=== PATIENT | female | born 1935 | race Caucasian/White ===

== ENCOUNTER → 2016-07-14 | Day surgery (SDC) | payer OTHER, MEDICARE ==
--- NOTE | 2016-07-15 14:07 | PATH ---
Cytology Non-Gynecological Report Patient Name: ALFREDITO KAY [facility]. Rec. #: [id number] /Age/Gender: 1935 (Age: 81) / F Account: [id number] Location: RADIOLOGY ULTRA Taken: 07/14/2016 Received: 07/14/2016 Reported: 07/15/2016 Physicians: Todd Burt M.D. Specimen(s) Received LEFT THYROID FNA Clinical History Left thyroid nodule, 4.75 x 2.81 x 4.23 cm Final Diagnosis THYROID GLAND, LEFT LOBE, US GUIDED FINE NEEDLE ASPIRATION BIOPSY: SATISFACTORY FOR EVALUATION. NO MALIGNANT CELLS IDENTIFIED. CONSISTENT WITH NODULAR GOITER WITH CYSTIC CHANGE (BENIGN FOLLICULAR NODULE, BETHESDA CATEGORY II, BENIGN), SEE COMMENT. Comment: The smears and the cell block show clusters of bland appearing follicular epithelial cells arranged in mixed macro-and microfollicles. Some cells show Hurthle cell (onocytic) change. Macrophages are present indicative of cystic change. Abundant colloid is present. Electronically Signed Gregg Villarreal M.D. Gross Description Received are four air dried smears, four smears in 95% alcohol, and 20 cc of bloody fluid in formalin. Four diff-quik stained slides, four Pap stained slides and one cell block are made.
== END | disposition home or self-care (01) ==
LOC: JRADIR 08:35
PROVIDERS: ATTEND Internal Medicine Endocrinology, Diabetes & Metabolism
PROC: 0G9G3ZX Drainage of Left Thyroid Gland Lobe, Percutaneous Approach, Diagnostic (ICD-10-PCS; principal; 2016-07-14)
PROC: BG44ZZZ Ultrasonography of Thyroid Gland (ICD-10-PCS; 2016-07-14)
DX: E04.1 Nontoxic single thyroid nodule (principal)
CPT/HCPCS: 76942; 88173; 88305-TC

== ENCOUNTER 2017-10-01 21:52 | Inpatient (IN) | payer OTHER, MEDICARE ==
[2017-10-01 22:13] VITALS: BMI 25.0
[2017-10-01] MEDS ORDERED: SODIUM CHLORIDE 0.9% 1000 ML INFUS.BAG IV ONE (23:28)
[2017-10-01] MEDS ORDERED: PANTOPRAZOLE SODIUM 40 MG VIAL IVPUSH ONE (23:28)
--- NOTE | 2017-10-01 23:41 | PDOC ---
Attending Attestation - HPI HPI: 10/01/17 23:47 The patient is a 82 year old female, with a significant past medical history of hypertension, hyperlipidemia, atrial fibrillation (on eliquis), congestive heart failure, COPD, who presents to the emergency department s/p, two syncopal episodes earlier today. The patient states she has been feeling generally unwell for the past couple of days with abdominal cramps and reports when she went into her closet at home earlier today she syncopized and woke up on the floor. The patient denies any preceding chest pain, palpitations, shortness of breath, dizziness, blurred vision or nausea. However, the patient states she has been feeling generally unwell. The patient states her son was able to help her up onto her walker/chair where she syncopized one more time. The patient also states she has been having black tarry stools since Thursday (4 days). She denies recent fevers, chills, headache or dizziness. She denies recent nausea, vomit, or constipation. She denies recent dysuria, frequency, urgency or hematuria. She denies recent chest pain or shortness of breath. Allergies: NKA Surgical History: Bilateral hip replacement, tonsillectomy, hysterectomy PCP: Dr. Geoff Garcia GI: Dr. Castellano Documentation prepared by Isidro Fitch, acting as medical record retrieval specialist for Carolyn Salinas DO. - Physicial Exam PE: 10/01/17 23:49 GENERAL: Awake, alert, and fully oriented, in no acute distress HEAD: No signs of trauma EYES: +Very pale conjunctiva. PERRLA, EOMI. ENT: Auricles normal inspection, hearing grossly normal, nares patent, oropharynx clear without exudates. Moist mucosa NECK: Normal ROM, supple, no lymphadenopathy, JVD, or masses LUNGS: Breath sounds equal, clear to auscultation bilaterally. No wheezes, and no crackles HEART: Regular rate and rhythm, normal S1 and S2, no murmurs, rubs or gallops ABDOMEN: Soft, nontender, normoactive bowel sounds. No guarding, no rebound. No masses RECTAL: +Black stool. No external or internal hemorrhoids. No masses. EXTREMITIES: +Small skin abrasion to the right knee. No active bleeding. Normal range of motion, no edema. No clubbing or cyanosis. No cords, erythema, or tenderness NEUROLOGICAL: Cranial nerves II through XII grossly intact. Normal speech, normal gait SKIN: Warm, Dry, normal turgor, no rashes or lesions noted. <Isidro Fitch - Last Filed: 10/02/17 01:20> - Resident Resident Name: Danis Thompson - ED Attending Attestation I have performed the following: I have examined & evaluated the patient, The case was reviewed & discussed with the resident, I agree w/resident's findings & plan, Exceptions are as noted - Medical Decision Making 10/01/17 23:41 I, Dr. Carolyn Salinas, DO, attest that this document has been prepared under my direction and personally reviewed by me in its entirety. I further attest, that it accurately reflects all work, treatment, procedures and medical decision -making performed by me. 10/01/17 23:42 a/p: 82yo female with black stool since thursday - thought it was from eating [employer] cookie cereal -today had acute abd cramping -had black stool again -vomiting today -syncope x 2 at home - fell once in the closet and then again while sitting in a chair. -will check labs, head ct (fall ) -concern for UGIB -will give protonix -Dr. Castellano is GI -secured entrance monitor -black stool/melena on rectal exam -very pale appearance -suspect UGIB - will need admission 10/02/17 01:34 hgb 9 will need to repeat h/h q 6-8 hrs 10/02/17 01:46 [facility] accepts pt to service <Carolyn Salinas - Last Filed: 10/02/17 01:48> Heart Score/ECG Review - ECG Intrepretation Comment:: 10/02/17 00:58 afib at 70, nl axis, no acute s/tt wave findings <Carolyn Salinas - Last Filed: 10/02/17 01:48>
[2017-10-02] MEDS ORDERED: PANTOPRAZOLE SODIUM 40 MG VIAL ONE ×2 (00:23→09:09)
--- NOTE | 2017-10-02 00:40 | PDOC ---
History of Present Illness - General Chief Complaint: Syncope/Near Syncope Stated Complaint: SYNCOPE/NEAR SYNCOPE Time Seen by Provider: 10/01/17 23:10 History Source: Patient Exam Limitations: No Limitations - History of Present Illness Initial Comments: 10/02/17 00:25 The patient is an 82F with a PMH of a-fib on eliquis, HTN, Hyperlipdemia, ruptured hemorrhagic renal cyst (single kidney), Osteoarthritis, Hyperparathyroidism, Hyperthyroidism who presents to the ER with complaints of dark stool and 2 syncopal episodes. The patient states that she has had 2 days of black, tarry stools. As she was getting ready to go to the hospital and changing in her closet, when she syncopized. Her son had to be called to carry her. After this, she sat down on her walker/chair and then had a blank stare and needed to be aroused by her son. She denies any CP, SOB, fever, chills, numbness, tingling, weakness, and nausea. She does admit to vomiting NBNB. Past History - Past Medical History Allergies/Adverse Reactions: Allergies Allergy/AdvReac Type Severity Reaction Status Date / Time No Known Allergies Allergy Verified 05/05/16 17:26 Home Medications: Ambulatory Orders Cholecalciferol (Vitamin D3) [Vitamin D3 -] 1,000 unit PO Q48H 01/24/15 Fenofibrate,Micronized [Fenofibrate] 134 mg PO DAILY 01/24/15 [place]-3S/Dha/Epa/Fish Oil [Fish Oil Dr 1,000 mg Softgel] 2 each PO BID 01/24/15 Quinapril HCl [Accupril -] 40 mg PO DAILY 01/24/15 Methimazole [Tapazole -] 5 mg PO Q2D@1000 tablet 02/14/15 Vitamin B Complex 1 each PO Q2D 07/27/15 Apixaban [Eliquis -] 5 mg PO BID #60 tablet 08/29/15 Diltiazem Cd [Cardizem Cd -] 120 mg PO DAILY #30 cap.cd.24h 08/29/15 Metoprolol Tartrate [Lopressor -] 50 mg PO TID #90 tablet 08/29/15 Furosemide [Lasix -] 20 mg PO DAILY 05/05/16 Ofloxacin Otic [Floxin Otic -] 10 drop AD DAILY #70 drops 05/05/16 Cardiac Disorders: Yes (ATRIAL FIBRILLATION, CHF) COPD: Yes HTN: Yes Hypercholesterolemia: Yes Thyroid Disease: Yes - Surgical History Appendectomy: Yes Orthopedic Surgery: Yes (JESUS. HIP REPLACEMENT) - Suicide/Smoking/Psychosocial Hx Smoking History: Never smoked Have you smoked in the past 12 months: No Hx Alcohol Use: No Drug/Substance Use Hx: No Substance Use Type: None Hx Substance Use Treatment: No Review of Systems - Review of Systems Able to Perform ROS?: Yes Comments:: 10/02/17 01:06 GENERAL/CONSTITUTIONAL: No fever or chills. No weakness. HEAD, EYES, EARS, NOSE AND THROAT: No change in vision. No ear pain or discharge. No sore throat. CARDIOVASCULAR: No chest pain, palpitations, or lightheadedness. RESPIRATORY: No cough, wheezing, shortness of breath, or hemoptysis. GASTROINTESTINAL: Positive for vomiting and tarry black stools. No nausea, diarrhea, constipation, or abdominal pain. GENITOURINARY: No dysuria, frequency, hematuria, or change in urination. MUSCULOSKELETAL: No joint or muscle swelling or pain. No neck or back pain. SKIN: No rash or lesions. NEUROLOGIC: Positive for syncope. No headache, numbness, tingling, weakness, or change in strength/sensation. ENDOCRINE: No increased thirst. No abnormal weight change. HEMATOLOGIC/LYMPHATIC: No anemia, easy bleeding, or history of blood clots. ALLERGIC/IMMUNOLOGIC: No hives or skin allergy. Is the patient limited [place] proficient: No *Physical Exam - Vital Signs Last Vital Signs Temp Pulse Resp BP Pulse Ox 97.5 F L 73 20 109/54 100 10/01/17 22:08 10/01/17 22:08 10/01/17 22:08 10/01/17 22:08 10/01/17 22:08 - Physical Exam Comments: 10/02/17 01:07 GENERAL: Well developed, well nourished. Awake and alert. No acute distress. HEENT: Normocephalic, atraumatic. Hearing grossly normal. Moist mucous membranes. PERRLA, EOMI. No conjunctival pallor. Sclera are non-icteric. NECK: Supple. Full ROM. No JVD. CARDIOVASCULAR: Regular rate and rhythm. No murmurs, rubs, or gallops. PULMONARY: No evidence of respiratory distress. Lungs clear to auscultation bilaterally. No wheezing, rales or rhonchi. ABDOMINAL: Soft. Non-tender. Non-distended. No rebound or guarding. RECTAL: Normal rectal tone. Grossly black stool noted. GENITOURINARY: No CVA tenderness bilaterally. MUSCULOSKELETAL: Normal range of motion at all joints. No bony deformities or tenderness. EXTREMITIES: No cyanosis. No clubbing. No edema. No calf tenderness. SKIN: Warm and dry. Normal capillary refill. No rashes. No jaundice. NEUROLOGICAL: Alert, awake, appropriate. Cranial nerves 2-12 intact. No deficits to light touch and temperature in face, upper extremities and lower extremities. No motor deficits in the in face, upper extremities and lower extremities. Finger to nose normal bilaterally. Normal speech. Gait is normal without ataxia. PSYCHIATRIC: Cooperative. Good eye contact. Appropriate mood and affect. ED Treatment Course - LABORATORY CBC & Chemistry Diagram: 10/02/17 00:50 10/02/17 00:50 - ADDITIONAL ORDERS Additional order review: Laboratory Results 10/01/17 23:54 Stool Occult Blood Positive Medical Decision Making - Medical Decision Making 10/02/17 01:09 The patient is an 82F with an extensive medical history, on eliquis, who presents with black, tarry stools and 2 syncopal episodes. Will check labs and imaging of the pt's head. Pending labs and imaging. Likely disposition is admission. 10/02/17 01:13 Labs significant for Hb of 9.0, down from 11.5. UA indicative of UTI, will tx with rocephin. Stool occult positive. Hospitalist microblogged for admission to [facility] bed. 10/02/17 01:39 Pt endorsed to [facility] for admission. *DC/Admit/Observation/Transfer Diagnosis at time of Disposition: Syncope Qualifiers: Syncope type: unspecified Qualified Code(s): R55 - Syncope and collapse - Discharge Dispostion Condition at time of disposition: Guarded Admit: Yes - Referrals Referrals: Gerry Garcia MD [Primary Care Provider] - - Patient Instructions - Post Discharge Activity
[2017-10-02 00:59] LABS: BASO % 0.3 % (0-2.0); HEMATOCRIT 27.9 % (32.4-45.2); LYMPH % 9.4 % (8-40); MCHC 32.2 g/dl (32.0-36.0); MEAN CELL VOLUME 90.1 fl (80-96); MEAN PLT VOLUME 10.3 fl (7.5-11.1); MONO % 5.5 % (3.8-10.2); NEUT % 84.8 % (42.8-82.8); PLATELET COUNT 218 K/MM3 (134-434); RBC 3.09 M/mm3 (3.60-5.2); RDW 15.2 % (11.6-15.6); WHITE BLOOD COUNT 12.5 K/mm3 (4.0-10.0)
[2017-10-02 01:01] LABS: URINE APPEARANCE CLEAR; URINE BILIRUBIN NEGATIVE (<2.0 mg/dL); URINE BLOOD 3+ (NEGATIVE); URINE COLOR LTYELLOW; URINE GLUCOSE (UA) NEGATIVE (NEGATIVE); URINE KETONE NEGATIVE (NEGATIVE); URINE LEUK ESTERASE 1+ (NEGATIVE); URINE NITRITE NEGATIVE (NEGATIVE); URINE PROTEIN NEGATIVE (NEGATIVE); URINE UROBILINOGEN NEGATIVE mg/dL (0.2-1.0)
[2017-10-02 01:05] LABS: EPI CELLS RARE /HPF (FEW); URINE BACTERIA RARE /hpf (NONE SEEN); URINE MUCUS RARE
[2017-10-02 01:15] LABS: INR 1.38 (0.82-1.09); PROTHROMBIN TIME (PATIENT) 15.6 SEC (9.98-11.88)
[2017-10-02 01:17] LABS: ACTIVATED PTT 25.8 SECONDS (26.9-34.4)
[2017-10-02] MEDS ORDERED: CEFTRIAXONE 1 GM in DEXTROSE 5%-WATER - 50 ML IVPB ONE (01:21)
[2017-10-02 01:34] LABS: ALBUMIN 2.6 g/dl (3.4-5.0); ANION GAP 11 (8-16); BILIRUBIN,TOTAL 0.4 mg/dL (0.2-1.0); BLOOD UREA NITROGEN 81 mg/dL (7-18); CALCIUM 9.8 mg/dL (8.5-10.1); CHLORIDE 109 mmol/L (98-107); CO2 23 mmol/L (21-32); CREATININE 1.9 mg/dL (0.55-1.02); GLUCOSE,RANDOM 148 mg/dL (74-106); MAGNESIUM 2.6 mg/dL (1.8-2.4); POTASSIUM 5.6 mmol/L (3.5-5.1); SGOT/AST 21 U/L (15-37); SGPT/ALT 19 U/L (12-78); SODIUM 143 mmol/L (136-145)
[2017-10-02 01:37] LABS: ALK PHOS 34 U/L (45-117)
--- NOTE | 2017-10-02 01:48 | HP ---
CHIEF COMPLAINT: syncope PCP: Jose HISTORY OF PRESENT ILLNESS: This is an 82 year old female with a past medical history significant for Afib on eliquis, HTN, CHF who presented to the ED after syncope x2. The patient reports not feeling well this afternoon with abdominal cramping and while she was getting ready to come to the ED for the abdominal discomfort she had 2 syncopal episodes. No injury during either. Second episode was witnessed by son and and pt was lowered into chair. First episode happened while she was getting dressed in the closet so she stayed sitting on the floor until her son arrived. She also reports black tarry stools x 2 days. ER course was notable for: (1) Hgb 9.0, + stool guaiac (2) Potassium 5.6, BUN 81, Cr 1.9 (3) Head CT no acute findings Recent Travel: pt denies PAST MEDICAL HISTORY: HTN, HLD, afib on Eliquis, CHF, COPD, ruptured hemorrhagic renal cyst 2014, pancreatitis 2015, congenital solitary kidney, hyperthyroidism, hyperparathyroidism, OA PAST SURGICAL HISTORY: appendectomy hysterectomy B/L THR L breast lumpectomy/partial mastectomy Social History: Smoking: pt denies Alcohol: pt denies Drugs: pt denies Family History: mother in her 40s, TB father in his 60s, comps EtOH 2 sisters both s/p BrCA niece s/p bone CA nephew s/p esophageal CA Allergies No Known Allergies Allergy (Verified 05/05/16 17:26) HOME MEDICATIONS: 3 Medication Instructions Recorded Cholecalciferol (Vitamin D3) 1,000 unit PO Q48H 01/24/15 [Vitamin D3 -] Fenofibrate,Micronized 134 mg PO DAILY 01/24/15 [Fenofibrate] [place]-3S/Dha/Epa/Fish Oil [Fish 2 each PO BID 01/24/[address] 1,000 mg Softgel] Quinapril HCl [Accupril -] 40 mg PO DAILY 01/24/15 Methimazole [Tapazole -] 5 mg PO Q2D@1000 tablet 02/14/15 Vitamin B Complex 1 each PO Q2D 07/27/15 Apixaban [Eliquis -] 5 mg PO BID #60 tablet 08/29/15 Diltiazem Cd [Cardizem Cd -] 120 mg PO DAILY #30 cap.cd.24h 08/29/15 Metoprolol Tartrate [Lopressor -] 50 mg PO TID #90 tablet 08/29/15 Furosemide [Lasix -] 20 mg PO DAILY 05/05/16 Ofloxacin Otic [Floxin Otic -] 10 drop AD DAILY #70 drops 05/05/16 REVIEW OF SYSTEMS CONSTITUTIONAL: Absent: fever, chills, diaphoresis, generalized weakness, malaise, loss of appetite, weight change HEENT: Absent: rhinorrhea, nasal congestion, throat pain, throat swelling, difficulty swallowing, mouth swelling, ear pain, eye pain, visual changes CARDIOVASCULAR: Present: syncope Absent: chest pain, palpitations, irregular heart rate, lightheadedness, peripheral edema RESPIRATORY: Absent: cough, shortness of breath, dyspnea with exertion, orthopnea, wheezing, stridor, hemoptysis GASTROINTESTINAL: Present: abdominal pain, melena Absent: abdominal distension, nausea, vomiting, diarrhea, constipation, hematochezia GENITOURINARY: Absent: dysuria, frequency, urgency, hesitancy, hematuria, flank pain, genital pain MUSCULOSKELETAL: Absent: myalgia, arthralgia, joint swelling, back pain, neck pain SKIN: Absent: rash, itching, pallor HEMATOLOGIC/IMMUNOLOGIC: Absent: easy bleeding, easy bruising, lymphadenopathy, frequent infections ENDOCRINE: Absent: unexplained weight gain, unexplained weight loss, heat intolerance, cold intolerance NEUROLOGIC: Absent: headache, focal weakness or paresthesias, dizziness, unsteady gait, seizure, mental status changes, bladder or bowel incontinence PSYCHIATRIC: Absent: anxiety, depression, suicidal or homicidal ideation, hallucinations. PHYSICAL EXAMINATION Vital Signs - 24 hr 3 10/01/17 22:08 Temperature 97.5 F L Pulse Rate 73 Respiratory 20 Rate Blood Pressure 109/54 O2 Sat by Pulse 100 Oximetry (%) GENERAL: Awake, alert, and fully oriented, in no acute distress. HEAD: Normal with no signs of trauma. EYES: Pupils equal, round and reactive to light, extraocular movements intact, sclera anicteric, conjunctiva pale. No lid lag. EARS, NOSE, THROAT: Ears normal, nares patent, oropharynx clear without exudates. Moist mucous membranes. NECK: Normal range of motion, supple without lymphadenopathy, JVD, or masses. LUNGS: Breath sounds equal, clear to auscultation bilaterally. No wheezes, and no crackles. No accessory muscle use. HEART: Regular rate and rhythm, normal S1 and S2 without murmur, rub or gallop. ABDOMEN: Soft, nontender, not distended, normoactive bowel sounds, no guarding, no rebound, no masses. No hepatomegaly or splenomegaly. MUSCULOSKELETAL: Normal range of motion at all joints. No bony deformities or tenderness. No CVA tenderness. UPPER EXTREMITIES: 2+ pulses, warm, well-perfused. No cyanosis. No clubbing. No peripheral edema. LOWER EXTREMITIES: 2+ pulses, warm, well-perfused. No calf tenderness. No peripheral edema. NEUROLOGICAL: Cranial nerves II-XII intact. Normal speech. Normal gait. PSYCHIATRIC: Cooperative. Good eye contact. Appropriate mood and affect. SKIN: Pale, Warm, dry, normal turgor, no rashes or lesions noted, normal capillary refill. Laboratory Results - last 24 hr 3 Urine Color Ltyellow 10/02/17 00:50 Urine Appearance Clear 10/02/17 00:50 Urine pH 5.0 (5.0-8.0) 10/02/17 00:50 Ur Specific [employer] 1.012 (1.001-1.035) 10/02/17 00:50 Urine Protein Negative (NEGATIVE) 10/02/17 00:50 Urine Glucose (UA) Negative (NEGATIVE) 10/02/17 00:50 Urine Ketones Negative (NEGATIVE) 10/02/17 00:50 Urine Blood 3+ (NEGATIVE) H 10/02/17 00:50 Urine Nitrite Negative (NEGATIVE) 10/02/17 00:50 Urine Bilirubin Negative (<2.0 mg/dL) 10/02/17 00:50 Ur Leukocyte Esterase 1+ (NEGATIVE) H 10/02/17 00:50 Urine WBC (Auto) 7 10/02/17 00:50 Urine RBC (Auto) 12 10/02/17 00:50 Ur Epithelial Cells Rare /HPF (FEW) 10/02/17 00:50 Urine Bacteria Rare /hpf (NONE SEEN) 10/02/17 00:50 Urine Mucus Rare 10/02/17 00:50 3 10/01/17 10/02/17 10/02/17 10/02/17 23:54 00:50 00:50 00:50 WBC RBC Hgb Hct MCV MCH MCHC RDW Plt Count MPV Neutrophils % Lymphocytes % Monocytes % Eosinophils % Basophils % PT with INR 15.60 H INR 1.38 H PTT (Actin FS) 25.8 L Sodium 143 Potassium 5.6 H Chloride 109 H Carbon Dioxide 23 Anion Gap 11 BUN 81 H Creatinine 1.9 H Creat Clearance w eGFR 25.18 Random Glucose 148 H Lactic Acid 1.5 Calcium 9.8 Magnesium 2.6 H Total Bilirubin 0.4 AST 21 ALT 19 Alkaline Phosphatase 34 L Creatine Kinase 41 Troponin I < 0.02 B-Natriuretic Peptide Total Protein 6.0 L Albumin 2.6 L Lipase 258 Urine Color Urine Appearance Urine pH Ur Specific [employer] Urine Protein Urine Glucose (UA) Urine Ketones Urine Blood Urine Nitrite Urine Bilirubin Urine Urobilinogen Ur Leukocyte Esterase Urine WBC (Auto) Urine RBC (Auto) Ur Epithelial Cells Urine Bacteria Urine Mucus Stool Occult Blood Positive Blood Type Antibody Screen 3 10/02/17 10/02/17 10/02/17 00:50 00:50 00:50 WBC 12.5 H D RBC 3.09 L D Hgb 9.0 L D Hct 27.9 L D MCV 90.1 MCH 29.0 D MCHC 32.2 RDW 15.2 Plt Count 218 D MPV 10.3 D Neutrophils % 84.8 H D Lymphocytes % 9.4 D Monocytes % 5.5 Eosinophils % 0.0 D Basophils % 0.3 PT with INR INR PTT (Actin FS) Sodium Potassium Chloride Carbon Dioxide Anion Gap BUN Creatinine Creat Clearance w eGFR Random Glucose Lactic Acid Calcium Magnesium Total Bilirubin AST ALT Alkaline Phosphatase Creatine Kinase Troponin I B-Natriuretic Peptide 2331.98 H Total Protein Albumin Lipase Urine Color Urine Appearance Urine pH Ur Specific [employer] Urine Protein Urine Glucose (UA) Urine Ketones Urine Blood Urine Nitrite Urine Bilirubin Urine Urobilinogen Ur Leukocyte Esterase Urine WBC (Auto) Urine RBC (Auto) Ur Epithelial Cells Urine Bacteria Urine Mucus Stool Occult Blood Blood Type O POSITIVE Antibody Screen Negative ECG atrial fibrillation vent rate 72, QTC [address]/T wave changes Radiology Reports CT head THIS IS A PRELIMINARY REPORT FROM [facility] IMPRESSION: Normal head THIS DOCUMENT HAS BEEN ELECTRONICALLY SIGNED Chucho Morales MD 10/02/2017 01:12 EST ASSESSMENT/PLAN: 82yF with PMH HTN, HLD, afib on Eliquis, CHF, COPD, ruptured hemorrhagic renal cyst 2014, pancreatitis 2015, congenital solitary kidney, hyperthyroidism, hyperparathyroidism, OA presented to the ED s/p syncope after a 2 day h/o black tarry stools and one day of abdominal cramping. GI bleed - NPO for now - GI consult - Trend H/H - hold eliquis - pantoprazole IVP given in ED, cont same. Hyperkalemia - no peaked Ts on ECG - will not correct; if bleeding continues, K likely will drop - repeat BMP in 6h HTN/HLD/CHF - cont home metoprolol, cardizem with hold parameters - hold quinapril unless hypertensive - hold lasix, pt appears hypovolemic - hold fenofibrate, omega 3 while NPO Afib - cont rate controlling meds but hold eliquis hyperthyroid - cont tapazol DVT PPX - heparin contraindicated due to bleeding, restart eliquis when cleared by GI FEN - NS @ 75cc/hr - BMP in am - NPO for now Dispo: Pt currently requires further observation for management of her emergent condition. Visit type - Emergency Visit Emergency Visit: Yes ED Registration Date: 10/01/17 Care time: The patient presented to the Emergency Department on the above date and was hospitalized for further evaluation of their emergent condition. - New Patient This patient is new to me today: Yes Date on this admission: 10/02/17 - Critical Care Critical Care patient: No Hospitalist Screening - Colonoscopy Questionnaire Colonoscopy Questionnaire: Colonoscopy Questionnaire - Patient: 50 - 75 years old and never had a screening colonoscopy: No History of colon or rectal polyps, or CA: No History of IBD, Crohn's disease or UC: No History of abdominal radiation therapy as a child: No - Relative: 1 with colon or rectal CA, or polyps at age 60 or younger: No Colon or rectal CA diagnosed at age 45 or younger: No Multiple relatives with colon or rectal CA: No - Outcome: Screening Result: Negative Screen
[2017-10-02] MEDS ORDERED: SODIUM CHLORIDE 1,000 ML IV SCH ×2 (02:00→16:30)
[2017-10-02] MEDS ORDERED: CEFTRIAXONE 1 GM/50 ML BAG ONE (03:15)
[2017-10-02] MEDS ORDERED: METOPROLOL TARTRATE 50 MG TABLET (FP) ONE (06:20)
[2017-10-02] MEDS: METOPROLOL TARTRATE 50 MG TABLET (FP) PO SCH ×3 (06:26→21:25)
[2017-10-02 06:31] LABS: BASO % 0.3 % (0-2.0); HEMATOCRIT 23.4 % (32.4-45.2); HEMOGLOBIN 7.5 GM/dL (10.7-15.3); LYMPH % 14.2 % (8-40); MCH 28.6 pg (25.7-33.7); MCHC 31.9 g/dl (32.0-36.0); MEAN CELL VOLUME 89.8 fl (80-96); MEAN PLT VOLUME 10.1 fl (7.5-11.1); NEUT % 79.5 % (42.8-82.8); PLATELET COUNT 206 K/MM3 (134-434); RDW 15.3 % (11.6-15.6); WHITE BLOOD COUNT 11.7 K/mm3 (4.0-10.0)
[2017-10-02] MEDS ORDERED: PANTOPRAZOLE SODIUM 80 MG in SODIUM CHLORIDE 100 ML IVPB SCH (09:00)
--- NOTE | 2017-10-02 09:40 | PN ---
Progress Note, Physician Chief Complaint: Pt lying in stretcher in no acute distress. Currently receiving prbcs. Reports she is feeling okay. Denies any sob,weakness, chest pain, n/v. Pt reports she's had 2 loose black tarry stools since being here. awaiting endoscopy later today - Current Medication List Current Medications: Active Medications Diltiazem HCl (Cardizem Cd -) 120 mg PO DAILY [facility] Sodium Chloride (Normal Saline -) 1,000 mls @ 75 mls/hr IV ASDIR [facility] Last Admin: 10/02/17 02:38 Dose: 75 mls/hr Pantoprazole Sodium 160 mg/ (Dextrose) 290 mls @ 14.5 mls/hr IVPB Q20H JORGE Methimazole (Tapazole -) 5 mg PO Q2D@1000 JORGE Metoprolol Tartrate (Lopressor -) 50 mg PO TID [facility] Last Admin: 10/02/17 06:26 Dose: 50 mg - Objective Vital Signs: Vital Signs Temperature 98.5 F 10/02/17 06:33 Pulse Rate 88 10/02/17 06:33 Respiratory Rate 17 10/02/17 06:33 Blood Pressure 145/64 10/02/17 06:33 O2 Sat by Pulse Oximetry (%) 96 10/02/17 06:33 Constitutional: Yes: Well Nourished, No Distress Cardiovascular: Yes: WNL, Pulse Irregular. No: Bruit, Gallop, Murmur, Rub Respiratory: Yes: WNL, Regular, CTA Bilaterally. No: Rhonchi, SOB, Tachypnea, Wheezes Gastrointestinal: Yes: Normal Bowel Sounds, Soft, Melena. No: Distention, Tenderness Genitourinary: Yes: WNL Extremities: Yes: WNL Edema: No Neurological: Yes: WNL, Alert, Oriented Psychiatric: Yes: WNL, Alert, Oriented Labs: CBC, BMP 10/02/17 00:50 INR, PTT INR 1.38 (0.82-1.09) H 10/02/17 00:50 Problem List - Problems (1) Anemia Assessment/Plan: secondary to GIB, asymptomatic, hemodynamically stable melenax2 days h/h trending down prbcs ordered protonix drip GI consult appreciated npo, hold AC plan for egd today monitor cbc Code(s): D64.9 - ANEMIA, UNSPECIFIED (2) GIB (gastrointestinal bleeding) Assessment/Plan: as above Code(s): K92.2 - GASTROINTESTINAL HEMORRHAGE, UNSPECIFIED Qualifiers: GI bleed type/associated pathology: melena Qualified Code(s): K92.1 - Melena (3) Syncope Assessment/Plan: w/out head trauma secondary to acute anemia/dehydration head ct neg xray neg PT eval ordered Code(s): R55 - SYNCOPE AND COLLAPSE Qualifiers: Syncope type: unspecified Qualified Code(s): R55 - Syncope and collapse (4) ESSENCE (acute kidney injury) Assessment/Plan: secondary to dehydration IVF will monitor Code(s): N17.9 - ACUTE KIDNEY FAILURE, UNSPECIFIED (5) Leukocytosis Assessment/Plan: afebrile, chest xray neg possibly falsely elevated in the setting of dehydration IVF monitor vitals Code(s): D72.829 - ELEVATED WHITE BLOOD CELL COUNT, UNSPECIFIED (6) Hyperkalemia Assessment/Plan: mildly elevated secondary to dehydration/ckd will monitor for now Code(s): E87.5 - HYPERKALEMIA (7) Atrial fibrillation Assessment/Plan: rate controlled continue metoprolol and cardizem hold eliquis in the setting of GIB Code(s): I48.91 - UNSPECIFIED ATRIAL FIBRILLATION Qualifiers: Atrial fibrillation type: chronic Qualified Code(s): I48.2 - Chronic atrial fibrillation (8) HLD (hyperlipidemia) Assessment/Plan: stable hold fibrate/fishoil in the setting of ESSENCE Code(s): E78.5 - HYPERLIPIDEMIA, UNSPECIFIED Qualifiers: Hyperlipidemia type: Pure hypercholesterolemia (9) HTN (hypertension) Assessment/Plan: controlled hold acei in the setting of essence Code(s): I10 - ESSENTIAL (PRIMARY) HYPERTENSION Qualifiers: Hypertension type: essential hypertension Qualified Code(s): I10 - Essential (primary) hypertension (10) Hyperparathyroidism Assessment/Plan: stable, Ca wnl Code(s): E21.3 - HYPERPARATHYROIDISM, UNSPECIFIED (11) CKD (chronic kidney disease) Assessment/Plan: acute on chronic, pt with unilateral kidney baseline cr 1.4-1.5 ivf will monitor Code(s): N18.9 - CHRONIC KIDNEY DISEASE, UNSPECIFIED Qualifiers: Chronic kidney disease stage: stage 3 (moderate) Qualified Code(s): N18.3 - Chronic kidney disease, stage 3 (moderate) (12) Hyperthyroidism Assessment/Plan: stable continue tapazole Code(s): E05.90 - THYROTOXICOSIS, UNSP WITHOUT THYROTOXIC CRISIS OR STORM
[2017-10-02 09:45] LABS: BASO % 0.9 % (0-2.0); HEMATOCRIT 23.5 % (32.4-45.2); HEMOGLOBIN 7.4 GM/dL (10.7-15.3); MCHC 31.6 g/dl (32.0-36.0); MEAN CELL VOLUME 91.6 fl (80-96); MEAN PLT VOLUME 10.7 fl (7.5-11.1); MONO % 6.8 % (3.8-10.2); NEUT % 78.3 % (42.8-82.8); PLATELET COUNT 199 K/MM3 (134-434); RBC 2.56 M/mm3 (3.60-5.2); RDW 15.3 % (11.6-15.6); WHITE BLOOD COUNT 13.1 K/mm3 (4.0-10.0)
--- NOTE | 2017-10-02 09:54 | EKG ---
Test Reason : Blood Pressure : / mmHG Vent. Rate : 072 BPM Atrial Rate : 054 BPM P-R Int : 000 ms QRS Dur : 084 ms QT Int : 360 ms P-R-T Axes : 000 048 051 degrees QTc Int : 394 ms ATRIAL FIBRILLATION ABNORMAL ECG WHEN COMPARED WITH ECG OF 23-AUG-2015 02:08, NO SIGNIFICANT CHANGE WAS FOUND Confirmed by DONNA HURD MD ([id number]) on 10/02/2017 9:54:01 AM Referred By: Confirmed By:DONNA HURD MD
[2017-10-02] MEDS ORDERED: PANTOPRAZOLE SODIUM 40 MG VIAL IVPUSH SCH (10:00)
[2017-10-02] MEDS: METHIMAZOLE 5 MG TABLET (FP) PO SCH (11:25)
[2017-10-02] MEDS: PANTOPRAZOLE SODIUM 160 MG in DEXTROSE 5%-WATER - 290 ML IVPB SCH ×2 (13:36→21:25)
[2017-10-02] MEDS ORDERED: EPINEPHrine 1:10,000 (P-F SYR) 1 MG/10 ML DISP.SYRIN SQ ONE (16:00)
[2017-10-02] MEDS ORDERED: EPINEPHrine 1:10,000 (P-F SYR) 1 MG/10 ML DISP.SYRIN ONE (16:09)
--- NOTE | 2017-10-02 16:19 | PN ---
Progress Note (short form) - Note Progress Note: GI ProcedureNOte: Please see scanned EGD report. Active bleeding was found just distal to the duodenal bulb where the ulcer could not be seen or treated en face. I instead injection from it's posterior aspect with epinephrine and the bleeding stopped. There was a large duodenal diverticulum in the 2nd portion of the duodenum. I cannot exclude bleeding form the is portion but given that the bleeding stopped after my injection I believe this reflects a postbulbar ulcer. I discussed the case with Yareli Harris. [employer] and advised a surgical consultation. If bleeding recurs she will need a CTA and perhaps IR intervention as this ulcer cannot be accessed for cautery. Dr Evangelista will be covering this weekend
[2017-10-02] MEDS ORDERED: PHYTONADIONE 10 MG/1 ML AMP IVPB ONE (16:22)
--- NOTE | 2017-10-02 16:38 | CONSULT ---
Consult Consult Specialty:: general surgery Referred by:: Steven Downs Reason for Consultation:: UGIB - History of Present Illness Chief Complaint: UGIB and syncope History of Present Illness: 82 yo female PMH HTN, Afib on eloquis, CHF, HLD, hyperparathyroid, hyperthyroidism presents with abdominal cramping and while she was getting ready to come to the ED for the abdominal discomfort she had 2 syncopal episodes. No injury during either. Second episode was witnessed by son and and patient was lowered into chair. First episode happened while she was getting dressed in the closet so she stayed sitting on the floor until her son arrived. She also reports black tarry stools x 2 days. EDG revealed a proximal bleeding duodenal ulcer, which was injected with epinephrine and stopped bleeding. We were asked to assess - History Source History Provided By: Patient, Medical Record Limitations to Obtaining History: No Limitations - Past Medical History Cardio/Vascular: Yes: AFIB, HTN, Hyperlipdemia Renal/: Yes: Other (ruptured hemorrhagic renal cyst, single kidney) Musculoskeletal: Yes: Osteoarthritis Endocrine: Yes: Hyperparathyroidism, Hyperthyroidism - Past Surgical History Past Surgical History: Yes: Appendectomy, Hysterectomy, Joint Replacement, Mastectomy - Alcohol/Substance Use Hx Alcohol Use: No History of Substance Use: reports: None - Smoking History Smoking history: Never smoked Have you smoked in the past 12 months: No - Social History ADL: Independent Place of : [facility] History of Recent Travel: No Home Medications - Allergies Allergies/Adverse Reactions: Allergies Allergy/AdvReac Type Severity Reaction Status Date / Time No Known Allergies Allergy Verified 10/02/17 04:32 - Home Medications Home Medications: Ambulatory Orders Cholecalciferol (Vitamin D3) [Vitamin D3 -] 1,000 unit PO Q48H 01/24/15 Fenofibrate,Micronized [Fenofibrate] 134 mg PO DAILY 01/24/15 [place]-3S/Dha/Epa/Fish Oil [Fish Oil Dr 1,000 mg Softgel] 2 each PO BID 01/24/15 Quinapril HCl [Accupril -] 40 mg PO DAILY 01/24/15 Methimazole [Tapazole -] 5 mg PO Q2D@1000 tablet 02/14/15 Vitamin B Complex 1 each PO Q2D 07/27/15 Apixaban [Eliquis -] 5 mg PO BID #60 tablet 08/29/15 Diltiazem Cd [Cardizem Cd -] 120 mg PO DAILY #30 cap.cd.24h 08/29/15 Metoprolol Tartrate [Lopressor -] 50 mg PO TID #90 tablet 08/29/15 Furosemide [Lasix -] 20 mg PO DAILY 05/05/16 Ofloxacin Otic [Floxin Otic -] 10 drop AD DAILY #70 drops 05/05/16 Family Disease History - Family Disease History Family Disease History: CA: Sister Review of Systems - Review of Systems Constitutional: denies: Chills, Fever Eyes: denies: Blind Spots, Blurred Vision HENT: denies: Difficult Swallowing, Throat Pain Neck: denies: Decreased ROM, Pain on Movement Cardiovascular: denies: Chest Pain, Palpitations Respiratory: denies: Cough, SOB Gastrointestinal: reports: Melena. denies: Abdominal Pain, Constipation, Diarrhea Genitourinary: denies: Discharge, Dysuria Breasts: reports: No Symptoms Reported. denies: Pain Musculoskeletal: denies: Muscle Pain, Muscle Weakness Integumentary: denies: Lesions, Rash Neurological: denies: Change in LOC, Seizure, Syncope Endocrine: denies: Unexplained Weight Gain, Unexplained Weight Loss Hematology/Lymphatic: denies: Easily Bruised, Excessive Bleeding Psychiatric: denies: Anxiety, Depression Physical Exam Vital Signs: Vital Signs Temperature 98.9 F 10/02/17 15:48 Pulse Rate 84 10/02/17 16:18 Respiratory Rate 22 10/02/17 16:18 Blood Pressure 131/67 10/02/17 16:18 O2 Sat by Pulse Oximetry (%) 100 10/02/17 16:18 Vital Signs Period Temp Pulse Resp BP Sys/Reynoso Pulse Ox Last 24 Hr 97.5 F-98.9 F 70-89 15-23 105-145/50-68 96-100 Constitutional: Yes: Well Nourished, No Distress, Calm Eyes: Yes: Conjunctiva Clear, EOM Intact HENT: Yes: Atraumatic, Normocephalic Neck: Yes: Supple, Trachea Midline Cardiovascular: Yes: Pulse Irregular, S1, S2 Respiratory: Yes: Regular, CTA Bilaterally Gastrointestinal: Yes: Normal Bowel Sounds, Soft. No: Ascites, Distention, Tenderness, Tenderness, Epigastrium, Tenderness, Rebound ...Rectal Exam: Yes: Sphincter Tone Normal. No: Mass Renal/: No: CVA Tenderness - Left, CVA Tenderness - Right Musculoskeletal: No: Muscle Pain, Muscle Weakness Extremities: No: Cool, Cyanosis Edema: No Peripheral Pulses WNL: Yes Integumentary: No: Jaundice, Rash Neurological: Yes: Alert, Oriented Psychiatric: Yes: Alert, Oriented Labs: CBC, BMP 10/02/17 09:30 10/02/17 00:50 Imaging - Results Chest X-ray: Report Reviewed (right tracheal deviation), Image Reviewed EKG: Report Reviewed (A fib), Image Reviewed Problem List - Problems (1) Duodenal ulcer Assessment/Plan: 82 yo female MMP on Eloqis presented with a Bleeding doudenal ulcer causing syncopal episodes s/p EGD epineprine injection Monitored setting IVF hydration clear liquids PPI If there is re-bleeding, recall GI Dr. Evangelista to make him aware If bleeding is substantial AND Patient remains hemodynamically stable: contact Interventional Radiologist for vicerral angiography and embolization/ OR Transfer for this service Patient becomes hemodynamically unstable: Call Dr. Carney for Expl Lap, duodenotomy and oversewing Will follow for serial exams Thank you for the opportunity to participate in the care of this patient. Code(s): K26.9 - DUODENAL ULCER, UNSP ACUTE OR CHRONIC, W/O HEMOR OR PERF (2) GIB (gastrointestinal bleeding) Code(s): K92.2 - GASTROINTESTINAL HEMORRHAGE, UNSPECIFIED Qualifiers: GI bleed type/associated pathology: melena Qualified Code(s): K92.1 - Melena (3) CKD (chronic kidney disease) Code(s): N18.9 - CHRONIC KIDNEY DISEASE, UNSPECIFIED Qualifiers: Chronic kidney disease stage: stage 3 (moderate) Qualified Code(s): N18.3 - Chronic kidney disease, stage 3 (moderate) (4) Hyperthyroidism Code(s): E05.90 - THYROTOXICOSIS, UNSP WITHOUT THYROTOXIC CRISIS OR STORM (5) Syncope Code(s): R55 - SYNCOPE AND COLLAPSE Qualifiers: Syncope type: unspecified Qualified Code(s): R55 - Syncope and collapse (6) Atrial fibrillation Code(s): I48.91 - UNSPECIFIED ATRIAL FIBRILLATION Qualifiers: Atrial fibrillation type: chronic Qualified Code(s): I48.2 - Chronic atrial fibrillation (7) HLD (hyperlipidemia) Code(s): E78.5 - HYPERLIPIDEMIA, UNSPECIFIED Qualifiers: Hyperlipidemia type: Pure hypercholesterolemia (8) HTN (hypertension) Code(s): I10 - ESSENTIAL (PRIMARY) HYPERTENSION Qualifiers: Hypertension type: essential hypertension Qualified Code(s): I10 - Essential (primary) hypertension
--- NOTE | 2017-10-02 16:45 | CON.GI ---
Consult Consult Specialty:: Gastroenterology Referred by:: Dr Garcia Reason for Consultation:: Melena - History of Present Illness Chief Complaint: Black stools for 3 days. History of Present Illness: 82F BIBA after suffering two near syncopal spells in the setting of black stools for 3 days. She denies hematemesis or pain. She take Eliquis for afib. Her last EGD on 12/27/07 revealed a Schatzki ring which was dilated and GERD above a hiatal hernia. Colonoscopy on 09/10/07 revealed moderate universal diverticulosis. She has a main pancreatic duct IPMN and has opted against having a repeat EUS. - History Source History Provided By: Patient Limitations to Obtaining History: No Limitations - Past Medical History DISTRIBUTION TECH: Yes: Parkinson's Cardio/Vascular: Yes: AFIB, CHF, HTN, Hyperlipdemia Pulmonary: Yes: Bronchitis (chronic) Gastrointestinal: Yes: Diverticulosis, GERD, Hiatal Hernia, Other (Main pancreatic duct IPMN) Renal/: Yes: Other (ruptured hemorrhagic renal cyst, single kidney) Musculoskeletal: Yes: Osteoarthritis Endocrine: Yes: Hyperparathyroidism, Hyperthyroidism, Osteopenia - Past Surgical History Past Surgical History: Yes: Appendectomy, Cataract Removal (bilateral), Colonoscopy, Hysterectomy (TAHBSO for fibroids), Joint Replacement (bilateral THRs), Mastectomy, Tonsillectomy, Upper Endoscopy Additional Surgical History: Left breast lumpectomy for benign mass - Alcohol/Substance Use Hx Alcohol Use: No History of Substance Use: reports: None - Smoking History Smoking history: Never smoked Have you smoked in the past 12 months: No - Social History ADL: Independent History of Recent Travel: No Home Medications - Allergies Allergies/Adverse Reactions: Allergies Allergy/AdvReac Type Severity Reaction Status Date / Time No Known Allergies Allergy Verified 10/02/17 04:32 - Home Medications Home Medications: Ambulatory Orders Cholecalciferol (Vitamin D3) [Vitamin D3 -] 1,000 unit PO Q48H 01/24/15 Fenofibrate,Micronized [Fenofibrate] 134 mg PO DAILY 01/24/15 [place]-3S/Dha/Epa/Fish Oil [Fish Oil Dr 1,000 mg Softgel] 2 each PO BID 01/24/15 Quinapril HCl [Accupril -] 40 mg PO DAILY 01/24/15 Methimazole [Tapazole -] 5 mg PO Q2D@1000 tablet 02/14/15 Vitamin B Complex 1 each PO Q2D 07/27/15 Apixaban [Eliquis -] 5 mg PO BID #60 tablet 08/29/15 Diltiazem Cd [Cardizem Cd -] 120 mg PO DAILY #30 cap.cd.24h 08/29/15 Metoprolol Tartrate [Lopressor -] 50 mg PO TID #90 tablet 08/29/15 Furosemide [Lasix -] 20 mg PO DAILY 05/05/16 Ofloxacin Otic [Floxin Otic -] 10 drop AD DAILY #70 drops 05/05/16 Family Disease History - Family Disease History Family Disease History: CA: Grandparent ( tuor or unknown primary in his 70s ), Sister (breast cancer), Other: Mother ( 47 of TB) Review of Systems - Review of Systems Constitutional: reports: Weakness, Other (near syncope x 2) Eyes: reports: No Symptoms HENT: reports: No Symptoms Neck: reports: No Symptoms Cardiovascular: reports: No Symptoms Respiratory: reports: No Symptoms Gastrointestinal: reports: Melena Physical Exam-GI Vital Signs: Vital Signs Temperature 98.9 F 10/02/17 15:48 Pulse Rate 84 10/02/17 16:18 Respiratory Rate 22 10/02/17 16:18 Blood Pressure 131/67 10/02/17 16:18 O2 Sat by Pulse Oximetry (%) 100 10/02/17 16:18 CBC,CMP WBC 13.1 K/mm3 (4.0-10.0) H 10/02/17 09:30 RBC 2.56 M/mm3 (3.60-5.2) L 10/02/17 09:30 Hgb 7.4 GM/dL (10.7-15.3) L 10/02/17 09:30 Hct 23.5 % (32.4-45.2) L 10/02/17 09:30 MCV 91.6 fl (80-96) 10/02/17 09:30 MCH 29.0 pg (25.7-33.7) 10/02/17 09:30 MCHC 31.6 g/dl (32.0-36.0) L 10/02/17 09:30 RDW 15.3 % (11.6-15.6) 10/02/17 09:30 Plt Count 199 K/MM3 (134-434) 10/02/17 09:30 MPV 10.7 fl (7.5-11.1) 10/02/17 09:30 Neutrophils % 78.3 % (42.8-82.8) 10/02/17 09:30 Lymphocytes % 14.0 % (8-40) 10/02/17 09:30 Monocytes % 6.8 % (3.8-10.2) 10/02/17 09:30 Eosinophils % 0.0 % (0-4.5) 10/02/17 09:30 Basophils % 0.9 % (0-2.0) 10/02/17 09:30 Sodium 143 mmol/L (136-145) 10/02/17 00:50 Potassium 5.6 mmol/L (3.5-5.1) H 10/02/17 00:50 Chloride 109 mmol/L (98-107) H 10/02/17 00:50 Carbon Dioxide 23 mmol/L (21-32) 10/02/17 00:50 Anion Gap 11 (8-16) 10/02/17 00:50 BUN 81 mg/dL (7-18) H 10/02/17 00:50 Creatinine 1.9 mg/dL (0.55-1.02) H 10/02/17 00:50 Creat Clearance w eGFR 25.18 (>60) 10/02/17 00:50 Random Glucose 148 mg/dL (74-106) H 10/02/17 00:50 Lactic Acid 1.5 mmol/L (0.0-2.0) 10/02/17 00:50 Calcium 9.8 mg/dL (8.5-10.1) 10/02/17 00:50 Magnesium 2.6 mg/dL (1.8-2.4) H 10/02/17 00:50 Total Bilirubin 0.4 mg/dL (0.2-1.0) 10/02/17 00:50 AST 21 U/L (15-37) 10/02/17 00:50 ALT 19 U/L (12-78) 10/02/17 00:50 Alkaline Phosphatase 34 U/L (45-117) L 10/02/17 00:50 Creatine Kinase 41 IU/L (26-192) 10/02/17 00:50 Troponin I < 0.02 ng/ml (0.00-0.05) 10/02/17 00:50 B-Natriuretic Peptide 2331.98 pg/ml (5-450) H 10/02/17 00:50 Total Protein 6.0 g/dl (6.4-8.2) L 10/02/17 00:50 Albumin 2.6 g/dl (3.4-5.0) L 10/02/17 00:50 Lipase 258 U/L (73-393) 10/02/17 00:50 Current Medications Generic Name Dose Route Start Last Admin Trade Name Freq PRN Reason Stop Dose Admin Diltiazem HCl 120 mg 10/02/17 10:00 10/02/17 11:25 Cardizem Cd - PO 120 mg DAILY JORGE Administration Pantoprazole Sodium 160 mg/ 290 mls @ 14.5 mls/hr 10/02/17 09:30 10/02/17 13: 36 Dextrose IVPB Not Given Q20H [facility] Sodium Chloride 1,000 mls @ 75 mls/hr 10/02/17 16:30 Normal Saline - IV ASDIR JORGE Methimazole 5 mg 10/02/17 10:00 10/02/17 11:25 Tapazole - PO 5 mg Q2D@1000 JORGE Administration Metoprolol Tartrate 50 mg 10/02/17 06:00 10/02/17 06:26 Lopressor - PO 50 mg TID JORGE Administration Constitutional: Yes: Anxious Eyes: Yes: Conjunctiva Clear HENT: Yes: Normocephalic Neck: Yes: Supple Cardiovascular: Yes: Pulse Irregular Respiratory: Yes: CTA Bilaterally Gastrointestinal Inspection: Yes: Scars (vertical suprapubic and RLQ incisions) ...Auscultate: Yes: Normoactive Bowel Sounds ...Palpate: Yes: Soft, Other (nontender) ...Rectal Exam: Yes: Guaiac Positive (balck stool) Labs: CBC, BMP 10/02/17 09:30 10/02/17 00:50 INR, PTT INR 1.38 (0.82-1.09) H 10/02/17 00:50 Problem List - Problems (1) GIB (gastrointestinal bleeding) Assessment/Plan: After informed consent was obtained I performed an EGD which revealed bleeding from a postbulbar ulcer which stopped after epinephrine injection. Please see EGD report scanned into chart. Will continue PPI drip. May need CTA if bleeding recurs and IR intervention. Discussed with Yareli Harris NP and advised surgical consultation. Dr Evangelista will be covering Code(s): K92.2 - GASTROINTESTINAL HEMORRHAGE, UNSPECIFIED Qualifiers: GI bleed type/associated pathology: melena Qualified Code(s): K92.1 - Melena (2) Diverticulosis Code(s): K57.90 - DVRTCLOS OF INTEST, PART UNSP, W/O PERF OR ABSCESS W/O BLEED (3) Hiatal hernia with GERD Code(s): K21.9 - GASTRO-ESOPHAGEAL REFLUX DISEASE WITHOUT ESOPHAGITIS; K44.9 - DIAPHRAGMATIC HERNIA WITHOUT OBSTRUCTION OR GANGRENE (4) Duodenal ulcer Code(s): K26.9 - DUODENAL ULCER, UNSP ACUTE OR CHRONIC, W/O HEMOR OR PERF (5) Duodenal diverticulum Code(s): K57.10 - DVRTCLOS OF SM INT W/O PERFORATION OR ABSCESS W/O BLEEDING (6) IPMN (intraductal papillary mucinous neoplasm) Assessment/Plan: Her 06/22/17 MRCP reveals no changes in the status of her IPMNs Code(s): D49.0 - NEOPLASM OF UNSPECIFIED BEHAVIOR OF DIGESTIVE SYSTEM
[2017-10-03] MEDS: PANTOPRAZOLE SODIUM 160 MG in DEXTROSE 5%-WATER - 290 ML IVPB SCH ×2 (06:18→11:52)
[2017-10-03] MEDS: METOPROLOL TARTRATE 50 MG TABLET (FP) PO SCH ×3 (06:24→21:24)
[2017-10-03 07:27] LABS: BASO % 0.5 % (0-2.0); HEMATOCRIT 26.5 % (32.4-45.2); LYMPH % 20.6 % (8-40); MCH 29.8 pg (25.7-33.7); MCHC 34.1 g/dl (32.0-36.0); MEAN CELL VOLUME 87.5 fl (80-96); MEAN PLT VOLUME 10.1 fl (7.5-11.1); MONO % 8.5 % (3.8-10.2); NEUT % 68.4 % (42.8-82.8); PLATELET COUNT 166 K/MM3 (134-434); RBC 3.03 M/mm3 (3.60-5.2); RDW 16.6 % (11.6-15.6); WHITE BLOOD COUNT 8.6 K/mm3 (4.0-10.0)
[2017-10-03 07:54] LABS: ANION GAP 4 (8-16); BLOOD UREA NITROGEN 54 mg/dL (7-18); CHLORIDE 117 mmol/L (98-107); CO2 22 mmol/L (21-32); CREATININE 1.5 mg/dL (0.55-1.02); GLUCOSE,RANDOM 97 mg/dL (74-106); POTASSIUM 4.6 mmol/L (3.5-5.1); SODIUM 143 mmol/L (136-145)
--- NOTE | 2017-10-03 10:50 | PN ---
Progress Note, Physician Chief Complaint: GI bleed History of Present Illness: 82 yo female PMH HTN, Afib on eloquis, CHF, HLD, hyperparathyroid, hyperthyroidism presents with abdominal cramping and while she was getting ready to come to the ED for the abdominal discomfort she had 2 syncopal episodes. s/p therputic EGD noted to have some additional passage of melena early this morning, no other compaints. no futher syncope. - Current Medication List Current Medications: Active Medications Diltiazem HCl (Cardizem Cd -) 120 mg PO DAILY [facility] Last Admin: 10/02/17 11:25 Dose: 120 mg Pantoprazole Sodium 160 mg/ (Dextrose) 290 mls @ 14.5 mls/hr IVPB Q20H [facility] Last Admin: 10/03/17 06:18 Dose: Not Given Sodium Chloride (Normal Saline -) 1,000 mls @ 75 mls/hr IV ASDIR [facility] Methimazole (Tapazole -) 5 mg PO Q2D@1000 [facility] Last Admin: 10/02/17 11:25 Dose: 5 mg Metoprolol Tartrate (Lopressor -) 50 mg PO TID [facility] Last Admin: 10/03/17 06:24 Dose: 50 mg - Objective Vital Signs: Vital Signs Temperature 98.6 F 10/03/17 06:00 Pulse Rate 71 10/03/17 06:00 Respiratory Rate 18 10/03/17 06:00 Blood Pressure 131/93 10/03/17 06:00 O2 Sat by Pulse Oximetry (%) 94 L 10/02/17 21:00 Vital Signs Period Temp Pulse Resp BP Sys/Reynoso Pulse Ox Last 24 Hr 98.1 F-98.9 F 70-84 18-22 119-131/50-93 94-100 Constitutional: Yes: Well Nourished, No Distress, Calm Eyes: Yes: Conjunctiva Clear, EOM Intact HENT: Yes: Atraumatic, Normocephalic Neck: Yes: Supple, Trachea Midline Cardiovascular: Yes: Regular Rate and Rhythm, S1, S2 Respiratory: Yes: Regular, CTA Bilaterally Gastrointestinal: Yes: Normal Bowel Sounds, Soft. No: Ascites, Distention, Tenderness Genitourinary: No: CVA Tenderness - Left, CVA Tenderness - Right Neurological: Yes: Alert, Oriented Psychiatric: Yes: Alert, Oriented Labs: CBC, BMP 10/03/17 06:49 10/03/17 06:49 INR, PTT INR 1.38 (0.82-1.09) H 10/02/17 00:50 Problem List - Problems (1) Duodenal ulcer Assessment/Plan: 82 yo female MMP on Eloqis presented with a Bleeding doudenal ulcer causing syncopal episodes s/p EGD epineprine injection, still passing melena but H7H has stabilized. Monitored setting IVF hydration clear liquids PPI If there is re-bleeding, recall GI Dr. Evangelista to make him aware If bleeding is substantial AND Patient remains hemodynamically stable: contact Interventional Radiologist for vicerral angiography and embolization/ OR Transfer for this service Patient becomes hemodynamically unstable: Call Dr. Carney for Expl Lap, duodenotomy and oversewing Will follow for serial exams Thank you for the opportunity to participate in the care of this patient. Code(s): K26.9 - DUODENAL ULCER, UNSP ACUTE OR CHRONIC, W/O HEMOR OR PERF (2) GIB (gastrointestinal bleeding) Code(s): K92.2 - GASTROINTESTINAL HEMORRHAGE, UNSPECIFIED Qualifiers: GI bleed type/associated pathology: melena Qualified Code(s): K92.1 - Melena (3) CKD (chronic kidney disease) Code(s): N18.9 - CHRONIC KIDNEY DISEASE, UNSPECIFIED Qualifiers: Chronic kidney disease stage: stage 3 (moderate) Qualified Code(s): N18.3 - Chronic kidney disease, stage 3 (moderate) (4) Hyperthyroidism Code(s): E05.90 - THYROTOXICOSIS, UNSP WITHOUT THYROTOXIC CRISIS OR STORM (5) Syncope Code(s): R55 - SYNCOPE AND COLLAPSE Qualifiers: Syncope type: unspecified Qualified Code(s): R55 - Syncope and collapse (6) Atrial fibrillation Code(s): I48.91 - UNSPECIFIED ATRIAL FIBRILLATION Qualifiers: Atrial fibrillation type: chronic Qualified Code(s): I48.2 - Chronic atrial fibrillation (7) HLD (hyperlipidemia) Code(s): E78.5 - HYPERLIPIDEMIA, UNSPECIFIED Qualifiers: Hyperlipidemia type: Pure hypercholesterolemia (8) HTN (hypertension) Code(s): I10 - ESSENTIAL (PRIMARY) HYPERTENSION Qualifiers: Hypertension type: essential hypertension Qualified Code(s): I10 - Essential (primary) hypertension
[2017-10-03] MEDS ORDERED: SODIUM CHLORIDE 1,000 ML IV SCH (11:02)
--- NOTE | 2017-10-03 11:02 | PN ---
Physical Exam: SUBJECTIVE: Patient seen and examined. She has some residual blood when she wipes, abd is tender but overall feels better. Pleasant and conversational, at bedside. OBJECTIVE: Vital Signs Period Temp Pulse Resp BP Sys/Reynoso Pulse Ox Last 24 Hr 98.1 F-98.9 F 70-84 18-22 119-131/50-93 94-100 PE Neuro: alert, awake, cn 2-12intact Pulm: R base crackles, otherwise clear CV: S1 s2 irregular rhythm regular rate Abd: tender to palpation +bs soft Ext: no le edema Laboratory Results - last 24 hr 10/02/17 10/02/17 10/03/17 00:50 09:48 06:49 WBC RBC Hgb Hct MCV MCH MCHC RDW Plt Count MPV Neutrophils % Lymphocytes % Monocytes % Eosinophils % Basophils % Sodium 143 Potassium 4.6 Chloride 117 H Carbon Dioxide 22 Anion Gap 4 L BUN 54 H D Creatinine 1.5 H Random Glucose 97 Calcium 9.0 Blood Type O POSITIVE O POSITIVE Antibody Screen Negative Negative Crossmatch See Detail See Detail 10/03/17 06:49 WBC 8.6 D RBC 3.03 L Hgb 9.0 L D Hct 26.5 L MCV 87.5 MCH 29.8 MCHC 34.1 RDW 16.6 H Plt Count 166 MPV 10.1 Neutrophils % 68.4 Lymphocytes % 20.6 D Monocytes % 8.5 Eosinophils % 2.0 D Basophils % 0.5 Sodium Potassium Chloride Carbon Dioxide Anion Gap BUN Creatinine Random Glucose Calcium Blood Type Antibody Screen Crossmatch Active Medications Generic Name Dose Route Start Last Admin Trade Name Freq PRN Reason Stop Dose Admin Diltiazem HCl 120 mg 10/02/17 10:00 10/03/17 10:52 Cardizem Cd - PO 120 mg DAILY JORGE Administration Pantoprazole Sodium 160 mg/ 290 mls @ 14.5 mls/hr 10/02/17 09:30 10/03/17 06: 18 Dextrose IVPB Not Given Q20H JORGE Sodium Chloride 1,000 mls @ 75 mls/hr 10/02/17 16:30 Normal Saline - IV ASDIR JORGE Methimazole 5 mg 10/02/17 10:00 10/02/17 11:25 Tapazole - PO 5 mg Q2D@1000 JORGE Administration Metoprolol Tartrate 50 mg 10/02/17 06:00 10/03/17 06:24 Lopressor - PO 50 mg TID JORGE Administration Assessment: 82 year old female with pmhx of Afib on Eliquis, HTN, HLD, hyperparathyroid, ruptured hemorrhagic renal cyst (single kidney), Osteoarthritis, CHF who presented to the ED after syncope x2 and dark stool. Plan: 1. Lower GI bleed - s/p EGD with postbulbar ulcer - Continue ppi gtt - Continue gentle fluids - If bleeding continues may need CTA and IR intervention - GI following 2. Acute blood loss anemia - Due to above - HH stable today - Monitor for bleeding, AC on hold 3. Syncope - Due to above - No repeat events - Head CT neg 4. ESSENCE on CKD, hx of unilateral kidney baseline cr 1.4 - Likely pre renal d/t blood loss - Cr improving - Decrease IVF 60cc/hr 5. Leukocytosis - Likely reactive pt reported vomiting as well - WNL 6. Hyperkalemia - Resolved 7. Atrial fibrillation - Rate controlled - Continue metoprolol and cardizem - Hold eliquis in the setting of GIB 8. HLD - Can restart once GI issues resolved 9. HTN - On bb - Hold accupril d/t ESSENCE 10. Hyperparathyroidism stable, Ca wnl 11. Hyperthyroidism - Continue tapazole 12. DVT - Hold chemical AC Visit type - Emergency Visit Emergency Visit: Yes ED Registration Date: 10/02/17 Care time: The patient presented to the Emergency Department on the above date and was hospitalized for further evaluation of their emergent condition. - New Patient This patient is new to me today: Yes Date on this admission: 10/03/17 - Critical Care Critical Care patient: No
--- NOTE | 2017-10-03 17:38 | PN ---
Progress Note, Physician Chief Complaint: No events overnight. Appears comfortable. Hgb 9 g/dl this am. Had melena with small amount of blood. No pain, nausea, hematemesis. Tolerating clears. - Current Medication List Current Medications: Active Medications Diltiazem HCl (Cardizem Cd -) 120 mg PO DAILY [facility] Last Admin: 10/03/17 10:52 Dose: 120 mg Pantoprazole Sodium 160 mg/ (Dextrose) 290 mls @ 14.5 mls/hr IVPB Q20H [facility] Last Admin: 10/03/17 11:52 Dose: 14.5 mls/hr Sodium Chloride (Normal Saline -) 1,000 mls @ 60 mls/hr IV ASDIR [facility] Last Admin: 10/03/17 11:00 Dose: 60 mls/hr Methimazole (Tapazole -) 5 mg PO Q2D@1000 [facility] Last Admin: 10/02/17 11:25 Dose: 5 mg Metoprolol Tartrate (Lopressor -) 50 mg PO TID [facility] Last Admin: 10/03/17 13:52 Dose: 50 mg - Objective Vital Signs: Vital Signs Temperature 97.5 F L 10/03/17 14:00 Pulse Rate 77 10/03/17 14:00 Respiratory Rate 18 10/03/17 14:00 Blood Pressure 131/54 10/03/17 14:00 O2 Sat by Pulse Oximetry (%) 94 L 10/02/17 21:00 Constitutional: Yes: No Distress, Calm Gastrointestinal: Yes: Normal Bowel Sounds, Soft. No: Tenderness, Tenderness, Epigastrium, Tenderness, Rebound Neurological: Yes: Alert, Oriented Labs: CBC, BMP 10/03/17 06:49 10/03/17 06:49 INR, PTT INR 1.38 (0.82-1.09) H 10/02/17 00:50 CBCD WBC 8.6 K/mm3 (4.0-10.0) D 10/03/17 06:49 RBC 3.03 M/mm3 (3.60-5.2) L 10/03/17 06:49 Hgb 9.0 GM/dL (10.7-15.3) L D 10/03/17 06:49 Hct 26.5 % (32.4-45.2) L 10/03/17 06:49 MCV 87.5 fl (80-96) 03/31/18 06:49 MCHC 34.1 g/dl (32.0-36.0) 10/03/17 06:49 RDW 16.6 % (11.6-15.6) H 10/03/17 06:49 Plt Count 166 K/MM3 (134-434) 10/03/17 06:49 MPV 10.1 fl (7.5-11.1) 10/03/17 06:49 CMP Sodium 143 mmol/L (136-145) 10/03/17 06:49 Potassium 4.6 mmol/L (3.5-5.1) 10/03/17 06:49 Chloride 117 mmol/L (98-107) H 10/03/17 06:49 Carbon Dioxide 22 mmol/L (21-32) 10/03/17 06:49 Anion Gap 4 (8-16) L 10/03/17 06:49 BUN 54 mg/dL (7-18) H D 10/03/17 06:49 Creatinine 1.5 mg/dL (0.55-1.02) H 10/03/17 06:49 Creat Clearance w eGFR 25.18 (>60) 10/02/17 00:50 Calcium 9.0 mg/dL (8.5-10.1) 10/03/17 06:49 Total Bilirubin 0.4 mg/dL (0.2-1.0) 10/02/17 00:50 AST 21 U/L (15-37) 10/02/17 00:50 ALT 19 U/L (12-78) 10/02/17 00:50 Alkaline Phosphatase 34 U/L (45-117) L 10/02/17 00:50 Total Protein 6.0 g/dl (6.4-8.2) L 10/02/17 00:50 Albumin 2.6 g/dl (3.4-5.0) L 10/02/17 00:50 Problem List - Problems (1) Bleeding duodenal ulcer Code(s): K26.4 - CHRONIC OR UNSPECIFIED DUODENAL ULCER WITH HEMORRHAGE (2) Duodenal diverticulum Code(s): K57.10 - DVRTCLOS OF SM INT W/O PERFORATION OR ABSCESS W/O BLEEDING (3) Duodenal ulcer Code(s): K26.9 - DUODENAL ULCER, UNSP ACUTE OR CHRONIC, W/O HEMOR OR PERF (4) GIB (gastrointestinal bleeding) Code(s): K92.2 - GASTROINTESTINAL HEMORRHAGE, UNSPECIFIED Qualifiers: GI bleed type/associated pathology: melena Qualified Code(s): K92.1 - Melena Assessment/Plan s/p EGD for postbulbar bleeding ulcer mitigation. Clinically stable. Melena is expected to the next 1-2 days Repeat Hgb this pm Close monitoring continue clear liquid diet Discussed with the patient
[2017-10-03 19:17] LABS: BASO % 0.6 % (0-2.0); EOS % 1.6 % (0-4.5); HEMATOCRIT 28.8 % (32.4-45.2); HEMOGLOBIN 9.4 GM/dL (10.7-15.3); LYMPH % 19.1 % (8-40); MCH 29.7 pg (25.7-33.7); MCHC 32.7 g/dl (32.0-36.0); MEAN CELL VOLUME 90.8 fl (80-96); MEAN PLT VOLUME 10.4 fl (7.5-11.1); MONO % 8.1 % (3.8-10.2); NEUT % 70.6 % (42.8-82.8); PLATELET COUNT 185 K/MM3 (134-434); RBC 3.17 M/mm3 (3.60-5.2); RDW 17.5 % (11.6-15.6); WHITE BLOOD COUNT 9.2 K/mm3 (4.0-10.0)
[2017-10-04] MEDS: PANTOPRAZOLE SODIUM 160 MG in DEXTROSE 5%-WATER - 290 ML IVPB SCH ×2 (04:59→22:43)
[2017-10-04] MEDS: METOPROLOL TARTRATE 50 MG TABLET (FP) PO SCH ×3 (05:55→21:33)
[2017-10-04 07:02] LABS: BASO % 0.6 % (0-2.0); EOS % 3.7 % (0-4.5); HEMATOCRIT 26.2 % (32.4-45.2); HEMOGLOBIN 8.7 GM/dL (10.7-15.3); LYMPH % 20.2 % (8-40); MCH 29.5 pg (25.7-33.7); MEAN CELL VOLUME 89.3 fl (80-96); MEAN PLT VOLUME 9.9 fl (7.5-11.1); MONO % 10.1 % (3.8-10.2); NEUT % 65.4 % (42.8-82.8); PLATELET COUNT 160 K/MM3 (134-434); RBC 2.94 M/mm3 (3.60-5.2); RDW 17.2 % (11.6-15.6); WHITE BLOOD COUNT 7.3 K/mm3 (4.0-10.0)
[2017-10-04 07:33] LABS: ANION GAP 7 (8-16); BLOOD UREA NITROGEN 34 mg/dL (7-18); CALCIUM 9.1 mg/dL (8.5-10.1); CHLORIDE 115 mmol/L (98-107); CO2 21 mmol/L (21-32); GLUCOSE,RANDOM 91 mg/dL (74-106); POTASSIUM 3.9 mmol/L (3.5-5.1); SODIUM 143 mmol/L (136-145)
[2017-10-04 07:34] LABS: CREATININE 1.3 mg/dL (0.55-1.02)
--- NOTE | 2017-10-04 09:17 | PN ---
Progress Note, Physician Chief Complaint: patient is doing well she is sitting in bed, patient denied any bleeding episodes - Current Medication List Current Medications: Active Medications Diltiazem HCl (Cardizem Cd -) 120 mg PO DAILY [facility] Last Admin: 10/03/17 10:52 Dose: 120 mg Pantoprazole Sodium 160 mg/ (Dextrose) 290 mls @ 14.5 mls/hr IVPB Q20H [facility] Last Admin: 10/04/17 04:59 Dose: 14.5 mls/hr Methimazole (Tapazole -) 5 mg PO Q2D@1000 [facility] Last Admin: 10/02/17 11:25 Dose: 5 mg Metoprolol Tartrate (Lopressor -) 50 mg PO TID [facility] Last Admin: 10/04/17 05:55 Dose: 50 mg - Objective Vital Signs: Vital Signs Temperature 97.8 F 10/04/17 05:53 Pulse Rate 76 10/04/17 05:53 Respiratory Rate 18 10/04/17 05:53 Blood Pressure 123/69 10/04/17 05:53 O2 Sat by Pulse Oximetry (%) 97 10/03/17 21:00 Constitutional: Yes: Well Nourished, No Distress, Calm Eyes: Yes: WNL, Conjunctiva Clear HENT: Yes: WNL, Atraumatic Neck: Yes: WNL, Supple Cardiovascular: Yes: WNL, Pulse Irregular, S1, S2 Respiratory: Yes: WNL, Regular, CTA Bilaterally Gastrointestinal: Yes: WNL, Normal Bowel Sounds, Soft ...Rectal Exam: Yes: Deferred Musculoskeletal: Yes: WNL Extremities: Yes: WNL Edema: LLE: Trace, RLE: Trace Labs: CBC, BMP 10/04/17 06:30 10/04/17 06:30 INR, PTT INR 1.38 (0.82-1.09) H 10/02/17 00:50 - ....Imaging EKG: Image Reviewed Problem List - Problems (1) ESSENCE (acute kidney injury) Code(s): N17.9 - ACUTE KIDNEY FAILURE, UNSPECIFIED (2) Anemia Assessment/Plan: Acute blood loss anemia - HH stable today - Monitor for bleeding, AC on hold Code(s): D64.9 - ANEMIA, UNSPECIFIED (3) Bleeding duodenal ulcer Assessment/Plan: Acute blood loss anemia - HH stable today - Monitor for bleeding, AC on hold Code(s): K26.4 - CHRONIC OR UNSPECIFIED DUODENAL ULCER WITH HEMORRHAGE (4) CKD (chronic kidney disease) Assessment/Plan: - Likely pre renal d/t blood loss - Cr improving - Decrease IVF 60cc/hr Code(s): N18.9 - CHRONIC KIDNEY DISEASE, UNSPECIFIED Qualifiers: Chronic kidney disease stage: stage 3 (moderate) Qualified Code(s): N18.3 - Chronic kidney disease, stage 3 (moderate) (5) GIB (gastrointestinal bleeding) Assessment/Plan: s/p EGD with postbulbar ulcer - Continue ppi gtt - Continue gentle fluids - If bleeding continues may need CTA and IR intervention - GI following Code(s): K92.2 - GASTROINTESTINAL HEMORRHAGE, UNSPECIFIED Qualifiers: GI bleed type/associated pathology: melena Qualified Code(s): K92.1 - Melena (6) Syncope Assessment/Plan: 2/2 to acute blood loss and drop in blood pressure possible 2/2 orthostatic hypttenstion No repeat events - Head CT neg Code(s): R55 - SYNCOPE AND COLLAPSE Qualifiers: Syncope type: unspecified Qualified Code(s): R55 - Syncope and collapse (7) Acute kidney injury (nontraumatic) Code(s): N17.9 - ACUTE KIDNEY FAILURE, UNSPECIFIED (8) Atrial fibrillation Assessment/Plan: - Rate controlled - Continue metoprolol and cardizem - Hold eliquis in the setting of GIB Code(s): I48.91 - UNSPECIFIED ATRIAL FIBRILLATION Qualifiers: Atrial fibrillation type: chronic Qualified Code(s): I48.2 - Chronic atrial fibrillation (9) HLD (hyperlipidemia) Assessment/Plan: controlled with medication Code(s): E78.5 - HYPERLIPIDEMIA, UNSPECIFIED Qualifiers: Hyperlipidemia type: Pure hypercholesterolemia (10) HTN (hypertension) Assessment/Plan: will monitor kidney function due to ESSENCE Code(s): I10 - ESSENTIAL (PRIMARY) HYPERTENSION Qualifiers: Hypertension type: essential hypertension Qualified Code(s): I10 - Essential (primary) hypertension (11) Hyperkalemia Assessment/Plan: resolved Code(s): E87.5 - HYPERKALEMIA (12) Hyperparathyroidism Assessment/Plan: stable Code(s): E21.3 - HYPERPARATHYROIDISM, UNSPECIFIED (13) Leukocytosis Assessment/Plan: Likely reactive pt reported vomiting as well - WNL Code(s): D72.829 - ELEVATED WHITE BLOOD CELL COUNT, UNSPECIFIED (14) Hyperthyroidism Assessment/Plan: c/w tapazole Code(s): E05.90 - THYROTOXICOSIS, UNSP WITHOUT THYROTOXIC CRISIS OR STORM
[2017-10-04] MEDS: METHIMAZOLE 5 MG TABLET (FP) PO SCH (09:45)
--- NOTE | 2017-10-04 15:56 | PN ---
Progress Note, Physician Chief Complaint: GI bleed History of Present Illness: 82 yo female PMH HTN, Afib on eloquis, CHF, HLD, hyperparathyroid, hyperthyroidism presents with abdominal cramping and while she was getting ready to come to the ED for the abdominal discomfort she had 2 syncopal episodes. s/p therputic EGD noted to have some additional passage of melena early this morning, no other compaints. no futher syncope. - Current Medication List Current Medications: Active Medications Diltiazem HCl (Cardizem Cd -) 120 mg PO DAILY [facility] Last Admin: 10/04/17 09:46 Dose: 120 mg Pantoprazole Sodium 160 mg/ (Dextrose) 290 mls @ 14.5 mls/hr IVPB Q20H [facility] Last Admin: 10/04/17 04:59 Dose: 14.5 mls/hr Methimazole (Tapazole -) 5 mg PO Q2D@1000 [facility] Last Admin: 10/04/17 09:45 Dose: 5 mg Metoprolol Tartrate (Lopressor -) 50 mg PO TID [facility] Last Admin: 10/04/17 15:38 Dose: 50 mg - Objective Vital Signs: Vital Signs Temperature 97.6 F 10/04/17 14:02 Pulse Rate 78 10/04/17 14:02 Respiratory Rate 18 10/04/17 14:02 Blood Pressure 124/53 10/04/17 14:02 O2 Sat by Pulse Oximetry (%) 97 10/03/17 21:00 Vital Signs Period Temp Pulse Resp BP Sys/Reynoso Pulse Ox Last 24 Hr 97.4 F-98.4 F 52-82 18-24 116-151/55-80 98-98 Constitutional: Yes: Well Nourished, No Distress, Calm Eyes: Yes: Conjunctiva Clear, EOM Intact HENT: Yes: Atraumatic, Normocephalic, Tonsillar Exudate Neck: Yes: Supple Cardiovascular: Yes: Regular Rate and Rhythm, S1, S2. No: Tachycardia Respiratory: Yes: Regular, CTA Bilaterally Gastrointestinal: Yes: Normal Bowel Sounds, Soft. No: Tenderness Genitourinary: No: CVA Tenderness - Left, CVA Tenderness - Right Edema: No Peripheral Pulses WNL: Yes Neurological: Yes: Alert, Oriented Psychiatric: Yes: Alert, Oriented Labs: CBC, BMP 10/04/17 06:30 10/04/17 06:30 INR, PTT INR 1.38 (0.82-1.09) H 10/02/17 00:50 Problem List - Problems (1) Duodenal ulcer Assessment/Plan: 82 yo female MMP on Eloqis presented with a Bleeding doudenal ulcer causing syncopal episodes s/p EGD epineprine injection, still passing melena but H7H has stabilized. Monitored setting IVF hydration clear liquids PPI If there is re-bleeding, recall GI Dr. Evangelista to make him aware If bleeding is substantial AND Patient remains hemodynamically stable: contact Interventional Radiologist for vicerral angiography and embolization/ OR Transfer for this service Patient becomes hemodynamically unstable: Call Dr. Carney for Expl Lap, duodenotomy and oversewing Will follow for serial exams Thank you for the opportunity to participate in the care of this patient. Code(s): K26.9 - DUODENAL ULCER, UNSP ACUTE OR CHRONIC, W/O HEMOR OR PERF (2) GIB (gastrointestinal bleeding) Code(s): K92.2 - GASTROINTESTINAL HEMORRHAGE, UNSPECIFIED Qualifiers: GI bleed type/associated pathology: melena Qualified Code(s): K92.1 - Melena (3) CKD (chronic kidney disease) Code(s): N18.9 - CHRONIC KIDNEY DISEASE, UNSPECIFIED Qualifiers: Chronic kidney disease stage: stage 3 (moderate) Qualified Code(s): N18.3 - Chronic kidney disease, stage 3 (moderate) (4) Hyperthyroidism Code(s): E05.90 - THYROTOXICOSIS, UNSP WITHOUT THYROTOXIC CRISIS OR STORM (5) Syncope Code(s): R55 - SYNCOPE AND COLLAPSE Qualifiers: Syncope type: unspecified Qualified Code(s): R55 - Syncope and collapse (6) Atrial fibrillation Code(s): I48.91 - UNSPECIFIED ATRIAL FIBRILLATION Qualifiers: Atrial fibrillation type: chronic Qualified Code(s): I48.2 - Chronic atrial fibrillation (7) HLD (hyperlipidemia) Code(s): E78.5 - HYPERLIPIDEMIA, UNSPECIFIED Qualifiers: Hyperlipidemia type: Pure hypercholesterolemia (8) HTN (hypertension) Code(s): I10 - ESSENTIAL (PRIMARY) HYPERTENSION Qualifiers: Hypertension type: essential hypertension Qualified Code(s): I10 - Essential (primary) hypertension
[2017-10-04 18:27] LABS: HEMATOCRIT 28.3 % (32.4-45.2); HEMOGLOBIN 9.3 GM/dL (10.7-15.3); MCH 29.4 pg (25.7-33.7); MCHC 32.8 g/dl (32.0-36.0); MEAN CELL VOLUME 89.8 fl (80-96); MEAN PLT VOLUME 10.1 fl (7.5-11.1); PLATELET COUNT 206 K/MM3 (134-434); RBC 3.15 M/mm3 (3.60-5.2); RDW 16.6 % (11.6-15.6); WHITE BLOOD COUNT 7.4 K/mm3 (4.0-10.0)
--- NOTE | 2017-10-04 19:14 | PN ---
Progress Note, Physician Chief Complaint: No events overnight. Appears comfortable. Has good skin color. Hgb 9.3 g/dl this pm. Had small amount of melena earlier today. No pain, nausea, hematemesis. Tolerating clears. - Current Medication List Current Medications: Active Medications Diltiazem HCl (Cardizem Cd -) 120 mg PO DAILY [facility] Last Admin: 10/04/17 09:46 Dose: 120 mg Pantoprazole Sodium 160 mg/ (Dextrose) 290 mls @ 14.5 mls/hr IVPB Q20H [facility] Last Admin: 10/04/17 04:59 Dose: 14.5 mls/hr Methimazole (Tapazole -) 5 mg PO Q2D@1000 [facility] Last Admin: 10/04/17 09:45 Dose: 5 mg Metoprolol Tartrate (Lopressor -) 50 mg PO TID [facility] Last Admin: 10/04/17 15:38 Dose: 50 mg - Objective Vital Signs: Vital Signs Temperature 97.6 F 10/04/17 14:02 Pulse Rate 78 10/04/17 14:02 Respiratory Rate 18 10/04/17 14:02 Blood Pressure 124/53 10/04/17 14:02 O2 Sat by Pulse Oximetry (%) 97 10/04/17 09:00 Constitutional: Yes: Well Nourished, No Distress, Calm Eyes: Yes: Conjunctiva Clear HENT: Yes: Atraumatic Neck: Yes: Supple Cardiovascular: Yes: Regular Rate and Rhythm Respiratory: Yes: Regular Gastrointestinal: Yes: Soft. No: Distention, Melena, Rectal Bleeding, Tenderness, Vomiting Neurological: Yes: Alert, Oriented Labs: CBC, BMP 10/04/17 18:00 10/04/17 06:30 INR, PTT INR 1.38 (0.82-1.09) H 10/02/17 00:50 CBCD WBC 7.4 K/mm3 (4.0-10.0) 10/04/17 18:00 RBC 3.15 M/mm3 (3.60-5.2) L 10/04/17 18:00 Hgb 9.3 GM/dL (10.7-15.3) L 10/04/17 18:00 Hct 28.3 % (32.4-45.2) L 10/04/17 18:00 MCV 89.8 fl (80-96) 10/04/17 18:00 MCHC 32.8 g/dl (32.0-36.0) 10/04/17 18:00 RDW 16.6 % (11.6-15.6) H 10/04/17 18:00 Plt Count 206 K/MM3 (134-434) D 10/04/17 18:00 MPV 10.1 fl (7.5-11.1) 10/04/17 18:00 CMP Sodium 143 mmol/L (136-145) 10/04/17 06:30 Potassium 3.9 mmol/L (3.5-5.1) 10/04/17 06:30 Chloride 115 mmol/L (98-107) H 10/04/17 06:30 Carbon Dioxide 21 mmol/L (21-32) 10/04/17 06:30 Anion Gap 7 (8-16) L 10/04/17 06:30 BUN 34 mg/dL (7-18) H 10/04/17 06:30 Creatinine 1.3 mg/dL (0.55-1.02) H 10/04/17 06:30 Creat Clearance w eGFR 25.18 (>60) 10/02/17 00:50 Calcium 9.1 mg/dL (8.5-10.1) 10/04/17 06:30 Total Bilirubin 0.4 mg/dL (0.2-1.0) 10/02/17 00:50 AST 21 U/L (15-37) 10/02/17 00:50 ALT 19 U/L (12-78) 10/02/17 00:50 Alkaline Phosphatase 34 U/L (45-117) L 10/02/17 00:50 Total Protein 6.0 g/dl (6.4-8.2) L 10/02/17 00:50 Albumin 2.6 g/dl (3.4-5.0) L 10/02/17 00:50 Problem List - Problems (1) Bleeding duodenal ulcer Code(s): K26.4 - CHRONIC OR UNSPECIFIED DUODENAL ULCER WITH HEMORRHAGE (2) Duodenal diverticulum Code(s): K57.10 - DVRTCLOS OF SM INT W/O PERFORATION OR ABSCESS W/O BLEEDING (3) Duodenal ulcer Code(s): K26.9 - DUODENAL ULCER, UNSP ACUTE OR CHRONIC, W/O HEMOR OR PERF (4) GIB (gastrointestinal bleeding) Code(s): K92.2 - GASTROINTESTINAL HEMORRHAGE, UNSPECIFIED Qualifiers: GI bleed type/associated pathology: melena Qualified Code(s): K92.1 - Melena Assessment/Plan s/p EGD for postbulbar bleeding ulcer mitigation. Clinically stable. Melena is expected to resolve in the next 1-2 days assuming no further GI blood loss. Repeat Hgb in am Close monitoring Continue clear liquid diet, PPI. Add iron Discussed with the patient
[2017-10-05] MEDS: METOPROLOL TARTRATE 50 MG TABLET (FP) PO SCH ×3 (05:42→22:19)
[2017-10-05 06:09] LABS: BASO % 0.8 % (0-2.0); EOS % 4.6 % (0-4.5); HEMATOCRIT 25.6 % (32.4-45.2); HEMOGLOBIN 8.5 GM/dL (10.7-15.3); LYMPH % 20.5 % (8-40); MCH 29.6 pg (25.7-33.7); MCHC 33.1 g/dl (32.0-36.0); MEAN CELL VOLUME 89.3 fl (80-96); MEAN PLT VOLUME 10.3 fl (7.5-11.1); MONO % 10.5 % (3.8-10.2); NEUT % 63.6 % (42.8-82.8); PLATELET COUNT 196 K/MM3 (134-434); RBC 2.87 M/mm3 (3.60-5.2); RDW 16.2 % (11.6-15.6); WHITE BLOOD COUNT 6.1 K/mm3 (4.0-10.0)
[2017-10-05 06:35] LABS: CHLORIDE 115 mmol/L (98-107); SODIUM 144 mmol/L (136-145)
[2017-10-05 06:43] LABS: ALBUMIN 2.2 g/dl (3.4-5.0); ALK PHOS 29 U/L (45-117); ANION GAP 6 (8-16); BILIRUBIN,TOTAL 0.4 mg/dL (0.2-1.0); BLOOD UREA NITROGEN 22 mg/dL (7-18); CALCIUM 9.1 mg/dL (8.5-10.1); CO2 23 mmol/L (21-32); CREATININE 1.3 mg/dL (0.55-1.02); GLUCOSE,RANDOM 92 mg/dL (74-106); SGOT/AST 26 U/L (15-37); SGPT/ALT 20 U/L (12-78)
[2017-10-05] MEDS: FERROUS SO4 325 MG TABLET (FP) PO SCH ×3 (09:14→18:05)
[2017-10-05 13:03] LABS: EOS % 2.6 % (0-4.5); HEMATOCRIT 29.1 % (32.4-45.2); HEMOGLOBIN 9.5 GM/dL (10.7-15.3); LYMPH % 16.9 % (8-40); MCH 29.9 pg (25.7-33.7); MCHC 32.6 g/dl (32.0-36.0); MEAN CELL VOLUME 91.6 fl (80-96); MEAN PLT VOLUME 9.6 fl (7.5-11.1); MONO % 7.3 % (3.8-10.2); NEUT % 72.2 % (42.8-82.8); PLATELET COUNT 201 K/MM3 (134-434); RBC 3.17 M/mm3 (3.60-5.2); RDW 16.9 % (11.6-15.6); WHITE BLOOD COUNT 7.4 K/mm3 (4.0-10.0)
--- NOTE | 2017-10-05 15:31 | PN ---
Progress Note, Physician Chief Complaint: Pt sitting in chair in no acute distress. Denies any sob,weakness, chest pain, n /v. Pt reports she hasn't had any bms today. - Current Medication List Current Medications: Active Medications Diltiazem HCl (Cardizem Cd -) 120 mg PO DAILY [facility] Last Admin: 10/05/17 09:14 Dose: 120 mg Ferrous Sulfate (Feosol -) 325 mg PO TIDCM [facility] Last Admin: 10/05/17 12:18 Dose: 325 mg Pantoprazole Sodium 160 mg/ (Dextrose) 290 mls @ 14.5 mls/hr IVPB Q20H [facility] Last Admin: 10/04/17 22:43 Dose: Not Given Methimazole (Tapazole -) 5 mg PO Q2D@1000 [facility] Last Admin: 10/04/17 09:45 Dose: 5 mg Metoprolol Tartrate (Lopressor -) 50 mg PO TID [facility] Last Admin: 10/05/17 14:44 Dose: 50 mg - Objective Vital Signs: Vital Signs Temperature 97.8 F 10/05/17 14:00 Pulse Rate 68 10/05/17 14:00 Respiratory Rate 20 10/05/17 14:00 Blood Pressure 116/66 10/05/17 14:00 O2 Sat by Pulse Oximetry (%) 98 10/05/17 09:00 Constitutional: Yes: Well Nourished, No Distress Cardiovascular: Yes: Pulse Irregular Respiratory: Yes: WNL, Regular, CTA Bilaterally Gastrointestinal: Yes: WNL, Normal Bowel Sounds, Soft. No: Distention, Tenderness Genitourinary: Yes: WNL Edema: No Neurological: Yes: WNL, Alert, Oriented Psychiatric: Yes: WNL, Alert, Oriented Labs: CBC, BMP 10/05/17 12:50 10/05/17 05:51 INR, PTT INR 1.38 (0.82-1.09) H 10/02/17 00:50 Problem List - Problems (1) Anemia Code(s): D64.9 - ANEMIA, UNSPECIFIED (2) GIB (gastrointestinal bleeding) Code(s): K92.2 - GASTROINTESTINAL HEMORRHAGE, UNSPECIFIED Qualifiers: GI bleed type/associated pathology: melena Qualified Code(s): K92.1 - Melena (3) Syncope Code(s): R55 - SYNCOPE AND COLLAPSE Qualifiers: Syncope type: unspecified Qualified Code(s): R55 - Syncope and collapse (4) ESSENCE (acute kidney injury) Code(s): N17.9 - ACUTE KIDNEY FAILURE, UNSPECIFIED (5) Leukocytosis Code(s): D72.829 - ELEVATED WHITE BLOOD CELL COUNT, UNSPECIFIED (6) Hyperkalemia Code(s): E87.5 - HYPERKALEMIA (7) Atrial fibrillation Code(s): I48.91 - UNSPECIFIED ATRIAL FIBRILLATION Qualifiers: Atrial fibrillation type: chronic Qualified Code(s): I48.2 - Chronic atrial fibrillation (8) HLD (hyperlipidemia) Code(s): E78.5 - HYPERLIPIDEMIA, UNSPECIFIED Qualifiers: Hyperlipidemia type: Pure hypercholesterolemia (9) HTN (hypertension) Code(s): I10 - ESSENTIAL (PRIMARY) HYPERTENSION Qualifiers: Hypertension type: essential hypertension Qualified Code(s): I10 - Essential (primary) hypertension (10) Hyperparathyroidism Code(s): E21.3 - HYPERPARATHYROIDISM, UNSPECIFIED (11) CKD (chronic kidney disease) Code(s): N18.9 - CHRONIC KIDNEY DISEASE, UNSPECIFIED Qualifiers: Chronic kidney disease stage: stage 3 (moderate) Qualified Code(s): N18.3 - Chronic kidney disease, stage 3 (moderate) (12) Hyperthyroidism Code(s): E05.90 - THYROTOXICOSIS, UNSP WITHOUT THYROTOXIC CRISIS OR STORM (13) Bleeding duodenal ulcer Code(s): K26.4 - CHRONIC OR UNSPECIFIED DUODENAL ULCER WITH HEMORRHAGE Assessment/Plan (1) Anemia Assessment/Plan: secondary to UGIB, asymptomatic, hemodynamically stable bleeding duodenal ulcer on EGD no melena today h/h stable s/p prbcs 1 unit protonix drip clears, advance to solids tomorrow GI following Code(s): D64.9 - ANEMIA, UNSPECIFIED (2) GIB (gastrointestinal bleeding) Assessment/Plan: as above Code(s): K92.2 - GASTROINTESTINAL HEMORRHAGE, UNSPECIFIED Qualifiers: GI bleed type/associated pathology: melena Qualified Code(s): K92.1 - Melena (3) Syncope Assessment/Plan: w/out head trauma secondary to acute anemia/dehydration head ct neg xray neg PT as tolerated Code(s): R55 - SYNCOPE AND COLLAPSE Qualifiers: Syncope type: unspecified Qualified Code(s): R55 - Syncope and collapse (4) ESSENCE (acute kidney injury) Assessment/Plan: improved, at baseline Code(s): N17.9 - ACUTE KIDNEY FAILURE, UNSPECIFIED (5) Leukocytosis Assessment/Plan: resolved Code(s): D72.829 - ELEVATED WHITE BLOOD CELL COUNT, UNSPECIFIED (6) Hyperkalemia Assessment/Plan: resolved secondary to dehydration/ckd Code(s): E87.5 - HYPERKALEMIA (7) Atrial fibrillation Assessment/Plan: rate controlled continue metoprolol and cardizem hold eliquis in the setting of GIB Code(s): I48.91 - UNSPECIFIED ATRIAL FIBRILLATION Qualifiers: Atrial fibrillation type: chronic Qualified Code(s): I48.2 - Chronic atrial fibrillation (8) HLD (hyperlipidemia) Assessment/Plan: stable restart fibrate/fishoil Code(s): E78.5 - HYPERLIPIDEMIA, UNSPECIFIED Qualifiers: Hyperlipidemia type: Pure hypercholesterolemia (9) HTN (hypertension) Assessment/Plan: controlled restart acei Code(s): I10 - ESSENTIAL (PRIMARY) HYPERTENSION Qualifiers: Hypertension type: essential hypertension Qualified Code(s): I10 - Essential (primary) hypertension (10) Hyperparathyroidism Assessment/Plan: stable, Ca wnl Code(s): E21.3 - HYPERPARATHYROIDISM, UNSPECIFIED (11) CKD (chronic kidney disease) Assessment/Plan: acute on chronic,improved, pt with unilateral kidney will monitor Code(s): N18.9 - CHRONIC KIDNEY DISEASE, UNSPECIFIED Qualifiers: Chronic kidney disease stage: stage 3 (moderate) Qualified Code(s): N18.3 - Chronic kidney disease, stage 3 (moderate) (12) Hyperthyroidism Assessment/Plan: stable continue tapazole Code(s): E05.90 - THYROTOXICOSIS, UNSP WITHOUT THYROTOXIC CRISIS OR STORM
[2017-10-05] MEDS ORDERED: PT OWN MED DRAWER 7, Y5N ONE (16:20)
--- NOTE | 2017-10-05 16:46 | PN ---
Progress Note, Physician Chief Complaint: GI bleed History of Present Illness: 82 yo female PMH HTN, Afib on eloquis, CHF, HLD, hyperparathyroid, hyperthyroidism presents with abdominal cramping and while she was getting ready to come to the ED for the abdominal discomfort she had 2 syncopal episodes. s/p therputic EGD, no other compaints. no events overnight. - Current Medication List Current Medications: Active Medications Diltiazem HCl (Cardizem Cd -) 120 mg PO DAILY [facility] Last Admin: 10/05/17 09:14 Dose: 120 mg Ferrous Sulfate (Feosol -) 325 mg PO TIDCM [facility] Last Admin: 10/05/17 12:18 Dose: 325 mg Pantoprazole Sodium 160 mg/ (Dextrose) 290 mls @ 14.5 mls/hr IVPB Q20H [facility] Last Admin: 10/04/17 22:43 Dose: Not Given Methimazole (Tapazole -) 5 mg PO Q2D@1000 [facility] Last Admin: 10/04/17 09:45 Dose: 5 mg Metoprolol Tartrate (Lopressor -) 50 mg PO TID [facility] Last Admin: 10/05/17 14:44 Dose: 50 mg Quinapril HCl (Accupril -) 40 mg PO DAILY [facility] - Objective Vital Signs: Vital Signs Temperature 97.8 F 10/05/17 14:00 Pulse Rate 68 10/05/17 14:00 Respiratory Rate 20 10/05/17 14:00 Blood Pressure 116/66 10/05/17 14:00 O2 Sat by Pulse Oximetry (%) 98 10/05/17 09:00 Constitutional: Yes: Well Nourished, No Distress, Calm Eyes: Yes: Conjunctiva Clear HENT: Yes: Atraumatic, Normocephalic Neck: Yes: Supple, Trachea Midline Cardiovascular: Yes: Regular Rate and Rhythm, S1, S2 Respiratory: Yes: Regular, CTA Bilaterally Gastrointestinal: Yes: Normal Bowel Sounds, Soft ...Rectal Exam: Yes: Deferred Genitourinary: No: CVA Tenderness - Left, CVA Tenderness - Right Musculoskeletal: No: Muscle Pain, Muscle Weakness Extremities: No: Cool, Cyanosis Edema: No Peripheral Pulses WNL: Yes Peripheral Pulses: Left Radial: 2+, Right Radial: 2+, Left Doralis Pedis: 2+, Right Dorsalis Pedis: 2+ Integumentary: No: Jaundice Neurological: Yes: Alert, Oriented Psychiatric: Yes: Alert, Oriented Labs: CBC, BMP 10/05/17 12:50 10/05/17 05:51 INR, PTT INR 1.38 (0.82-1.09) H 10/02/17 00:50 Problem List - Problems (1) Duodenal ulcer Assessment/Plan: 82 yo female MMP on Eloqis presented with a Bleeding doudenal ulcer causing syncopal episodes s/p EGD epineprine injection, still passing melena but H7H has stabilized. IVF hydration clear liquids PPI IR for vicerral angiography and embolization Will follow peripherally Code(s): K26.9 - DUODENAL ULCER, UNSP ACUTE OR CHRONIC, W/O HEMOR OR PERF (2) GIB (gastrointestinal bleeding) Code(s): K92.2 - GASTROINTESTINAL HEMORRHAGE, UNSPECIFIED Qualifiers: GI bleed type/associated pathology: melena Qualified Code(s): K92.1 - Melena (3) CKD (chronic kidney disease) Code(s): N18.9 - CHRONIC KIDNEY DISEASE, UNSPECIFIED Qualifiers: Chronic kidney disease stage: stage 3 (moderate) Qualified Code(s): N18.3 - Chronic kidney disease, stage 3 (moderate) (4) Hyperthyroidism Code(s): E05.90 - THYROTOXICOSIS, UNSP WITHOUT THYROTOXIC CRISIS OR STORM (5) Syncope Code(s): R55 - SYNCOPE AND COLLAPSE Qualifiers: Syncope type: unspecified Qualified Code(s): R55 - Syncope and collapse (6) Atrial fibrillation Code(s): I48.91 - UNSPECIFIED ATRIAL FIBRILLATION Qualifiers: Atrial fibrillation type: chronic Qualified Code(s): I48.2 - Chronic atrial fibrillation (7) HLD (hyperlipidemia) Code(s): E78.5 - HYPERLIPIDEMIA, UNSPECIFIED Qualifiers: Hyperlipidemia type: Pure hypercholesterolemia (8) HTN (hypertension) Code(s): I10 - ESSENTIAL (PRIMARY) HYPERTENSION Qualifiers: Hypertension type: essential hypertension Qualified Code(s): I10 - Essential (primary) hypertension
[2017-10-05] MEDS: PANTOPRAZOLE SODIUM 160 MG in DEXTROSE 5%-WATER - 290 ML IVPB SCH (18:14)
[2017-10-05] MEDS ORDERED: CHOLECALCIFEROL (VITAMIN D3) 1,000 UNIT TABLET (FP) PO SCH (22:00)
--- NOTE | 2017-10-05 22:48 | PN ---
GI Progress Note Subjective: GI NOte: Still having loose black stool but Hb has been stable. Will stop oral iron and advance the diet. - Objective Vital Signs: Vital Signs Temperature 97.8 F 10/05/17 14:00 Pulse Rate 68 10/05/17 14:00 Respiratory Rate 20 10/05/17 20:35 Blood Pressure 116/66 10/05/17 14:00 O2 Sat by Pulse Oximetry (%) 98 10/05/17 20:35 Laboratory Tests 10/02/17 10/02/17 10/02/17 00:50 00:50 05:45 Hgb 9.0 L D 7.5 L D PT with INR 15.60 H 10/03/17 10/04/17 10/05/17 06:49 06:30 05:51 Hgb 9.0 L D 8.7 L 8.5 L PT with INR 10/05/17 12:50 Hgb 9.5 L D PT with INR Constitutional: Calm ...Auscultate: Yes: Normoactive Bowel Sounds ...Palpate: Yes: Soft, Other (nontender) Labs: CBC, BMP 10/05/17 12:50 10/05/17 05:51 INR, PTT INR 1.38 (0.82-1.09) H 10/02/17 00:50 Problem List - Problems (1) GIB (gastrointestinal bleeding) Assessment/Plan: Duodenal ulcer bleed ? resolving. Will advance diet and give Mylanta but continue to follow Hb closely and continue PPI drip. Code(s): K92.2 - GASTROINTESTINAL HEMORRHAGE, UNSPECIFIED Qualifiers: GI bleed type/associated pathology: melena Qualified Code(s): K92.1 - Melena (2) Diverticulosis Code(s): K57.90 - DVRTCLOS OF INTEST, PART UNSP, W/O PERF OR ABSCESS W/O BLEED (3) Hiatal hernia with GERD Code(s): K21.9 - GASTRO-ESOPHAGEAL REFLUX DISEASE WITHOUT ESOPHAGITIS; K44.9 - DIAPHRAGMATIC HERNIA WITHOUT OBSTRUCTION OR GANGRENE (4) Duodenal ulcer Code(s): K26.9 - DUODENAL ULCER, UNSP ACUTE OR CHRONIC, W/O HEMOR OR PERF (5) Duodenal diverticulum Code(s): K57.10 - DVRTCLOS OF SM INT W/O PERFORATION OR ABSCESS W/O BLEEDING (6) IPMN (intraductal papillary mucinous neoplasm) Code(s): D49.0 - NEOPLASM OF UNSPECIFIED BEHAVIOR OF DIGESTIVE SYSTEM
[2017-10-05] MEDS: MAG HYDROX/AL HYDROX/SIMETH 30 ML UNIT-DOSE CUP PO SCH (23:29)
[2017-10-06] MEDS: METOPROLOL TARTRATE 50 MG TABLET (FP) PO SCH ×3 (06:15→22:14)
[2017-10-06] MEDS: MAG HYDROX/AL HYDROX/SIMETH 30 ML UNIT-DOSE CUP PO SCH ×3 (06:18→22:14)
[2017-10-06 06:52] LABS: BASO % 0.8 % (0-2.0); HEMATOCRIT 25.6 % (32.4-45.2); HEMOGLOBIN 8.5 GM/dL (10.7-15.3); LYMPH % 21.3 % (8-40); MCHC 33.3 g/dl (32.0-36.0); MEAN CELL VOLUME 90.3 fl (80-96); MEAN PLT VOLUME 10.4 fl (7.5-11.1); MONO % 12.4 % (3.8-10.2); NEUT % 60.5 % (42.8-82.8); PLATELET COUNT 205 K/MM3 (134-434); RBC 2.84 M/mm3 (3.60-5.2); WHITE BLOOD COUNT 5.7 K/mm3 (4.0-10.0)
[2017-10-06 07:29] LABS: CHLORIDE 113 mmol/L (98-107); POTASSIUM 3.8 mmol/L (3.5-5.1); SODIUM 143 mmol/L (136-145)
[2017-10-06 07:37] LABS: ANION GAP 7 (8-16); BLOOD UREA NITROGEN 16 mg/dL (7-18); CALCIUM 9.1 mg/dL (8.5-10.1); CO2 23 mmol/L (21-32); CREATININE 1.3 mg/dL (0.55-1.02); GLUCOSE,RANDOM 91 mg/dL (74-106)
[2017-10-06 08:07] LABS: SERUM IRON SATURATION 6 % (15-55); TOTAL IRON BINDING CAPACITY 353 ug/dL (250-450); UIBC 333 ug/dL (118-369)
[2017-10-06] MEDS ORDERED: QUINAPRIL HCL 40 MG TABLET (FP) PO SCH (10:00)
[2017-10-06] MEDS ORDERED: FENOFIBRIC ACID 135 MG CAP PO SCH (10:00)
[2017-10-06] MEDS ORDERED: QUINAPRIL HCL 20 MG TABLET (FP) ONE (10:14)
[2017-10-06] MEDS: METHIMAZOLE 5 MG TABLET (FP) PO SCH (11:01)
--- NOTE | 2017-10-06 11:19 | PN ---
Progress Note, Physician Chief Complaint: Pt sitting in chair in no acute distress. Denies any sob,weakness, chest pain, n /v. Pt reports she had loose melena yesterday. - Current Medication List Current Medications: Active Medications Al Hydroxide/Mg Hydroxide (Mylanta Oral Suspension -) 30 ml PO Q6H [facility] Last Admin: 10/06/17 11:01 Dose: 30 ml Cholecalciferol (Vitamin D3 -) 1,000 unit PO Q48H [facility] Last Admin: 10/05/17 22:19 Dose: 1,000 unit Diltiazem HCl (Cardizem Cd -) 120 mg PO DAILY [facility] Last Admin: 10/06/17 11:00 Dose: 120 mg Fenofibric Acid (Trilipix -) 135 mg PO DAILY [facility] Last Admin: 10/06/17 11:01 Dose: 135 mg Pantoprazole Sodium 160 mg/ (Dextrose) 290 mls @ 14.5 mls/hr IVPB Q20H [facility] Last Admin: 10/05/17 18:14 Dose: 14.5 mls/hr Methimazole (Tapazole -) 5 mg PO Q2D@1000 [facility] Last Admin: 10/06/17 11:01 Dose: 5 mg Metoprolol Tartrate (Lopressor -) 50 mg PO TID [facility] Last Admin: 10/06/17 06:15 Dose: Not Given Multivitamins (Total B With C -) 1 each PO Q2D [facility] Quinapril HCl (Accupril -) 40 mg PO DAILY [facility] Last Admin: 10/06/17 11:01 Dose: 40 mg - Objective Vital Signs: Vital Signs Temperature 98.4 F 10/06/17 05:36 Pulse Rate 72 10/06/17 05:36 Respiratory Rate 20 10/06/17 05:36 Blood Pressure 120/61 10/06/17 05:36 O2 Sat by Pulse Oximetry (%) 98 10/05/17 20:35 Constitutional: Yes: Well Nourished, No Distress Cardiovascular: Yes: Pulse Irregular. No: JVD, Gallop, Rub Respiratory: Yes: WNL, Regular, CTA Bilaterally, Rales (b/l). No: SOB, Tachypnea, Wheezes Gastrointestinal: Yes: WNL, Normal Bowel Sounds, Soft, Melena. No: Distention, Tenderness Genitourinary: Yes: WNL Edema: Yes Edema: LLE: Trace, RLE: Trace Neurological: Yes: WNL, Alert, Oriented Psychiatric: Yes: WNL, Alert, Oriented Labs: CBC, BMP 10/06/17 06:25 10/06/17 06:25 INR, PTT INR 1.38 (0.82-1.09) H 10/02/17 00:50 Problem List - Problems (1) Anemia Code(s): D64.9 - ANEMIA, UNSPECIFIED (2) GIB (gastrointestinal bleeding) Code(s): K92.2 - GASTROINTESTINAL HEMORRHAGE, UNSPECIFIED Qualifiers: GI bleed type/associated pathology: melena Qualified Code(s): K92.1 - Melena (3) Syncope Code(s): R55 - SYNCOPE AND COLLAPSE Qualifiers: Syncope type: unspecified Qualified Code(s): R55 - Syncope and collapse (4) ESSENCE (acute kidney injury) Code(s): N17.9 - ACUTE KIDNEY FAILURE, UNSPECIFIED (5) Leukocytosis Code(s): D72.829 - ELEVATED WHITE BLOOD CELL COUNT, UNSPECIFIED (6) Hyperkalemia Code(s): E87.5 - HYPERKALEMIA (7) Atrial fibrillation Code(s): I48.91 - UNSPECIFIED ATRIAL FIBRILLATION Qualifiers: Atrial fibrillation type: chronic Qualified Code(s): I48.2 - Chronic atrial fibrillation (8) HLD (hyperlipidemia) Code(s): E78.5 - HYPERLIPIDEMIA, UNSPECIFIED Qualifiers: Hyperlipidemia type: Pure hypercholesterolemia (9) HTN (hypertension) Code(s): I10 - ESSENTIAL (PRIMARY) HYPERTENSION Qualifiers: Hypertension type: essential hypertension Qualified Code(s): I10 - Essential (primary) hypertension (10) Hyperparathyroidism Code(s): E21.3 - HYPERPARATHYROIDISM, UNSPECIFIED (11) CKD (chronic kidney disease) Code(s): N18.9 - CHRONIC KIDNEY DISEASE, UNSPECIFIED Qualifiers: Chronic kidney disease stage: stage 3 (moderate) Qualified Code(s): N18.3 - Chronic kidney disease, stage 3 (moderate) (12) Hyperthyroidism Code(s): E05.90 - THYROTOXICOSIS, UNSP WITHOUT THYROTOXIC CRISIS OR STORM (13) Bleeding duodenal ulcer Code(s): K26.4 - CHRONIC OR UNSPECIFIED DUODENAL ULCER WITH HEMORRHAGE Assessment/Plan (1) Anemia Assessment/Plan: secondary to UGIB, asymptomatic, hemodynamically stable bleeding duodenal ulcer on EGD 2 loose episodes of melena yesterday, no bms today h/h stable s/p prbcs 1 unit protonix drip regular diet GI following Code(s): D64.9 - ANEMIA, UNSPECIFIED (2) GIB (gastrointestinal bleeding) Assessment/Plan: as above Code(s): K92.2 - GASTROINTESTINAL HEMORRHAGE, UNSPECIFIED Qualifiers: GI bleed type/associated pathology: melena Qualified Code(s): K92.1 - Melena (3) Syncope Assessment/Plan: w/out head trauma secondary to acute anemia/dehydration head ct neg xray neg PT as tolerated Code(s): R55 - SYNCOPE AND COLLAPSE Qualifiers: Syncope type: unspecified Qualified Code(s): R55 - Syncope and collapse (4) ESSENCE (acute kidney injury) Assessment/Plan: improved, at baseline Code(s): N17.9 - ACUTE KIDNEY FAILURE, UNSPECIFIED (5) Leukocytosis Assessment/Plan: resolved Code(s): D72.829 - ELEVATED WHITE BLOOD CELL COUNT, UNSPECIFIED (6) Hyperkalemia Assessment/Plan: resolved secondary to dehydration/ckd Code(s): E87.5 - HYPERKALEMIA (7) Atrial fibrillation Assessment/Plan: rate controlled continue metoprolol and cardizem hold eliquis in the setting of GIB Code(s): I48.91 - UNSPECIFIED ATRIAL FIBRILLATION Qualifiers: Atrial fibrillation type: chronic Qualified Code(s): I48.2 - Chronic atrial fibrillation (8) HLD (hyperlipidemia) Assessment/Plan: stable restart fibrate/fishoil Code(s): E78.5 - HYPERLIPIDEMIA, UNSPECIFIED Qualifiers: Hyperlipidemia type: Pure hypercholesterolemia (9) HTN (hypertension) Assessment/Plan: controlled restart acei Code(s): I10 - ESSENTIAL (PRIMARY) HYPERTENSION Qualifiers: Hypertension type: essential hypertension Qualified Code(s): I10 - Essential (primary) hypertension (10) Hyperparathyroidism Assessment/Plan: stable, Ca wnl Code(s): E21.3 - HYPERPARATHYROIDISM, UNSPECIFIED (11) CKD (chronic kidney disease) Assessment/Plan: acute on chronic,improved, pt with unilateral kidney will monitor Code(s): N18.9 - CHRONIC KIDNEY DISEASE, UNSPECIFIED Qualifiers: Chronic kidney disease stage: stage 3 (moderate) Qualified Code(s): N18.3 - Chronic kidney disease, stage 3 (moderate) (12) Hyperthyroidism Assessment/Plan: stable continue tapazole Code(s): E05.90 - THYROTOXICOSIS, UNSP WITHOUT THYROTOXIC CRISIS OR STORM Dispo: Home once GI cleared
[2017-10-06] MEDS: PANTOPRAZOLE SODIUM 160 MG in DEXTROSE 5%-WATER - 290 ML IVPB SCH (15:49)
[2017-10-06] MEDS: PANTOPRAZOLE 40 MG TABLET (FP) PO SCH ×2 (17:01→22:14)
--- NOTE | 2017-10-06 21:18 | PN ---
GI Progress Note Subjective: GI NOte: Had a dark BM this AM but none since. PPI drip stopped. Has ankle swelling. Was taking Lasix at home. NO pain - Objective Vital Signs: Vital Signs Temperature 98.1 F 10/06/17 20:41 Pulse Rate 80 10/06/17 20:41 Respiratory Rate 20 10/06/17 20:41 Blood Pressure 120/60 10/06/17 20:41 O2 Sat by Pulse Oximetry (%) 98 10/05/17 20:35 Laboratory Tests 10/04/17 10/04/17 10/05/17 06:30 18:00 12:50 Hgb 8.7 L 9.3 L 9.5 L D 10/06/17 06:25 Hgb 8.5 L D Constitutional: No Distress ...Auscultate: Yes: Normoactive Bowel Sounds ...Palpate: Yes: Soft, Other (nontender) Labs: CBC, BMP 10/06/17 06:25 10/06/17 06:25 INR, PTT INR 1.38 (0.82-1.09) H 10/02/17 00:50 Problem List - Problems (1) GIB (gastrointestinal bleeding) Assessment/Plan: Duodenal ulcer bleed resolving. Will resume Lasix. Continue Mylanta. Code(s): K92.2 - GASTROINTESTINAL HEMORRHAGE, UNSPECIFIED Qualifiers: GI bleed type/associated pathology: melena Qualified Code(s): K92.1 - Melena (2) Diverticulosis Code(s): K57.90 - DVRTCLOS OF INTEST, PART UNSP, W/O PERF OR ABSCESS W/O BLEED (3) Hiatal hernia with GERD Code(s): K21.9 - GASTRO-ESOPHAGEAL REFLUX DISEASE WITHOUT ESOPHAGITIS; K44.9 - DIAPHRAGMATIC HERNIA WITHOUT OBSTRUCTION OR GANGRENE (4) Duodenal ulcer Code(s): K26.9 - DUODENAL ULCER, UNSP ACUTE OR CHRONIC, W/O HEMOR OR PERF (5) Duodenal diverticulum Code(s): K57.10 - DVRTCLOS OF SM INT W/O PERFORATION OR ABSCESS W/O BLEEDING (6) IPMN (intraductal papillary mucinous neoplasm) Code(s): D49.0 - NEOPLASM OF UNSPECIFIED BEHAVIOR OF DIGESTIVE SYSTEM
[2017-10-07] MEDS: METOPROLOL TARTRATE 50 MG TABLET (FP) PO SCH ×3 (06:26→21:20)
[2017-10-07] MEDS: MAG HYDROX/AL HYDROX/SIMETH 30 ML UNIT-DOSE CUP PO SCH ×3 (06:26→17:14)
[2017-10-07 08:32] LABS: BASO % 0.8 % (0-2.0); EOS % 2.9 % (0-4.5); HEMATOCRIT 26.1 % (32.4-45.2); HEMOGLOBIN 8.6 GM/dL (10.7-15.3); LYMPH % 20.9 % (8-40); MEAN CELL VOLUME 90.8 fl (80-96); MEAN PLT VOLUME 10.1 fl (7.5-11.1); MONO % 12.1 % (3.8-10.2); NEUT % 63.3 % (42.8-82.8); PLATELET COUNT 203 K/MM3 (134-434); RBC 2.87 M/mm3 (3.60-5.2); RDW 16.2 % (11.6-15.6); WHITE BLOOD COUNT 6.2 K/mm3 (4.0-10.0)
[2017-10-07 08:57] LABS: ANION GAP 3 (8-16); BLOOD UREA NITROGEN 17 mg/dL (7-18); CALCIUM 9.6 mg/dL (8.5-10.1); CHLORIDE 111 mmol/L (98-107); CO2 27 mmol/L (21-32); CREATININE 1.4 mg/dL (0.55-1.02); GLUCOSE,RANDOM 98 mg/dL (74-106); POTASSIUM 4.3 mmol/L (3.5-5.1); SODIUM 141 mmol/L (136-145)
[2017-10-07] MEDS ORDERED: PT OWN MED DRAWER 7, Y5N ONE ×2 (09:42→12:02)
[2017-10-07] MEDS: PANTOPRAZOLE 40 MG TABLET (FP) PO SCH ×2 (09:49→21:20)
[2017-10-07] MEDS ORDERED: FUROSEMIDE 20 MG TABLET (FP) PO SCH (10:00)
[2017-10-07] MEDS ORDERED: QUINAPRIL HCL 40 MG TABLET (FP) PO SCH (10:00)
[2017-10-07] MEDS ORDERED: FENOFIBRIC ACID 135 MG CAP PO SCH (10:00)
[2017-10-07] MEDS ORDERED: VITAMIN B COMPLEX W/C COMBO TABLET (FP) PO SCH ×2 (10:00)
--- NOTE | 2017-10-07 12:29 | PN ---
GI Progress Note Subjective: GI NOte: Still passing black stools according to Ally. The nurse reports them as dark greenish. Suspect some residual old stool and the iron effect. Hb has been stable. She is tolerating her diet. Advised her to stay on PPI until I see her in the office. She will remain off Eliquis permanently as Dr Garcia has proposed starting warfarin. I advise that this not start until he can repeat her CBC next week. - Objective Vital Signs: Vital Signs Temperature 98.9 F 10/07/17 10:00 Pulse Rate 84 10/07/17 10:00 Respiratory Rate 20 10/07/17 10:00 Blood Pressure 139/69 10/07/17 10:00 O2 Sat by Pulse Oximetry (%) 98 10/06/17 21:00 Laboratory Tests 10/06/17 10/06/17 10/07/17 06:25 06:25 08:00 Hgb 8.5 L D 8.6 L Retic Count 3.66 H Constitutional: No Distress ...Auscultate: Yes: Normoactive Bowel Sounds ...Palpate: Yes: Soft, Other (nontender) Labs: CBC, BMP 10/07/17 08:00 10/07/17 08:00 INR, PTT INR 1.38 (0.82-1.09) H 10/02/17 00:50 Problem List - Problems (1) GIB (gastrointestinal bleeding) Assessment/Plan: Resolved duodenal ulcer bleed. Continue PPI and Mylanta. No further Eliquis. Warfarin to start next week if Hb is stable. Instructed Ally to avoid NSAIDs and to stay on PPI until seen in my office. No GI objections to discharge. Discussed with Yareli Harris NP. Code(s): K92.2 - GASTROINTESTINAL HEMORRHAGE, UNSPECIFIED Qualifiers: GI bleed type/associated pathology: melena Qualified Code(s): K92.1 - Melena (2) Diverticulosis Code(s): K57.90 - DVRTCLOS OF INTEST, PART UNSP, W/O PERF OR ABSCESS W/O BLEED (3) Hiatal hernia with GERD Code(s): K21.9 - GASTRO-ESOPHAGEAL REFLUX DISEASE WITHOUT ESOPHAGITIS; K44.9 - DIAPHRAGMATIC HERNIA WITHOUT OBSTRUCTION OR GANGRENE (4) Duodenal ulcer Code(s): K26.9 - DUODENAL ULCER, UNSP ACUTE OR CHRONIC, W/O HEMOR OR PERF (5) Duodenal diverticulum Code(s): K57.10 - DVRTCLOS OF SM INT W/O PERFORATION OR ABSCESS W/O BLEEDING (6) IPMN (intraductal papillary mucinous neoplasm) Code(s): D49.0 - NEOPLASM OF UNSPECIFIED BEHAVIOR OF DIGESTIVE SYSTEM
--- NOTE | 2017-10-07 13:38 | DS ---
Physical Examination Vital Signs: Vital Signs Temperature 98.9 F 10/07/17 10:00 Pulse Rate 84 10/07/17 10:00 Respiratory Rate 20 10/07/17 10:00 Blood Pressure 139/69 10/07/17 10:00 O2 Sat by Pulse Oximetry (%) 98 10/06/17 21:00 Constitutional: Yes: Well Nourished, No Distress Cardiovascular: Yes: Pulse Irregular. No: Gallop, Murmur, Rub Respiratory: Yes: WNL, Regular, CTA Bilaterally. No: Rhonchi, SOB, Stridor, Tachypnea, Wheezes Gastrointestinal: Yes: WNL, Normal Bowel Sounds, Soft, Abdomen, Obese. No: Distention, Tenderness Renal/: Yes: WNL Edema: Yes Edema: LLE: Trace, RLE: Trace Neurological: Yes: WNL, Alert, Oriented Psychiatric: Yes: WNL, Alert, Oriented Labs: CBC, BMP 10/07/17 08:00 10/07/17 08:00 Discharge Summary Reason For Visit: SYNCOPE Current Active Problems ESSENCE (acute kidney injury) (Acute) Anemia (Acute) Bleeding duodenal ulcer (Acute) CKD (chronic kidney disease) (Acute) Diverticulosis (Acute) Duodenal diverticulum (Acute) Duodenal ulcer (Acute) GIB (gastrointestinal bleeding) (Acute) Hiatal hernia with GERD (Acute) Hyperthyroidism (Acute) Hyperthyroidism (Acute) IPMN (intraductal papillary mucinous neoplasm) (Acute) Syncope (Acute) Hospital Course: is a 82 year old female who came in with episodes of melena with drop in h/h. Pt transfused with total 2 units during her hospital stay. GI was consulted. EGD revealed bleeding duodenal ulcer and pooling of blood in diverticulum, was able to stop the bleeding with epi injection to posterior view of ulcer. Pt's h/h has been stable, now having formed stools but still dark. Pt can get 1 unit of prbcs before discharge. Pt tolerating diet. Pt is cleared for discharge by GI and advised outpt f/u. GI advised to hold eliquis until she follows up with PCP in 7days. Pt can continue ppi and mylanta. Otherwise, she is medically cleared for discharge after blood transfusion. Condition: Good - Instructions Diet, Activity, Other Instructions: hold eliquis until you follow up with PCP within 7 days f/u with GI as directed resume prev diet and activity Referrals: Misael Castellano MD [Staff Physician] - 2 Weeks Gerry Garcia MD [Primary Care Provider] - 1 Week Disposition: HOME - Home Medications Comprehensive Discharge Medication List: Ambulatory Orders Cholecalciferol (Vitamin D3) [Vitamin D3 -] 1,000 unit PO Q48H 01/24/15 Fenofibrate,Micronized [Fenofibrate] 134 mg PO DAILY 01/24/15 [place]-3S/Dha/Epa/Fish Oil [Fish Oil Dr 1,000 mg Softgel] 2 each PO BID 01/24/15 Quinapril HCl [Accupril -] 40 mg PO DAILY 01/24/15 Methimazole [Tapazole -] 5 mg PO Q2D@1000 tablet 02/14/15 Vitamin B Complex 1 each PO Q2D 07/27/15 Diltiazem Cd [Cardizem Cd -] 120 mg PO DAILY #30 cap.cd.24h 08/29/15 Metoprolol Tartrate [Lopressor -] 50 mg PO TID #90 tablet 08/29/15 Furosemide [Lasix -] 20 mg PO DAILY 05/05/16 Ofloxacin Otic [Floxin Otic -] 10 drop AD DAILY #70 drops 05/05/16 Mag Hydrox/Al Hydrox/Simeth [Mylanta Oral Suspension -] 30 ml PO Q6H 7 Days #28 cup 10/07/17 Pantoprazole Sodium [Protonix -] 40 mg PO DAILY 7 Days #7 tablet.ec 10/07/17
[2017-10-07 20:03] VITALS: BP 123/70; PULSE 73; TEMP 98.5
[2017-10-07] MEDS ORDERED: CHOLECALCIFEROL (VITAMIN D3) 1,000 UNIT TABLET (FP) PO SCH (22:00)
[2017-10-08] MEDS ORDERED: METHIMAZOLE 5 MG TABLET (FP) PO SCH (10:00)
== END 2017-10-07 21:54 | disposition home or self-care (01) | DRG 378 ==
LOC: JER 21:52 → UNDOADMOB 10-02 01:40 → JERBED 10-02 01:40 → INTOOBSV 10-02 01:40 → JERBED 10-02 01:47 → UNDOADMIN 10-02 01:47 → JERBED 10-02 01:48 → OBSVTOIN 10-02 13:35 → J4W 10-02 16:50 → J6S 10-06 17:30
PROVIDERS: ADMIT Internal Medicine; ATTEND Internal Medicine
PROC: 3E0G8GC Introduction of Other Therapeutic Substance into Upper GI, Via Natural or Artificial Opening Endoscopic (ICD-10-PCS; 2017-10-02)
PROC: 30233N1 Transfusion of Nonautologous Red Blood Cells into Peripheral Vein, Percutaneous Approach (ICD-10-PCS; 2017-10-02)
PROC: 0W3P8ZZ Control Bleeding in Gastrointestinal Tract, Via Natural or Artificial Opening Endoscopic (ICD-10-PCS; principal; 2017-10-02 13:30)
DX: K26.0 Acute duodenal ulcer with hemorrhage (principal); N17.9 Acute kidney failure, unspecified; D62 Acute posthemorrhagic anemia; I13.0 Hypertensive heart and chronic kidney disease with heart failure and stage 1 through stage 4 chronic kidney disease, or unspecified chronic kidney disease; N39.0 Urinary tract infection, site not specified; K44.9 Diaphragmatic hernia without obstruction or gangrene; R55 Syncope and collapse; K21.9 Gastro-esophageal reflux disease without esophagitis; E78.5 Hyperlipidemia, unspecified; I48.2 Chronic atrial fibrillation; E05.90 Thyrotoxicosis, unspecified without thyrotoxic crisis or storm; N18.3 Chronic kidney disease, stage 3 (moderate); D72.829 Elevated white blood cell count, unspecified; E87.5 Hyperkalemia; I50.9 Heart failure, unspecified
CPT/HCPCS: 36415; 36430; 36511; 70450-TC; 71045-TC-FY; 73562-TC-RT-FY; 80048; 80053; 81003; 81015; 82272; 82550; 82728; 83540; 83550; 83605; 83690; 83735; 83880; 84484; 85025; 85027; 85044; 85610; 85730; 86850; 86900; 86901; 86922; 93005; 93010; 97116-GP; 97161-GP; 99282-25; G0378; J7030; P9038; P9058

== ENCOUNTER 2017-12-25 11:24 | Day surgery (SDC) | payer OTHER, MEDICARE ==
[2017-12-24 13:01] VITALS: BMI 25.0
[2017-12-25] MEDS ORDERED: PROPOFOL 20 ML ONE (12:52)
[2017-12-25 14:18] VITALS: TEMP 97.9
[2017-12-25 15:10] VITALS: BP 138/72; PULSE 67
--- NOTE | 2017-12-29 15:55 | PATH ---
Surgical Pathology Report Patient Name: ALFREDITO KAY [facility]. Rec. #: [id number] /Age/Gender: 1935 (Age: 82) / F Account: [id number] Location: [facility]-ENDOSCOPY Taken: 12/25/2017 Received: 12/28/2017 Reported: 12/29/2017 Physicians: Misael Castellano M.D. Specimen(s) Received BX ANTRUM Clinical History Rule out duodenal ulcer Postoperative diagnosis: Healed duodenal ulcer, duodenal diverticuli Final Diagnosis ANTRUM, BIOPSY: GASTRIC MUCOSA WITH MILD CHRONIC GASTRITIS. IMMUNOSTAIN IS NEGATIVE FOR H. PYLORI ORGANISMS. Electronically Signed Maribel Maza M.D. Gross Description Received in formalin, labeled "biopsy antrum" are 2 lucero, irregular portions of soft tissue measuring 0.5 and 0.6 cm. in greatest dimension. The specimens are submitted in toto in one cassette. /12/28/2017 saudi12/28/2017
== END 2017-12-25 15:10 | disposition home or self-care (01) ==
LOC: JASU-ENDO 11:24
PROVIDERS: ATTEND Internal Medicine Gastroenterology
PROC: 0DB98ZX Excision of Duodenum, Via Natural or Artificial Opening Endoscopic, Diagnostic (ICD-10-PCS; principal; 2017-12-25 13:00)
DX: K26.9 Duodenal ulcer, unspecified as acute or chronic, without hemorrhage or perforation (principal); R09.02 Hypoxemia
CPT/HCPCS: 88305-TC; 88342-TC

== ENCOUNTER 2017-12-30 06:06 | Day surgery (SDC) | payer OTHER, MEDICARE ==
[2017-12-29 13:14] VITALS: BMI 25.0
[2017-12-30] MEDS ORDERED: ACETAMINOPHEN 1000 MG/100 ML VIAL (NON FORMULARY) IVPB ONE (07:18)
--- NOTE | 2017-12-30 07:18 | HP ---
History & Physical Update - History History: No Change - Physical Physical: No Change - Assessment Assessment: No Change - Plan Plan: No Change
[2017-12-30] MEDS ORDERED: PROPOFOL 20 ML ONE ×2 (07:21→07:23)
[2017-12-30] MEDS ORDERED: DEXTROSE 5%-0.45% SALINE 1,000 ML IV SCH (07:30)
[2017-12-30] MEDS ORDERED: IBUPROFEN 800 MG/8 ML IJ IVPB SCH (07:30)
[2017-12-30] MEDS ORDERED: MIDAZOLAM HCL 2 MG/2 ML SINGLE DOSE VIAL ONE (07:37)
[2017-12-30] MEDS ORDERED: ceFAZolin SODIUM 1 GM VIAL IVPB ONE (07:45)
[2017-12-30] MEDS ORDERED: LISINOPRIL 20 MG TABLET (FP) PO SCH (10:00)
[2017-12-30] MEDS ORDERED: OMEGA-3 ACID ETHYL ESTERS (FATTY-ACIDS) 1 GM CAPSULE (FP) PO SCH (10:00)
[2017-12-30 11:29] VITALS: BP 132/71; PULSE 64; TEMP 97.4
[2017-12-30] MEDS ORDERED: METOPROLOL TARTRATE 50 MG TABLET (FP) PO SCH (14:00)
--- NOTE | 2018-01-29 09:53 | OP ---
DATE OF OPERATION: 12/30/2017 PREOPERATIVE DIAGNOSIS: Left renal calculus. POSTOPERATIVE DIAGNOSIS: Left renal calculus. PROCEDURES: Cystoscopy. Left ureteroscopy. Retrograde pyelogram. ANESTHESIA: General. SURGEON: Rigoberto Watson MD FINDINGS: No large stones in the kidney. DRAINS: There were no drains. PREOPERATIVE INDICATION: The patient is an 82-year-old female with left-sided renal colic. She was noted to have stones on ultrasound. She comes to the OR for ureteroscopy. OPERATION: The patient was brought to the OR, placed on the table in the supine position, given general anesthesia and IV antibiotics, and placed in the modified lithotomy position. The groin was prepped and draped sterilely. Cystoscopy was performed. The left ureteral orifice was visualized and a wire was passed up into the left kidney. A dual-lumen catheter was placed and a second wire was then placed. Over the second wire, a flexible ureteroscope was placed into the kidney. Retrograde pyelogram was performed. No filling defects were seen. All the calyces of the kidney were examined. There was an area of a large plaque corresponding to the previously seen stone. However, there were no stones in the actual collecting system. Subsequently, so as a consequence, no laser was performed. The length of the ureter was also examined with the scope and there appeared to be no stones at all, as well. The bladder was emptied. The patient was woken up. RIGOBERTO WATSON M.D. [id number]
== END 2017-12-30 11:00 | disposition home or self-care (01) ==
LOC: JASU-SURG 06:06
PROVIDERS: ATTEND Urology
PROC: BT1FYZZ Fluoroscopy of Left Kidney, Ureter and Bladder using Other Contrast (ICD-10-PCS; principal; 2017-12-30 07:30)
DX: N20.0 Calculus of kidney (principal)
CPT/HCPCS: 76000-TC-FY; 94760; J0131

== ENCOUNTER 2018-06-15 10:46 | Inpatient (IN) | payer OTHER, MEDICARE ==
[2018-06-15 11:13] VITALS: BMI 24.6
[2018-06-15 12:27] LABS: BASO % 1.5 % (0-2.0); EOS % 4.5 % (0-4.5); HEMATOCRIT 41.1 % (32.4-45.2); HEMOGLOBIN 13.6 GM/dL (10.7-15.3); LYMPH % 17.6 % (8-40); MCH 28.4 pg (25.7-33.7); MEAN CELL VOLUME 85.8 fl (80-96); MEAN PLT VOLUME 9.3 fl (7.5-11.1); MONO % 10.2 % (3.8-10.2); NEUT % 66.2 % (42.8-82.8); PLATELET COUNT 376 K/MM3 (134-434); RBC 4.79 M/mm3 (3.60-5.2); RDW 15.1 % (11.6-15.6); WHITE BLOOD COUNT 8.8 K/mm3 (4.0-10.0)
[2018-06-15 12:47] LABS: URINE APPEARANCE SLCLOUDY; URINE BILIRUBIN NEGATIVE (<2.0 mg/dL); URINE COLOR YELLOW; URINE GLUCOSE (UA) NEGATIVE (NEGATIVE); URINE KETONE NEGATIVE (NEGATIVE); URINE LEUK ESTERASE 2+ (NEGATIVE); URINE NITRITE POSITIVE (NEGATIVE); URINE PROTEIN 1+ (NEGATIVE); URINE UROBILINOGEN NEGATIVE mg/dL (0.2-1.0)
[2018-06-15 12:51] LABS: EPI CELLS RARE /HPF (FEW); URINE HYALINE CAST 1 /lpf; URINE MUCUS RARE
--- NOTE | 2018-06-15 12:55 | EKG ---
Test Reason : Blood Pressure : / mmHG Vent. Rate : 055 BPM Atrial Rate : 064 BPM P-R Int : 000 ms QRS Dur : 078 ms QT Int : 354 ms P-R-T Axes : 000 030 048 degrees QTc Int : 338 ms ATRIAL FIBRILLATION WITH SLOW VENTRICULAR RESPONSE ABNORMAL ECG WHEN COMPARED WITH ECG OF 02-OCT-2017 00:30, QT HAS SHORTENED Confirmed by Neville Miller ([id number]) on 06/15/2018 12:54:24 PM Referred By: Confirmed By:Neville Miller
[2018-06-15 13:00] LABS: PROTHROMBIN TIME (PATIENT) 174.6 SEC (9.7-13.0)
[2018-06-15 13:03] LABS: INR 14.4 (0.83-1.09)
--- NOTE | 2018-06-15 13:05 | PDOC ---
History of Present Illness - General Chief Complaint: Revisit, Lab Variance Stated Complaint: ABNORMAL LABS Time Seen by Provider: 06/15/18 11:35 History Source: Patient Exam Limitations: No Limitations - History of Present Illness Initial Comments: 06/15/18 12:30 83-year-old female with history of A. fib sent in by Dr. Peterson for evaluation of elevated INR. Patient 12 days ago was switched from Eliquis to Coumadin secondary to high co-pay of Eliquis. Patient's INR this morning was recorded at 15. Patient denies hematuria, bleeding gums, rectal bleeding, or large bruising Timing/Duration: unsure Associated Symptoms: reports: denies symptoms Past History - Travel Traveled outside of the country in the last 30 days: No - Past Medical History Allergies/Adverse Reactions: Allergies Allergy/AdvReac Type Severity Reaction Status Date / Time No Known Allergies Allergy Verified 10/02/17 04:32 Home Medications: Ambulatory Orders Cholecalciferol (Vitamin D3) [Vitamin D3 -] 1,000 unit PO ASDIR 01/24/15 [place]-3S/Dha/Epa/Fish Oil [Fish Oil Dr 1,000 mg Softgel] 1 each PO BID 01/24/15 Vitamin B Complex 1 each PO Q2D 07/27/15 Diltiazem Cd [Cardizem Cd -] 120 mg PO DAILY #30 cap.cd.24h 08/29/15 Metoprolol Tartrate [Lopressor -] 50 mg PO TID #90 tablet 08/29/15 Furosemide [Lasix -] 20 mg PO DAILY 05/05/16 Lisinopril [Zestril] 40 mg PO DAILY 12/24/17 Fenofibrate Nanocrystallized [Triglide] 160 mg PO DAILY 12/25/17 Methimazole [Tapazole -] 5 mg PO DAILY 12/25/17 Pantoprazole Sodium 40 mg PO DAILY #90 tablet.dr 12/25/17 Ranitidine HCl [Zantac] 150 mg PO BID #30 tablet 12/25/17 Warfarin Na [Coumadin] 4 mg PO DAILY 06/15/18 Cardiac Disorders: Yes (ATRIAL FIBRILLATION, CHF) COPD: Yes CHF: Yes GI Disorders: Yes (DIVERTICULOSIS, POSTBULBAR DUODENAL BLEED) HTN: Yes Hypercholesterolemia: Yes Thyroid Disease: Yes - Surgical History Appendectomy: Yes Cardiac Surgery: No Lung Surgery: No Neurologic Surgery: No Orthopedic Surgery: Yes (JESUS. HIP REPLACEMENT) - Suicide/Smoking/Psychosocial Hx Smoking History: Never smoked Have you smoked in the past 12 months: No Hx Alcohol Use: No Drug/Substance Use Hx: No Substance Use Type: None Hx Substance Use Treatment: No Patient Lives Alone: No Lives with/in: spouse/SO Review of Systems - Review of Systems Able to Perform ROS?: No Constitutional: No: Symptoms Reported HEENTM: No: Symptoms Reported Respiratory: No: Symptoms reported Cardiac (ROS): No: Symptoms Reported ABD/GI: No: Symptoms Reported : No: Symptoms Reported Musculoskeletal: No: Symptoms Reported Integumentary: No: Symptoms Reported Neurological: No: Symptoms reported Hematologic/Lymphatic: Yes: Easy Bleeding *Physical Exam - Vital Signs Last Vital Signs Temp Pulse Resp BP Pulse Ox 97.4 F L 64 20 142/79 99 06/15/18 11:09 06/15/18 11:09 06/15/18 11:09 06/15/18 11:09 06/15/18 11:09 - Physical Exam General Appearance: Yes: Nourished, Appropriately Dressed. No: Apparent Distress HEENT: positive: EOMI, SHIRA, Pharynx Normal. negative: Pale Conjunctivae Neck: positive: Supple Respiratory/Chest: positive: Lungs Clear, Normal Breath Sounds. negative: Respiratory Distress, Accessory Muscle Use Cardiovascular: positive: Regular Rhythm, Regular Rate. negative: Murmur Gastrointestinal/Abdominal: positive: Soft. negative: Tenderness Extremity: positive: Normal Capillary Refill Integumentary: positive: Normal Color, Warm, Moist Neurologic: positive: Motor Strength 5/5 (ambulatory) Moderate Sedation - Procedure Monitoring Vital Signs: Procedure Monitoring Vital Signs Temperature 97.4 F L 06/15/18 11:09 Pulse Rate 64 06/15/18 11:09 Respiratory Rate 20 06/15/18 11:09 Blood Pressure 142/79 06/15/18 11:09 O2 Sat by Pulse Oximetry (%) 99 06/15/18 11:09 Heart Score/ECG Review - ECG Intrepretation Rhythm: Regular Rhythm (afib 55 with slow ventricular response) ED Treatment Course - LABORATORY CBC & Chemistry Diagram: 06/15/18 11:36 06/15/18 11:00 - ADDITIONAL ORDERS Additional order review: Laboratory Results 06/15/18 06/15/18 11:36 11:36 Urine Color Yellow Urine Appearance Slcloudy Urine pH 6.0 Ur Specific [place] 1.013 Urine Protein 1+ H Urine Glucose (UA) Negative Urine Ketones Negative Urine Blood Negative Urine Nitrite Positive Urine Bilirubin Negative Urine Urobilinogen Negative Ur Leukocyte Esterase 2+ H Urine WBC (Auto) 69 Urine RBC (Auto) None Ur Epithelial Cells Rare Hyaline Casts 1 Urine Mucus Rare Blood Type Cancelled Antibody Screen Cancelled 06/15/18 11:36 RBC 4.79 MCV 85.8 MCHC 33.0 RDW 15.1 MPV 9.3 Neutrophils % 66.2 Lymphocytes % 17.6 Monocytes % 10.2 Eosinophils % 4.5 Basophils % 1.5 Medical Decision Making - Medical Decision Making 06/15/18 13:07 Complaint: Elevated INR patient is asymptomatic Exam: No active bleeding, vital stable Plan: CBC, comp, urinalysis, EKG and coags 06/15/18 13:29 Laboratory Tests 06/15/18 06/15/18 06/15/18 11:00 11:36 11:36 WBC 8.8 Hgb 13.6 Hct 41.1 D Absolute Neuts (auto) 5.8 PT with INR 174.60 H INR 14.40 H* Sodium 138 Potassium 5.0 Chloride 104 Carbon Dioxide 26 Anion Gap 8 BUN 44 H Creatinine 1.9 H Random Glucose 95 Calcium 10.0 Total Bilirubin 0.5 AST 53 H ALT 29 Alkaline Phosphatase 46 Total Protein 7.9 Albumin 2.8 L Urine Protein Urine Nitrite Ur Leukocyte Esterase Urine WBC (Auto) 06/15/18 11:36 WBC Hgb Hct Absolute Neuts (auto) PT with INR INR Sodium Potassium Chloride Carbon Dioxide Anion Gap BUN Creatinine Random Glucose Calcium Total Bilirubin AST ALT Alkaline Phosphatase Total Protein Albumin Urine Protein 1+ H Urine Nitrite Positive Ur Leukocyte Esterase 2+ H Urine WBC (Auto) 69 Ordered vitamin K 5 mg by mouth and urine culture added. Case discussed Dr. Peterson who agrees with plan. Microblog sent to Dr. morales. Urine culture from 2014 shows Klebsiella pneumoniae. Patient will be given Macrobid versus cephalosporin secondary to side effect of elevated INR. 06/15/18 13:[address] Simon Harris here for consult. *DC/Admit/Observation/Transfer Diagnosis at time of Disposition: Elevated INR, UTI (urinary tract infection) - Discharge Dispostion Decision to Admit order: Yes - Referrals Referrals: Gerry Garcia MD [Primary Care Provider] - - Patient Instructions - Post Discharge Activity
[2018-06-15] MEDS ORDERED: PHYTONADIONE 5 MG TABLET PO ONE (13:07)
[2018-06-15] MEDS ORDERED: PHYTONADIONE 5 MG TABLET ONE (13:12)
[2018-06-15 13:26] LABS: ALBUMIN 2.8 g/dl (3.4-5.0); ALK PHOS 46 U/L (45-117); ANION GAP 8 MMOL/L (8-16); BILIRUBIN,TOTAL 0.5 mg/dL (0.2-1); BLOOD UREA NITROGEN 44 mg/dL (7-18); CHLORIDE 104 mmol/L (98-107); CO2 26 mmol/L (21-32); CREATININE 1.9 mg/dL (0.55-1.3); GLUCOSE,RANDOM 95 mg/dL (74-106); SGOT/AST 53 U/L (15-37); SGPT/ALT 29 U/L (13-61); SODIUM 138 mmol/L (136-145); TOT PROT 7.9 g/dl (6.4-8.2)
[2018-06-15] MEDS ORDERED: NITROFURANTOIN MACROCRYSTAL 50 MG CAPSULE (FP) PO SCH (13:30)
[2018-06-15] MEDS ORDERED: NITROFURANTOIN MACROCRYSTAL 50 MG CAPSULE (FP) PO ONE (13:30)
[2018-06-15] MEDS ORDERED: NITROFURANTOIN MACROCRYSTAL 50 MG CAPSULE (FP) ONE (13:36)
--- NOTE | 2018-06-15 13:39 | HP ---
Admitting History and Physical - Primary Care Physician PCP: Gerry Garcia - Admission Chief Complaint: supratherapeutic INR History of Present Illness: 83 year old female sent by PCP for INR of 15 outpt. Pt was recently placed on Coumadin 12 days ago for persistent afib. Pt denies any chest pain, sob, n/v/d, dysuria, blood in stool/urine, rash, bruising, abd pain or recent changes in medications/diet. In ED, INR 14, received po vit k 5mg x 1, Head CT neg. Pt denies any current complaints. History Source: Patient Limitations to Obtaining History: No Limitations - Past Medical History [employer]EL[employer]: Yes: Parkinson's Cardiovascular: Yes: AFIB, HTN, Hyperlipdemia Pulmonary: Yes: Bronchitis Gastrointestinal: Yes: Diverticulosis, GERD, Hiatal Hernia, Other Renal/: Yes: Other (ruptured hemorrhagic renal cyst, single kidney) Musculoskeletal: Yes: Osteoarthritis Endocrine: Yes: Hyperparathyroidism, Hyperthyroidism - Past Surgical History Past Surgical History: Yes: Appendectomy, Hysterectomy, Joint Replacement, Mastectomy - Smoking History Smoking history: Never smoked Have you smoked in the past 12 months: No - Alcohol/Substance Use Hx Alcohol Use: No History of Substance Use: reports: None - Social History ADL: Independent History of Recent Travel: No Home Medications - Allergies Allergies/Adverse Reactions: Allergies Allergy/AdvReac Type Severity Reaction Status Date / Time No Known Allergies Allergy Verified 10/02/17 04:32 - Home Medications Home Medications: Ambulatory Orders Cholecalciferol (Vitamin D3) [Vitamin D3 -] 1,000 unit PO ASDIR 01/24/15 [place]-3S/Dha/Epa/Fish Oil [Fish [place] 1,000 mg Softgel] 1 each PO BID 01/24/15 Vitamin B Complex 1 each PO Q2D 07/27/15 Metoprolol Tartrate [Lopressor -] 50 mg PO TID #90 tablet 08/29/15 Furosemide [Lasix -] 20 mg PO DAILY 05/05/16 Lisinopril [Zestril] 40 mg PO DAILY 12/24/17 Fenofibrate Nanocrystallized [Triglide] 160 mg PO DAILY 12/25/17 Methimazole [Tapazole -] 5 mg PO DAILY 12/25/17 Pantoprazole Sodium 40 mg PO DAILY #90 tablet. 12/25/17 Diltiazem Cd [Cardizem Cd -] 120 mg PO DAILY 06/15/18 Warfarin Na [Coumadin] 4 mg PO DAILY 06/15/18 Family Disease History - Family Disease History Family Disease History: [place]: Grandparent, Sister, Other: Mother Review of Systems Findings/Remarks: as per hpi Physical Examination Vital Signs: Vital Signs Temperature 97.4 F L 06/15/18 11:09 Pulse Rate 64 06/15/18 11:09 Respiratory Rate 20 06/15/18 11:09 Blood Pressure 142/79 06/15/18 11:09 O2 Sat by Pulse Oximetry (%) 99 06/15/18 11:09 Constitutional: Yes: Well Nourished, No Distress, Calm Cardiovascular: Yes: Pulse Irregular Respiratory: Yes: WNL, Regular, CTA Bilaterally. No: Accessory Muscle Use, SOB , Tachypnea, Wheezes Gastrointestinal: Yes: WNL, Normal Bowel Sounds, Soft. No: Distention, Tenderness Renal/: Yes: WNL Musculoskeletal: Yes: WNL Extremities: Yes: WNL Edema: No Neurological: Yes: WNL, Alert, Oriented Psychiatric: Yes: WNL, Alert, Oriented Labs: CBC, BMP 06/15/18 11:36 06/15/18 11:00 Imaging - Results Ultrasound: Report Reviewed (HEAD CT- no acute findings) Assessment/Plan (1) Supratherapeutic INR Assessment/Plan: INR 14, no signs of active bleeding vit k 5mg po x [address] neg cardiology consulted monitor INR Code(s): R79.1 - ABNORMAL COAGULATION PROFILE (2) Asymptomatic bacteriuria Assessment/Plan: UA positive pt asymptomatic await UC Code(s): R82.71 - BACTERIURIA (3) Transaminitis Assessment/Plan: mild ast elevation abd exam benign trend Code(s): R74.0 - NONSPEC ELEV OF LEVELS OF TRANSAMNS & LACTIC ACID DEHYDRGNSE (4) ESSENCE (acute kidney injury) Assessment/Plan: baseline cr 1.8 slight elevation encourage po fluids monitor Code(s): N17.9 - ACUTE KIDNEY FAILURE, UNSPECIFIED (5) Atrial fibrillation Assessment/Plan: rate controlled continue metoprolol and cardizem hold coumadin- INR 14 Code(s): I48.91 - UNSPECIFIED ATRIAL FIBRILLATION Qualifiers: Atrial fibrillation type: chronic Qualified Code(s): I48.2 - Chronic atrial fibrillation (6) HLD (hyperlipidemia) Assessment/Plan: stable continue fibrate/fishoil Code(s): E78.5 - HYPERLIPIDEMIA, UNSPECIFIED Qualifiers: Hyperlipidemia type: Pure hypercholesterolemia (7) HTN (hypertension) Assessment/Plan: controlled continue home regimen Code(s): I10 - ESSENTIAL (PRIMARY) HYPERTENSION Qualifiers: Hypertension type: essential hypertension Qualified Code(s): I10 - Essential (primary) hypertension (8) Hyperparathyroidism Assessment/Plan: stable, Ca wnl Code(s): E21.3 - HYPERPARATHYROIDISM, UNSPECIFIED (9) CKD (chronic kidney disease) Assessment/Plan: pt with unilateral kidney as above Code(s): N18.9 - CHRONIC KIDNEY DISEASE, UNSPECIFIED Qualifiers: Chronic kidney disease stage: stage 3 (moderate) Qualified Code(s): N18.3 - Chronic kidney disease, stage 3 (moderate) (10) Hyperthyroidism Assessment/Plan: stable continue tapazole Code(s): E05.90 - THYROTOXICOSIS, UNSP WITHOUT THYROTOXIC CRISIS OR STORM
[2018-06-15] MEDS ORDERED: SODIUM CHLORIDE 1,000 ML IV SCH (16:15)
[2018-06-15] MEDS: METOPROLOL TARTRATE 50 MG TABLET (FP) PO SCH (21:29)
[2018-06-16] MEDS: METOPROLOL TARTRATE 50 MG TABLET (FP) PO SCH (06:01)
[2018-06-16 07:37] LABS: BASO % 0.7 % (0-2.0); EOS % 5.3 % (0-4.5); HEMATOCRIT 37.1 % (32.4-45.2); HEMOGLOBIN 12.5 GM/dL (10.7-15.3); LYMPH % 16.5 % (8-40); MCH 28.8 pg (25.7-33.7); MCHC 33.7 g/dl (32.0-36.0); MEAN CELL VOLUME 85.5 fl (80-96); MEAN PLT VOLUME 9.1 fl (7.5-11.1); MONO % 11.7 % (3.8-10.2); NEUT % 65.8 % (42.8-82.8); PLATELET COUNT 327 K/MM3 (134-434); RBC 4.34 M/mm3 (3.60-5.2); WHITE BLOOD COUNT 6.7 K/mm3 (4.0-10.0)
[2018-06-16 08:09] LABS: ALBUMIN 2.4 g/dl (3.4-5.0); ALK PHOS 40 U/L (45-117); ANION GAP 7 MMOL/L (8-16); BILIRUBIN,TOTAL 0.8 mg/dL (0.2-1); BLOOD UREA NITROGEN 35 mg/dL (7-18); CALCIUM 9.7 mg/dL (8.5-10.1); CHLORIDE 105 mmol/L (98-107); CO2 27 mmol/L (21-32); CREATININE 1.6 mg/dL (0.55-1.3); GLUCOSE,RANDOM 89 mg/dL (74-106); MAGNESIUM 2.1 mg/dL (1.8-2.4); PHOSPHOROUS 2.5 mg/dL (2.5-4.9); POTASSIUM 4.6 mmol/L (3.5-5.1); SGOT/AST 35 U/L (15-37); SGPT/ALT 24 U/L (13-61); SODIUM 139 mmol/L (136-145); TOT PROT 6.5 g/dl (6.4-8.2)
[2018-06-16 08:15] LABS: PROTHROMBIN TIME (PATIENT) 57.5 SEC (9.7-13.0)
[2018-06-16 08:38] LABS: INR 4.8 (0.83-1.09)
[2018-06-16] MEDS ORDERED: PT OWN MED DRAWER 7, Y5N ONE (08:58)
[2018-06-16] MEDS ORDERED: LISINOPRIL 20 MG TABLET (FP) PO SCH (10:00)
[2018-06-16] MEDS ORDERED: PANTOPRAZOLE 40 MG TABLET (FP) PO SCH (10:00)
[2018-06-16] MEDS ORDERED: METHIMAZOLE 5 MG TABLET (FP) PO SCH (10:00)
[2018-06-16] MEDS ORDERED: CEPHALEXIN MONOHYDRATE 500 MG CAPSULE (UD) PO SCH (10:15)
--- NOTE | 2018-06-16 10:28 | DS ---
Physical Examination Vital Signs: Vital Signs Temperature 97.6 F 06/16/18 04:00 Pulse Rate 64 06/16/18 04:00 Respiratory Rate 18 06/16/18 04:00 Blood Pressure 136/74 06/16/18 04:00 O2 Sat by Pulse Oximetry (%) 98 06/16/18 04:00 Constitutional: Yes: Well Nourished, No Distress, Calm Cardiovascular: Yes: Pulse Irregular Respiratory: Yes: WNL, Regular, CTA Bilaterally. No: Accessory Muscle Use, Rhonchi, SOB, Tachypnea, Wheezes Gastrointestinal: Yes: WNL, Normal Bowel Sounds, Soft. No: Distention, Tenderness Renal/: Yes: WNL Musculoskeletal: Yes: WNL Extremities: Yes: WNL Neurological: Yes: WNL, Alert, Oriented Psychiatric: Yes: WNL, Alert, Oriented Labs: CBC, BMP 06/16/18 06:15 06/16/18 06:15 Discharge Summary Reason For Visit: ELEVATED INR Current Active Problems ESSENCE (acute kidney injury) (Acute) Asymptomatic bacteriuria (Acute) Elevated INR (Acute) Supratherapeutic INR (Acute) Transaminitis (Acute) UTI (urinary tract infection) (Acute) Hospital Course: 83 year old female admitted for supratherapeutic INR. INR noted to be 15 outpt, 14 here without any active bleeding, received 5mg po vit k, INR 4.[address] negative. Discussed with PCP, continue to hold coumadin and to recheck INR on thursday. UC growing gnb, pt started on keflex x 7 days. Pt is medically stable for discharge home, advise fall precautions and outpt follow up with PCP in 2 days. Condition: Good - Instructions Diet, Activity, Other Instructions: FOLLOW UP WITH ON THURSDAY HOLD COUMADIN KEFLEX TWICE A DAY X 7 DAYS Referrals: Gerry Garcia MD [Primary Care Provider] - 06/18/18 Disposition: HOME - Home Medications Comprehensive Discharge Medication List: Ambulatory Orders Cholecalciferol (Vitamin D3) [Vitamin D3 -] 1,000 unit PO ASDIR 01/24/15 [place]-3S/Dha/Epa/Fish Oil [Fish Oil Dr 1,000 mg Softgel] 1 each PO BID 01/24/15 Vitamin B Complex 1 each PO Q2D 07/27/15 Metoprolol Tartrate [Lopressor -] 50 mg PO TID #90 tablet 08/29/15 Furosemide [Lasix -] 20 mg PO DAILY 05/05/16 Lisinopril [Zestril] 40 mg PO DAILY 12/24/17 Fenofibrate Nanocrystallized [Triglide] 160 mg PO DAILY 12/25/17 Methimazole [Tapazole -] 5 mg PO DAILY 12/25/17 Pantoprazole Sodium 40 mg PO DAILY #90 tablet. 12/25/17 Diltiazem Cd [Cardizem Cd -] 120 mg PO DAILY 06/15/18 Cephalexin Monohydrate [Keflex -] 500 mg PO BID 7 Days #14 capsule 06/16/18
[2018-06-16 11:03] VITALS: BP 139/69; PULSE 79; TEMP 98.4
--- NOTE | 2018-06-16 11:03 | CON.CARD ---
Consult - Past Medical History [employer]: Yes: Parkinson's Cardio/Vascular: Yes: AFIB, HTN, Hyperlipdemia Pulmonary: Yes: Bronchitis Gastrointestinal: Yes: Diverticulosis, GERD, Hiatal Hernia, Other Renal/: Yes: Other (ruptured hemorrhagic renal cyst, single kidney) Musculoskeletal: Yes: Osteoarthritis Endocrine: Yes: Hyperparathyroidism, Hyperthyroidism - Past Surgical History Past Surgical History: Yes: Appendectomy, Hysterectomy, Joint Replacement, Mastectomy - Alcohol/Substance Use Hx Alcohol Use: No History of Substance Use: reports: None - Smoking History Smoking history: Never smoked Have you smoked in the past 12 months: No - Social History ADL: Independent History of Recent Travel: No <Regulo Hoffman - Last Filed: 06/16/18 11:03> Consult Specialty:: Cardiology Referred by:: Dr. Rojas Reason for Consultation:: Super normal INR - History of Present Illness History of Present Illness: 83 year old female with history of hypertension, hypertensive cardiovascular disease, permanent atrial fibrillation, hypertrophic cardiomyopathy, history of congestive heart failure, hyperlipidemia, status post acute pancreatitis following a pancreatic biopsy, history of parathyroid adenoma, hypercalcemia and hyperthyroidism. History of chronic kidney disease. Patient recently had been switched from Eliquis to Warfarin and was being monitored closely by PCP. After a week of INR being therapeutic, she had a follow up INR that was found to be 15 and was hospitalized for treatment. No history of chest pain or discomfort. History of exertional dyspnea when walking less than half a block. Was diagnosed to have COPD. No history of palpitations, lightheadedness, dizziness, presyncope or syncope. Patient is also known to have a congenital absence of the right kidney and has been hospitalized in the past for bleed of a left renal cyst. PAST HISTORY: 1. As mentioned above. 2. Status post peptic ulcer disease. 3. History of upper GI bleeding. 4. Osteoarthritis. 5. Renal Lithiasis. SURGICAL HISTORY: 1. Status post tonsillectomy. 2. Status post appendectomy. 3. Status post hysterectomy. 4. Status post bilateral cataract extraction and intra-ocular lens implantation. 5. Status post bilateral hip replacement. SOCIAL HISTORY: , has two sons who are healthy. She is a non-smoker and does not drink alcohol. FAMILY HISTORY: Father at the age of 70 related to complications of alcoholism. Mother when patient was 13 years of age due to tuberculosis. Had two sisters, both of them had carcinoma of the breast. One sister is due to COPD and CHF. Active Medications Cephalexin HCl (Keflex -) 500 mg PO BID [facility] Stop: 06/23/18 10:14 Diltiazem HCl (Cardizem Cd -) 120 mg PO DAILY [facility] Last Admin: 06/16/18 09:07 Dose: 120 mg Lisinopril (Prinivil) 40 mg PO DAILY [facility] Last Admin: 06/16/18 09:07 Dose: 40 mg Methimazole (Tapazole -) 5 mg PO DAILY [facility] Metoprolol Tartrate (Lopressor -) 50 mg PO TID [facility] Last Admin: 06/16/18 06:01 Dose: 50 mg Pantoprazole Sodium (Protonix -) 40 mg PO DAILY [facility] Last Admin: 06/16/18 09:07 Dose: 40 mg Allergies: No known allergies. REVIEW OF SYSTEMS: Constitutional: No history of chills, fever, or night sweats reported. No history of unintentional weight loss. HEENT: No history of headaches, diplopia, blurred vision. No history of epistaxis, hoarseness, vertigo, tinnitus, or deafness. Cardiovascular: See HPI. Respiratory: See history of present illness. No history of cough, expectoration or hemoptysis. Gastrointestinal: No history of nausea, vomiting, melena or hematemesis. No history of abdominal pain or discomfort. No history of change in bowel habits. Neurological: No history of seizures, syncope, focal weakness. No history of lightheadedness or dizziness. No history of paresthesias. Endocrine: See history of present illness. Musculoskeletal: History of arthralgias involving the hands and also the toes. Hematological: No history of anemia, bleeding or ecchymosis. Lymphatics: No history of lymphadenopathy or masses. Genitourinary: Diagnosed to have urinary tract infection on admission, denies having dysuria, frequency, hematuria, or nocturia. 83 year old female was in no acute distress. No pallor, cyanosis, clubbing or jaundice. Last Vital Signs Temp Pulse Resp BP Pulse Ox 98.4 F 79 Irregular 18 139/69 98 06/16/18 10:00 06/16/18 10:00 06/16/18 10:00 06/16/18 10:00 06/16/18 09:00 NECK: Supple, no JVD, negative HJR, carotids were 2+ and upstrokes were normal, no thyromegaly appreciated. The right lobe of the thyroid appears slightly nodular. There is a well healed anterior surgical scar. HEART: PMI was in the 5th intercostal space, no heaves or thrills, S1 was variable and S2 was normal. Grade I/ decrescendo systolic murmur was heard at the apex. No diastolic murmurs or gallops were appreciated. LUNGS: Clear on auscultation bilaterally. CHEST: Expansion was symmetrical, no deformities were seen. ABDOMEN: Soft, nontender, no hepatosplenomegaly appreciated, and no palpable masses were felt. EXTREMITIES: No calf tenderness or dependent edema. Pulses are normal. EKG IMPRESSION 06/15/18: Atrial fibrillation with slow ventricular response. Compared to ECG of 10/02/17, QT has shortened. Laboratory Results - last 24 hr 06/15/18 06/15/18 06/15/18 11:00 11:36 11:36 WBC 8.8 RBC 4.79 Hgb 13.6 Hct 41.1 D MCV 85.8 MCH 28.4 MCHC 33.0 RDW 15.1 Plt Count 376 D MPV 9.3 Absolute Neuts (auto) 5.8 Neutrophils % 66.2 Lymphocytes % 17.6 Monocytes % 10.2 Eosinophils % 4.5 Basophils % 1.5 Nucleated RBC % 0 PT with INR 174.60 H INR 14.40 H* Sodium 138 Potassium 5.0 Chloride 104 Carbon Dioxide 26 Anion Gap 8 BUN 44 H Creatinine 1.9 H Creat Clearance w eGFR 25.12 Random Glucose 95 Calcium 10.0 Phosphorus Magnesium Total Bilirubin 0.5 AST 53 H ALT 29 Alkaline Phosphatase 46 Total Protein 7.9 Albumin 2.8 L Urine Color Urine Appearance Urine pH Ur Specific [place] Urine Protein Urine Glucose (UA) Urine Ketones Urine Blood Urine Nitrite Urine Bilirubin Urine Urobilinogen Ur Leukocyte Esterase Urine WBC (Auto) Urine RBC (Auto) Ur Epithelial Cells Hyaline Casts Urine Mucus Blood Type Antibody Screen 06/15/18 06/15/18 06/16/18 11:36 11:36 06:15 WBC 6.7 RBC 4.34 Hgb 12.5 Hct 37.1 MCV 85.5 MCH 28.8 MCHC 33.7 RDW 15.0 Plt Count 327 MPV 9.1 Absolute Neuts (auto) 4.4 Neutrophils % 65.8 Lymphocytes % 16.5 Monocytes % 11.7 H Eosinophils % 5.3 H Basophils % 0.7 Nucleated RBC % 0 PT with INR INR Sodium Potassium Chloride Carbon Dioxide Anion Gap BUN Creatinine Creat Clearance w eGFR Random Glucose Calcium Phosphorus Magnesium Total Bilirubin AST ALT Alkaline Phosphatase Total Protein Albumin Urine Color Yellow Urine Appearance Slcloudy Urine pH 6.0 Ur Specific [place] 1.013 Urine Protein 1+ H Urine Glucose (UA) Negative Urine Ketones Negative Urine Blood Negative Urine Nitrite Positive Urine Bilirubin Negative Urine Urobilinogen Negative Ur Leukocyte Esterase 2+ H Urine WBC (Auto) 69 Urine RBC (Auto) None Ur Epithelial Cells Rare Hyaline Casts 1 Urine Mucus Rare Blood Type Cancelled Antibody Screen Cancelled 06/16/18 06/16/18 06:15 06:15 WBC RBC Hgb Hct MCV MCH MCHC RDW Plt Count MPV Absolute Neuts (auto) Neutrophils % Lymphocytes % Monocytes % Eosinophils % Basophils % Nucleated RBC % PT with INR 57.50 H INR 4.80 H* Sodium 139 Potassium 4.6 Chloride 105 Carbon Dioxide 27 Anion Gap 7 L BUN 35 H Creatinine 1.6 H Creat Clearance w eGFR 30.63 Random Glucose 89 Calcium 9.7 Phosphorus 2.5 Magnesium 2.1 Total Bilirubin 0.8 AST 35 ALT 24 Alkaline Phosphatase 40 L Total Protein 6.5 Albumin 2.4 L Urine Color Urine Appearance Urine pH Ur Specific [place] Urine Protein Urine Glucose (UA) Urine Ketones Urine Blood Urine Nitrite Urine Bilirubin Urine Urobilinogen Ur Leukocyte Esterase Urine WBC (Auto) Urine RBC (Auto) Ur Epithelial Cells Hyaline Casts Urine Mucus Blood Type Antibody Screen Impression: 1. Super normal INR, of undetermined etiology, presently resolving. 2. Permanent atrial fibrillation. 3. Hypertension, hypertensive cardiovascular disease, presently normotensive. 4. Hypertrophic cardiomyopathy. 5. History of multi-maco goiter/hyperthyroidism. 6. History of hyperparathyroidism. 7. Dyslipidemia, type IIb. 8. Chronic kidney disease. 9. History of COPD. 10. Recently diagnosed UTI. Recommendations: 1. Concur with current line of management. 2. Close monitoring of INR as patient is on antibiotics. 3. Patient was advised follow up on an outpatient basis. Documentation prepared by Qiana Gomez, acting as a medical record librarians teacher for Regulo Hoffman MD. <Qiana Gomez - Last Filed: 06/16/18 15:26> Home Medications <Regulo Hoffman - Last Filed: 06/16/18 11:03> <Qiana Gomez - Last Filed: 06/16/18 15:26> - Allergies Allergies/Adverse Reactions: Allergies Allergy/AdvReac Type Severity Reaction Status Date / Time No Known Allergies Allergy Verified 10/02/17 04:32 - Home Medications Home Medications: Ambulatory Orders Cholecalciferol (Vitamin D3) [Vitamin D3 -] 1,000 unit PO ASDIR 01/24/15 [place]-3S/Dha/Epa/Fish Oil [Fish Oil Dr 1,000 mg Softgel] 1 each PO BID 01/24/15 Vitamin B Complex 1 each PO Q2D 07/27/15 Metoprolol Tartrate [Lopressor -] 50 mg PO TID #90 tablet 08/29/15 Furosemide [Lasix -] 20 mg PO DAILY 05/05/16 Lisinopril [Zestril] 40 mg PO DAILY 12/24/17 Fenofibrate Nanocrystallized [Triglide] 160 mg PO DAILY 12/25/17 Methimazole [Tapazole -] 5 mg PO DAILY 12/25/17 Pantoprazole Sodium 40 mg PO DAILY #90 tablet. 12/25/17 Diltiazem Cd [Cardizem Cd -] 120 mg PO DAILY 06/15/18 Cephalexin Monohydrate [Keflex -] 500 mg PO BID 7 Days #14 capsule 06/16/18 Family Disease History - Family Disease History Family Disease History: [place]: Grandparent, Sister, Other: Mother <Regulo Hoffman - Last Filed: 06/16/18 11:03> Vital Signs: Vital Signs Temperature 98.4 F 06/16/18 10:00 Pulse Rate 79 06/16/18 10:00 Respiratory Rate 18 06/16/18 10:00 Blood Pressure 139/69 06/16/18 10:00 O2 Sat by Pulse Oximetry (%) 98 06/16/18 09:00 - Other Data Labs, Other Data: CBC, BMP 06/16/18 06:15 06/16/18 06:15 INR, PTT INR 4.80 (0.83-1.09) H* 06/16/18 06:15 <Regulo Hoffman - Last Filed: 06/16/18 11:03> Vital Signs: Vital Signs Temperature 98.4 F 06/16/18 10:00 Pulse Rate 79 06/16/18 10:00 Respiratory Rate 18 06/16/18 10:00 Blood Pressure 139/69 06/16/18 10:00 O2 Sat by Pulse Oximetry (%) 98 06/16/18 09:00 - Other Data Labs, Other Data: CBC, BMP 06/16/18 06:15 06/16/18 06:15 INR, PTT INR 4.80 (0.83-1.09) H* 06/16/18 06:15 <Qiana Gomez - Last Filed: 06/16/18 15:26>
== END 2018-06-16 14:14 | disposition home or self-care (01) | DRG 690 ==
LOC: JER 10:46 → JERBED 13:33 → J7W 17:25
PROVIDERS: ADMIT Internal Medicine; ATTEND Nurse Practitioner Family
DX: N39.0 Urinary tract infection, site not specified (principal); N17.9 Acute kidney failure, unspecified; I13.0 Hypertensive heart and chronic kidney disease with heart failure and stage 1 through stage 4 chronic kidney disease, or unspecified chronic kidney disease; I42.2 Other hypertrophic cardiomyopathy; R79.1 Abnormal coagulation profile; R74.0 Nonspecific elevation of levels of transaminase and lactic acid dehydrogenase [LDH]; R82.71 Bacteriuria; I48.2 Chronic atrial fibrillation; E78.5 Hyperlipidemia, unspecified; E21.3 Hyperparathyroidism, unspecified; E05.90 Thyrotoxicosis, unspecified without thyrotoxic crisis or storm; N18.3 Chronic kidney disease, stage 3 (moderate); I50.9 Heart failure, unspecified; M19.90 Unspecified osteoarthritis, unspecified site; J44.9 Chronic obstructive pulmonary disease, unspecified
CPT/HCPCS: 36415; 70450-TC; 80053; 81003; 81015; 83735; 84100; 85025; 85610; 87086; 87186; 93005; 93010; 99285-25

== ENCOUNTER 2018-12-09 16:38 | Inpatient (IN) | payer OTHER, MEDICARE ==
--- NOTE | 2018-12-09 16:46 | PDOC ---
Rapid Medical Evaluation Time Seen by Provider: 12/09/18 16:42 Medical Evaluation: Allergies Allergy/AdvReac Type Severity Reaction Status Date / Time No Known Allergies Allergy Verified 12/09/18 16:43 12/09/18 16:44 I have performed a brief in-person evaluation of this patient. The patient presents with a chief complaint of: Bilateral LE swelling worsening over the past 3 weeks. (+)difficulty breathing, cough with white sputum. No chest pain Pertinent physical exam findings: Bilateral LE edema and erythema, R>L, no warmth. Lungs without crackles/rales. I have ordered the following: CBC, CMP, ProBnp, PT/INR, CXR, EKG The patient will proceed to the ED for further evaluation. Discharge Disposition - Diagnosis Leg swelling - Referrals - Patient Instructions - Post Discharge Activity
--- NOTE | 2018-12-09 17:16 | PDOC ---
History of Present Illness - General Chief Complaint: Edema Stated Complaint: BOTH LEGS SWOLLEN Time Seen by Provider: 12/09/18 16:42 - History of Present Illness Initial Comments: 83 year old with PM of afib (on Coumadin), HTN, COPD, Hyperthyroidism, and CHF, presenting from risk management analyst's office with worsening lower extremity edema over the past 2-3 weeks and possible worsening shortness of breath despite increase of PO home Lasix. Patient stats that her legs have swollen to double their size over the past 2-3 weeks and she is unsure if her breathing difficulty has worsened. Denies any chest pain, worsening cough, fevers, chills, or other symptoms. 12/09/18 17:44 Past History - Past Medical History Allergies/Adverse Reactions: Allergies Allergy/AdvReac Type Severity Reaction Status Date / Time No Known Allergies Allergy Verified 12/09/18 16:43 Home Medications: Ambulatory Orders Cholecalciferol (Vitamin D3) [Vitamin D3 -] 1,000 unit PO ASDIR 01/24/15 Vitamin B Complex 1 each PO Q2D 07/27/15 Metoprolol Tartrate [Lopressor -] 50 mg PO TID #90 tablet 08/29/15 Furosemide [Lasix -] 20 mg PO DAILY 05/05/16 Lisinopril [Zestril] 40 mg PO DAILY 12/24/17 Fenofibrate Nanocrystallized [Triglide] 160 mg PO DAILY 12/25/17 Methimazole [Tapazole -] 5 mg PO DAILY 12/25/17 Diltiazem Cd [Cardizem Cd -] 120 mg PO DAILY 06/15/18 Albuterol 0.083% Nebulizer Yohana [Ventolin 0.083%] 1 neb NEB QID PRN 12/09/18 Ranitidine [Zantac -] 150 mg PO BID 12/09/18 Warfarin Na [Coumadin] 1 mg PO DAILY 12/09/18 Warfarin Na [Coumadin] 2 mg PO ASDIR 12/09/18 Cardiac Disorders: Yes (ATRIAL FIBRILLATION, CHF) COPD: Yes CHF: Yes GI Disorders: Yes (DIVERTICULOSIS, POSTBULBAR DUODENAL BLEED) HTN: Yes Hypercholesterolemia: Yes Thyroid Disease: Yes - Surgical History Appendectomy: Yes Cardiac Surgery: No Lung Surgery: No Neurologic Surgery: No Orthopedic Surgery: Yes (JESUS. HIP REPLACEMENT) - Suicide/Smoking/Psychosocial Hx Smoking History: Former smoker Have you smoked in the past 12 months: No Information on smoking cessation initiated: No Hx Alcohol Use: No Drug/Substance Use Hx: No Substance Use Type: None Hx Substance Use Treatment: No Review of Systems - Review of Systems Constitutional: No: Chills, Diaphoresis, Fever HEENTM: No: Eye Pain, Blurred Vision, Tearing Respiratory: Yes: Cough (chronic), Shortness of Breath (chronic but possibly worse), Productive cough (chronic, clear mucous) Cardiac (ROS): Yes: Edema, Irregular Heart Rate. No: Chest Pain, Lightheadedness, Palpitations, Syncope, Chest Tightness ABD/GI: No: Constipated, Diarrhea, Nausea, Poor Appetite, Vomiting : No: Burning, Dysuria, Discharge Musculoskeletal: No: Back Pain, Joint Pain, Muscle Weakness Integumentary: No: Bruising, Erythema, Flushing Neurological: No: Headache, Numbness, Paresthesia Psychiatric: No: Anxiety, Depression Hematologic/Lymphatic: No: Anemia, Blood Clots (on warfarin for afib), Easy Bleeding *Physical Exam - Vital Signs Last Vital Signs Temp Pulse Resp BP Pulse Ox 98.1 F 57 L 18 115/46 L 97 12/09/18 16:51 12/09/18 16:51 12/09/18 16:51 12/09/18 16:51 12/09/18 16:51 - Physical Exam General Appearance: Yes: Nourished, Appropriately Dressed. No: Apparent Distress HEENT: positive: EOMI, SHIRA, Normal ENT Inspection, Normal Voice Neck: positive: Trachea midline, Normal Thyroid, Supple. negative: Tender, Rigid Respiratory/Chest: negative: Chest Tender, Lungs Clear (bibasialr faint crackles ), Normal Breath Sounds, Respiratory Distress, Accessory Muscle Use Cardiovascular: positive: Edema (bilateral 3+ pedal edema with 2+ from the shins to the posterior politeal fossa), Irregularly Irregular Gastrointestinal/Abdominal: positive: Normal Bowel Sounds, Flat, Soft. negative : Tender Lymphatic: negative: Adenopathy, Tenderness Musculoskeletal: positive: Normal Inspection. negative: Decreased Range of Motion Extremity: positive: Normal Capillary Refill. negative: Normal Inspection Integumentary: positive: Normal Color, Dry, Warm Neurologic: positive: Fully Oriented, Alert, Normal Mood/Affect, Normal Response , Motor Strength 5/5 ED Treatment Course - LABORATORY CBC & Chemistry Diagram: 12/09/18 17:24 12/09/18 17:24 Medical Decision Making - Medical Decision Making 83 year old with worsening bilateral LE edema refractory to home Lasix increase. Of note, patient also has worsening CKD/ kidney function, Labs here corroborate CHF (BNP 4+ K up from 2 K on previous admissions), therapeutic INR ( low 2s), and ESSENCE on CKD (2.4 up from mid to high 1s). Patient not in active respiratory distress or otherwise in need of emergent dieresis, additionally DBP was slightly low so lasix were held in the ED setting. Troponin negative and EKG demonstrating rate 45, QRS 86, QTc 344, normal axis and afib with slow ventricular response. No signs of new or old ischemia. 12/09/18 19:28 *DC/Admit/Observation/Transfer Diagnosis at time of Disposition: Leg swelling, ESSENCE (acute kidney injury) - Discharge Dispostion Condition at time of disposition: Stable Decision to Admit order: Yes - Referrals Referrals: Gerry Garcia MD [Primary Care Provider] - - Patient Instructions - Post Discharge Activity
[2018-12-09 17:41] LABS: EOS % 1.6 % (0-4.5); HEMATOCRIT 38.5 % (32.4-45.2); LYMPH % 18.4 % (8-40); MCH 28.1 pg (25.7-33.7); MCHC 31.1 g/dl (32.0-36.0); MEAN CELL VOLUME 90.2 fl (80-96); MEAN PLT VOLUME 10.4 fl (7.5-11.1); MONO % 9.6 % (3.8-10.2); NEUT % 69.4 % (42.8-82.8); PLATELET COUNT 205 K/MM3 (134-434); RBC 4.27 M/mm3 (3.60-5.2); RDW 15.5 % (11.6-15.6)
[2018-12-09 17:54] LABS: INR 2.14 (0.83-1.09); PROTHROMBIN TIME (PATIENT) 25.4 SEC (9.7-13.0)
[2018-12-09 18:17] LABS: ALBUMIN 2.9 g/dl (3.4-5.0); ALK PHOS 37 U/L (45-117); ANION GAP 9 MMOL/L (8-16); BILIRUBIN,TOTAL 0.6 mg/dL (0.2-1); BLOOD UREA NITROGEN 57 mg/dL (7-18); CALCIUM 10.3 mg/dL (8.5-10.1); CHLORIDE 103 mmol/L (98-107); CO2 25 mmol/L (21-32); CREATININE 2.4 mg/dL (0.55-1.3); GLUCOSE,RANDOM 135 mg/dL (74-106); MAGNESIUM 2.5 mg/dL (1.8-2.4); N-TERMINAL BNP 4968.8 pg/ml (5-450); PHOSPHOROUS 3.6 mg/dL (2.5-4.9); POTASSIUM 4.2 mmol/L (3.5-5.1); SGOT/AST 39 U/L (15-37); SGPT/ALT 28 U/L (13-61); SODIUM 138 mmol/L (136-145)
[2018-12-09 19:11] LABS: EPI CELLS 1.7 /HPF (0-5/HPF); HYALINE CASTS 4 /lpf (0-8); URINE APPEARANCE CLEAR; URINE BILIRUBIN NEGATIVE (NEGATIVE); URINE COLOR YELLOW; URINE GLUCOSE (UA) NEGATIVE (NEGATIVE); URINE KETONE NEGATIVE (NEGATIVE); URINE LEUK ESTERASE TRACE (NEGATIVE); URINE NITRITE NEGATIVE (NEGATIVE); URINE PROTEIN NEGATIVE (NEGATIVE); URINE RBC 1 /hpf (0-4); URINE UROBILINOGEN 0.2 mg/dL (0.2-1.0); URINE WBC 4 /hpf (0-5)
--- NOTE | 2018-12-09 19:15 | PN ---
Teaching Attending Note Name of Resident: Marta Brady ATTENDING PHYSICIAN STATEMENT I saw and evaluated the patient. I reviewed the resident's note and discussed the case with the resident. I agree with the resident's findings and plan as documented. SUBJECTIVE: Patient is an 83 year old woman with PMH Afib (on Coumadin), HTN, COPD, Bilateral hip replacement, CKD (solitary left kidney), squamous cell cancer, remote breast cancer, Hyperthyroidism, and ?diastolic CHF, presenting from cath laboratory technician's office with worsening lower extremity edema over the past 2-3 weeks and possible worsening shortness of breath despite increase of oral home Lasix dose. Patient state that her legs have swollen to double their size over the past 2-3 weeks and she is unsure if her breathing difficulty has worsened. Denies any chest pain, worsening cough, fevers, chills, diarrhea, vomiting, headache, dysuria, frequency or urgency. OBJECTIVE: Alert Vital Signs Period Temp Pulse Resp BP Sys/[place] Pulse Ox Last 24 Hr 98.1 F 57 18 115/46 97-98 HEENT: No Jaundice, eye redness or discharge, PERRLA, EOMI. Normocephalic, atraumatic. External ears are normal and hearing is grossly intact. No nasal discharge. Neck: Supple, nontender. No palpable adenopathy or thyromegaly. No JVD Chest: Good effort. Clear to auscultation and percussion. Heart: Irregularly irregular. Bradycardia. No S3, rub or murmur Abdomen: Not distended, soft, nontender and no HSM. No rebound or guarding. Normal bowel sounds. Ext: Peripheral pulses intact. Leg edema. Skin: Warm and dry. No petechiae, rash or ecchymosis. Neuro: Alert. Oriented x3. CN 2-12 grossly intact. Sensation grossly intact in all four extremities and DTR are symmetric. Psych: Appropriate mood and affect. Good insight. Home Medications Medication Instructions Recorded Cholecalciferol (Vitamin D3) 1,000 unit PO ASDIR 01/24/15 [Vitamin D3 -] Vitamin B Complex 1 each PO Q2D 07/27/15 Metoprolol Tartrate [Lopressor -] 50 mg PO TID #90 tablet 08/29/15 Furosemide [Lasix -] 20 mg PO DAILY 05/05/16 Lisinopril [Zestril] 40 mg PO DAILY 12/24/17 Fenofibrate Nanocrystallized 160 mg PO DAILY 12/25/17 [Triglide] Methimazole [Tapazole -] 5 mg PO DAILY 12/25/17 Diltiazem Cd [Cardizem Cd -] 120 mg PO DAILY 06/15/18 Albuterol 0.083% Nebulizer Yohana 1 neb NEB QID PRN 12/09/18 [Ventolin 0.083%] Ranitidine [Zantac -] 150 mg PO BID 12/09/18 Warfarin Na [Coumadin] 1 mg PO DAILY 12/09/18 Warfarin Na [Coumadin] 2 mg PO ASDIR 12/09/18 Abnormal Lab Results 12/09/18 12/09/18 12/09/18 17:24 17:24 17:30 MCHC 31.1 L PT with INR 25.40 H INR 2.14 H BUN 57 H Creatinine 2.4 H Random Glucose 135 H Calcium 10.3 H Magnesium 2.5 H AST 39 H Alkaline Phosphatase 37 L B-Natriuretic Peptide 4968.8 H Albumin 2.9 L ASSESSMENT AND PLAN: 1. Eaxcerbation of (?diastolic) CHF - Her CXR shows pulmonary congestion with possible lower lobe atelectasis (R>L). EKG shows afib with bradycardia but no significant ST-T wave changes. Initial troponin is negative. Suboptimal diurese is likely a lee cause of her CHF exacerbation. The fact that she has a solitary kidney and CKD makes diuresis challenging - but for now, to improve her quality of life, she needs to be diuresed with IV lasix and a rise in BUN/Creatinine is a trade-off that is unavoidable. Will use gradually increasing doses of IV lasix to determine effective dose. Continue coumadin for Afib. Has bradycardia and low normal BP. Hold lisinopril and cardiazem and reduce metoprolol dose to permit a higher BP to enable her tolerate IV lasix. Restrict dietary salt intake, elevate legs at night, get daily standing weight and consult cardiology to craft the ideal "after load" reduction regimen for her. Get ECHO. Most recent ECHO on record is from 01/26/15 and showed hyperdynamic LV and an EF of ?67.8%. 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 2. Hypoalbuminemia - Possibly due to combined effects of malnutrition and inflammation associated with comorbid chronic conditions. Will ensure adequate dietary protein intake and also consult home energy consultant. 3. CKD - Has right kidney agenesis and recent rupture of hemorrhagic cyst in left kidney. Will consult nephrology and avoid nephrotoxic agents such as NSAIDS , aminoglycosides, contrast dyes and certain Alternative medicine products. 4. Hypertension - Hold cardiazem and lisisnopril for now and reduce dose of metoprolol. Nonpharmacologic measures to control hypertension like weight loss, salt restriction and exercise discussed. 5. DVT prophylaxis - On coumadin for Afib 6. Advance directives - Full code
--- NOTE | 2018-12-09 19:36 | PDOC ---
Attending Attestation - Resident Resident Name: Melany Haley - ED Attending Attestation I have performed the following: I have examined & evaluated the patient, The case was reviewed & discussed with the resident, I agree w/resident's findings & plan - HPI HPI: 12/09/18 19:30 83-year-old female from food preservation scientist's office with worsening volume overload/ CHF despite increasing home dose of diuretic. Positive dyspnea, positive peripheral edema. - Physicial Exam PE: 12/09/18 19:30 Vitals as noted, afebrile with normal O2 sat Agree with exam as outlined - Medical Decision Making 12/09/18 19:31 83-year-old female with history of CHF presents with worsening volume overload. Labs notable for acute renal insufficiency with creatinine above baseline, BNP above baseline Troponin negative, EKG with atrial fibrillation with bradycardia needs admission for diuresis with Cr monitoring admission Heart Score/ECG Review #1 ECG reviewed & interpreted by me at: 18:26 12/09/18 19:37 afib at 45, qtc 344, no acute ischemia
[2018-12-09] MEDS ORDERED: FUROSEMIDE 40 MG/4 ML INJECTABLE VIAL IVPUSH ONE (20:43)
[2018-12-09 22:06] LABS: ALBUMIN 2.8 g/dl (3.4-5.0); ALK PHOS 33 U/L (45-117); ANION GAP 8 MMOL/L (8-16); BILIRUBIN,TOTAL 0.6 mg/dL (0.2-1); BLOOD UREA NITROGEN 56 mg/dL (7-18); CALCIUM 10.6 mg/dL (8.5-10.1); CHLORIDE 105 mmol/L (98-107); CO2 27 mmol/L (21-32); CREATININE 2.4 mg/dL (0.55-1.3); GLUCOSE,RANDOM 113 mg/dL (74-106); MAGNESIUM 2.7 mg/dL (1.8-2.4); POTASSIUM 4.6 mmol/L (3.5-5.1); SGOT/AST 44 U/L (15-37); SGPT/ALT 28 U/L (13-61); SODIUM 140 mmol/L (136-145); TOT PROT 6.9 g/dl (6.4-8.2)
--- NOTE | 2018-12-09 22:13 | HP ---
Admitting History and Physical - Primary Care Physician PCP: Dr Garcia - Admission Chief Complaint: Worsening Leg swelling and SOB x 3 weeks History of Present Illness: Pt is an 83 yo F with PMHx of Permanent afib (on Coumadin), hypertrophic cardiomyopathy, HTN, CHF, COPD, Hyperthyroidism, hyperparathyroidism, goiter, congenital agenesis of R kidney, ruptured/hemorrhagic L renal cyst, SCC of skin s/p resection, L breast cancer s/p lumpectomy, GI ulcer with bleed, schatzki ring, GERD, hiatal hernia, sent from telephone information supervisor's office today for worsening lower extremity edema and worsening MAO. Patient reports progressing leg swelling over the past 2-3 weeks. She reports initially taking lasix 20mg PO bid for a long time prior to 40mg daily then a one time 80mg dose (about 1 week ago) which was discontinued because of worsening renal function. Her last lasix dose was 40mg PO which she took today with minimal response. Pt reports worsening exercise tolerance with SOB on mild exertion like walking to the bathroom. She has had PND, orthopnea chronically and a chronic cough (for over 7 years) -follows pulmonology. No chest pain, no worsening cough or increased sputum production, no fevers, chills, or hemoptysis. No change in appetite, bowel/bladder habits, no change in diet. In July she had excision of SCC of skin done on her face and head that has healed well and has been in remission from L breast Ca s/p mastectomy for over 20 years. Was told they would isolate one of the parathyroid glands for surgery, but she declined. She is DNR/DNI she says with documentation in PCP's office. Patient follows with several specialists including Endo: Dr Wall Renal: Dr Astorga Cards: Dr Hoffman PCP: Dr Garcia ECHO 2015: Mild to mod basal septal hypertrophy, hyperdynamic L ventricle, LA mildly dilated, mild TR, RV 30-40mmHg, no signif aortic or pulm stenosis ED: EKG:HR 45bpm, afib with slow ventricular response, QTc-344 BUN/cr-57/2.4, INR-2.40, BNP-4968, CXR- prominent lung markings, with mediastinal opacification, Ca-10.3 History Source: Patient, Family Member, Medical Record Limitations to Obtaining History: No Limitations - Past Medical History [employer] CLERK: Yes: Parkinson's Cardiovascular: Yes: AFIB, HTN, Hyperlipdemia Pulmonary: Yes: Bronchitis Gastrointestinal: Yes: Diverticulosis, GERD, Hiatal Hernia, Other Renal/: Yes: Other (ruptured hemorrhagic renal cyst, single kidney) Musculoskeletal: Yes: Osteoarthritis Endocrine: Yes: Hyperparathyroidism, Hyperthyroidism - Past Surgical History Past Surgical History: Yes: Appendectomy, Hysterectomy, Joint Replacement, Mastectomy - Smoking History Smoking history: Former smoker Have you smoked in the past 12 months: No - Alcohol/Substance Use Hx Alcohol Use: No History of Substance Use: reports: None - Social History ADL: Independent History of Recent Travel: No Home Medications - Allergies Allergies/Adverse Reactions: Allergies Allergy/AdvReac Type Severity Reaction Status Date / Time No Known Allergies Allergy Verified 12/09/18 16:43 - Home Medications Home Medications: Ambulatory Orders Cholecalciferol (Vitamin D3) [Vitamin D3 -] 1,000 unit PO ASDIR 01/24/15 Vitamin B Complex 1 each PO Q2D 07/27/15 Metoprolol Tartrate [Lopressor -] 50 mg PO TID #90 tablet 08/29/15 Furosemide [Lasix -] 20 mg PO DAILY 05/05/16 Lisinopril [Zestril] 40 mg PO DAILY 12/24/17 Fenofibrate Nanocrystallized [Triglide] 160 mg PO DAILY 12/25/17 Methimazole [Tapazole -] 5 mg PO DAILY 12/25/17 Diltiazem Cd [Cardizem Cd -] 120 mg PO DAILY 06/15/18 Albuterol 0.083% Nebulizer Yohana [Ventolin 0.083%] 1 neb NEB QID PRN 12/09/18 Ranitidine [Zantac -] 150 mg PO BID 12/09/18 Warfarin Na [Coumadin] 1 mg PO DAILY 12/09/18 Warfarin Na [Coumadin] 2 mg PO ASDIR 12/09/18 Family Disease History - Family Disease History Family Disease History: CA: Grandparent, Sister, Other: Mother Review of Systems - Review of Systems Constitutional: denies: Chills, Fever, Lethargy, Loss of Appetite Eyes: denies: Blurred Vision Cardiovascular: reports: Edema, Shortness of Breath. denies: Chest Pain, Palpitations Respiratory: reports: Cough, Exercise Intolerance, Orthopnea, PND, SOB, SOB on Exertion. denies: Hemoptysis, Wheezing Gastrointestinal: denies: Abdominal Pain, Constipation Genitourinary: denies: Burning, Discharge, Dysuria, Flank Pain, Frequency, Hematuria Musculoskeletal: denies: Joint Pain Integumentary: reports: Bruising, Change in Color Neurological: denies: Change in LOC, Change in Speech, Confusion, Dizziness, Numbness, Parasthesia, Seizure Hematology/Lymphatic: reports: Easily Bruised Physical Examination Vital Signs: Vital Signs Temperature 98.1 F 12/09/18 16:51 Pulse Rate 62 12/09/18 19:54 Respiratory Rate 20 12/09/18 19:54 Blood Pressure 117/60 12/09/18 19:54 O2 Sat by Pulse Oximetry (%) 95 12/09/18 20:21 Constitutional: Yes: Well Nourished, No Distress, Calm Eyes: Yes: Conjunctiva Clear, EOM Intact. No: Ptosis, Sclera Icterus HENT: Yes: Other (Healing scars on head and forehead) Neck: Yes: Supple, Thyromegaly, Other (JVD+). No: Lymphadenopathy Cardiovascular: Yes: Bradycardia, Pulse Irregular, S1, S2 Respiratory: Yes: Diminished, Rales (B/l basal). No: Rhonchi Gastrointestinal: Yes: Normal Bowel Sounds, Soft Renal/: No: CVA Tenderness - Left, CVA Tenderness - Right Musculoskeletal: No: Muscle Weakness Edema: Yes Edema: LLE: 2+ (Above clarke b/l), RLE: 2+ Peripheral Pulses WNL: No (Difficult to palpate) Integumentary: Yes: Bruising, Other (macular and papular lesions scattered more on limbs and face) Neurological: Yes: Alert, Oriented, Cran Nerves II-XII Intact. No: Aphasia, Asterixis, Dysarthria, Loss of Sensation, Paresthesia, Weakness ...Motor Strength: WNL Psychiatric: Yes: Alert, Oriented Labs: CBC, BMP 12/09/18 17:24 Assessment/Plan Ambulatory Orders Cholecalciferol (Vitamin D3) [Vitamin D3 -] 1,000 unit PO ASDIR 01/24/15 Vitamin B Complex 1 each PO Q2D 07/27/15 Metoprolol Tartrate [Lopressor -] 50 mg PO TID #90 tablet 08/29/15 Furosemide [Lasix -] 20 mg PO DAILY 05/05/16 Lisinopril [Zestril] 40 mg PO DAILY 12/24/17 Fenofibrate Nanocrystallized [Triglide] 160 mg PO DAILY 12/25/17 Methimazole [Tapazole -] 5 mg PO DAILY 12/25/17 Diltiazem Cd [Cardizem Cd -] 120 mg PO DAILY 06/15/18 Albuterol 0.083% Nebulizer Yohana [Ventolin 0.083%] 1 neb NEB QID PRN 12/09/18 Ranitidine [Zantac -] 150 mg PO BID 12/09/18 Warfarin Na [Coumadin] 1 mg PO DAILY 12/09/18 Warfarin Na [Coumadin] 2 mg PO ASDIR 12/09/18 Current Medications Albuterol Sulfate (Ventolin 0.083% Nebulizer Soln -) 1 amp NEB Q6H PRN PRN Reason: SHORT OF BREATH/WHEEZING Methimazole (Tapazole -) 5 mg PO DAILY [facility] Metoprolol Tartrate (Lopressor -) 50 mg PO TID [facility] Last Admin: 12/09/18 23:12 Dose: Not Given Non-Formulary Medication (Fenofibrate Nanocrystallized [Triglide]) 160 mg PO DAILY [facility] Ranitidine HCl (Zantac -) 150 mg PO BID [facility] Warfarin Sodium (Coumadin -) 1 mg PO DAILY@1800 [facility] Assessment/Plan: Pt is an 83 yo F with PMHx of Permanent afib (on Coumadin), hypertrophic cardiomyopathy, HTN, CHF, COPD, Hyperthyroidism, hyperparathyroidism, goiter, congenital agenesis of R kidney, ruptured/hemorrhagic L renal cyst, SCC of skin s/p resection, L breast cancer s/p lumpectomy, GI ulcer with bleed, schatzki ring, GERD, hiatal hernia, sent from telephone information supervisor's office today for worsening lower extremity edema and worsening MAO. Patient reports progressing leg swelling over the past 2-3 weeks. CHF exacerbation: Likely HFpEF, with PH CXR, BNP suggestive of overload Diuretic dose and responsive in past difficult to ascertain, trigger unknown at this time as patient is rate controlled Afib without prior valvular disease received PO lasix 40mg today, in setting of likely cardiorenal syndrome will challenge with iv 60mg lasix stat (reported rising Cr with lasix therapy) Monitor ins and outs closely Cont metoprolol, stop diltiazem (pt bradycardic on dual antinodal agents Hold lisinopril with ESSENCE on CKD Cont methimazole ECHO BMP Cards consult CT chest- shows congestion, no infiltrates Afib (on Coumadin) CHADSVASC score-5 (7.2% risk of stroke per year) In slow ventricular response CC and BB documented in Home meds for pt Hold CC, cont BB, warfarin hypertrophic cardiomyopathy Pt will benefit from BB, cont HTN BP not elevated, intially 115/46, improved to 106/70 Cont lasix 60mg iv once Monitor BP for hypotension Cont metoprolol, hold diltiazem COPD Pt not in exacerbation Duonebs PRN Hyperthyroidism/goiter Cont methimazole Hgba1c TSH hyperparathyroidism Pt declined surgery congenital agenesis of R kidney/ruptured/hemorrhagic L renal cyst/CKD Appears to have worsening renal function with volume overload refractory to lasix Iv Lasix 60mg ordered- per nurse pt refused as she had taken her home lasix dose today Made 200mls of urine Renal consult SCC of skin s/p resection appears to be healing well, stable L breast cancer s/p lumpectomy In remission, cont to monitor GI ulcer with bleed/schatzki ring/GERD/hiatal hernia/Pancreatitis No GI symptoms Cont antacids PPx- on Coumadin, ranitidine Dispo: Admit Med surg Code: No documentation on file, pt reports DNR/DNI Visit type - Emergency Visit Emergency Visit: Yes ED Registration Date: 12/09/18 Care time: The patient presented to the Emergency Department on the above date and was hospitalized for further evaluation of their emergent condition. - New Patient This patient is new to me today: Yes Date on this admission: 12/10/18 - Critical Care Critical Care patient: No
[2018-12-09] MEDS: METOPROLOL TARTRATE 50 MG TABLET (FP) PO SCH ×2 (23:03→23:12)
[2018-12-09 23:55] VITALS: BMI 24.8
[2018-12-10] MEDS ORDERED: FUROSEMIDE 40 MG/4 ML INJECTABLE VIAL IVPUSH ONE (02:17)
[2018-12-10] MEDS: ALBUTEROL SO4 0.083% IH SOL 2.5 MG/3 ML VIAL.NEB. NEB PRN (03:34)
[2018-12-10] MEDS: METOPROLOL TARTRATE 50 MG TABLET (FP) PO SCH ×3 (06:28→21:19)
[2018-12-10 07:25] LABS: HEMATOCRIT 38.1 % (32.4-45.2); HEMOGLOBIN 12.3 GM/dL (10.7-15.3); MCH 28.4 pg (25.7-33.7); MCHC 32.2 g/dl (32.0-36.0); MEAN CELL VOLUME 88.3 fl (80-96); MEAN PLT VOLUME 9.9 fl (7.5-11.1); PLATELET COUNT 200 K/MM3 (134-434); RBC 4.31 M/mm3 (3.60-5.2); RDW 15.2 % (11.6-15.6); WHITE BLOOD COUNT 6.4 K/mm3 (4.0-10.0)
[2018-12-10 07:41] LABS: INR 2.22 (0.83-1.09); PROTHROMBIN TIME (PATIENT) 26.4 SEC (9.7-13.0)
[2018-12-10 07:43] LABS: ACTIVATED PTT 42.2 SECONDS (25.2-36.5)
[2018-12-10 08:34] LABS: ALBUMIN 2.8 g/dl (3.4-5.0); ALK PHOS 36 U/L (45-117); ANION GAP 9 MMOL/L (8-16); BILIRUBIN,TOTAL 1.1 mg/dL (0.2-1); BLOOD UREA NITROGEN 53 mg/dL (7-18); CALCIUM 10.5 mg/dL (8.5-10.1); CHLORIDE 104 mmol/L (98-107); CHOLESTEROL 95 mg/dL (50-200); CO2 27 mmol/L (21-32); CREATININE 2.2 mg/dL (0.55-1.3); GLUCOSE,RANDOM 92 mg/dL (74-106); HDL CHOLESTEROL 29 mg/dL (40-60); MAGNESIUM 2.2 mg/dL (1.8-2.4); PHOSPHOROUS 3.1 mg/dL (2.5-4.9); POTASSIUM 3.7 mmol/L (3.5-5.1); SGOT/AST 37 U/L (15-37); SGPT/ALT 24 U/L (13-61); SODIUM 139 mmol/L (136-145); TOT PROT 6.9 g/dl (6.4-8.2); TRIGLYCERIDES 117 mg/dL (0-150)
[2018-12-10] MEDS: METHIMAZOLE 5 MG TABLET (FP) PO SCH (10:22)
[2018-12-10] MEDS: RANITIDINE HCL 150 MG TABLET (FP) PO SCH ×2 (10:22→21:19)
--- NOTE | 2018-12-10 10:46 | ECHO ---
Name: ALFREDITO KAY Exam:Adult Echocardiogram Study Date: 12/10/2018 07:59 AM Age: 83 yrs Reason For Study: CHF Height: 66 in Weight: 154 lb BSA: 1.8 m2 MMode/2D Measurements & Calculations IVSd: 1.2 cm Ao root diam: 2.9 cm LVIDd: 3.7 cm LA dimension: 3.9 cm LVIDs: 2.6 cm LVPWd: 1.1 cm EDV(Teich): 57.0 ml LVOT diam: 2.0 cm ESV(Teich): 25.4 ml LAV (MOD-bp): 94.0 ml Doppler Measurements & Calculations MV E max burt: 146.0 cm/sec Ao V2 max: 133.0 cm/sec MV A max burt: 38.3 cm/sec Ao max P.1 mmHg MV E/A: 3.8 MV dec time: 0.16 sec JARET(V,D): 2.1 cm2 LV V1 max P.3 mmHg MR max burt: 533.4 cm/sec LV V1 max: 90.7 cm/sec MR max P.8 mmHg TR max burt: 299.1 cm/sec PA V2 max: 85.5 cm/sec TR max P.0 mmHg PA max P.9 mmHg Med Peak E' Burt: 7.4 cm/sec Med E/e': 19.7 Lat Peak E' Burt: 12.2 cm/sec Lat E/e': 12.0 Left Ventricle Left ventricular systolic function is normal. Ejection Fraction = 55-60%. Right Ventricle The right ventricle is normal in size and function. Atria The left atrium is mildly dilated. Right atrial size is normal. Mitral Valve The mitral valve is normal in structure and function. There is no mitral valve stenosis. There is mil d to moderate mitral regurgitation. Tricuspid Valve The tricuspid valve is normal in structure and function. There is mild tricuspid regurgitation. Right ventricular systolic pressure is elevated at 30-40mmHg. Aortic Valve The aortic valve opens well. No hemodynamically significant valvular aortic stenosis. No aortic regur gitation is present. Pulmonic Valve The pulmonic valve is not well seen, but is grossly normal. There is no pulmonic valvular stenosis. Great Vessels The aortic root is normal size. Pericardium/Pleura There is no pericardial effusion. Interpretation Summary Left ventricular systolic function is normal. Ejection Fraction = 55-60%. The right ventricle is normal in size and function. The left atrium is mildly dilated. There is mild to moderate mitral regurgitation. There is mild tricuspid regurgitation. Right ventricular systolic pressure is elevated at 30-40mmHg. There is no pericardial effusion. MD Blanca *Kellie 12/10/2018 10:46 AM
[2018-12-10] MEDS: FENOFIBRIC ACID 135 MG CAP PO SCH (12:07)
[2018-12-10] MEDS: FUROSEMIDE 40 MG/4 ML INJECTABLE VIAL IVPUSH SCH (12:08)
--- NOTE | 2018-12-10 12:30 | CONS ---
DATE OF CONSULTATION: 12/10/2018 CONSULTATION REQUESTED BY: Hospitalist service. CARDIOLOGY CONSULTATION CHIEF COMPLAINT: 1. Increasing pedal edema for approximately 3 weeks. 2. Shortness of breath with minimal exertion. 3. Extreme fatigue. HISTORY OF PRESENT ILLNESS: The patient is an 83-year-old retired female with longstanding history of hypertension, hypertensive cardiovascular disease, permanent atrial fibrillation, hypertrophic cardiomyopathy, hyperthyroidism, hyperparathyroidism, agenesis of the right kidney, status post hemorrhagic cyst involving the left kidney. History of gastroesophageal reflux disease, status post bleeding peptic ulcer disease, history of Schatzki's ring, hiatus hernia, congestive heart failure. Patient noticed increasing pedal edema over the past 3 weeks, accompanied by increasing shortness of breath, and prior to admission was unable to walk even short distances in the house. She also complained of orthopnea and paroxysmal nocturnal dyspnea. History of chronic cough with thick, clear expectoration. No history of hemoptysis. No history of chest pain or discomfort either at rest or with exertion. No history of palpitations, lightheadedness, dizziness, presyncope, or syncope reported. No history of diabetes mellitus. Patient complained of increasing fatigue that was pronounced. She was also experiencing insomnia. History of underlying chronic kidney disease. PAST HISTORY: 1. As mentioned in the history of present illness. 2. Status post pancreatitis. 3. Status post bleeding peptic ulcer disease. 4. History of goiter. 5. Hypercholesterolemia. 6. History of left breast cancer. 7. 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 8. History of osteoarthritis. 9. History of diverticulosis. 10. ?History of parkinsonism. PAST SURGICAL HISTORY: 1. Status post tonsillectomy. 2. Status post appendectomy. 3. Status post hysterectomy. 4. Status post bilateral cataract extraction. 5. Status post bilateral hip replacement. 6. Status post left breast lumpectomy. 7. Multiple excisions of skin carcinoma and Mohs procedure. SOCIAL HISTORY: She is retired, , has 2 sons. One of them has coronary artery disease. The other son had rheumatic fever as a child. She has never smoked, does not drink, and no excessive use of caffeine. FAMILY HISTORY: Father in his 60s, probably related to alcoholism. Mother at the age of 40 due to tuberculosis. She had 2 sisters. One of them is at age 79 of congestive heart failure. The other sister is alive. Both sisters have had breast carcinoma. ALLERGIES: 1. None to medication. 2. Environmental allergies, i.e., hay fever. CURRENT MEDICATIONS: 1. Warfarin 1 mg p.o. daily. 2. Methimazole (Tapazole) 5 mg p.o. daily. 3. Albuterol sulfate 1 ampule via nebulizer q.6 hours p.r.n. 4. Metoprolol tartrate 50 mg p.o. t.i.d. 5. Fenofibric acid 135 mg p.o. daily. 6. Zantac 150 mg p.o. b.i.d. In the emergency room patient had received 60 mg of IV Lasix. REVIEW OF SYSTEMS: Constitutional: No history of chills, fever, or night sweats. No history of unintentional weight loss. HEENT: No history of headaches, diplopia, blurred vision. History of epistaxis, hoarseness, tinnitus, or deafness. Cardiovascular: See history of present illness. Respiratory: See history of present illness. No history of tuberculosis or hemoptysis. Gastrointestinal: No history of nausea, vomiting, melena, or hematemesis. No history of recent abdominal pain or discomfort. No history of change in bowel habits. See history of present illness. Endocrine: See history of present illness. History of partial thyroidectomy for goiter. Musculoskeletal: See history of present illness. Occasional arthralgias, no history of myalgias. Genitourinary: No history of dysuria, frequency, urgency, or hematuria. Hematologic/Lymphatics: History of multiple ecchymoses since on warfarin. No history of recent anemia or bleeding. No history of lymphadenopathy. Skin: History of recurring squamous and basal cell carcinomas. PHYSICAL EXAMINATION: General: An 83-year-old, alert and coherent female who was in no distress. No pallor, cyanosis, clubbing, or jaundice. Vital Signs: Weight 69.853 kg. Blood pressure 129/65 mmHg. Pulse 66 beats per minute and irregularly irregular. Temperature 97.5 degrees Fahrenheit. Oxygen saturation on December 09, 2018, was 95% on room air. Neck: Supple, no jugular venous distention. Hepatojugular reflux was slightly positive. Carotids were 2+. Upstrokes were normal. No bruits were heard. No thyromegaly was appreciated. There was a well-healed anterior crescent-shaped surgical scar. Heart: PMI was in the 5th intercostal space. No heaves or thrills. S1 was variable. S2 was split. Grade 2/6 decrescendo systolic murmur was heard at the apex that was poorly radiating. There was no change with hand wardrobe assistant. There was an ejection systolic murmur grade 1/6 heard along the 2nd right intercostal space and left sternal border. No diastolic murmur or gallops were heard. Lungs: Harsh breath sounds, bilateral scattered crepitations, more pronounced at both bases. No expiratory wheezing. Chest: Normal AP diameter. Expansion was symmetrical. Abdomen: Soft, slightly protuberant, and nontender. No hepatosplenomegaly or palpable masses were felt. Bowel sounds were present. No bruits were heard. There was well-healed hypogastric surgical scar. Extremities: No calf tenderness. There were multiple ecchymotic areas, more pronounced on the right lateral lower calf. Pulses were equal, except posterior tibial pulses were not palpable. LABORATORY DATA: CBC December 10, 2018: WBC 6400. Hemoglobin 12.3 g/dL. Platelet count 200,000. Normal differential. INR December 10, 2018, 2.22. Chemistry on December 10, 2018: Sodium 139, potassium 3.7, chloride 104, CO2 of 27 mmol/L. BUN 53, creatinine 2.2 mg/dL. Hemoglobin A1c 6.4%. Calcium 10.5 mg/dL. Phosphorus 3.1, magnesium 2.2. AST on December 10, 2018, was 37, ALT 24 units per liter. On admission, AST was mildly elevated at 39 and 44 units per liter. BNP on December 09, 2018, 4968.8 picograms per milliliter. Troponins were less than 0.02 on 3 different occasions. CK was 92, 106, and 76. Total cholesterol was 95, triglycerides 117. LDL cholesterol was 54, HDL cholesterol was 29 mg/dL. TSH 2.91. Chest x-ray, portable: Single AP view of the chest has been submitted. Since the prior exam of December 01, 2018, the patient is slightly rotated to the right. There is prominent mediastinum with sclerotic aortic knob. Tracheal deviation to the right from probable thyroid enlargement, and there are some heavy markings at the bases in the right upper lobe. Correlation with followup recommended. For more complete evaluation, further imaging with CT may be of help. CT of the chest without contrast: Impression: 1. No acute infiltrate is identified. In comparison to CT study of December 08, 2017, there appears to be interval development of mild bilateral lower lobe interstitial thickening suggestive of mild vascular congestion. Clinical laboratory correlation is suggested. 2. Cardiomegaly is again noted. 3. The main pulmonary artery is dilated, with a 3.3-cm diameter strongly suggestive of increased pulmonary artery pressure. 4. As on prior examination, there is patchy bilateral upper and lower field attenuation suggestive of mosaic perfusion. 5. Multiple small stable pulmonary nodules are seen. 6. Several mildly enlarged paratracheal mediastinal lymph nodes are noted which appear slightly increased in size. Correlation with 3- to 4-month followup CT may be performed. 7. Thyromegaly. 8. The partially imaged pancreas demonstrates dilatation of the pancreatic duct as described in detail on an abnormal MRI study of June 23, 2018. Please refer to the MRI report. ECG dated December 09, 2018: Atrial fibrillation with slow ventricular response. Right axis deviation. Low voltage in limb leads. Poor R wave progression V1-V3, early repolarization pattern. Nonspecific T-wave abnormalities. No previous ECG is available for comparison. IMPRESSION: 1. Clinical presentation consistent with congestive heart failure, [facility] classification IV on admission. 2. Hypertension, hypertensive cardiovascular disease, currently normotensive. 3. Permanent atrial fibrillation with slow ventricular response. 4. Suspect pulmonary hypertension. 5. Interstitial lung disease. 6. History of chronic obstructive pulmonary disease. 7. Asksj-ne-pshkxdd kidney disease. 8. History of congenital agenesis of the right kidney. 9. Status post hemorrhagic cyst the left kidney. 10. Status post peptic ulcer disease. 11. History of dyslipidemia, type 2B. RECOMMENDATIONS: 1. Echocardiogram. 2. Consider Holter monitor. 3. Patient will require ongoing diuretic therapy under close observation. 4. Renal evaluation. 5. Further suggestions as necessary. PROGNOSIS: Guarded. Thank you for your referral. SASKIA CEDILLO M.D. [id number]
--- NOTE | 2018-12-10 12:35 | EKG ---
Test Reason : Blood Pressure : / mmHG Vent. Rate : 045 BPM Atrial Rate : 055 BPM P-R Int : 000 ms QRS Dur : 086 ms QT Int : 398 ms P-R-T Axes : 000 055 072 degrees QTc Int : 344 ms ATRIAL FIBRILLATION WITH SLOW VENTRICULAR RESPONSE ABNORMAL ECG WHEN COMPARED WITH ECG OF 15-JUN-2018 12:10, NO SIGNIFICANT CHANGE WAS FOUND Confirmed by DONNA HURD MD ([id number]) on 12/10/2018 12:35:31 PM Referred By: Confirmed By:DONNA HURD MD
--- NOTE | 2018-12-10 13:55 | CONSULT ---
Consult - text type - Consultation Consultation Note: Renal consult for CKD This is a 83 year old woman with hx of CKD stage 4 (baseline Cr 1.8-2), Unilateral kidney, Pancreatic cyst/mass, Nephrolithiasis, hypertension, Atrial fibrillation on Coumadin, hyperparathyrodism/hypercalcemia, squamous cell carcinoma presented with complaints of worsening LE swelling. Pt was last seen in our office in August. Pt reports progressive LE edmea over the past several weeks. Lasix was increased to 40mg and then 80mg Daily but was held when BUN/Cr was noted to be elevated. Pt also noted having MAO. No chest pain, sob at rest, abd pain, N/V/D, frequency, urgency, flank pain, fever or chills. Denies any NSIAD use. No recent contrast exposure. PMhx: as above Allergies: NKDA Family Hx: NC Social Hx: No T/A/D ROS: as per HPI, all other pertinent ros negative Home Medications Medication Instructions Recorded Cholecalciferol (Vitamin D3) 1,000 unit PO ASDIR 01/24/15 [Vitamin D3 -] Vitamin B Complex 1 each PO Q2D 07/27/15 Metoprolol Tartrate [Lopressor -] 50 mg PO TID #90 tablet 08/29/15 Furosemide [Lasix -] 20 mg PO DAILY 05/05/16 Lisinopril [Zestril] 40 mg PO DAILY 12/24/17 Fenofibrate Nanocrystallized 160 mg PO DAILY 12/25/17 [Triglide] Methimazole [Tapazole -] 5 mg PO DAILY 12/25/17 Diltiazem Cd [Cardizem Cd -] 120 mg PO DAILY 06/15/18 Albuterol 0.083% Nebulizer Yohana 1 neb NEB QID PRN 12/09/18 [Ventolin 0.083%] Ranitidine [Zantac -] 150 mg PO BID 12/09/18 Warfarin Na [Coumadin] 1 mg PO DAILY 12/09/18 Warfarin Na [Coumadin] 2 mg PO ASDIR 12/09/18 Vital Signs Temperature 97.8 F 12/10/18 08:55 Pulse Rate 72 12/10/18 08:55 Respiratory Rate 20 12/10/18 08:55 Blood Pressure 129/65 12/10/18 08:55 O2 Sat by Pulse Oximetry (%) 95 12/09/18 20:21 Intake & Output 12/07/18 12/08/18 12/09/18 12/10/18 23:59 23:59 23:59 23:59 Intake Total 0 Output Total 2200 Balance -2200 Weight 69.763 kg 69.853 kg NAD awake alert on room air Neck supple, no JVD RRR, No M/R CTA, no rale or wheeze soft NT/ND + LE edema, + ecyhmosis no CVA tenderness or bladder distension CBC, BMP 12/10/18 06:55 12/10/18 06:55 Laboratory Tests 12/09/18 12/09/18 12/10/18 17:24 21:05 06:55 BUN 57 H 56 H 53 H Creatinine 2.4 H 2.4 H 2.2 H EKG - Afib with slow vent response, HR [address] - bilateral lower lobe interstitial thickening, consistent with pulmonary edema, pulmonary artery is dilated, cardiomegaly. ECHO- LV and RV function normal Current Medications Albuterol Sulfate (Ventolin 0.083% Nebulizer Soln -) 1 amp NEB Q6H PRN PRN Reason: SHORT OF BREATH/WHEEZING Last Admin: 12/10/18 03:34 Dose: 1 amp Fenofibric Acid (Trilipix -) 135 mg PO DAILY [facility] Last Admin: 12/10/18 12:07 Dose: 135 mg Furosemide (Lasix Injection -) 40 mg IVPUSH DAILY [facility] Last Admin: 12/10/18 12:08 Dose: 40 mg Methimazole (Tapazole -) 5 mg PO DAILY [facility] Last Admin: 12/10/18 10:22 Dose: 5 mg Metoprolol Tartrate (Lopressor -) 50 mg PO TID [facility] Last Admin: 12/10/18 06:28 Dose: 50 mg Ranitidine HCl (Zantac -) 150 mg PO BID [facility] Last Admin: 12/10/18 10:22 Dose: 150 mg Warfarin Sodium (Coumadin -) 1 mg PO DAILY@1800 [facility] 83 year old woman with hx of CKD stage 4 (baseline Cr 1.8-2), Unilateral kidney , Pancreatic cyst/mass, Nephrolithiasis, hypertension, Atrial fibrillation on Coumadin, hyperparathyrodism/hypercalcemia presented with complaints of worsening LE swelling. Pt was last seen in our office in August. #CKD stage 4 with slightly worse renal function in setting of fluid overload #LE edmea/fluid overload #CHF with preserved LV ejection fraction #Hypertension #Hyperparathyrodism/Hypercalcemia Etiology of fluid retention unclear as ECHO is normal. Fluid retention may be due to renal dysfunction itself Check Renal US to r/o obstruction in unilateral kidney (hx of hypercalcemia, higher risk of stone) Would continue IV lasix and monitor for clinical response (can cosnider making it BId dose if edema or weight does not change in 24 hours) once volume status improved can transition back to oral diuretics hold ACEi for now to allow IV diuresis check UPCR Goal BP < 140/90 for now Thank you Will follow Kris Astorga DO
--- NOTE | 2018-12-10 14:01 | PN ---
Physical Exam: SUBJECTIVE: Patient seen and examined, overall unchanged, still with exertional dyspnea and leg swelling. OBJECTIVE: Vital Signs Period Temp Pulse Resp BP Sys/Reynoso Pulse Ox Last 24 Hr 97.5 F-98.1 F 57-83 18-20 106-129/46-73 95-98 Intake & Output 12/07/18 12/08/18 12/09/18 12/10/18 23:59 23:59 23:59 23:59 Intake Total 0 Output Total 2200 Balance -2200 Weight 153 lb 12.8 oz 154 lb GENERAL: The patient is awake, alert, and fully oriented, in no acute distress. Neck: soft, supple, neck vein distension Chest: decreased air entry all over, unable to appreciate rales or wheezing Abdomen;Soft, NT, ND Extremities:2+ pedal pitting edema Psych: co-operative Laboratory Results - last 24 hr 12/09/18 12/09/18 12/09/18 17:24 17:24 17:30 WBC 6.0 RBC 4.27 Hgb 12.0 Hct 38.5 MCV 90.2 MCH 28.1 MCHC 31.1 L RDW 15.5 Plt Count 205 D MPV 10.4 D Absolute Neuts (auto) 4.2 Neutrophils % 69.4 Lymphocytes % 18.4 Monocytes % 9.6 Eosinophils % 1.6 Basophils % 1.0 Nucleated RBC % 0 PT with INR 25.40 H INR 2.14 H PTT (Actin FS) Sodium 138 Potassium 4.2 Chloride 103 Carbon Dioxide 25 Anion Gap 9 BUN 57 H Creatinine 2.4 H Est GFR (CKD-EPI)AfAm 20.64 Est GFR (CKD-EPI)NonAf 17.81 Random Glucose 135 H Hemoglobin A1c % Calcium 10.3 H Phosphorus 3.6 Magnesium 2.5 H Total Bilirubin 0.6 AST 39 H ALT 28 Alkaline Phosphatase 37 L Creatine Kinase 92 Troponin I < 0.02 B-Natriuretic Peptide 4968.8 H Total Protein 7.0 Albumin 2.9 L Triglycerides Cholesterol Total LDL Cholesterol HDL Cholesterol TSH Urine Color Urine Appearance Urine pH Ur Specific [place] Urine Protein Urine Glucose (UA) Urine Ketones Urine Blood Urine Nitrite Urine Bilirubin Urine Urobilinogen Ur Leukocyte Esterase Urine WBC (Auto) Urine RBC (Auto) Urine Casts (Auto) U Epithel Cells (Auto) Urine Bacteria (Auto) 06/06/19 06/06/19 06/07/19 18:52 21:05 06:55 WBC 6.4 RBC 4.31 Hgb 12.3 Hct 38.1 MCV 88.3 MCH 28.4 MCHC 32.2 RDW 15.2 Plt Count 200 MPV 9.9 Absolute Neuts (auto) Neutrophils % Lymphocytes % Monocytes % Eosinophils % Basophils % Nucleated RBC % PT with INR INR PTT (Actin FS) Sodium 140 Potassium 4.6 Chloride 105 Carbon Dioxide 27 Anion Gap 8 BUN 56 H Creatinine 2.4 H Est GFR (CKD-EPI)AfAm 20.64 Est GFR (CKD-EPI)NonAf 17.81 Random Glucose 113 H Hemoglobin A1c % Calcium 10.6 H Phosphorus Magnesium 2.7 H Total Bilirubin 0.6 AST 44 H ALT 28 Alkaline Phosphatase 33 L Creatine Kinase 106 Troponin I < 0.02 B-Natriuretic Peptide Total Protein 6.9 Albumin 2.8 L Triglycerides Cholesterol Total LDL Cholesterol HDL Cholesterol TSH Urine Color Yellow Urine Appearance Clear Urine pH 5.0 Ur Specific [place] 1.011 Urine Protein Negative Urine Glucose (UA) Negative Urine Ketones Negative Urine Blood Negative Urine Nitrite Negative Urine Bilirubin Negative Urine Urobilinogen 0.2 Ur Leukocyte Esterase Trace Urine WBC (Auto) 4 Urine RBC (Auto) 1 Urine Casts (Auto) 4 U Epithel Cells (Auto) 1.7 Urine Bacteria (Auto) 8.0 12/10/18 12/10/18 12/10/18 06:55 06:55 06:55 WBC RBC Hgb Hct MCV MCH MCHC RDW Plt Count MPV Absolute Neuts (auto) Neutrophils % Lymphocytes % Monocytes % Eosinophils % Basophils % Nucleated RBC % PT with INR 26.40 H INR 2.22 H PTT (Actin FS) 42.2 H Sodium 139 Potassium 3.7 Chloride 104 Carbon Dioxide 27 Anion Gap 9 BUN 53 H Creatinine 2.2 H Est GFR (CKD-EPI)AfAm 22.93 Est GFR (CKD-EPI)NonAf 19.79 Random Glucose 92 Hemoglobin A1c % 6.4 H Calcium 10.5 H Phosphorus 3.1 Magnesium 2.2 Total Bilirubin 1.1 H AST 37 ALT 24 Alkaline Phosphatase 36 L Creatine Kinase 76 Troponin I < 0.02 B-Natriuretic Peptide Total Protein 6.9 Albumin 2.8 L Triglycerides 117 Cholesterol 95 Total LDL Cholesterol 54 HDL Cholesterol 29 L TSH 2.91 Urine Color Urine Appearance Urine pH Ur Specific [place] Urine Protein Urine Glucose (UA) Urine Ketones Urine Blood Urine Nitrite Urine Bilirubin Urine Urobilinogen Ur Leukocyte Esterase Urine WBC (Auto) Urine RBC (Auto) Urine Casts (Auto) U Epithel Cells (Auto) Urine Bacteria (Auto) Active Medications Generic Name Dose Route Start Last Admin Trade Name Freq PRN Reason Stop Dose Admin Albuterol Sulfate 1 amp 12/09/18 20:46 12/10/18 03:34 Ventolin 0.083% Nebulizer Soln - NEB 1 amp Q6H PRN Administration SHORT OF BREATH/WHEEZING Fenofibric Acid 135 mg 12/10/18 10:00 12/10/18 12:07 Trilipix - PO 135 mg DAILY JORGE Administration Furosemide 40 mg 12/10/18 11:30 12/10/18 12:08 Lasix Injection - IVPUSH 40 mg DAILY [facility]OR[facility] Administration Methimazole 5 mg 12/10/18 10:00 12/10/18 10:22 Tapazole - PO 5 mg DAILY [facility]ORGE Administration Metoprolol Tartrate 50 mg 12/09/18 22:00 12/10/18 06:28 Lopressor - PO 50 mg TID JORGE Administration Ranitidine HCl 150 mg 12/10/18 10:00 12/10/18 10:22 Zantac - PO 150 mg BID JORGE Administration Warfarin Sodium 1 mg 12/10/18 18:00 Coumadin - PO DAILY@1800 JORGE 2D echo results reviewed ASSESSMENT/PLAN: 83 yof with PMHx of Permanent afib (on Coumadin), hypertrophic cardiomyopathy, HTN, CHF, COPD, CKD stage III, Hyperthyroidism, hyperparathyroidism, goiter, congenital agenesis of R kidney, ruptured/hemorrhagic L renal cyst, SCC of skin s/p resection, L breast cancer s/p lumpectomy, GI ulcer with bleed, schatzki ring, GERD, hiatal hernia sent by avionics systems engineer for progressive dyspnea/ leg swelling, and failure to respond to PO lasix -Acute on chronic diastolic heart failure exacerbation -CKD stage III -Permanent Atrial fibrillation on coumadin -Hypertrophic cardiomyopathy -HTN -COPD -Hyperthyroidism/hyperparathyroidism -Congenital agenesis right kidney/Ruptured haemorrhagic left renal cyst -L Breast ca s/p lumpectomy -PUD with Bleed/GERD/hiatal hernia/Scatzki ring Plan: lasix 40 mg IV daily, strict I/Os, daily weights, monitor renal function Cardiology/renal input. 2D echo results reviewed Coumadin with INR monitoring Continue methimazole/metoprolol/ranitidine DVTPPx on coumadin DIspo pendign clinical improvement. PT eval and home oxygen needs assessment prior to dc Discussed with patient and nursing, all questions answered. Visit type - Emergency Visit Emergency Visit: Yes ED Registration Date: 12/09/18 Care time: The patient presented to the Emergency Department on the above date and was hospitalized for further evaluation of their emergent condition. - New Patient This patient is new to me today: Yes Date on this admission: 12/10/18 - Critical Care Critical Care patient: No - Discharge Referral Referred to [facility] Med P.C.: No
[2018-12-10] MEDS ORDERED: PT OWN MED DRAWER 7, Y5N ONE (17:44)
[2018-12-10 17:49] LABS: CREATININE, URINE RANDOM 18.2 mg/dL (30-150)
[2018-12-10] MEDS: WARFARIN NA 1 MG TABLET (FP) PO SCH (17:52)
[2018-12-11] MEDS: METOPROLOL TARTRATE 50 MG TABLET (FP) PO SCH ×3 (06:36→21:30)
[2018-12-11 07:49] LABS: BASO % 1.1 % (0-2.0); EOS % 2.9 % (0-4.5); HEMATOCRIT 40.3 % (32.4-45.2); HEMOGLOBIN 12.8 GM/dL (10.7-15.3); LYMPH % 26.9 % (8-40); MCH 28.6 pg (25.7-33.7); MCHC 31.9 g/dl (32.0-36.0); MEAN CELL VOLUME 89.9 fl (80-96); MEAN PLT VOLUME 10.4 fl (7.5-11.1); NEUT % 60.1 % (42.8-82.8); RBC 4.49 M/mm3 (3.60-5.2); RDW 15.1 % (11.6-15.6); WHITE BLOOD COUNT 7.3 K/mm3 (4.0-10.0)
[2018-12-11 08:09] LABS: ALBUMIN 3.2 g/dl (3.4-5.0); CALCIUM 10.5 mg/dL (8.5-10.1); CREATININE 2.2 mg/dL (0.55-1.3); MAGNESIUM 2.5 mg/dL (1.8-2.4); POTASSIUM 4.2 mmol/L (3.5-5.1); TOT PROT 7.7 g/dl (6.4-8.2)
[2018-12-11] MEDS: FUROSEMIDE 40 MG/4 ML INJECTABLE VIAL IVPUSH SCH (09:07)
[2018-12-11] MEDS: METHIMAZOLE 5 MG TABLET (FP) PO SCH (09:07)
[2018-12-11] MEDS: RANITIDINE HCL 150 MG TABLET (FP) PO SCH ×2 (09:08→21:30)
[2018-12-11 11:18] LABS: PLATELET COUNT 235 K/MM3 (134-434)
--- NOTE | 2018-12-11 14:02 | PN ---
Progress Note, Physician History of Present Illness: Pt seen and examined at bedside. She is awake and appears comfortable. SHe denies shortness of breath. She feels that her edema is improving. - Current Medication List Current Medications: Active Medications Albuterol Sulfate (Ventolin 0.083% Nebulizer Soln -) 1 amp NEB Q6H PRN PRN Reason: SHORT OF BREATH/WHEEZING Last Admin: 12/10/18 03:34 Dose: 1 amp Fenofibric Acid (Trilipix -) 135 mg PO DAILY [facility] Last Admin: 12/10/18 12:07 Dose: 135 mg Furosemide (Lasix Injection -) 40 mg IVPUSH DAILY [facility] Last Admin: 12/11/18 09:07 Dose: 40 mg Methimazole (Tapazole -) 5 mg PO DAILY [facility] Last Admin: 12/11/18 09:07 Dose: 5 mg Metoprolol Tartrate (Lopressor -) 50 mg PO TID [facility] Last Admin: 12/11/18 06:36 Dose: 50 mg Ranitidine HCl (Zantac -) 150 mg PO BID [facility] Last Admin: 12/11/18 09:08 Dose: 150 mg Warfarin Sodium (Coumadin -) 1 mg PO DAILY@1800 [facility] Last Admin: 12/10/18 17:52 Dose: 1 mg - Objective Vital Signs: Vital Signs Temperature 98 F 12/11/18 10:00 Pulse Rate 74 12/11/18 10:00 Respiratory Rate 20 12/11/18 10:00 Blood Pressure 138/62 12/11/18 10:00 O2 Sat by Pulse Oximetry (%) 98 12/11/18 09:00 Constitutional: Yes: Calm Eyes: Yes: Conjunctiva Clear HENT: Yes: Atraumatic Cardiovascular: Yes: S1, S2 Respiratory: Yes: CTA Bilaterally Gastrointestinal: Yes: Soft Musculoskeletal: Yes: WNL Edema: Yes Edema: LLE: 1+, RLE: 1+ Neurological: Yes: Oriented Psychiatric: Yes: Oriented Labs: CBC, BMP 12/11/18 07:00 12/11/18 07:00 INR, PTT INR 2.22 (0.83-1.09) H 12/10/18 06:55 Assessment/Plan Current Medications Generic Name Dose Route Start Last Admin Trade Name Freq PRN Reason Stop Dose Admin Albuterol Sulfate 1 amp 12/09/18 20:46 12/10/18 03:34 Ventolin 0.083% Nebulizer Soln - NEB 1 amp Q6H PRN Administration SHORT OF BREATH/WHEEZING Fenofibric Acid 135 mg 12/10/18 10:00 12/10/18 12:07 Trilipix - PO 135 mg DAILY JORGE Administration Furosemide 40 mg 12/10/18 11:30 12/11/18 09:07 Lasix Injection - IVPUSH 40 mg DAILY [facility]ORGE Administration Methimazole 5 mg 12/10/18 10:00 12/11/18 09:07 Tapazole - PO 5 mg DAILY JORGE Administration Metoprolol Tartrate 50 mg 12/09/18 22:00 12/11/18 06:36 Lopressor - PO 50 mg TID JORGE Administration Ranitidine HCl 150 mg 12/10/18 10:00 12/11/18 09:08 Zantac - PO 150 mg BID JORGE Administration Warfarin Sodium 1 mg 12/10/18 18:00 12/10/18 17:52 Coumadin - PO 1 mg DAILY@1800 JORGE Administration #CKD stage 4 #LE edmea/fluid overload #CHF #Hypertension #Hyperparathyrodism/Hypercalcemia Plan - cont with lasix - volume status is improving - repeat labs in am - avoid nephrotoxins - avoid nsaids
--- NOTE | 2018-12-11 14:43 | PN ---
Physical Exam: SUBJECTIVE: Patient seen and examined, breathing/swelling improved. Reports urinating ' a lot'. OBJECTIVE: Vital Signs Period Temp Pulse Resp BP Sys/Reynoso Pulse Ox Last 24 Hr 97.3 F-98 F 60-74 18-20 117-150/62-81 94-98 Intake & Output 12/08/18 12/09/18 12/10/18 12/11/18 23:59 23:59 23:59 23:59 Intake Total 0 Output Total 2700 Balance -2700 Weight 153 lb 12.8 oz 154 lb 149 lb 7 oz GENERAL: The patient is awake, alert, and fully oriented, in no acute distress. Neck: soft, supple, neck vein distension Chest: decreased air entry all over, unable to appreciate rales or wheezing Abdomen;Soft, NT, ND Extremities:pedal edema, chronic skin discoloration Psych: co-operative Laboratory Results - last 24 hr 12/10/18 12/10/18 12/11/18 16:20 16:20 07:00 WBC RBC Hgb Hct MCV MCH MCHC RDW Plt Count MPV Absolute Neuts (auto) Neutrophils % Lymphocytes % Monocytes % Eosinophils % Basophils % Nucleated RBC % PTT (Actin FS) Sodium 141 Potassium 4.2 Chloride 102 Carbon Dioxide 30 Anion Gap 8 BUN 47.0 H Creatinine 2.2 H Est GFR (CKD-EPI)AfAm 22.93 Est GFR (CKD-EPI)NonAf 19.79 Random Glucose 94 Calcium 10.5 H Phosphorus 3.0 Magnesium 2.5 H Total Bilirubin 1.0 AST 42 H ALT 27 Alkaline Phosphatase 42 L Total Protein 7.7 Albumin 3.2 L Ur Random Creatinine 18.2 L U Random Total Protein 12.4 H Ur Random Urea Nitrogn 234 L 12/11/18 12/11/18 07:00 13:08 WBC 7.3 RBC 4.49 Hgb 12.8 Hct 40.3 MCV 89.9 MCH 28.6 MCHC 31.9 L RDW 15.1 Plt Count 235 MPV 10.4 Absolute Neuts (auto) 4.4 Neutrophils % 60.1 Lymphocytes % 26.9 D Monocytes % 9.0 Eosinophils % 2.9 D Basophils % 1.1 Nucleated RBC % 0 PTT (Actin FS) 47.3 H Sodium Potassium Chloride Carbon Dioxide Anion Gap BUN Creatinine Est GFR (CKD-EPI)AfAm Est GFR (CKD-EPI)NonAf Random Glucose Calcium Phosphorus Magnesium Total Bilirubin AST ALT Alkaline Phosphatase Total Protein Albumin Ur Random Creatinine U Random Total Protein Ur Random Urea Nitrogn Active Medications Generic Name Dose Route Start Last Admin Trade Name Wallace PRN Reason Stop Dose Admin Albuterol Sulfate 1 amp 12/09/18 20:46 12/10/18 03:34 Ventolin 0.083% Nebulizer Soln - NEB 1 amp Q6H PRN Administration SHORT OF BREATH/WHEEZING Fenofibric Acid 135 mg 12/10/18 10:00 12/10/18 12:07 Trilipix - PO 135 mg DAILY [facility] Administration Furosemide 40 mg 12/10/18 11:30 12/11/18 09:07 Lasix Injection - IVPUSH 40 mg DAILY [facility] Administration Methimazole 5 mg 12/10/18 10:00 12/11/18 09:07 Tapazole - PO 5 mg DAILY [facility] Administration Metoprolol Tartrate 50 mg 12/09/18 22:00 12/11/18 06:36 Lopressor - PO 50 mg TID JORGE Administration Ranitidine HCl 150 mg 12/10/18 10:00 12/11/18 09:08 Zantac - PO 150 mg BID JORGE Administration Warfarin Sodium 1 mg 12/10/18 18:00 12/10/18 17:52 Coumadin - PO 1 mg DAILY@1800 JORGE Administration Renal US results noted CT chest results noted. ASSESSMENT/PLAN: 83 yof with PMHx of Permanent afib (on Coumadin), hypertrophic cardiomyopathy, HTN, CHF, COPD, CKD stage III, Hyperthyroidism, hyperparathyroidism, goiter, congenital agenesis of R kidney, ruptured/hemorrhagic L renal cyst, SCC of skin s/p resection, L breast cancer s/p lumpectomy, GI ulcer with bleed, schatzki ring, GERD, hiatal hernia sent by clothes drier repairer for progressive dyspnea/ leg swelling, and failure to respond to PO lasix -Acute on chronic diastolic heart failure exacerbation -CKD stage III -Permanent Atrial fibrillation on coumadin -Hypertrophic cardiomyopathy -HTN -COPD -Hyperthyroidism/hyperparathyroidism -Congenital agenesis right kidney/Ruptured haemorrhagic left renal cyst -L Breast ca s/p lumpectomy -PUD with Bleed/GERD/hiatal hernia/Scatzki ring Plan: lasix 40 mg IV daily, strict I/Os, daily weights, monitor renal function Cardiology/renal input noted. 2D echo results reviewed Coumadin with INR monitoring Continue methimazole/metoprolol/ranitidine DVTPPx on coumadin Dispo pending clinical improvement. PT eval and home oxygen needs assessment prior to dc Discussed with patient and nursing, all questions answered. Visit type - Emergency Visit Emergency Visit: Yes ED Registration Date: 12/09/18 Care time: The patient presented to the Emergency Department on the above date and was hospitalized for further evaluation of their emergent condition. - New Patient This patient is new to me today: No - Critical Care Critical Care patient: No - Discharge Referral Referred to [facility] Med P.C.: No
[2018-12-11] MEDS: FENOFIBRIC ACID 135 MG CAP PO SCH (15:54)
[2018-12-11 17:12] LABS: INR 1.99 (0.83-1.09); PROTHROMBIN TIME (PATIENT) 23.7 SEC (9.7-13.0)
[2018-12-11] MEDS: WARFARIN NA 1 MG TABLET (FP) PO SCH (17:31)
--- NOTE | 2018-12-11 18:20 | PN ---
Progress Note (short form) - Note Progress Note: 83 year old female admitted with CHF NYHA class IV, hypertension/HCVD, hypertrophic cardiomyopathy,premanent atrial fib. Acute on CKD. H/o of COPD No SOB, no palpitations, chest pain. tolerating the medications. Active Medications Albuterol Sulfate (Ventolin 0.083% Nebulizer Soln -) 1 amp NEB Q6H PRN PRN Reason: SHORT OF BREATH/WHEEZING Last Admin: 12/10/18 03:34 Dose: 1 amp Fenofibric Acid (Trilipix -) 135 mg PO DAILY [facility] Last Admin: 12/11/18 15:54 Dose: 135 mg Furosemide (Lasix Injection -) 40 mg IVPUSH DAILY [facility] Last Admin: 12/11/18 09:07 Dose: 40 mg Methimazole (Tapazole -) 5 mg PO DAILY [facility] Last Admin: 12/11/18 09:07 Dose: 5 mg Metoprolol Tartrate (Lopressor -) 50 mg PO TID [facility] Last Admin: 12/11/18 15:14 Dose: 50 mg Ranitidine HCl (Zantac -) 150 mg PO BID [facility] Last Admin: 12/11/18 09:08 Dose: 150 mg Warfarin Sodium (Coumadin -) 1 mg PO DAILY@1800 [facility] Last Admin: 12/11/18 17:31 Dose: 1 mg Last Vital Signs Temp Pulse Resp BP Pulse Ox 98.1 F 80 20 134/81 98 12/11/18 18:06 12/11/18 18:06 12/11/18 18:06 12/11/18 18:06 12/11/18 09:00 NECK: Supple, no JVD, carotids 2+, no bruits. HEART: Irregular, S1 variable S2 split, grade II/ apical systolic murmur, no gallops. LUNGS: Fine creps at the bases. ABDOMEN: soft and nontender, no hepatosplenomegaly. EXTREMITIES: 1+ bilateral ankle edema, no calf tenderness. Bilateral lower extremity eccymosis. CBC, BMP 12/11/18 07:00 12/11/18 07:00 IMPRESSION: 1. CHF, resolving. 2. permanent atrial fib. 3. HCVD. 4. COPD. 5. Acute on CKD. RECOMMENDATIONS: 1. Continue current medications. 2. Increase ambulation. 3. Discharge when medically stable.
[2018-12-12] MEDS: ALBUTEROL SO4 0.083% IH SOL 2.5 MG/3 ML VIAL.NEB. NEB PRN ×2 (02:21→22:58)
[2018-12-12] MEDS: METOPROLOL TARTRATE 50 MG TABLET (FP) PO SCH ×3 (05:43→22:58)
[2018-12-12 08:06] LABS: BLOOD UREA NITROGEN 50.8 mg/dL (7-18); CALCIUM 10.5 mg/dL (8.5-10.1); CREATININE 2.3 mg/dL (0.55-1.3); MAGNESIUM 2.4 mg/dL (1.8-2.4); PHOSPHOROUS 2.8 mg/dL (2.5-4.9)
[2018-12-12] MEDS: RANITIDINE HCL 150 MG TABLET (FP) PO SCH ×2 (09:02→22:58)
[2018-12-12] MEDS: FUROSEMIDE 40 MG/4 ML INJECTABLE VIAL IVPUSH SCH (09:02)
[2018-12-12] MEDS: METHIMAZOLE 5 MG TABLET (FP) PO SCH (09:03)
[2018-12-12] MEDS: FENOFIBRIC ACID 135 MG CAP PO SCH (09:05)
--- NOTE | 2018-12-12 10:21 | PN ---
Physical Exam: SUBJECTIVE: Patient seen and examined, feels better, no new complaints. OBJECTIVE: Vital Signs Period Temp Pulse Resp BP Sys/Reynoso Pulse Ox Last 24 Hr 97.7 F-98.1 F 63-80 18-20 121-134/67-81 96 Intake & Output 12/09/18 12/10/18 12/11/18 12/12/18 23:59 23:59 23:59 23:59 Intake Total 0 1150 200 Output Total 2700 2600 Balance -2700 -1450 200 Weight 153 lb 12.8 oz 154 lb 149 lb 7 oz 151 lb 2 oz GENERAL: The patient is awake, alert, and fully oriented, in no acute distress. Neck: soft, supple, neck vein distension Chest: decreased air entry all over, unable to appreciate rales or wheezing Abdomen;Soft, NT, ND Extremities:pedal edema improved, chronic skin discoloration Psych: co-operative Laboratory Results - last 24 hr 12/11/18 12/11/18 12/11/18 07:00 13:08 13:08 Plt Count 235 PT with INR 23.70 H INR 1.99 H PTT (Actin FS) 47.3 H Sodium Potassium Chloride Carbon Dioxide Anion Gap BUN Creatinine Est GFR (CKD-EPI)AfAm Est GFR (CKD-EPI)NonAf Random Glucose Calcium Phosphorus Magnesium 12/12/18 06:00 Plt Count PT with INR INR PTT (Actin FS) Sodium 139 Potassium 4.0 Chloride 104 Carbon Dioxide 31 Anion Gap 4 L BUN 50.8 H Creatinine 2.3 H Est GFR (CKD-EPI)AfAm 21.73 Est GFR (CKD-EPI)NonAf 18.75 Random Glucose 81 Calcium 10.5 H Phosphorus 2.8 Magnesium 2.4 Active Medications Generic Name Dose Route Start Last Admin Trade Name Freq PRN Reason Stop Dose Admin Albuterol Sulfate 1 amp 12/09/18 20:46 12/12/18 02:21 Ventolin 0.083% Nebulizer Soln - NEB 1 amp Q6H PRN Administration SHORT OF BREATH/WHEEZING Fenofibric Acid 135 mg 12/10/18 10:00 12/12/18 09:05 Trilipix - PO 135 mg DAILY JORGE Administration Furosemide 40 mg 12/10/18 11:30 12/12/18 09:02 Lasix Injection - IVPUSH 40 mg DAILY JORGE Administration Methimazole 5 mg 12/10/18 10:00 12/12/18 09:03 Tapazole - PO 5 mg DAILY JORGE Administration Metoprolol Tartrate 50 mg 12/09/18 22:00 12/12/18 05:43 Lopressor - PO 50 mg TID JORGE Administration Ranitidine HCl 150 mg 12/10/18 10:00 12/12/18 09:02 Zantac - PO 150 mg BID JORGE Administration Warfarin Sodium 1 mg 12/10/18 18:00 12/11/18 17:31 Coumadin - PO 1 mg DAILY@1800 JORGE Administration ASSESSMENT/PLAN: 83 yof with PMHx of Permanent afib (on Coumadin), hypertrophic cardiomyopathy, HTN, CHF, COPD, CKD stage III, Hyperthyroidism, hyperparathyroidism, goiter, congenital agenesis of R kidney, ruptured/hemorrhagic L renal cyst, SCC of skin s/p resection, L breast cancer s/p lumpectomy, GI ulcer with bleed, schatzki ring, GERD, hiatal hernia sent by equipment analyst for progressive dyspnea/ leg swelling, and failure to respond to PO lasix -Acute on chronic diastolic heart failure exacerbation -CKD stage III -Permanent Atrial fibrillation on coumadin -Hypertrophic cardiomyopathy -HTN -COPD -Hyperthyroidism/hyperparathyroidism -Congenital agenesis right kidney/Ruptured haemorrhagic left renal cyst -L Breast ca s/p lumpectomy -PUD with Bleed/GERD/hiatal hernia/Scatzki ring Plan: Lasix 40 mg IV daily, strict I/Os, daily weights, monitor renal function Cardiology/renal input noted. 2D echo results reviewed Volume status improved, renal function stable, transition to PO in 24 hours. Coumadin with INR monitoring Continue methimazole/metoprolol/ranitidine DVTPPx on coumadin Dispo PT eval and home oxygen needs assessment. PLan for d/c in 24hours if continues to improve. Discussed with patient and nursing, all questions answered. Visit type - Emergency Visit Emergency Visit: Yes ED Registration Date: 12/09/18 Care time: The patient presented to the Emergency Department on the above date and was hospitalized for further evaluation of their emergent condition. - New Patient This patient is new to me today: No - Critical Care Critical Care patient: No - Discharge Referral Referred to [facility] Med P.C.: No
[2018-12-12 11:43] LABS: INR 1.88 (0.83-1.09); PROTHROMBIN TIME (PATIENT) 22.3 SEC (9.7-13.0)
--- NOTE | 2018-12-12 13:46 | PN ---
Progress Note, Physician History of Present Illness: Pt seen and examined at bedside. She is awake and alert. She feels that edema is improving. - Current Medication List Current Medications: Active Medications Albuterol Sulfate (Ventolin 0.083% Nebulizer Soln -) 1 amp NEB Q6H PRN PRN Reason: SHORT OF BREATH/WHEEZING Last Admin: 12/12/18 02:21 Dose: 1 amp Fenofibric Acid (Trilipix -) 135 mg PO DAILY [facility] Last Admin: 12/12/18 09:05 Dose: 135 mg Furosemide (Lasix Injection -) 40 mg IVPUSH DAILY [facility] Last Admin: 12/12/18 09:02 Dose: 40 mg Methimazole (Tapazole -) 5 mg PO DAILY [facility] Last Admin: 12/12/18 09:03 Dose: 5 mg Metoprolol Tartrate (Lopressor -) 50 mg PO TID [facility] Last Admin: 12/12/18 05:43 Dose: 50 mg Ranitidine HCl (Zantac -) 150 mg PO BID [facility] Last Admin: 12/12/18 09:02 Dose: 150 mg Warfarin Sodium (Coumadin -) 2 mg PO DAILY@1800 [facility] - Objective Vital Signs: Vital Signs Temperature 97.7 F 12/12/18 10:00 Pulse Rate 67 12/12/18 10:00 Respiratory Rate 18 12/12/18 10:00 Blood Pressure 139/78 12/12/18 10:00 O2 Sat by Pulse Oximetry (%) 96 12/12/18 09:00 Constitutional: Yes: Calm Eyes: Yes: Conjunctiva Clear HENT: Yes: Atraumatic Neck: Yes: Supple Cardiovascular: Yes: S1, S2 Gastrointestinal: Yes: Normal Bowel Sounds, Soft Genitourinary: Yes: WNL Musculoskeletal: Yes: WNL Edema: Yes Edema: LLE: 1+, RLE: 1+ Integumentary: Yes: Venous Stasis Changes Neurological: Yes: Oriented Psychiatric: Yes: Oriented Labs: CBC, BMP 12/11/18 07:00 12/12/18 06:00 INR, PTT INR 1.88 (0.83-1.09) H 12/12/18 10:44 Assessment/Plan Current Medications Generic Name Dose Route Start Last Admin Trade Name Freq PRN Reason Stop Dose Admin Albuterol Sulfate 1 amp 12/09/18 20:46 12/12/18 02:21 Ventolin 0.083% Nebulizer Soln - NEB 1 amp Q6H PRN Administration SHORT OF BREATH/WHEEZING Fenofibric Acid 135 mg 12/10/18 10:00 12/12/18 09:05 Trilipix - PO 135 mg DAILY [facility] Administration Furosemide 40 mg 12/10/18 11:30 12/12/18 09:02 Lasix Injection - IVPUSH 40 mg DAILY JORGE Administration Methimazole 5 mg 12/10/18 10:00 12/12/18 09:03 Tapazole - PO 5 mg DAILY JORGE Administration Metoprolol Tartrate 50 mg 12/09/18 22:00 12/12/18 05:43 Lopressor - PO 50 mg TID JORGE Administration Ranitidine HCl 150 mg 12/10/18 10:00 12/12/18 09:02 Zantac - PO 150 mg BID JORGE Administration Warfarin Sodium 2 mg 12/12/18 18:00 Coumadin - PO DAILY@1800 [facility] #CKD stage 4 #LE edmea/fluid overload #CHF #Hypertension #Hyperparathyrodism/Hypercalcemia Plan - cont lasix - monitor renal function - repeat labs in am - avoid nephrotoxins - avoid nsaids - pt feels edema is improving
[2018-12-12] MEDS ORDERED: PT OWN MED DRAWER 7, Y5N ONE (17:20)
[2018-12-12] MEDS: WARFARIN NA 2 MG TABLET (UD) PO SCH (17:31)
[2018-12-13] MEDS: METOPROLOL TARTRATE 50 MG TABLET (FP) PO SCH ×3 (06:58→22:12)
[2018-12-13 07:38] LABS: CALCIUM 9.8 mg/dL (8.5-10.1); POTASSIUM 4.1 mmol/L (3.5-5.1)
[2018-12-13 08:54] LABS: INR 1.7 (0.83-1.09); PROTHROMBIN TIME (PATIENT) 20.2 SEC (9.7-13.0)
[2018-12-13] MEDS ORDERED: PT OWN MED DRAWER 7, Y5N ONE (09:47)
--- NOTE | 2018-12-13 10:03 | PN ---
Physical Exam: SUBJECTIVE: Patient seen and examined, breathing and swelling improved, no new complaints. OBJECTIVE: Vital Signs Period Temp Pulse Resp BP Sys/Reynoso Pulse Ox Last 24 Hr 97.6 F-98.1 F 70-86 18-18 129-134/62-86 95-95 Intake & Output 12/10/18 12/11/18 12/12/18 12/13/18 23:59 23:59 23:59 23:59 Intake Total 0 1150 1600 Output Total 2700 2600 1100 500 Balance -2700 -1450 500 -500 Weight 154 lb 149 lb 7 oz 151 lb 2 oz 152 lb GENERAL: The patient is awake, alert, and fully oriented, in no acute distress. Neck: soft, supple, neck vein distension Chest: decreased air entry all over, unable to appreciate rales or wheezing Abdomen;Soft, NT, ND Extremities:pedal edema improved, chronic skin discoloration with ecchymotic areas, varicosities, non warm non tender Psych: co-operative, pleasant Laboratory Results - last 24 hr 12/12/18 12/13/18 12/13/18 10:44 06:50 06:50 PT with INR 22.30 H 20.20 H INR 1.88 H 1.70 H Sodium 141 Potassium 4.1 Chloride 105 Carbon Dioxide 28 Anion Gap 8 BUN 46.0 H Creatinine 2.0 H Est GFR (CKD-EPI)AfAm 25.73 Est GFR (CKD-EPI)NonAf 22.20 Random Glucose 88 Calcium 9.8 Active Medications Generic Name Dose Route Start Last Admin Trade Name Freq PRN Reason Stop Dose Admin Albuterol Sulfate 1 amp 12/09/18 20:46 12/12/18 22:58 Ventolin 0.083% Nebulizer Soln - NEB 1 amp Q6H PRN Administration SHORT OF BREATH/WHEEZING Fenofibric Acid 135 mg 12/10/18 10:00 12/12/18 09:05 Trilipix - PO 135 mg DAILY JORGE Administration Furosemide 40 mg 12/10/18 11:30 12/12/18 09:02 Lasix Injection - IVPUSH 40 mg DAILY [facility]ORGE Administration Furosemide 40 mg 12/13/18 14:00 Lasix Injection - IVPUSH 12/13/18 14:01 ONCE ONE Methimazole 5 mg 12/10/18 10:00 12/12/18 09:03 Tapazole - PO 5 mg DAILY JORGE Administration Metoprolol Tartrate 50 mg 12/09/18 22:00 12/13/18 06:58 Lopressor - PO 50 mg TID JORGE Administration Ranitidine HCl 150 mg 12/10/18 10:00 12/12/18 22:58 Zantac - PO 150 mg BID JORGE Administration Warfarin Sodium 2 mg 12/12/18 18:00 12/12/18 17:31 Coumadin - PO 2 mg DAILY@1800 JORGE Administration Microbiology 12/09/18 18:52 Urine - Urine Clean Catch Urine Culture - Final Proteus Species Group D Strep Or Entero Coccus ASSESSMENT/PLAN: 83 yof with PMHx of Permanent afib (on Coumadin), hypertrophic cardiomyopathy, HTN, CHF, COPD, CKD stage III, Hyperthyroidism, hyperparathyroidism, goiter, congenital agenesis of R kidney, ruptured/hemorrhagic L renal cyst, SCC of skin s/p resection, L breast cancer s/p lumpectomy, GI ulcer with bleed, schatzki ring, GERD, hiatal hernia sent by telephone worker for progressive dyspnea/ leg swelling, and failure to respond to PO lasix -Acute on chronic diastolic heart failure exacerbation -CKD stage III -Asymptomatic bacteruria -Permanent Atrial fibrillation on coumadin -Hypertrophic cardiomyopathy -HTN -COPD -Hyperthyroidism/hyperparathyroidism -Congenital agenesis right kidney/Ruptured haemorrhagic left renal cyst -L Breast ca s/p lumpectomy -PUD with Bleed/GERD/hiatal hernia/Scatzki ring Plan: Hypoxic on ambulation. Cr stable. Discussed with Dr. Astorga, will give additional 40 mg IV lasix today and reassess oxygen needs/symptoms in 24 hours. Repeat CXR noted. Continue strict I/Os and daily weights. Cardiology/renal input noted. 2D echo results reviewed INR noted, continue 2 mg coumadin daily for now. Urine cultures noted. Clean ua, patient asymptomatic, monitor off abx for now. Continue methimazole/metoprolol/ranitidine DVTPPx on coumadin Home oxygen needs noted. PT eval. PLan for d/c in 24hours if continues to improve. Discussed with patient and nursing in detail, all questions answered. Care co-ordinated with Dr. Garcia and Dr. Astorga. Visit type - Emergency Visit Emergency Visit: Yes ED Registration Date: 06/06/19 Care time: The patient presented to the Emergency Department on the above date and was hospitalized for further evaluation of their emergent condition. - New Patient This patient is new to me today: No - Critical Care Critical Care patient: No - Discharge Referral Referred to [facility] No
[2018-12-13] MEDS: FUROSEMIDE 40 MG/4 ML INJECTABLE VIAL IVPUSH SCH (11:37)
[2018-12-13] MEDS: FENOFIBRIC ACID 135 MG CAP PO SCH (11:51)
[2018-12-13] MEDS: RANITIDINE HCL 150 MG TABLET (FP) PO SCH ×2 (11:52→22:12)
[2018-12-13] MEDS: METHIMAZOLE 5 MG TABLET (FP) PO SCH (11:52)
--- NOTE | 2018-12-13 12:29 | PN ---
Progress Note (short form) - Note Progress Note: Renal follow up for CKD Pt seen and examined at the bedside no acute complaints feels better making urine reports less leg edema Vital Signs Temperature 97.8 F 12/13/18 06:00 Pulse Rate 73 12/13/18 06:00 Respiratory Rate 18 12/13/18 06:00 Blood Pressure 134/86 12/13/18 06:00 O2 Sat by Pulse Oximetry (%) 95 12/12/18 21:00 Intake & Output 12/10/18 12/11/18 12/12/18 12/13/18 23:59 23:59 23:59 23:59 Intake Total 0 1150 1600 Output Total 2700 2600 1100 500 Balance -2700 -1450 500 -500 Weight 69.853 kg 67.784 kg 68.549 kg 68.946 kg NAD Neck supple, no JVD RRR, No M/R CTA, no rale or wheeze soft NT/ND trace edema in LE CBC, BMP 12/11/18 07:00 12/13/18 06:50 Current Medications Albuterol Sulfate (Ventolin 0.083% Nebulizer Soln -) 1 amp NEB Q6H PRN PRN Reason: SHORT OF BREATH/WHEEZING Last Admin: 12/12/18 22:58 Dose: 1 amp Fenofibric Acid (Trilipix -) 135 mg PO DAILY [facility] Last Admin: 12/13/18 11:51 Dose: 135 mg Furosemide (Lasix Injection -) 40 mg IVPUSH DAILY [facility] Last Admin: 12/13/18 11:37 Dose: 40 mg Furosemide (Lasix Injection -) 40 mg IVPUSH ONCE ONE Stop: 12/13/18 14:01 Methimazole (Tapazole -) 5 mg PO DAILY [facility] Last Admin: 12/13/18 11:52 Dose: 5 mg Metoprolol Tartrate (Lopressor -) 50 mg PO TID [facility] Last Admin: 12/13/18 06:58 Dose: 50 mg Ranitidine HCl (Zantac -) 150 mg PO BID [facility] Last Admin: 12/13/18 11:52 Dose: 150 mg Warfarin Sodium (Coumadin -) 2 mg PO DAILY@1800 [facility] Last Admin: 12/12/18 17:31 Dose: 2 mg 83 year old woman with hx of CKD stage 4 (baseline Cr 1.8-2), Unilateral kidney , Pancreatic cyst/mass, Nephrolithiasis, hypertension, Atrial fibrillation on Coumadin, hyperparathyrodism/hypercalcemia presented with complaints of worsening LE swelling. Pt was last seen in our office in August. #CKD stage 4 with slightly worse renal function in setting of fluid overload #LE edmea/fluid overload #CHF with preserved LV ejection fraction #Hypertension #Hyperparathyrodism/Hypercalcemia Renal function improving with IV Lasix to get extra dose of Lasix today holding ACEi for now, can resume on discharge PT Cardiology following Kris Astorga DO
[2018-12-13] MEDS ORDERED: FUROSEMIDE 40 MG/4 ML INJECTABLE VIAL IVPUSH ONE (14:00)
[2018-12-13] MEDS: WARFARIN NA 2 MG TABLET (UD) PO SCH (17:30)
--- NOTE | 2018-12-13 19:53 | PN ---
Progress Note (short form) - Note Progress Note: 83 year old female admitted with CHF NYHA class IV, hypertension/HCVD, hypertrophic cardiomyopathy,premanent atrial fib, acute on CKD. H/o of COPD No SOB, no further fatique, no chest pain. Active Medications Albuterol Sulfate (Ventolin 0.083% Nebulizer Soln -) 1 amp NEB Q6H PRN PRN Reason: SHORT OF BREATH/WHEEZING Last Admin: 12/12/18 22:58 Dose: 1 amp Fenofibric Acid (Trilipix -) 135 mg PO DAILY [facility] Last Admin: 12/13/18 11:51 Dose: 135 mg Furosemide (Lasix Injection -) 40 mg IVPUSH DAILY [facility] Last Admin: 12/13/18 11:37 Dose: 40 mg Methimazole (Tapazole -) 5 mg PO DAILY [facility] Last Admin: 12/13/18 11:52 Dose: 5 mg Metoprolol Tartrate (Lopressor -) 50 mg PO TID [facility] Last Admin: 12/13/18 13:33 Dose: 50 mg Ranitidine HCl (Zantac -) 150 mg PO BID [facility] Last Admin: 12/13/18 11:52 Dose: 150 mg Warfarin Sodium (Coumadin -) 2 mg PO DAILY@1800 [facility] Last Admin: 12/13/18 17:30 Dose: 2 mg Last Vital Signs Temp Pulse Resp BP Pulse Ox 99.9 F H 73 irregular 20 135/74 96 12/13/18 16:30 12/13/18 16:30 12/13/18 16:30 12/13/18 16:30 12/13/18 09:00 NECK: Supple, no JVD, carotids 2+, no bruits. HEART: Irregular, S1 variable S2 split, grade II/ apical systolic murmur, no gallops. LUNGS: Fine creps at the right base. ABDOMEN: soft and nontender, no hepatosplenomegaly. EXTREMITIES: 1+ bilateral ankle edema, no calf tenderness. Bilateral lower extremity eccymosis. CBC, BMP 12/11/18 07:00 12/13/18 06:50 1. CHF, resolving. 2. permanent atrial fi. 3. HCVD. 4. COPD. 5. Acute on CKD, improving. RECOMMENDATIONS: 1. Continue current medications. 2. Increase ambulation. 3. Discharge when medically stable.
[2018-12-14] MEDS: METOPROLOL TARTRATE 50 MG TABLET (FP) PO SCH ×2 (05:48→13:13)
[2018-12-14] MEDS ORDERED: PT OWN MED DRAWER 7, Y5N ONE (08:05)
[2018-12-14 08:17] LABS: INR 1.79 (0.83-1.09); PROTHROMBIN TIME (PATIENT) 21.2 SEC (9.7-13.0)
[2018-12-14 08:46] LABS: BLOOD UREA NITROGEN 44.9 mg/dL (7-18); POTASSIUM 3.8 mmol/L (3.5-5.1)
[2018-12-14] MEDS: RANITIDINE HCL 150 MG TABLET (FP) PO SCH (09:34)
[2018-12-14] MEDS: FUROSEMIDE 40 MG/4 ML INJECTABLE VIAL IVPUSH SCH (09:34)
[2018-12-14] MEDS: FENOFIBRIC ACID 135 MG CAP PO SCH (09:35)
[2018-12-14] MEDS: METHIMAZOLE 5 MG TABLET (FP) PO SCH (09:35)
--- NOTE | 2018-12-14 12:25 | DS ---
Physical Exam: SUBJECTIVE: Patient seen and examined,breathing and swelling improved, no new concerns. OBJECTIVE: Vital Signs Period Temp Pulse Resp BP Sys/Reynoso Pulse Ox Last 24 Hr 98 F-99.9 F 64-88 20-20 119-148/66-79 91-98 Intake & Output 12/11/18 12/12/18 12/13/18 12/14/18 23:59 23:59 23:59 23:59 Intake Total 1150 1600 750 240 Output Total 2600 1100 3400 350 Balance -1450 500 -2650 -110 Weight 149 lb 7 oz 151 lb 2 oz 152 lb 149 lb 3 oz PHYSICAL EXAM GENERAL: The patient is awake, alert, and fully oriented, in no acute distress. Neck: soft, supple, improved neck vein distension Chest: decreased air entry all over, unable to appreciate rales or wheezing CVS: S1S2 irregular Abdomen;Soft, NT, ND Extremities:pedal edema improved, chronic skin discoloration with ecchymotic areas, varicosities, non warm non tender Psych: co-operative, pleasant LABS Laboratory Results - last 24 hr 12/14/18 12/14/18 07:25 07:25 PT with INR 21.20 H INR 1.79 H Sodium 140 Potassium 3.8 Chloride 104 Carbon Dioxide 28 Anion Gap 8 BUN 44.9 H Creatinine 2.0 H Est GFR (CKD-EPI)AfAm 25.73 Est GFR (CKD-EPI)NonAf 22.20 Random Glucose [address] chest: In comparison to a CT exam of 12/08/2017 note is made of apparent interval development of mild smooth bilateral lower lobe interlobular septal thickening which may be on the basis of vascular congestion. Left and right atrial dilatation dilatation is again noted. No pleural effusion or acute infiltrate is seen. The main pulmonary artery is somewhat dilated with a 3.3 cm diameter suggestive of increased pulmonary arterial pressure. As on the previous exam note is made of patchy lung attenuation within the upper and lower lung augustin bilaterally suggestive of mosaic perfusion. Several stable bilateral upper and lower lung field noncalcified pulmonary nodules are seen with a 0.6 cm maximum diameter. These nodules also appear unchanged in comparison to a more remote CT study of 09/03/2016. Several mildly prominent pretracheal mediastinal lymph nodes are noted which appear slightly increased in comparison to the 2018 CT study. There is no aortic aneurysm. As on prior studies there is prominent enlargement of the partially imaged left thyroid lobe with mild retrosternal extension. Contralateral tracheal displacement is noted. The visualized osseous structures demonstrate no obvious acute pathology. Impression: No acute infiltrate is identified. In comparison to a CT study of 12/08/2017 there appears to be interval development of mild bilateral lower lobe interstitial thickening suggestive of mild vascular congestion. Clinical/ laboratory correlation is suggested. Cardiomegaly is again noted. The main pulmonary artery is dilated with a 3.3 cm diameter strongly suggestive of increased pulmonary arterial pressure. As on prior exams there is patchy bilateral upper and lower lung field attenuation suggestive of mosaic perfusion. Multiple small stable bilateral pulmonary nodules are seen. Several mildly enlarged pretracheal mediastinal lymph nodes are noted which appear slightly increased in size. Correlation with 3-4 month follow-up CT may be performed. Thyromegaly. The partially imaged pancreas demonstrates dilatation of the main pancreatic duct as described in detail on an abdomen MRI study of . Please refer to the MRI report. Renal US:Renal ultrasound The right kidney is congenitally absent as per the patient. Left kidney measures 11 cm in sagittal length with a few simple cysts the largest measuring 4.6 x 2.9 cm. No gross left renal stones or hydronephrosis are identified. Normal color Doppler flow. Visualized portion of the liver is slightly echogenic IMPRESSION: Congenital absence of the right kidney as per the patient. A few left renal simple cysts with the largest measuring 4.6 x 2.9 cm and without gross evidence of hydronephrosis or stones. Slightly echogenic liver suggestive of mild fatty infiltration versus hepatocellular 2D echo: Normal LV function EF 55-60%, Normal RV size and function Mildly dilated Left atrium Mild to moderate MR Mild TR RV systolic pressure 30-40 mm Hg No pericardial effusion HOSPITAL COURSE: Date of Admission:12/09/18 Date of Discharge: 12/14/18 Minutes to complete discharge: 40 Discharge Summary Reason For Visit: ACUTE KIDNEY INJURY Current Active Problems ESSENCE (acute kidney injury) (Acute) Leg swelling (Acute) Hospital Course: 83 yof with PMHx of Permanent afib (on Coumadin), hypertrophic cardiomyopathy, HTN, CHF, COPD, CKD stage III, Hyperthyroidism, hyperparathyroidism, goiter, congenital agenesis of R kidney, ruptured/hemorrhagic L renal cyst, SCC of skin s/p resection, L breast cancer s/p lumpectomy, GI ulcer with bleed, schatzki ring, GERD, hiatal hernia sent by pattern clerk for progressive dyspnea/ leg swelling, and failure to respond to PO lasix. She was placed on Lasix 40 mg IV daily. 2D echo done, report as above. She was seen by cardiology and nephrology. She received additional 40 mg IV dose of lasix day prior to discharge. She has been oxygenating well, her renal function is stable, creatinine at 2 on discharge. Her cardizem was discontinued and she was continued on metoprolol with no new concerns. Her coumadin is increased to 2 mg daily for now with close INR follow up with PCP. She was evaluated by physical therapy and will be discharged home with services in stable condition with close outpatient renal function/INR monitoring. Condition: Stable - Instructions Diet, Activity, Other Instructions: You were admitted with trouble breathing and fluid in your lungs. You were placed on intravenous lasix with improvement. Your kidney function has been stable. MEDICATIONS: Lasix has been increased to 40 mg daily. Take coumadin 2 mg daily for 3 days, then recommend INR check on Thursday and please discuss with Dr. Garcia for further dosing. Your diltiazem has been stopped and your heart rate and blood pressure have been stable off medications. Continue other medications as before. INSTRUCTIONS: Weigh yourself daily and notify doctor if weight gain > 3lbs in 2 days. Please note that your kidney numbers will need close monitoring with Dr. Garcia and Dr. Astorga. Take warfarin at 2 mg daily for 3 days (today, tomorrow and ) and have INR check on 12/17/[address] Garcia and discuss the readings with him to discuss further dosing. Your diltiazem has been stopped in the hospital FOLLOW UP: INR check on 12/17/[address] Garcia and discuss the results to direct further warfarin dosing. Blood work to check your kidneys BMP (basic metabolic panel ) in 1 week with your doctor (or can have it done with next INR check with your doctor) Follow up with Dr. Garcia in 1 week Follow up with Dr. Hoffman in 1 week Follow up with Dr. Astorga in 1-[address] chest in 3-4 months If you notice severe trouble breathing, chest pain, heart racing, dizziness, inability to urinate or any new concerns, please call 911 or come to the ED. Referrals: Gerry Garcia MD [Primary Care Provider] - Kris Astorga MD [Staff Physician] - Regulo Hoffman MD [Staff Physician] - Disposition: VNS/HOME HEALTH CARE - Home Medications Comprehensive Discharge Medication List: Ambulatory Orders Cholecalciferol (Vitamin D3) [Vitamin D3 -] 1,000 unit PO ASDIR 01/24/15 Vitamin B Complex 1 each PO Q2D 07/27/15 Metoprolol Tartrate [Lopressor -] 50 mg PO TID #90 tablet 08/29/15 Lisinopril [Zestril] 40 mg PO DAILY 12/24/17 Fenofibrate Nanocrystallized [Triglide] 160 mg PO DAILY 12/25/17 Methimazole [Tapazole -] 5 mg PO DAILY 12/25/17 Albuterol 0.083% Nebulizer Yohana [Ventolin 0.083% Nebulizer Soln -] 1 neb NEB QID PRN 12/09/18 Ranitidine [Zantac -] 150 mg PO BID 12/09/18 Warfarin Na [Coumadin -] 2 mg PO ASDIR 12/09/18 Furosemide [Lasix] 40 mg PO DAILY #60 tablet 12/14/18 This patient is new to me today: No Emergency Visit: Yes ED Registration Date: 12/09/18 Care time: The patient presented to the Emergency Department on the above date and was hospitalized for further evaluation of their emergent condition. Critical Care patient: No - Discharge Referral Referred to [facility] No
--- NOTE | 2018-12-14 12:51 | PN ---
Progress Note (short form) - Note Progress Note: 83 year old female admitted with CHF NYHA class IV, hypertension/HCVD, hypertrophic cardiomyopathy,premanent atrial fib, acute on CKD. H/o of COPD No SOB, no further fatique, no chest pain.Discharge is being planned. Last Vital Signs Temp Pulse Resp BP Pulse Ox 98.2 F 82 20 125/77 91 L 12/14/18 13:14 12/14/18 13:14 12/14/18 13:14 12/14/18 13:14 12/14/18 11:06 NECK: Supple, no JVD, carotids 2+, no bruits. HEART: Irregular, S1 variable S2 split, grade II/ apical systolic murmur, no gallops. LUNGS: Fine creps at the right base. ABDOMEN: soft and nontender, no hepatosplenomegaly. EXTREMITIES: 1+ bilateral ankle edema, no calf tenderness. Bilateral lower extremity eccymosis. CBC, BMP 12/11/18 07:00 12/14/18 07:25 1. CHF, resolved. 2. permanent atrial fi. 3. HCVD. 4. COPD. 5. Acute on CKD, improving. RECOMMENDATIONS: 1. Continue current medications. 2. Increase ambulation. 3. Discharge when medically stable.
[2018-12-14 13:15] VITALS: BP 125/77; PULSE 82; TEMP 98.2
== END 2018-12-14 14:00 | disposition home health service (06) | DRG 291 ==
LOC: JER 16:38 → JERBED 18:15 → J8W 20:40
PROVIDERS: ADMIT Internal Medicine; ATTEND Hospitalist
DX: I13.0 Hypertensive heart and chronic kidney disease with heart failure and stage 1 through stage 4 chronic kidney disease, or unspecified chronic kidney disease (principal); I50.33 Acute on chronic diastolic (congestive) heart failure; N17.9 Acute kidney failure, unspecified; E46 Unspecified protein-calorie malnutrition; Q60.0 Renal agenesis, unilateral; K86.2 Cyst of pancreas; N18.4 Chronic kidney disease, stage 4 (severe); J44.9 Chronic obstructive pulmonary disease, unspecified; E05.90 Thyrotoxicosis, unspecified without thyrotoxic crisis or storm; K57.90 Diverticulosis of intestine, part unspecified, without perforation or abscess without bleeding; E78.00 Pure hypercholesterolemia, unspecified; N28.1 Cyst of kidney, acquired; E88.09 Other disorders of plasma-protein metabolism, not elsewhere classified; I48.2 Chronic atrial fibrillation; I42.2 Other hypertrophic cardiomyopathy; E04.9 Nontoxic goiter, unspecified; E21.3 Hyperparathyroidism, unspecified; K22.2 Esophageal obstruction; E83.52 Hypercalcemia; K21.9 Gastro-esophageal reflux disease without esophagitis; K44.9 Diaphragmatic hernia without obstruction or gangrene; G20 Parkinson's disease; Z96.643 Presence of artificial hip joint, bilateral; Z79.01 Long term (current) use of anticoagulants; Z85.3 Personal history of malignant neoplasm of breast; Z87.11 Personal history of peptic ulcer disease
CPT/HCPCS: 36415; 71045-TC-FY; 71250-TC; 76775-TC; 80048; 80053; 80061; 81003; 82550; 82565; 83036; 83721; 83735; 83880; 84100; 84156; 84443; 84484; 84540; 85025; 85027; 85610; 85730; 87086; 93005; 93010; 93306-TC; 94640; 94761; 97116-GP; 97161-GP; 99283-25

== ENCOUNTER 2019-05-07 19:52 | Emergency (ER) | payer OTHER, MEDICARE ==
[2019-05-07 20:12] VITALS: BP 123/61; PULSE 79; TEMP 98.3; BMI 23.1
--- NOTE | 2019-05-07 21:45 | PDOC ---
History of Present Illness - General Chief Complaint: Injury Stated Complaint: LACERATION Time Seen by Provider: 05/07/19 20:23 History Source: Patient Exam Limitations: No Limitations Past History - Past Medical History Allergies/Adverse Reactions: Allergies Allergy/AdvReac Type Severity Reaction Status Date / Time No Known Allergies Allergy Verified 12/09/18 16:43 Home Medications: Ambulatory Orders Cholecalciferol (Vitamin D3) [Vitamin D3 -] 1,000 unit PO ASDIR 01/24/15 Vitamin B Complex 1 each PO Q2D 07/27/15 Metoprolol Tartrate [Lopressor -] 50 mg PO TID #90 tablet 08/29/15 Lisinopril [Zestril] 40 mg PO DAILY 12/24/17 Fenofibrate Nanocrystallized [Triglide] 160 mg PO DAILY 12/25/17 Methimazole [Tapazole -] 5 mg PO DAILY 12/25/17 Albuterol 0.083% Nebulizer Yohana [Ventolin 0.083% Nebulizer Soln -] 1 neb NEB QID PRN 12/09/18 Ranitidine [Zantac -] 150 mg PO BID 12/09/18 Warfarin Na [Coumadin -] 2 mg PO ASDIR 12/09/18 Furosemide [Lasix] 40 mg PO DAILY #60 tablet 12/14/18 Cardiac Disorders: Yes (ATRIAL FIBRILLATION, CHF,SOB) COPD: Yes CHF: Yes GI Disorders: Yes (DIVERTICULOSIS, POSTBULBAR DUODENAL BLEED) HTN: Yes Hypercholesterolemia: Yes Thyroid Disease: Yes - Surgical History Appendectomy: Yes Cardiac Surgery: No Lung Surgery: No Neurologic Surgery: No Orthopedic Surgery: Yes (JESUS. HIP REPLACEMENT) - Psycho Social/Smoking Cessation Hx Smoking History: Never smoked Have you smoked in the past 12 months: No Hx Alcohol Use: No Drug/Substance Use Hx: No Substance Use Type: None Hx Substance Use Treatment: No *Physical Exam - Vital Signs Last Vital Signs Temp Pulse Resp BP Pulse Ox 98.3 F 79 19 123/61 95 05/07/19 20:07 05/07/19 20:07 05/07/19 20:07 05/07/19 20:07 05/07/19 20:07 - Physical Exam General Appearance: No: Apparent Distress Extremity: positive: Other (superficial skin tear to R clarke, no active bleeding , no laceration) Integumentary: negative: Swelling, Ecchymosis, Bruising Neurologic: positive: Alert, Normal Mood/Affect Medical Decision Making - Medical Decision Making 83 y/o F PMHx of Permanent afib (on Coumadin), hypertrophic cardiomyopathy, HTN , CHF, COPD, Hyperthyroidism, hyperparathyroidism, goiter, congenital agenesis of R kidney, ruptured/hemorrhagic L renal cyst, SCC of skin s/p resection, L breast cancer s/p lumpectomy, GI ulcer with bleed, schatzki ring, GERD, hiatal hernia presents with cutting R clarke along her wheelchair today in the morning. States noticed site kept oozing so came in for evaluation. Denies fever, sob, cp , other complaints. No active bleeding noted now Site covered with xeroform, sterile gauze and kerlix dressing stable for dc 05/07/19 21:42 Discharge - Discharge Information Problems reviewed: Yes Clinical Impression/Diagnosis: Skin tear Condition: Stable Disposition: HOME - Admission No - Additional Discharge Information Prescription Drug Monitoring Program (I-STOP) results: I-STOP not reviewed - Follow up/Referral Referrals: Gerry Garcia MD [Primary Care Provider] - 2 Days - Patient Discharge Instructions Additional Instructions: Thank you for choosing [facility]. It was a pleasure taking care of you. You may change dressing 1-2 times a day You may apply bacitracin over site if you prefer Return to the Emergency Department if your symptoms worsen or persist, you have fever, purulent drainage or other concerning symptoms. - Post Discharge Activity
== END 2019-05-07 21:56 | disposition home or self-care (01) ==
LOC: JERFT 19:52
DX: S81.811A Laceration without foreign body, right lower leg, initial encounter (principal); W22.8XXA Striking against or struck by other objects, initial encounter; Y93.89 Activity, other specified; Y92.038 Other place in apartment as the place of occurrence of the external cause; Y99.8 Other external cause status; Z99.3 Dependence on wheelchair; I25.10 Atherosclerotic heart disease of native coronary artery without angina pectoris; I11.0 Hypertensive heart disease with heart failure; I50.9 Heart failure, unspecified; I42.2 Other hypertrophic cardiomyopathy; I48.21 Permanent atrial fibrillation; Z79.01 Long term (current) use of anticoagulants; J44.9 Chronic obstructive pulmonary disease, unspecified; E05.90 Thyrotoxicosis, unspecified without thyrotoxic crisis or storm; Z85.828 Personal history of other malignant neoplasm of skin; Z85.3 Personal history of malignant neoplasm of breast; E04.9 Nontoxic goiter, unspecified; K21.9 Gastro-esophageal reflux disease without esophagitis; K22.2 Esophageal obstruction; K44.9 Diaphragmatic hernia without obstruction or gangrene
CPT/HCPCS: 99281-25

== ENCOUNTER 2020-01-11 12:34 | Inpatient (IN) | payer OTHER, MEDICARE ==
--- NOTE | 2020-01-11 12:37 | PDOC ---
Rapid Medical Evaluation Chief Complaint: Abnormal Lab Results (Outside) Time Seen by Provider: 01/11/20 12:35 Medical Evaluation: Allergies Allergy/AdvReac Type Severity Reaction Status Date / Time No Known Allergies Allergy Verified 12/09/18 16:43 01/11/20 12:37 I have performed a brief in-person evaluation of this patient. The patient presents with a chief complaint of:Sent by Dr Garcia for INR of 13 on labs yesterday. On coumadin for afib. Has multiple comorbidities including HTN, CHF, CAD, CKD. Only reports "black and blue all over" and had minor nose bleed over the weekend, no GIB Pertinent physical exam findings:stable I have ordered the following:labs The patient will proceed to the ED for further evaluation Discharge Disposition - Diagnosis Supratherapeutic INR - Referrals - Patient Instructions - Post Discharge Activity
[2020-01-11 12:38] VITALS: BMI 22.6
--- NOTE | 2020-01-11 13:20 | CON.CARD ---
Cardiology Consult (text) - Consultation Consultation Note: Consult Consult Specialty:: Cardiology for Dr. Hoffman Referred by:: ER Reason for Consultation:: elevated INR, leg swelling - History of Present Illness Chief Complaint: elevated INR, leg swelling History of Present Illness: 84 F with CAD, AF, on coumadin (permanent), cardiomyopathy p/w elevated INR. S he sees Dr. Garcia, has been complaining of worsening lower ext edema for the last two weeks. Also has been on a higher dose of warfarin than prior for the last two weeks. Has had increasing bruises on her arms for a week. Was recently admitted for skin grafting and had scheduled wound care appointment today, advised to go to ER from wound care when INR noted to be 13. Sees Dr. Hoffman for cardio. No chest pain, palps, dizziness. Stable dyspnea. No blood in urine, stool. Her lasix dose was doubled by Dr. Garcia yesterday from 20 mg daily to 40 mg daily. 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 Cardio/Vascular: Yes: AFIB, HTN, Hyperlipdemia Pulmonary: Yes: Bronchitis Gastrointestinal: Yes: Diverticulosis, GERD, Hiatal Hernia, Other Renal/: Yes: Other ...: No Musculoskeletal: Yes: Osteoarthritis Endocrine: Yes: Hyperparathyroidism, Hyperthyroidism - Past Surgical History Past Surgical History: Yes: Appendectomy, Hysterectomy, Joint Replacement, Mastectomy - Alcohol/Substance Use Hx Alcohol Use: No History of Substance Use: reports: None - Smoking History Smoking history: Never smoked Have you smoked in the past 12 months: No - Social History ADL: Independent History of Recent Travel: No Home Medications - Allergies Allergies/Adverse Reactions: Allergies Allergy/AdvReac Type Severity Reaction Status Date / Time No Known Allergies Allergy Verified 01/11/20 12:38 Home Medications Medication Instructions Recorded Cholecalciferol (Vitamin D3) 2,000 unit PO ASDIR 12/01/19 [Vitamin D3] [place]-3/Dha/Epa/Fish Oil [Fish Oil 1 each PO DAILY 12/01/19 1,000 mg Softgel] Vitamin B Complex 1 each PO ASDIR 12/01/19 Acetaminophen [Tylenol 1,000 mg PO Q6H PRN tablet 12/07/19 .Extra-Strength -] Methimazole [Tapazole -] 5 mg PO SUMOTUWETHFR tablet 12/07/19 Metoprolol Tartrate [Lopressor -] 50 mg PO TID tablet 12/07/19 Warfarin Na [Coumadin -] 3 mg PO DAILY@1800 tablet 12/07/19 Fenofibrate 160 mg PO ACBK 01/11/20 Furosemide [Lasix -] 40 mg PO DAILY 01/11/20 Pantoprazole Sodium [Protonix -] 40 mg PO BID 01/11/20 Family Medical History Family History: Unremarkable (non contributory to this presentation) Review of Systems - Review of Systems Constitutional: reports: No Symptoms Eyes: reports: No Symptoms HENT: reports: No Symptoms Neck: reports: No Symptoms Cardiovascular: reports: No Symptoms Respiratory: reports: SOB on Exertion (chronic) Gastrointestinal: reports: No Symptoms Genitourinary: reports: No Symptoms Breasts: reports: No Symptoms Reported Musculoskeletal: reports: Other (pain wounds LE) Integumentary: reports: No Symptoms Neurological: reports: No Symptoms Endocrine: reports: No Symptoms Hematology/Lymphatic: reports: No Symptoms Psychiatric: reports: No Symptoms - Risk Factors Known Risk Factors: Yes: Age, Hypertension Vital Signs Period Temp Pulse Resp BP Sys/[place] Pulse Ox Last 24 Hr 98 F 78 18 143/76 94 Constitutional: Yes: No Distress, Calm Eyes: Yes: Conjunctiva Clear, EOM Intact HENT: Yes: Atraumatic, Normocephalic Neck: Yes: Trachea Midline Respiratory: Yes: CTA Bilaterally (no wheezing or rales) Gastrointestinal: Yes: Soft Cardiovascular: Yes: Pulse Irregular JVD: yes Carotid Bruit: No PMI: Non-Displaced Heart Sounds: Yes: S1, S2 (irreg) Murmur: Yes: Systolic Murmur (2/6 systolic murmur apex c/w MR) Edema: 1+ lower ext sinan Ext: lower ext sinan bandages, upper ext +ecchymoses Peripheral Pulses WNL: Yes Neurological: Yes: Alert, Oriented Labs pending INR 01/09: 13 echo 11/2019 nl LV/RV function, LA mod dilated, mod MR, mild TR EKG, CXR pending Assessment/Plan supratherapeutic INR - repeat labs here pending - also has been on a higher dose of warfarin than prior at 3 mg daily since recent hospital discharge (had been on 1-2 mg daily prior). hold warfarin here, pending repeat INR consider vitamin K - no signs of bleeding afib - holding warfarin as above - cont metoprolol edema - on lasix at home, recently doubled for worsening edema - check BNP - would give lasix 40 mg IV pending labs CKD - baseline Cr 1.4-1.8 - labs pending - sees Dr. Astorga as outpatient lower ext wound - manage per wound care history of MR, ?hypertrophic cardiomyopathy - No evidence of hypertrophic CM on most recent echos - outpatient follow up of MR
[2020-01-11] MEDS ORDERED: FUROSEMIDE 40 MG/4 ML INJECTABLE VIAL IVPUSH ONE (13:28)
--- NOTE | 2020-01-11 13:36 | PDOC ---
History of Present Illness - General Chief Complaint: Abnormal Lab Results (Outside) Stated Complaint: ABN LAB RESULTS/SENT BY PCP Time Seen by Provider: 01/11/20 12:35 History Source: Patient Exam Limitations: No Limitations - History of Present Illness Initial Comments: 01/11/20 13:26 84 yo female pmh CAD, CHF, HTN, A fib (on coumadin) hypothyroid goiter s/p thyroid resection) hyperparathyroidsm, congenital agenesis of R kidney, SCC of skin presents to the ED from wound center for elevated INR 13. Outpatient labs from yesterday, pt presents from wound center for new lab draw and likely admission. Dr. Barragan (pt [facility] Dr. Tee) states pt had recent change in Coumadin dosing and is checked once a month. Pt has no current active bleeding, pt does complain of bilateral lower limb swelling, did not take lasix today. Denies CP, SOB, abdominal pain, changes in bowel or bladder habits, unilateral leg swelling Past History - Medical History Allergies/Adverse Reactions: Allergies Allergy/AdvReac Type Severity Reaction Status Date / Time No Known Allergies Allergy Verified 01/11/20 12:38 Home Medications: Ambulatory Orders Cholecalciferol (Vitamin D3) [Vitamin D3] 2,000 unit PO ASDIR 12/01/19 [place]-3/Dha/Epa/Fish Oil [Fish Oil 1,000 mg Softgel] 1 each PO DAILY 12/01/19 Vitamin B Complex 1 each PO ASDIR 12/01/19 Acetaminophen [Tylenol .Extra-Strength -] 1,000 mg PO Q6H PRN tablet 12/07/19 Methimazole [Tapazole -] 5 mg PO SUMOTUWETHFR tablet 12/07/19 Metoprolol Tartrate [Lopressor -] 50 mg PO TID tablet 12/07/19 Warfarin Na [Coumadin -] 3 mg PO DAILY@1800 tablet 12/07/19 Fenofibrate 160 mg PO ACBK 01/11/20 Furosemide [Lasix -] 40 mg PO DAILY 01/11/20 Pantoprazole Sodium [Protonix -] 40 mg PO BID 01/11/20 Cancer: Yes (SCC) Cardiac Disorders: Yes (Atrial Fib on Coumadin) COPD: No CHF: Yes GI Disorders: Yes (DIVERTICULOSIS, POSTBULBAR DUODENAL BLEED) HTN: Yes Hypercholesterolemia: Yes Thyroid Disease: Yes (hyperthyroidism) - Surgical History Appendectomy: Yes Cardiac Surgery: No Lung Surgery: No Neurologic Surgery: No Orthopedic Surgery: Yes (JESUS. HIP REPLACEMENT) - Immunization History Immunization Up to Date: Yes - Psycho-Social/Smoking History Smoking History: Never smoked Have you smoked in the past 12 months: No - Substance Abuse Hx (Audit-C & DAST Scrn) How often the patient has a drink containing alcohol: Never Score: In Men: 4 or > Positive; In Women: 3 or > Positive: 0 Screen Result (Pos requires Nsg. Audit-10AR): Negative Review of Systems - Review of Systems Constitutional: Yes: Symptoms Reported HEENTM: Yes: Symptoms Reported Respiratory: Yes: Symptoms reported Cardiac (ROS): Yes: Symptoms Reported ABD/GI: Yes: Symptoms Reported : Yes: Symptoms Reported Musculoskeletal: Yes: Symptoms Reported Integumentary: Yes: Symptoms Reported Neurological: Yes: Symptoms reported *Physical Exam - Vital Signs Last Vital Signs Temp Pulse Resp BP Pulse Ox 98 F 78 18 143/76 94 L 01/11/20 12:35 01/11/20 12:35 01/11/20 12:35 01/11/20 12:35 01/11/20 12:35 - Physical Exam General Appearance: Yes: Nourished, Appropriately Dressed. No: Apparent Distress HEENT: positive: EOMI Neck: positive: Supple. negative: Carotid bruit Respiratory/Chest: positive: Crackles (bibasilar). negative: Respiratory Distre ss, Accessory Muscle Use, Rales, Rhonchi, Stridor, Wheezing Cardiovascular: positive: Regular Rate, S1, S2, Edema (bilateral pitting edema), Irregularly Irregular. negative: JVD, Murmur Vascular Pulses: Dorsalis-Pedis (R): 3+, Doralis-Pedis (L): 3+ Gastrointestinal/Abdominal: positive: Flat, Soft. negative: Pulsatile Mass, Distended, Guarding, Rebound, Tenderness Musculoskeletal: negative: CVA Tenderness Extremity: positive: Normal Capillary Refill, Normal Range of Motion Integumentary: positive: Normal Color, Dry, Warm Neurologic: positive: Fully Oriented, Alert, Normal Mood/Affect, Normal Response ED Treatment Course - LABORATORY CBC & Chemistry Diagram: 01/11/20 13:30 01/11/20 13:30 Medical Decision Making - Medical Decision Making 01/11/20 13:38 84 yo female pmh CAD, CHF, HTN, A fib (on coumadin) hypothyroid goiter s/p thyroid resection) hyperparathyroidsm, congenital agenesis of R kidney, SCC of skin presents to the ED from wound center for elevated INR 13. Outpatient labs from yesterday, pt presents from wound center for new lab draw and likely admission. Dr. Barragan (pt [facility] Dr. Tee) states pt had recent change in Coumadin dosing and is checked once a month. Pt has no current active bleeding, pt does complain of bilateral lower limb swelling, did not take lasix today. Denies CP, SOB, abdominal pain, changes in bowel or bladder habits, unilateral leg swelling, denies trauma/fall Vitals stable, pt in rate controlled afib EKG vent rate 68 without acute signs of ischemia Dr. Barragan at the bedside, recommends repeat labs INR and likely vitamin K with admission. Also recommends 40 mg IV lasix Pending labs 01/11/20 15:07 Trops neg UA shows 3+ with 10 000 bacteria, given 1G Ceftriaxone BNP 6300, discussed case in full with PCP Jose, states Pt requires admission for UTI and diuresis Discussed INR 7.[address] Barragan, states no vitamin K needed at this time 01/11/20 15:23 Dr. Javy espinosa, pt accepted for admission Discharge - Discharge Information Problems reviewed: Yes Clinical Impression/Diagnosis: Supratherapeutic INR, CHF (congestive heart failure), UTI (urinary tract infection) - Admission Yes - Follow up/Referral Referrals: Gerry Garcia MD [Primary Care Provider] - - Patient Discharge Instructions - Post Discharge Activity
[2020-01-11 13:38] LABS: BASO % 0.2 % (0-2.0); EOS % 4.9 % (0-4.5); HEMATOCRIT 34.1 % (32.4-45.2); HEMOGLOBIN 10.5 GM/dL (10.7-15.3); LYMPH % 15.4 % (8-40); MCHC 30.9 g/dl (32.0-36.0); MEAN CELL VOLUME 90.5 fl (80-96); MONO % 6.9 % (3.8-10.2); NEUT % 72.6 % (42.8-82.8); PLATELET COUNT 246 K/MM3 (134-434); RBC 3.77 M/mm3 (3.60-5.2); RDW 16.8 % (11.6-15.6); WHITE BLOOD COUNT 8.1 K/mm3 (4.0-10.0)
[2020-01-11] MEDS ORDERED: FUROSEMIDE 40 MG/4 ML INJECTABLE VIAL ONE ×2 (13:50→20:08)
[2020-01-11 13:53] LABS: EPI CELLS 2 /uL (0-25.1); HYALINE CASTS 1 /uL (0-3.1); PH,URINE 5.5 (5.0-8.0); URINE APPEARANCE CLOUDY; URINE BILIRUBIN NEGATIVE (NEGATIVE); URINE COLOR YELLOW; URINE GLUCOSE (UA) NEGATIVE (NEGATIVE); URINE KETONE NEGATIVE (NEGATIVE); URINE LEUK ESTERASE 3+ (NEGATIVE); URINE NITRITE NEGATIVE (NEGATIVE); URINE PROTEIN TRACE (NEGATIVE); URINE RBC 6 /uL (0-23.9); URINE WBC 503 /uL (0-25.8)
[2020-01-11 13:56] LABS: PROTHROMBIN TIME (PATIENT) 90.6 SEC (9.7-13.0)
--- NOTE | 2020-01-11 13:59 | PDOC ---
Documentation entered by Caitie Florence SCRIBE, acting as scribe for Brandon Ahumada MD. Brandon Ahumada MD: This documentation has been prepared by the Naman masterson Adrianna, SCRIBE, under my direction and personally reviewed by me in its entirety. I confirm that the documentation accurately reflects all work, treatment, procedures, and medical decision making performed by me. Attending Attestation - Resident Resident Name: Isai Gibson - ED Attending Attestation I have performed the following: I have examined & evaluated the patient, The case was reviewed & discussed with the resident, I agree w/resident's findings & plan, Exceptions are as noted - HPI HPI: The patient is an 84 year old female, with a significant PMH of HTN, Afib (on Coumadin), cardiomyopathy, CHF, CAD, HLD, COPD, CKD, hyperthyroidism, divertic ulosis, postbulbar duodenal bleed, and SCC, who presents with elevated INR. Patient was following up with her PCP for complaints of worsening LE edema for the past 2 weeks (lasix increased to 40mg), and was found to have an INR of 13 yesterday on outpatient labs. She was advised by her PCP to come to the ED for further evaluation. Patient reports inceasing bruising all over, and notes he had a minor nose bleed a few days ago. No active bleeding at this time. She has no other complaints at this time. Allergies: NKA, NKDA Surgical History: appendectomy, bilateral total hip replacements Social History: No toxic habits PCP: Dr. Garcia Cardiology: Dr. Hoffman - Physicial Exam PE: GENERAL: The patient is awake, alert, and fully oriented, Nontoxic - in no acute distress. HEAD: Normocephalic, atraumatic. EYES: extraocular movements intact, sclera anicteric, conjunctiva clear. ENT: Normal voice, Moist mucous membranes. NECK: Normal range of motion, supple LUNGS: Breath sounds equal, clear to auscultation bilaterally. No wheezes, no rhonchi, no rales. HEART: Regular rate and rhythm, without murmur, rub or gallop. ABDOMEN: Soft, nontender, No guarding, no rebound.No CVA tenderness EXTREMITIES: Normal range of motion, no edema. No cyanosis. No erythema, or tenderness. NEUROLOGICAL: No facial asymmetry, Normal speech, PSYCH: Normal mood, normal affect. SKIN: Warm, Dry, normal turgor. - Medical Decision Making 01/11/20 14:11 84 F with supratherapeutic INR on outpt labs. - Recheck labs - Vit K as needed 01/11/20 14:42 INR [address] Barragan, will not administer vit K. Hold next dose of coumadin Pt also with elevated BNP, worsening edema Will admit for diuresis Heart Score/ECG Review - ECG Impressions Normal ECG: No Comment:: ECG performed at 13:22 on 01/11/2020 demonstrates Atrial fibrillation at 68bpm. Discharge - Discharge Information Problems reviewed: Yes Clinical Impression/Diagnosis: Supratherapeutic INR, CHF (congestive heart failure), UTI (urinary tract infection) Condition: Good - Follow up/Referral - Patient Discharge Instructions - Post Discharge Activity
[2020-01-11 14:01] LABS: INR 7.52 (0.83-1.09)
[2020-01-11 14:50] LABS: ALBUMIN 2.8 g/dl (3.4-5.0); BILIRUBIN,TOTAL 1.2 mg/dL (0.2-1); BLOOD UREA NITROGEN 43.9 mg/dL (7-18); CREATININE 1.7 mg/dL (0.55-1.3); N-TERMINAL BNP 6319.9 pg/ml (5-450); POTASSIUM 3.5 mmol/L (3.5-5.1); TOT PROT 7.4 g/dl (6.4-8.2)
[2020-01-11] MEDS ORDERED: CEFTRIAXONE 1 GM in DEXTROSE 5%-WATER - 100 ML IVPB ONE (15:00)
--- NOTE | 2020-01-11 15:37 | PN ---
Teaching Attending Note Name of Resident: Mitzi Domingo ATTENDING PHYSICIAN STATEMENT I saw and evaluated the patient. I reviewed the resident's note and discussed the case with the resident. I agree with the resident's findings and plan as documented. SUBJECTIVE: 84 year old female with multiple co-morbidities namely CAD, atrial fib (on coumadin). CHF, CKF, hypothyroidim, hyperparathyroidism, SCC of the scalp sp excision, congenital agenesis of the right kidney, intraductal papillary mucinous neoplasm of the pancreas, hypertension, ruptured left renal cyst, left breast cancer sp lumpectomy, PUD, schatzki ring, GERD, hiatal hernia, chronic lower extremity wounds for which she goes to Wound Center regularly for debridement/care, psoriasis who presents to the ED complaining of increased shortness of breath. Of note, her most recent INR drawn in the out patient setting came back at 13 as per patient. At the ED she was found to be tachypneic, with INR of 7. UA was also suggestive of UTI OBJECTIVE: Gen: Elderly 84 year old female who appears appropriate for stated age, not in acute distress HEENT: positive implanted lens bilaterally; no oral lesions. She has a small cavity at the vertex of the head (chronic) Neck; no JVD; supple Chest: crackles bilateral lung augustin, right> left CVS: 2/6 systolic ejection murmur, RRR Abd soft Ext: bilateral lower extremities below the knee wrapped in unna/cloth boot (patient refusing removal) ASSESSMENT AND PLAN: 1. CHF Exacerbation - diuresis - oxygen support - check lytes, renal function - cycle troponins - cardiac monitoring 2. Suspect UTI - await urine culture - hold off on further antibiotic therapy and monitor closely - low threshold for starting antibiotics if indication arises 3. Chronic lower extremity wounds - to consider wound service consultation - patient being seen at the Wound care center 4. Afib on coumadin with supratherapeutic INR - off coumadin now - recheck INR daily 5. DVT prophylaxis - INR supratherapeutic DW Dr Domingo
[2020-01-11] MEDS ORDERED: CEFTRIAXONE 1 GM/50 ML BAG ONE ×2 (15:42→15:53)
--- NOTE | 2020-01-11 16:52 | HP ---
CHIEF COMPLAINT: leg swelling, elevated INR PCP: HISTORY OF PRESENT ILLNESS: 84 yo F PMH HTN,COPD (on 2L @home) Afib ( Coumadin), hypertrophic Cardiomyopathy, CHF, CAD, HLD, CKD, hyperthyroid, diverticulitis, squamous cell carcinoma (s/p resection- lost follow up ) , hyperparathyroidism, goiter, congential agenesis of the right kidney, Intraductal papillary mucinous neoplasm of the pancreas, ruptured/hemorrhagic left renal cyst, Left breast cancer sp lumpectomy,hx of GI bleeds, schatzki ring, GERD, hiatal hernia, who was sent to the ED from wound care for b/l Leg swelling and supratherapeutic INR. Pt states that she has been experiencing significant b/l Leg pain which has improved slightly since the graft procedure but states that the swelling is still prominent. she wears pressure stockings which help her swelling. She states that over the weekend she began noticing increased bruising in her arms-then cut her warfarin dose in half, when she checked her INR was 11 yesterday she then held her warfarin dose . Since her graft procedure her warfarin dose was increased from 1 mg to 3 mg. Allergies No Known Allergies Allergy (Verified 01/11/20 12:38) Home Medications Medication Instructions Recorded Cholecalciferol (Vitamin D3) 2,000 unit PO ASDIR 12/01/19 [Vitamin D3] [place]-3/Dha/Epa/Fish Oil [Fish Oil 1 each PO DAILY 12/01/19 1,000 mg Softgel] Vitamin B Complex 1 each PO ASDIR 12/01/19 Acetaminophen [Tylenol 1,000 mg PO Q6H PRN tablet 12/07/19 .Extra-Strength -] Methimazole [Tapazole -] 5 mg PO SUMOTUWETHFR tablet 12/07/19 Metoprolol Tartrate [Lopressor -] 50 mg PO TID tablet 12/07/19 Warfarin Na [Coumadin -] 3 mg PO DAILY@1800 tablet 12/07/19 Fenofibrate 160 mg PO ACBK 01/11/20 Furosemide [Lasix -] 40 mg PO DAILY 01/11/20 Pantoprazole Sodium [Protonix -] 40 mg PO BID 01/11/20 PHYSICAL EXAMINATION Vital Signs - 24 hr 01/11/20 01/11/20 01/11/20 12:35 13:42 16:32 Temperature 98 F Pulse Rate 78 Pulse Rate [ 76 Radial] Respiratory 18 20 Rate Blood Pressure 143/76 Blood Pressure 145/78 [Left Arm] O2 Sat by Pulse 94 L 100 97 Oximetry (%) GENERAL: Awake, alert, and fully oriented, in no acute distress. HEAD: multiple lesions and abrasions on frontal of head. lesion with hyperkeratosis on parietal head. EYES: Pupils equal, round and reactive to light, extraocular movements intact, sclera anicteric, conjunctiva clear. No lid lag. EARS, NOSE, THROAT: Ears normal, nares patent, oropharynx clear without exudates. Moist mucous membranes. NECK:+ JVD , + hepatojugular LUNGS: scatters b/l . decreased at bases . No accessory muscle use. HEART: irregular rate and rhythm, normal S1 and S2 ABDOMEN: Soft, nontender, not distended, normoactive bowel sounds, no guarding, no rebound, no masses. MUSCULOSKELETAL: No CVA tenderness. UPPER EXTREMITIES: 2+ pulses, warm, well-perfused. No cyanosis. No clubbing. No peripheral edema. LOWER EXTREMITIES: 2+ pulses, warm, well-perfused. No calf tenderness. 2+ LE edema b/l . skin tearing and erythema b/l. Right thigh skin graft. NEUROLOGICAL: Cranial nerves II-XII intact. Normal speech. SKIN: Warm, dry, normal turgor, no rashes or lesions noted, normal capillary refill. Laboratory Last Values WBC 8.1 K/mm3 (4.0-10.0) 01/11/20 13:30 RBC 3.77 M/mm3 (3.60-5.2) 01/11/20 13:30 Hgb 10.5 GM/dL (10.7-15.3) L 01/11/20 13:30 Hct 34.1 % (32.4-45.2) 01/11/20 13:30 MCV 90.5 fl (80-96) 01/11/20 13:30 MCH 28.0 pg (25.7-33.7) 01/11/20 13:30 MCHC 30.9 g/dl (32.0-36.0) L 01/11/20 13:30 RDW 16.8 % (11.6-15.6) H 01/11/20 13:30 Plt Count 246 K/MM3 (134-434) 01/11/20 13:30 MPV 10.0 fl (7.5-11.1) 01/11/20 13:30 Absolute Neuts (auto) 5.9 K/mm3 (1.5-8.0) 01/11/20 13:30 Neutrophils % 72.6 % (42.8-82.8) 01/11/20 13:30 Lymphocytes % 15.4 % (8-40) 01/11/20 13:30 Monocytes % 6.9 % (3.8-10.2) 01/11/20 13:30 Eosinophils % 4.9 % (0-4.5) H 01/11/20 13:30 Basophils % 0.2 % (0-2.0) 01/11/20 13:30 Nucleated RBC % 0 % (0-0) 01/11/20 13:30 PT with INR 90.60 SEC (9.7-13.0) H 01/11/20 13:30 INR 7.52 (0.83-1.09) H* 01/11/20 13:30 Sodium 140 mmol/L (136-145) 01/11/20 13:30 Potassium 3.5 mmol/L (3.5-5.1) 01/11/20 13:30 Chloride 106 mmol/L (98-107) 01/11/20 13:30 Carbon Dioxide 26 mmol/L (21-32) 01/11/20 13:30 Anion Gap 9 MMOL/L (8-16) 01/11/20 13:30 BUN 43.9 mg/dL (7-18) H 01/11/20 13:30 Creatinine 1.7 mg/dL (0.55-1.3) H 01/11/20 13:30 Est GFR (CKD-EPI)AfAm 31.10 01/11/20 13:30 Est GFR (CKD-EPI)NonAf 26.84 01/11/20 13:30 Random Glucose 102 mg/dL (74-106) 01/11/20 13:30 Calcium 11.0 mg/dL (8.5-10.1) H 01/11/20 13:30 Total Bilirubin 1.2 mg/dL (0.2-1) H 01/11/20 13:30 AST 47 U/L (15-37) H 01/11/20 13:30 ALT 29 U/L (13-61) 01/11/20 13:30 Alkaline Phosphatase 38 U/L (45-117) L 01/11/20 13:30 B-Natriuretic Peptide 6319.9 pg/ml (5-450) H 01/11/20 13:30 Total Protein 7.4 g/dl (6.4-8.2) 01/11/20 13:30 Albumin 2.8 g/dl (3.4-5.0) L 01/11/20 13:30 Urine Color Yellow 01/11/20 13:33 Urine Appearance Cloudy 01/11/20 13:33 Urine pH 5.5 (5.0-8.0) D 01/11/20 13:33 Ur Specific [place] 1.007 (1.010-1.035) L 01/11/20 13:33 Urine Protein Trace (NEGATIVE) 01/11/20 13:33 Urine Glucose (UA) Negative (NEGATIVE) 01/11/20 13:33 Urine Ketones Negative (NEGATIVE) 01/11/20 13:33 Urine Blood Negative (NEGATIVE) 01/11/20 13:33 Urine Nitrite Negative (NEGATIVE) 01/11/20 13:33 Urine Bilirubin Negative (NEGATIVE) 01/11/20 13:33 Urine Urobilinogen 1.0 mg/dL (0.2-1.0) 01/11/20 13:33 Ur Leukocyte Esterase 3+ (NEGATIVE) H 01/11/20 13:33 Urine WBC (Auto) 503 /uL (0-25.8) 01/11/20 13:33 Urine RBC (Auto) 6 /uL (0-23.9) 01/11/20 13:33 Urine Casts (Auto) 1 /uL (0-3.1) 01/11/20 13:33 U Epithel Cells (Auto) 2 /uL (0-25.1) 01/11/20 13:33 Urine Bacteria (Auto) >10,000 /uL (0-1359) 01/11/20 13:33 Blood Type O POSITIVE 01/11/20 13:30 Antibody Screen Negative 01/11/20 13:30 ASSESSMENT/PLAN: 84 yo F PMH stated above presents to ED for B/L LE pain, swelling and supratherapeutic INR Acute on chronic HFpEF - last echo 12/2019- nml EF - BNP >6000 - will request CXR - Cardio consulted - lasix 40 IV given in ED, strict I/Os, cont lasix 40 IV - cont lopressor TID - EKG reviewed: Afib HR 68, QTc 389, no ST changes Afib - cont lopressor TID - hold warfarin in setting of supratherapeutic INR Leg swelling likely 2/2 CHF - will get duplex to r/o DVT - cont lasix - will consult wound care / Plastics Dr.M Barragan as pt recently had graft placement UTI - + UA, pending Cx - will cont ceftriaxone F/E/N - monitor lytes - sodium controlled diet DVT ppx: hold warfarin 2/2 supratherapeutic INR, legs too fragile for SCDs, may cont compression stocking that pt has. Dispo: admit to medicine ATTENDING PHYSICIAN STATEMENT I saw and evaluated the patient. I reviewed the resident's note and discussed the case with the resident. I agree with the resident's findings and plan as documented. SUBJECTIVE: OBJECTIVE: ASSESSMENT AND PLAN:
[2020-01-11] MEDS ORDERED: CEFTRIAXONE 1 GM in DEXTROSE 5%-WATER - 50 ML IVPB ONE (19:05)
--- NOTE | 2020-01-11 19:13 | HP ---
CHIEF COMPLAINT: Abnormal lab values PCP: Dr. Garcia HISTORY OF PRESENT ILLNESS: Patient is an 84F with afib on coumadin and an extensive past medical history. She reported to the ED on the advice of Dr. Garcia after receiving abnormal outpatient lab values with an INR of 13 as well as increased edema on BL LE. The patient reported being at wound clinic for her skin graft and had been advised to proceed to the ED after evaluation of her LE and lab values. The patient endorses that these events began 2 weeks ago when her medication for warfarin was increased from 1-2mg to 3mg after her skin graft surgery. As per her PCP, her lasix dosage for her CHF was increased as well from 20-40mg. The patient reports tenderness and swelling on her legs but does not endorse any further complaints. Patient reports increased ecchymosis on her UE and LE as well as LE edema and shortness of breath when speaking for too long or walking for too long. She also endorses a one pillow orthopnea at night. ER course was notable for: (1) BP 143/76 (2) 3+ leukocyte esterase (3) Recent Travel: DENIES PAST MEDICAL HISTORY: HTN CHF CAD Afib on coumadin CKD COPD Hyperthyroidism Diverticulosis Post lobular duodenal bleed SCC Hyperparathyroidism Parkinsons Peptic ulcer schatzki ring PAST SURGICAL HISTORY: Bilateral hip replacement Skin graft Mastectomy Left breast cancer sp lumpectomy, Social History: Smoking:denies Alcohol:denies Drugs: denies Allergies No Known Allergies Allergy (Verified 01/11/20 12:38) HOME MEDICATIONS: Home Medications Medication Instructions Recorded Cholecalciferol (Vitamin D3) 2,000 unit PO ASDIR 12/01/19 [Vitamin D3] [place]-3/Dha/Epa/Fish Oil [Fish Oil 1 each PO DAILY 12/01/19 1,000 mg Softgel] Vitamin B Complex 1 each PO ASDIR 12/01/19 Methimazole [Tapazole -] 5 mg PO SUMOTUWETHFR tablet 12/07/19 Metoprolol Tartrate [Lopressor -] 50 mg PO TID tablet 12/07/19 Warfarin Na [Coumadin -] 3 mg PO DAILY@1800 tablet 12/07/19 Fenofibrate 160 mg PO ACBK 01/11/20 Furosemide [Lasix -] 20 mg PO DAILY 01/11/20 Pantoprazole Sodium [Protonix -] 40 mg PO BID 01/11/20 REVIEW OF SYSTEMS CONSTITUTIONAL: Absent: fever, chills, diaphoresis, generalized weakness, malaise, loss of appetite, weight change HEENT: Absent: rhinorrhea, nasal congestion, throat pain, throat swelling, difficulty swallowing, mouth swelling, ear pain, eye pain, visual changes CARDIOVASCULAR: Absent: chest pain, syncope, palpitations, irregular heart rate, lightheadedness, peripheral edema RESPIRATORY: Present: Patient admits to easy fatigability and shortness of breath with ambulating short distances; admits to dyspnea with exertion Absent: orthopnea, wheezing, stridor, hemoptysis GASTROINTESTINAL: Absent: abdominal pain, abdominal distension, nausea, vomiting, diarrhea, constipation, melena, hematochezia GENITOURINARY: Absent: dysuria, frequency, urgency, hesitancy, hematuria, flank pain, genital pain SKIN: multiple sites of bruising and active lesions mostly on her forehead HEMATOLOGIC/IMMUNOLOGIC: easy bleeding, easy bruising ENDOCRINE: Absent: unexplained weight gain, unexplained weight loss, heat intolerance, cold intolerance NEUROLOGIC: Absent: headache, focal weakness or paresthesias, dizziness, unsteady gait, seizure, mental status changes, bladder or bowel incontinence PSYCHIATRIC: Absent: anxiety, depression, suicidal or homicidal ideation, hallucinations. PHYSICAL EXAMINATION Vital Signs - 24 hr 01/11/20 01/11/20 01/11/20 12:35 13:42 16:32 Temperature 98 F Pulse Rate 78 Pulse Rate [ 76 Radial] Respiratory 18 20 Rate Blood Pressure 143/76 Blood Pressure 145/78 [Left Arm] O2 Sat by Pulse 94 L 100 97 Oximetry (%) 01/11/20 16:36 Temperature Pulse Rate Pulse Rate [ Radial] Respiratory Rate Blood Pressure Blood Pressure [Left Arm] O2 Sat by Pulse 98 Oximetry (%) GENERAL: Awake, alert, and fully oriented, in no acute distress. HEAD: Normal with no signs of trauma. EYES: Pupils equal, round and reactive to light, extraocular movements intact, sclera anicteric, conjunctiva clear. No lid lag. EARS, NOSE, THROAT: oropharynx clear without exudates. Moist mucous membranes. NECK: Normal range of motion, supple without lymphadenopathy, JVD, or masses. LUNGS: faint crackles at the lower lung [place]. No wheezing, no ronchi HEART: Irregular rate and and rhythm, without murmur, rub or gallop. ABDOMEN: Soft, nontender, not distended, normoactive bowel sounds, no guarding, no rebound, no masses. No hepatomegaly or splenomegaly. MUSCULOSKELETAL: Mildly kyphotic LOWER EXTREMITIES: Grade II pitting edema bilaterally NEUROLOGICAL: Cranial nerves III-XII intact. Normal speech. She ambulates with a rollator walker. She has superficial wounds at the lateral aspects of distal 2/3 of bilateral lower extremities. She also has a wound at the posterior aspect of the left leg. The left leg is very tender. There is erythema of soft tissues of the dorsum of the right foot. PSYCHIATRIC: Cooperative. Good eye contact. Appropriate mood and affect. SKIN: Warm, dry, normal turgor, normal capillary refill. Laboratory Results - last 24 hr 01/11/20 01/11/20 01/11/20 13:30 13:30 13:30 WBC 8.1 RBC 3.77 Hgb 10.5 L Hct 34.1 MCV 90.5 MCH 28.0 MCHC 30.9 L RDW 16.8 H Plt Count 246 MPV 10.0 Absolute Neuts (auto) 5.9 Neutrophils % 72.6 Lymphocytes % 15.4 Monocytes % 6.9 Eosinophils % 4.9 H Basophils % 0.2 Nucleated RBC % 0 PT with INR 90.60 H INR 7.52 H* Sodium 140 Potassium 3.5 Chloride 106 Carbon Dioxide 26 Anion Gap 9 BUN 43.9 H Creatinine 1.7 H Est GFR (CKD-EPI)AfAm 31.10 Est GFR (CKD-EPI)NonAf 26.84 Random Glucose 102 Calcium 11.0 H Total Bilirubin 1.2 H AST 47 H ALT 29 Alkaline Phosphatase 38 L B-Natriuretic Peptide 6319.9 H Total Protein 7.4 Albumin 2.8 L Urine Color Urine Appearance Urine pH Ur Specific [place] Urine Protein Urine Glucose (UA) Urine Ketones Urine Blood Urine Nitrite Urine Bilirubin Urine Urobilinogen Ur Leukocyte Esterase Urine WBC (Auto) Urine RBC (Auto) Urine Casts (Auto) U Epithel Cells (Auto) Urine Bacteria (Auto) Blood Type Antibody Screen 01/11/20 01/11/20 13:30 13:33 WBC RBC Hgb Hct MCV MCH MCHC RDW Plt Count MPV Absolute Neuts (auto) Neutrophils % Lymphocytes % Monocytes % Eosinophils % Basophils % Nucleated RBC % PT with INR INR Sodium Potassium Chloride Carbon Dioxide Anion Gap BUN Creatinine Est GFR (CKD-EPI)AfAm Est GFR (CKD-EPI)NonAf Random Glucose Calcium Total Bilirubin AST ALT Alkaline Phosphatase B-Natriuretic Peptide Total Protein Albumin Urine Color Yellow Urine Appearance Cloudy Urine pH 5.5 D Ur Specific [place] 1.007 L Urine Protein Trace Urine Glucose (UA) Negative Urine Ketones Negative Urine Blood Negative Urine Nitrite Negative Urine Bilirubin Negative Urine Urobilinogen 1.0 Ur Leukocyte Esterase 3+ H Urine WBC (Auto) 503 Urine RBC (Auto) 6 Urine Casts (Auto) 1 U Epithel Cells (Auto) 2 Urine Bacteria (Auto) >10,000 Blood Type O POSITIVE Antibody Screen Negative ASSESSMENT/PLAN: Kaci Canales is an 84F with an extensive PMHx reporting to the ED on the behest of Dr. Garcia after receiving an outpatient blood work INR of 13. The patient reports increasing severity in bruising after having her dosage of warfarin increased 2 weeks ago from 1-2mg to 3mg. The patient also reports increased swelling in bilateral LE after her skin graft surgery. Patient is admitted for increased LE swelling and supratheraputic INR. # Acute on chronic CHF -Last echo noted 12/2019 normal EF - BNP 6300 - Continue Lasix 40 IV from ED - I/O ordered - EKG shows no significant changes - Lopressor TID - Patient reports she gets short of breath with light activity. - weigh daily - follow Trops # Supratheraputic INR - Vit K held - Warfarin held - INR repeated - CBC ordered # Afib, rate controlled - coumadin on hold - INR ordered #UTI - + UA 10,000 BFC, 3+ LE, pending Cultures - continuing ED med of ceftriaxone - Consult placed for ID - legionella urine order # Hx GI bleed - no acute events noted # Skin graft - Surgery consult - gentle elastic leg stockings to prevent contact to tender skin # HTN - cont home med ATTENDING PHYSICIAN STATEMENT I saw and evaluated the patient. I reviewed the resident's note and discussed the case with the resident. I agree with the resident's findings and plan as documented. SUBJECTIVE: OBJECTIVE: ASSESSMENT AND PLAN:
[2020-01-11] MEDS: FUROSEMIDE 40 MG/4 ML INJECTABLE VIAL IVPUSH SCH (19:41)
[2020-01-11] MEDS ORDERED: CHOLECALCIFEROL (VIT D3) 1,000 UNIT (25 MCG) TABLET PO SCH (20:00)
[2020-01-11] MEDS ORDERED: PATIENT'S OWN MEDICATION (NON-FORMULARY) (Vitamin B Complex [Vitamin B Complex] 1 EACH) PO SCH (20:00)
[2020-01-11] MEDS ORDERED: ALBUTEROL SO4 HFA INHALER IH PRN (20:02)
[2020-01-11] MEDS ORDERED: PANTOPRAZOLE 40 MG TABLET PO SCH (22:00)
[2020-01-12] MEDS ORDERED: METOPROLOL TARTRATE 50 MG TABLET (FP) ONE ×2 (00:18→09:55)
[2020-01-12] MEDS: METOPROLOL TARTRATE 50 MG TABLET (FP) PO SCH ×4 (00:25→21:18)
[2020-01-12] MEDS: FENOFIBRIC ACID 135 MG CAP PO SCH (06:58)
[2020-01-12] MEDS ORDERED: PANTOPRAZOLE 40 MG TABLET ONE (07:37)
[2020-01-12] MEDS ORDERED: FUROSEMIDE 40 MG/4 ML INJECTABLE VIAL ONE (07:38)
[2020-01-12] MEDS ORDERED: CEFTRIAXONE 1 GM/50 ML BAG ONE (07:38)
[2020-01-12 07:43] LABS: BASO % 1.7 % (0-2.0); EOS % 3.9 % (0-4.5); HEMATOCRIT 35.1 % (32.4-45.2); HEMOGLOBIN 10.8 GM/dL (10.7-15.3); LYMPH % 14.4 % (8-40); MCH 27.8 pg (25.7-33.7); MCHC 30.8 g/dl (32.0-36.0); MEAN CELL VOLUME 90.3 fl (80-96); PLATELET COUNT 249 K/MM3 (134-434); RBC 3.88 M/mm3 (3.60-5.2); RDW 16.7 % (11.6-15.6); WHITE BLOOD COUNT 9.1 K/mm3 (4.0-10.0)
[2020-01-12 07:52] LABS: INR 6.55 (0.83-1.09); PROTHROMBIN TIME (PATIENT) 78.8 SEC (9.7-13.0)
[2020-01-12 08:17] LABS: ALBUMIN 2.7 g/dl (3.4-5.0); ALK PHOS 39 U/L (45-117); ANION GAP 10 MMOL/L (8-16); BILIRUBIN,TOTAL 1.3 mg/dL (0.2-1); BLOOD UREA NITROGEN 42.4 mg/dL (7-18); CALCIUM 10.9 mg/dL (8.5-10.1); CHLORIDE 106 mmol/L (98-107); CHOLESTEROL 75 mg/dL (50-200); CO2 27 mmol/L (21-32); CREATININE 1.6 mg/dL (0.55-1.3); GLUCOSE,RANDOM 100 mg/dL (74-106); HDL CHOLESTEROL 13 mg/dL (40-60); LDL CHOLESTEROL (ONLY SJRH) 45 mg/dL (5-100); MAGNESIUM 1.9 mg/dL (1.8-2.4); PHOSPHOROUS 2.5 mg/dL (2.5-4.9); POTASSIUM 3.3 mmol/L (3.5-5.1); SGOT/AST 47 U/L (15-37); SGPT/ALT 27 U/L (13-61); SODIUM 143 mmol/L (136-145); TOT PROT 7.4 g/dl (6.4-8.2); TRIGLYCERIDES 143 mg/dL (0-150)
--- NOTE | 2020-01-12 09:03 | PN ---
Physical Exam: SUBJECTIVE: Patient seen and examined OBJECTIVE: Vital Signs Period Temp Pulse Resp BP Sys/Reynoso Pulse Ox Last 24 Hr 98 F 76-81 18-22 143-145/76-98 94-100 GENERAL: The patient is awake, alert, and fully oriented, in no acute distress. HEAD: Normal with no signs of trauma. EYES: PERRL, extraocular movements intact, sclera anicteric, conjunctiva clear. No ptosis. ENT: Ears normal, nares patent, oropharynx clear without exudates, moist mucous membranes. NECK: Trachea midline, full range of motion, supple. LUNGS: Breath sounds equal, clear to auscultation bilaterally, no wheezes, no crackles, no accessory muscle use. HEART: Regular rate and rhythm, S1, S2 without murmur, rub or gallop. ABDOMEN: Soft, nontender, nondistended, normoactive bowel sounds, no guarding, no rebound, no hepatosplenomegaly, no masses. EXTREMITIES: 2+ pulses, warm, well-perfused, no edema. NEUROLOGICAL: Cranial nerves II through XII grossly intact. Normal speech, gait not observed. PSYCH: Normal mood, normal affect. SKIN: Warm, dry, normal turgor, no rashes or lesions noted Laboratory Results - last 24 hr 01/11/20 01/11/20 01/11/20 13:30 13:30 13:30 WBC 8.1 RBC 3.77 Hgb 10.5 L Hct 34.1 MCV 90.5 MCH 28.0 MCHC 30.9 L RDW 16.8 H Plt Count 246 MPV 10.0 Absolute Neuts (auto) 5.9 Neutrophils % 72.6 Lymphocytes % 15.4 Monocytes % 6.9 Eosinophils % 4.9 H Basophils % 0.2 Nucleated RBC % 0 PT with INR 90.60 H INR 7.52 H* Sodium 140 Potassium 3.5 Chloride 106 Carbon Dioxide 26 Anion Gap 9 BUN 43.9 H Creatinine 1.7 H Est GFR (CKD-EPI)AfAm 31.10 Est GFR (CKD-EPI)NonAf 26.84 Random Glucose 102 Hemoglobin A1c % Calcium 11.0 H Phosphorus Magnesium Total Bilirubin 1.2 H AST 47 H ALT 29 Alkaline Phosphatase 38 L Troponin I B-Natriuretic Peptide 6319.9 H Total Protein 7.4 Albumin 2.8 L Triglycerides Cholesterol Total LDL Cholesterol HDL Cholesterol TSH Urine Color Urine Appearance Urine pH Ur Specific [place] Urine Protein Urine Glucose (UA) Urine Ketones Urine Blood Urine Nitrite Urine Bilirubin Urine Urobilinogen Ur Leukocyte Esterase Urine WBC (Auto) Urine RBC (Auto) Urine Casts (Auto) U Epithel Cells (Auto) Urine Bacteria (Auto) Blood Type Antibody Screen 01/11/20 01/11/20 01/11/20 13:30 13:33 20:20 WBC RBC Hgb Hct MCV MCH MCHC RDW Plt Count MPV Absolute Neuts (auto) Neutrophils % Lymphocytes % Monocytes % Eosinophils % Basophils % Nucleated RBC % PT with INR INR Sodium Potassium Chloride Carbon Dioxide Anion Gap BUN Creatinine Est GFR (CKD-EPI)AfAm Est GFR (CKD-EPI)NonAf Random Glucose Hemoglobin A1c % Calcium Phosphorus Magnesium Total Bilirubin AST ALT Alkaline Phosphatase Troponin I < 0.02 B-Natriuretic Peptide Total Protein Albumin Triglycerides Cholesterol Total LDL Cholesterol HDL Cholesterol TSH Urine Color Yellow Urine Appearance Cloudy Urine pH 5.5 D Ur Specific [place] 1.007 L Urine Protein Trace Urine Glucose (UA) Negative Urine Ketones Negative Urine Blood Negative Urine Nitrite Negative Urine Bilirubin Negative Urine Urobilinogen 1.0 Ur Leukocyte Esterase 3+ H Urine WBC (Auto) 503 Urine RBC (Auto) 6 Urine Casts (Auto) 1 U Epithel Cells (Auto) 2 Urine Bacteria (Auto) >10,000 Blood Type O POSITIVE Antibody Screen Negative 01/12/20 01/12/20 01/12/20 07:00 07:00 07:00 WBC 9.1 RBC 3.88 Hgb 10.8 Hct 35.1 MCV 90.3 MCH 27.8 MCHC 30.8 L RDW 16.7 H Plt Count 249 MPV 10.0 Absolute Neuts (auto) 6.6 Neutrophils % 73.0 Lymphocytes % 14.4 Monocytes % 7.0 Eosinophils % 3.9 Basophils % 1.7 D Nucleated RBC % 0 PT with INR 78.80 H INR 6.55 H* Sodium 143 Potassium 3.3 L Chloride 106 Carbon Dioxide 27 Anion Gap 10 BUN 42.4 H Creatinine 1.6 H Est GFR (CKD-EPI)AfAm 33.47 Est GFR (CKD-EPI)NonAf 28.88 Random Glucose 100 Hemoglobin A1c % Calcium 10.9 H Phosphorus 2.5 Magnesium 1.9 Total Bilirubin 1.3 H AST 47 H ALT 27 Alkaline Phosphatase 39 L Troponin I B-Natriuretic Peptide Total Protein 7.4 Albumin 2.7 L Triglycerides 143 Cholesterol 75 Total LDL Cholesterol 45 HDL Cholesterol 13 L TSH 3.00 Urine Color Urine Appearance Urine pH Ur Specific [place] Urine Protein Urine Glucose (UA) Urine Ketones Urine Blood Urine Nitrite Urine Bilirubin Urine Urobilinogen Ur Leukocyte Esterase Urine WBC (Auto) Urine RBC (Auto) Urine Casts (Auto) U Epithel Cells (Auto) Urine Bacteria (Auto) Blood Type Antibody Screen 01/12/20 07:00 WBC RBC Hgb Hct MCV MCH MCHC RDW Plt Count MPV Absolute Neuts (auto) Neutrophils % Lymphocytes % Monocytes % Eosinophils % Basophils % Nucleated RBC % PT with INR INR Sodium Potassium Chloride Carbon Dioxide Anion Gap BUN Creatinine Est GFR (CKD-EPI)AfAm Est GFR (CKD-EPI)NonAf Random Glucose Hemoglobin A1c % 4.9 Calcium Phosphorus Magnesium Total Bilirubin AST ALT Alkaline Phosphatase Troponin I B-Natriuretic Peptide Total Protein Albumin Triglycerides Cholesterol Total LDL Cholesterol HDL Cholesterol TSH Urine Color Urine Appearance Urine pH Ur Specific [place] Urine Protein Urine Glucose (UA) Urine Ketones Urine Blood Urine Nitrite Urine Bilirubin Urine Urobilinogen Ur Leukocyte Esterase Urine WBC (Auto) Urine RBC (Auto) Urine Casts (Auto) U Epithel Cells (Auto) Urine Bacteria (Auto) Blood Type Antibody Screen Active Medications Generic Name Dose Route Start Last Admin Trade Name Freq PRN Reason Stop Dose Admin Albuterol Sulfate 2 puff 01/11/20 20:02 Ventolin Hfa Inhaler - IH Q4H PRN SHORT OF BREATH/WHEEZING Fenofibric Acid 135 mg 01/12/20 07:00 01/12/20 06:58 Trilipix - PO 135 mg ACBK JORGE Administration Furosemide 40 mg 01/11/20 19:15 01/11/20 19:41 Lasix Injection - IVPUSH 01/12/20 23:55 40 mg DAILY JORGE Administration Ceftriaxone Sodium 1 gm/ 50 mls @ 100 mls/hr 01/12/20 15:00 Dextrose IVPB 01/12/20 15:29 ONCE ONE Methimazole 5 mg 01/12/20 10:00 Tapazole - PO [id number] JORGE Metoprolol Tartrate 50 mg 01/11/20 22:00 01/12/20 00:25 Lopressor - PO 50 mg TID JORGE Administration Non-Formulary Medication 1 each 01/12/20 10:00 [place]-3/Dha/Epa/Fish Oil [Fish Oil 1,000 Mg Softgel] PO DAILY JORGE Non-Formulary Medication 1 each 01/11/20 20:00 Vitamin B Complex [Vitamin B Complex] PO ASDIR JORGE Non-Formulary Medication 2,000 unit 01/11/20 20:00 Cholecalciferol (Vitamin D3) [Vitamin D3] PO ASDIR JORGE Pantoprazole Sodium 40 mg 01/12/20 10:00 Protonix - PO DAILY JORGE ASSESSMENT/PLAN: ATTENDING PHYSICIAN STATEMENT I saw and evaluated the patient. I reviewed the resident's note and discussed the case with the resident. I agree with the resident's findings and plan as documented. SUBJECTIVE: OBJECTIVE: ASSESSMENT AND PLAN:
[2020-01-12] MEDS: METHIMAZOLE 5 MG TABLET (FP) PO SCH (09:10)
[2020-01-12] MEDS: FUROSEMIDE 40 MG/4 ML INJECTABLE VIAL IVPUSH SCH (09:10)
[2020-01-12] MEDS: PANTOPRAZOLE 40 MG TABLET PO SCH (09:10)
[2020-01-12] MEDS ORDERED: CEFTRIAXONE 1 GM in DEXTROSE 5%-WATER - 50 ML IVPB SCH (10:00)
[2020-01-12] MEDS ORDERED: PATIENT'S OWN MEDICATION (NON-FORMULARY) (Omega-3/Dha/Epa/Fish Oil [Fish Oil 1,000 Mg Soft PO SCH (10:00)
[2020-01-12] MEDS ORDERED: POTASSIUM CHLORIDE TABS 20 MEQ TABLET.ER (FP) PO ONE (10:43)
[2020-01-12] MEDS ORDERED: PHYTONADIONE 10 MG/1 ML AMP IVPB ONE ×2 (10:48→16:00)
[2020-01-12 11:14] LABS: EPI CELLS 2 /uL (0-25.1); HYALINE CASTS 1 /uL (0-3.1); URINE APPEARANCE CLEAR; URINE BACTERIA 55 /uL (0-1359); URINE BILIRUBIN NEGATIVE (NEGATIVE); URINE COLOR YELLOW; URINE GLUCOSE (UA) NEGATIVE (NEGATIVE); URINE KETONE NEGATIVE (NEGATIVE); URINE LEUK ESTERASE TRACE (NEGATIVE); URINE NITRITE NEGATIVE (NEGATIVE); URINE PROTEIN TRACE (NEGATIVE); URINE RBC 8 /uL (0-23.9); URINE UROBILINOGEN 0.2 mg/dL (0.2-1.0); URINE WBC 2 /uL (0-25.8)
--- NOTE | 2020-01-12 11:19 | PN ---
Progress Note (short form) - Note Progress Note: s: no cp sob palps dizzy Current Medications Generic Name Dose Route Start Last Admin Trade Name Freq PRN Reason Stop Dose Admin Albuterol Sulfate 2 puff 01/11/20 20:02 Ventolin Hfa Inhaler - IH Q4H PRN SHORT OF BREATH/WHEEZING Fenofibric Acid 135 mg 01/12/20 07:00 01/12/20 06:58 Trilipix - PO 135 mg ACBK JORGE Administration Furosemide 40 mg 01/11/20 19:15 01/12/20 09:10 Lasix Injection - IVPUSH 01/12/20 23:55 40 mg DAILY JORGE Administration Ceftriaxone Sodium 1 gm/ 50 mls @ 100 mls/hr 01/12/20 15:00 Dextrose IVPB 01/12/20 15:29 ONCE ONE Methimazole 5 mg 01/12/20 10:00 01/12/20 09:10 Tapazole - PO 5 mg [id number] JORGE Administration Metoprolol Tartrate 50 mg 01/11/20 22:00 01/12/20 09:10 Lopressor - PO 50 mg TID JORGE Administration Non-Formulary Medication 1 each 01/12/20 10:00 [place]-3/Dha/Epa/Fish Oil [Fish Oil 1,000 Mg Softgel] PO DAILY JORGE Non-Formulary Medication 1 each 01/11/20 20:00 Vitamin B Complex [Vitamin B Complex] PO ASDIR JORGE Non-Formulary Medication 2,000 unit 01/11/20 20:00 Cholecalciferol (Vitamin D3) [Vitamin D3] PO ASDIR JORGE Pantoprazole Sodium 40 mg 01/12/20 10:00 01/12/20 09:10 Protonix - PO 40 mg DAILY JORGE Administration Phytonadione 0.1 mg 01/12/20 10:48 Aqua [place]phy[place] Injection - IVPB 01/12/20 10:49 ONCE ONE Vital Signs Period Temp Pulse Resp BP Sys/Reynoso Pulse Ox Last 24 Hr 97.2 F-98 F 76-83 18-22 143-164/76-98 94-100 Constitutional: Yes: No Distress, Calm Eyes: Yes: Conjunctiva Clear, EOM Intact Respiratory: Yes: CTA Bilaterally (no wheezing or rales) Gastrointestinal: Yes: Soft Cardiovascular: Yes: Pulse Irregular JVD: yes Carotid Bruit: No PMI: Non-Displaced Heart Sounds: Yes: S1, S2 (irreg) Murmur: Yes: Systolic Murmur (2/6 systolic murmur apex c/w MR) Edema: 1+ lower ext sinan Ext: lower ext sinan bandages, upper ext +ecchymoses Peripheral Pulses WNL: Yes Neurological: Yes: Alert, Oriented CBC, BMP 01/12/20 07:00 01/12/20 07:00 echo 11/2019 nl LV/RV function, LA mod dilated, mod MR, mild TR Assessment/Plan supratherapeutic INR - no signs of bleeding, holding coumadin, inr coming down. afib - holding warfarin as above - cont metoprolol edema - on lasix at home, recently doubled for worsening edema - cont iv lasix, daily chem7 CKD - baseline Cr 1.4-1.8 - monitor with diuresis lower ext wound - manage per wound care history of MR, ?hypertrophic cardiomyopathy - No evidence of hypertrophic CM on most recent echos - outpatient follow up of MR
--- NOTE | 2020-01-12 14:58 | PN ---
Teaching Attending Note Name of Resident: Carl Tom ATTENDING PHYSICIAN STATEMENT I saw and evaluated the patient. I reviewed the resident's note and discussed the case with the resident. I agree with the resident's findings and plan as documented. SUBJECTIVE: Seen and examined at bedside. Patient denies shortness of breath, chest pain, dizziness, palpitations. Given vitamin K this morning given elevated INR. OBJECTIVE: Last Vital Signs Temp Pulse Resp BP Pulse Ox 97.8 F 75 20 133/67 96 01/12/20 13:00 01/12/20 13:00 01/12/20 13:00 01/12/20 13:00 01/12/20 09:00 PE: per resident note Labs/Imaging: reviewed ASSESSMENT AND PLAN: 84-year-old female with extensive past medical history presents to the ED with bilateral lower extremity pain and swelling and supratherapeutic INR. Found to have urinary tract infection. #Acute on chronic HFpEF -Lasix 40 mg IV daily Continue home medications Strict SHYANN's Magnesium greater than 2, potassium greater than 4 Daily standing weights Afib - cont lopressor TID - hold warfarin in setting of supratherapeutic INR Supratherapeutic INR Recently increased dose of Coumadin but has not taken a dose in at least 4 to 5 days. Has subcutaneous hemorrhages on the upper extremities INR 6.5: 2 mg vitamin K given Trend INR Discussed alternate anticoagulation drugs. Patient will consider UTI - + UA, pending Cx - will cont ceftriaxone DVTppx: held 2/2 supratherapeutic INR
[2020-01-12] MEDS ORDERED: CEFTRIAXONE 1 GM in DEXTROSE 5%-WATER - 50 ML IVPB ONE (15:00)
[2020-01-12 21:34] LABS: PROTHROMBIN TIME (PATIENT) 53.1 SEC (9.7-13.0)
[2020-01-12 21:51] LABS: INR 4.43 (0.83-1.09)
[2020-01-13] MEDS: METOPROLOL TARTRATE 50 MG TABLET (FP) PO SCH ×3 (06:08→21:25)
[2020-01-13] MEDS: FENOFIBRIC ACID 135 MG CAP PO SCH (06:08)
[2020-01-13 07:56] LABS: INR 2.24 (0.83-1.09); PROTHROMBIN TIME (PATIENT) 26.7 SEC (9.7-13.0)
[2020-01-13 07:57] LABS: BASO % 1.4 % (0-2.0); HEMATOCRIT 30.2 % (32.4-45.2); HEMOGLOBIN 9.4 GM/dL (10.7-15.3); LYMPH % 16.2 % (8-40); MCH 28.3 pg (25.7-33.7); MCHC 31.3 g/dl (32.0-36.0); MEAN CELL VOLUME 90.2 fl (80-96); NEUT % 68.4 % (42.8-82.8); PLATELET COUNT 214 K/MM3 (134-434); RBC 3.34 M/mm3 (3.60-5.2); RDW 16.3 % (11.6-15.6); WHITE BLOOD COUNT 6.8 K/mm3 (4.0-10.0)
[2020-01-13 08:19] LABS: BLOOD UREA NITROGEN 41.3 mg/dL (7-18); CREATININE 1.6 mg/dL (0.55-1.3); MAGNESIUM 1.9 mg/dL (1.8-2.4); PHOSPHOROUS 2.4 mg/dL (2.5-4.9); POTASSIUM 3.7 mmol/L (3.5-5.1)
[2020-01-13] MEDS: PANTOPRAZOLE 40 MG TABLET PO SCH (10:00)
[2020-01-13] MEDS: METHIMAZOLE 5 MG TABLET (FP) PO SCH (10:00)
--- NOTE | 2020-01-13 13:44 | EKG ---
Test Reason : Blood Pressure : / mmHG Vent. Rate : 068 BPM Atrial Rate : 326 BPM P-R Int : 000 ms QRS Dur : 084 ms QT Int : 366 ms P-R-T Axes : 000 036 035 degrees QTc Int : 389 ms ATRIAL FIBRILLATION ABNORMAL ECG WHEN COMPARED WITH ECG OF 01-DEC-2019 12:21, T WAVE AMPLITUDE HAS DECREASED IN ANTERIOR LEADS Confirmed by DONNA HURD MD ([id number]) on 01/13/2020 1:44:20 PM Referred By: Confirmed By:DONNA HURD MD
[2020-01-13] MEDS ORDERED: CEFTRIAXONE 1 GM in DEXTROSE 5%-WATER - 50 ML IVPB ONE (16:00)
--- NOTE | 2020-01-13 18:25 | PN ---
Teaching Attending Note Name of Resident: Carl Tom ATTENDING PHYSICIAN STATEMENT I saw and evaluated the patient. I reviewed the resident's note and discussed the case with the resident. I agree with the resident's findings and plan as documented. SUBJECTIVE: Seen and examined at bedside. Patient denies shortness of breath, chest pain. Lower extremity edema improved. INR normalized. Patient with vaginal bleeding this morning in the setting of elevated INR. We will continue to hold Coumadin and observe for 24 more hours to ensure hemodynamic stability. OBJECTIVE: Last Vital Signs Temp Pulse Resp BP Pulse Ox 97.5 F L 69 20 112/57 L 98 01/13/20 14:00 01/13/20 14:00 01/13/20 14:00 01/13/20 14:00 01/13/20 09:00 PE: per resident note Labs/Imaging: reviewed ASSESSMENT AND PLAN: 84-year-old female with extensive past medical history presents to the ED with bilateral lower extremity pain and swelling and supratherapeutic INR. Found to have urinary tract infection. #Acute on chronic HFpEF -Lasix 40 mg IV daily Continue home medications Strict SHYANN's Magnesium greater than 2, potassium greater than 4 Daily standing weights Afib - cont lopressor TID - hold warfarin in setting of supratherapeutic INR Supratherapeutic INR: resolved Recently increased dose of Coumadin but has not taken a dose in at least 4 to 5 days. Has subcutaneous hemorrhages on the upper extremities -s/p 2mg vit k Trend INR Discussed alternate anticoagulation drugs. Patient will consider -Patient which vaginal bleeding. We will continue to observe. UTI - + UA, pending Cx - will cont ceftriaxone DVTppx: held 2/2 supratherapeutic INR/bleeding
--- NOTE | 2020-01-13 20:13 | PN ---
Physical Exam: SUBJECTIVE: Patient seen and examined Pt was examined at bed side. Patient endorses some vaginal bleeding. Patient is otherwise comfortable and no acute events were noted. OBJECTIVE: Vital Signs Period Temp Pulse Resp BP Sys/Reynoso Pulse Ox Last 24 Hr 97.5 F-98.4 F 69-87 19-20 108-128/57-77 95-98 GENERAL: The patient is awake, alert, and fully oriented, in no acute distress. HEAD: Normal with no signs of trauma. EYES: PERRL, extraocular movements intact, sclera anicteric, conjunctiva clear. No ptosis. ENT: Ears normal, nares patent, oropharynx clear without exudates, moist mucous membranes. NECK: Trachea midline, full range of motion, supple. LUNGS: Breath sounds equal, clear to auscultation bilaterally, no wheezes, no crackles, no accessory muscle use. HEART: Regular rate and rhythm, S1, S2 without murmur, rub or gallop. ABDOMEN: Soft, nontender, nondistended, normoactive bowel sounds, no guarding, no rebound, no hepatosplenomegaly, no masses. EXTREMITIES: 2+ pulses, warm, well-perfused, no edema. NEUROLOGICAL: Cranial nerves II through XII grossly intact. Normal speech, gait not observed. PSYCH: Normal mood, normal affect. SKIN: Warm, dry, normal turgor, no rashes or lesions noted Laboratory Results - last 24 hr 01/11/20 01/12/20 01/13/20 16:15 21:00 07:23 WBC RBC Hgb Hct MCV MCH MCHC RDW Plt Count MPV Absolute Neuts (auto) Neutrophils % Lymphocytes % Monocytes % Eosinophils % Basophils % Nucleated RBC % PT with INR 53.10 H 26.70 H INR 4.43 H* 2.24 H Sodium Potassium Chloride Carbon Dioxide Anion Gap BUN Creatinine Est GFR (CKD-EPI)AfAm Est GFR (CKD-EPI)NonAf Random Glucose Calcium Phosphorus Magnesium COVID-19 (PETE) Not detected 01/13/20 01/13/20 07:23 07:23 WBC 6.8 RBC 3.34 L Hgb 9.4 L Hct 30.2 L MCV 90.2 MCH 28.3 MCHC 31.3 L RDW 16.3 H Plt Count 214 MPV 10.0 Absolute Neuts (auto) 4.7 Neutrophils % 68.4 Lymphocytes % 16.2 Monocytes % 8.0 Eosinophils % 6.0 H Basophils % 1.4 Nucleated RBC % 0 PT with INR INR Sodium 141 Potassium 3.7 Chloride 108 H Carbon Dioxide 26 Anion Gap 8 BUN 41.3 H Creatinine 1.6 H Est GFR (CKD-EPI)AfAm 33.47 Est GFR (CKD-EPI)NonAf 28.88 Random Glucose 95 Calcium 10.0 Phosphorus 2.4 L Magnesium 1.9 COVID-19 (PETE) Active Medications Generic Name Dose Route Start Last Admin Trade Name Freq PRN Reason Stop Dose Admin Albuterol Sulfate 2 puff 01/11/20 20:02 Ventolin Hfa Inhaler - IH Q4H PRN SHORT OF BREATH/WHEEZING Fenofibric Acid 135 mg 01/12/20 07:00 01/13/20 06:08 Trilipix - PO 135 mg ACBK JORGE Administration Methimazole 5 mg 01/12/20 10:00 01/13/20 10:00 Tapazole - PO 5 mg [id number] JORGE Administration Metoprolol Tartrate 50 mg 01/11/20 22:00 01/13/20 14:42 Lopressor - PO 50 mg TID JORGE Administration Non-Formulary Medication 1 each 01/12/20 10:00 [place]-3/Dha/Epa/Fish Oil [Fish Oil 1,000 Mg Softgel] PO DAILY JORGE Non-Formulary Medication 1 each 01/11/20 20:00 Vitamin B Complex [Vitamin B Complex] PO ASDIR JORGE Non-Formulary Medication 2,000 unit 01/11/20 20:00 Cholecalciferol (Vitamin D3) [Vitamin D3] PO ASDIR JORGE Pantoprazole Sodium 40 mg 01/12/20 10:00 01/13/20 10:00 Protonix - PO 40 mg DAILY JORGE Administration ASSESSMENT/PLAN: Kaci Canales is an 84F with an extensive PMHx reporting to the ED on the behest of Dr. Garcia after receiving an outpatient blood work INR of 13. The patient reports increasing severity in bruising after having her dosage of warfarin increased 2 weeks ago from 1-2mg to 3mg. The patient also reports increased swelling in bilateral LE after her skin graft surgery. Patient is admitted for increased LE swelling in the setting of Acute on chronic HFpEF and supratheraputic INR. # Acute on chronic CHF -Last echo noted 12/2019 normal EF - DC Lasix 40 IV - I/O monitoring - EKG shows no significant changes - Lopressor TID - Patient reports she gets short of breath with light activity. - weigh daily - follow Trops # Supratheraputic INR - resolved (2.4) - Vit K given - 2mg - Warfarin held - Spoke to supervisor carpenters Dr. Marsh who recommended continuation of coumadin 1-2mg due to CKD and one kidney - INR repeated - CBC ordered - vaginal bleed monitored # Afib, rate controlled - coumadin on hold - INR ordered #UTI - pending Cultures - continuing ceftriaxone # HTN - cont home med ATTENDING PHYSICIAN STATEMENT I saw and evaluated the patient. I reviewed the resident's note and discussed the case with the resident. I agree with the resident's findings and plan as documented. SUBJECTIVE: OBJECTIVE: ASSESSMENT AND PLAN:
[2020-01-14] MEDS: FENOFIBRIC ACID 135 MG CAP PO SCH (06:05)
[2020-01-14] MEDS: METOPROLOL TARTRATE 50 MG TABLET (FP) PO SCH ×3 (06:05→21:02)
[2020-01-14 08:46] LABS: BASO % 1.3 % (0-2.0); EOS % 6.6 % (0-4.5); HEMATOCRIT 31.7 % (32.4-45.2); HEMOGLOBIN 9.8 GM/dL (10.7-15.3); LYMPH % 18.7 % (8-40); MCH 28.4 pg (25.7-33.7); MCHC 30.9 g/dl (32.0-36.0); MEAN CELL VOLUME 91.8 fl (80-96); MEAN PLT VOLUME 10.2 fl (7.5-11.1); MONO % 7.9 % (3.8-10.2); NEUT % 65.5 % (42.8-82.8); PLATELET COUNT 231 K/MM3 (134-434); RBC 3.46 M/mm3 (3.60-5.2); RDW 16.4 % (11.6-15.6); WHITE BLOOD COUNT 7.7 K/mm3 (4.0-10.0)
[2020-01-14 08:49] LABS: INR 1.47 (0.83-1.09); PROTHROMBIN TIME (PATIENT) 17.4 SEC (9.7-13.0)
[2020-01-14 09:10] LABS: BLOOD UREA NITROGEN 42.2 mg/dL (7-18); CALCIUM 10.1 mg/dL (8.5-10.1); CREATININE 1.7 mg/dL (0.55-1.3); POTASSIUM 4.1 mmol/L (3.5-5.1)
[2020-01-14] MEDS: PANTOPRAZOLE 40 MG TABLET PO SCH (09:55)
[2020-01-14] MEDS ORDERED: CEFTRIAXONE 1 GM in DEXTROSE 5%-WATER - 50 ML IVPB ONE (16:26)
--- NOTE | 2020-01-14 16:38 | PN ---
Progress Note (short form) - Note Progress Note: SUBJECTIVE: Seen and examined at bedside. Patient's lower extremity edema is much improved. INR now approximately 1.5. Bleeding is stopped. Will restart Coumadin at 1 mg daily. Discharge pending PT evaluation and safe discharge plan. OBJECTIVE: Last Vital Signs Temp Pulse Resp BP Pulse Ox 97.9 F 74 18 127/73 96 01/14/20 14:00 01/14/20 14:00 01/14/20 14:00 01/14/20 14:00 01/14/20 09:00 PE: GEN: NAD/ A&XO3 HEENT: NC/AT TASHIA RESP: CTAB CARDS: RRR, -MRG ABD: Soft, nt/nd +BS NEURO: A&OX3, non-focal Labs/Imaging: reviewed ASSESSMENT AND PLAN: 84-year-old female with extensive past medical history presents to the ED with bilateral lower extremity pain and swelling and supratherapeutic INR. Found to have urinary tract infection. #Acute on chronic HFpEF -Lasix 40 mg IV daily Continue home medications Strict SHYANN's Magnesium greater than 2, potassium greater than 4 Daily standing weights Afib - cont lopressor TID - hold warfarin in setting of supratherapeutic INR Supratherapeutic INR: resolved Recently increased dose of Coumadin but has not taken a dose in at least 4 to 5 days. Has subcutaneous hemorrhages on the upper extremities -s/p 2mg vit k Trend INR Discussed alternate anticoagulation drugs. Patient will consider -restart coumadin 1mg daily UTI - will cont ceftriaxone DVTppx: coumadin Visit type - Emergency Visit Emergency Visit: Yes ED Registration Date: 01/11/20 Care time: The patient presented to the Emergency Department on the above date and was hospitalized for further evaluation of their emergent condition. - New Patient This patient is new to me today: No - Critical Care Critical Care patient: No
[2020-01-14] MEDS ORDERED: WARFARIN NA 1 MG TABLET PO SCH (18:00)
[2020-01-15] MEDS: FENOFIBRIC ACID 135 MG CAP PO SCH (06:14)
[2020-01-15] MEDS: METOPROLOL TARTRATE 50 MG TABLET (FP) PO SCH ×2 (06:14→13:59)
--- NOTE | 2020-01-15 09:05 | PN ---
Physical Exam: SUBJECTIVE: Patient seen and examined at bedside. Patient denies any acute events overnight. Patient has no complaints. OBJECTIVE: Vital Signs Period Temp Pulse Resp BP Sys/Reynoso Pulse Ox Last 24 Hr 97.5 F-98.4 F 67-75 18-20 125-135/67-79 99 GENERAL: The patient is awake, alert, and fully oriented, in no acute distress. HEAD: Normal with no signs of trauma. EYES: PERRL, extraocular movements intact, sclera anicteric, conjunctiva clear. No ptosis. ENT: Ears normal, nares patent, oropharynx clear without exudates, moist mucous membranes. NECK: Trachea midline, full range of motion, supple. LUNGS: Breath sounds equal, clear to auscultation bilaterally, no wheezes, no crackles, no accessory muscle use. HEART: Regular rate and rhythm, S1, S2 without murmur, rub or gallop. ABDOMEN: Soft, nontender, nondistended, normoactive bowel sounds, no guarding, no rebound, no hepatosplenomegaly, no masses. EXTREMITIES: 2+ pulses, warm, well-perfused, no edema. NEUROLOGICAL: Cranial nerves II through XII grossly intact. Normal speech, gait not observed. PSYCH: Normal mood, normal affect. SKIN: Warm, dry, normal turgor, no rashes or lesions noted Laboratory Results - last 24 hr 01/14/20 01/14/20 07:57 08:09 WBC 7.7 RBC 3.46 L Hgb 9.8 L Hct 31.7 L MCV 91.8 MCH 28.4 MCHC 30.9 L RDW 16.4 H Plt Count 231 MPV 10.2 Absolute Neuts (auto) 5.0 Neutrophils % 65.5 Lymphocytes % 18.7 Monocytes % 7.9 Eosinophils % 6.6 H Basophils % 1.3 Nucleated RBC % 0 Sodium 140 Potassium 4.1 Chloride 104 Carbon Dioxide 31 Anion Gap 5 L BUN 42.2 H Creatinine 1.7 H Est GFR (CKD-EPI)AfAm 31.10 Est GFR (CKD-EPI)NonAf 26.84 Random Glucose 93 Calcium 10.1 Active Medications Generic Name Dose Route Start Last Admin Trade Name Freq PRN Reason Stop Dose Admin Albuterol Sulfate 2 puff 01/11/20 20:02 Ventolin Hfa Inhaler - IH Q4H PRN SHORT OF BREATH/WHEEZING Cholecalciferol 2,000 unit 01/11/20 20:00 Vitamin D3 - PO ASDIR JORGE Fenofibric Acid 135 mg 01/12/20 07:00 01/15/20 06:14 Trilipix - PO 135 mg ACBK JORGE Administration Methimazole 5 mg 01/12/20 10:00 01/13/20 10:00 Tapazole - PO 5 mg [id number] JORGE Administration Metoprolol Tartrate 50 mg 01/11/20 22:00 01/15/20 06:14 Lopressor - PO 50 mg TID JORGE Administration Non-Formulary Medication 1 each 01/12/20 10:00 [place]-3/Dha/Epa/Fish Oil [Fish Oil 1,000 Mg Softgel] PO DAILY JORGE Non-Formulary Medication 1 each 01/11/20 20:00 Vitamin B Complex [Vitamin B Complex] PO ASDIR JORGE Pantoprazole Sodium 40 mg 01/12/20 10:00 01/14/20 09:55 Protonix - PO 40 mg DAILY JORGE Administration Warfarin Sodium 1 mg 01/14/20 18:00 01/14/20 18:06 Coumadin - PO 1 mg DAILY@1800 JORGE Administration ASSESSMENT/PLAN: Kaci Canales is an 84F with an extensive PMHx reporting to the ED on the behest of Dr. Garcia after receiving an outpatient blood work INR of 13. The patient reports increasing severity in bruising after having her dosage of warfarin increased 2 weeks ago from 1-2mg to 3mg. The patient also reports increased swelling in bilateral LE after her skin graft surgery. Patient is admitted for increased LE swelling in the setting of Acute on chronic HFpEF and supratheraputic INR. # Acute on chronic CHF - resolved - Lasix 40 continued at home - plan for DC after PT eval - Lopressor at home - negative Trops # Supratheraputic INR - resolved - Warfarin held - Spoke to aluminum siding installer Dr. Marsh who recommended continuation of coumadin 1-2mg due to CKD and one kidney # Afib, rate controlled - coumadin resumed 1mg qd as per Dr. Stacy (cardiology) - INR ordered # HTN - cont home med Visit type - Emergency Visit Emergency Visit: Yes ED Registration Date: 01/11/20 Care time: The patient presented to the Emergency Department on the above date and was hospitalized for further evaluation of their emergent condition. - New Patient This patient is new to me today: No - Critical Care Critical Care patient: No - Discharge Referral Referred to [facility] No ATTENDING PHYSICIAN STATEMENT I saw and evaluated the patient. I reviewed the resident's note and discussed the case with the resident. I agree with the resident's findings and plan as documented. SUBJECTIVE: OBJECTIVE: ASSESSMENT AND PLAN:
[2020-01-15 09:06] LABS: HEMATOCRIT 31.6 % (32.4-45.2); HEMOGLOBIN 9.7 GM/dL (10.7-15.3); MCHC 30.8 g/dl (32.0-36.0); MEAN CELL VOLUME 90.9 fl (80-96); MEAN PLT VOLUME 9.7 fl (7.5-11.1); PLATELET COUNT 247 K/MM3 (134-434); RBC 3.47 M/mm3 (3.60-5.2); RDW 16.5 % (11.6-15.6); WHITE BLOOD COUNT 7.4 K/mm3 (4.0-10.0)
[2020-01-15 09:14] LABS: INR 1.39 (0.83-1.09); PROTHROMBIN TIME (PATIENT) 16.4 SEC (9.7-13.0)
[2020-01-15 09:29] LABS: BLOOD UREA NITROGEN 44.7 mg/dL (7-18); CREATININE 1.9 mg/dL (0.55-1.3); POTASSIUM 4.2 mmol/L (3.5-5.1)
[2020-01-15] MEDS: PANTOPRAZOLE 40 MG TABLET PO SCH (10:14)
[2020-01-15] MEDS: METHIMAZOLE 5 MG TABLET (FP) PO SCH (10:14)
--- NOTE | 2020-01-15 14:12 | PN ---
Teaching Attending Note Name of Resident: Carl Tom ATTENDING PHYSICIAN STATEMENT I saw and evaluated the patient. I reviewed the resident's note and discussed the case with the resident. I agree with the resident's findings and plan as documented. SUBJECTIVE: Seen and examined at bedside. Patient euvolemic. Received 4 days IV treatment for UTI. Seen by physical therapy and cleared for discharge to home OBJECTIVE: Last Vital Signs Temp Pulse Resp BP Pulse Ox 97.9 F 74 18 127/73 96 01/14/20 14:00 01/14/20 14:00 01/14/20 14:00 01/14/20 14:00 01/14/20 09:00 PE: GEN: NAD/ A&XO3 HEENT: NC/AT [place]ASHIA RESP: CTAB CARDS: RRR, -MRG ABD: Soft, nt/nd +BS NEURO: A&OX3, non-focal Labs/Imaging: reviewed ASSESSMENT AND PLAN: 84-year-old female with extensive past medical history presents to the ED with bilateral lower extremity pain and swelling and supratherapeutic INR. Found to have urinary tract infection.Patient was treated with date 4 days of ceftriaxone with resolution of symptoms. Was given to grams of vitamin K for supratherapeutic INR. Will be discharged on Coumadin 1 mg and will follow-up with her PCP in Coumadin clinic this week for re-dosing. Was diuresed with IV Lasix to euvolemia and will be discharged on home 40 mg daily.
--- NOTE | 2020-01-15 14:24 | DS ---
Physical Exam: SUBJECTIVE: Patient seen and examined Patient was seen and examined at bedside. Patient has no further complaints and no acute events overnight. OBJECTIVE: Vital Signs Period Temp Pulse Resp BP Sys/Reynoso Pulse Ox Last 24 Hr 97.5 F-98.8 F 67-76 18-20 125-135/61-79 99-99 PHYSICAL EXAM GENERAL: The patient is awake, alert, and fully oriented, in no acute distress. HEAD: Normal with no signs of trauma. EYES: PERRL, extraocular movements intact, sclera anicteric, conjunctiva clear. ENT: Ears normal, nares patent, oropharynx clear without exudates, moist mucous membranes. NECK: Trachea midline, full range of motion, supple. LUNGS: Breath sounds equal, clear to auscultation bilaterally, no wheezes, no crackles, no accessory muscle use. HEART: Regular rate and rhythm, S1, S2 without murmur, rub or gallop. ABDOMEN: Soft, nontender, nondistended, normoactive bowel sounds, no guarding, no rebound, no hepatosplenomegaly, no masses. EXTREMITIES: 2+ pulses, warm, well-perfused, no edema. NEUROLOGICAL: Cranial nerves II through XII grossly intact. Normal speech, gait not observed. PSYCH: Normal mood, normal affect. SKIN: Warm, dry, normal turgor, no rashes or lesions noted. LABS Laboratory Results - last 24 hr 01/15/20 01/15/20 01/15/20 08:45 08:45 08:45 WBC 7.4 RBC 3.47 L Hgb 9.7 L Hct 31.6 L MCV 90.9 MCH 28.0 MCHC 30.8 L RDW 16.5 H Plt Count 247 MPV 9.7 PT with INR 16.40 H INR 1.39 H Sodium 141 Potassium 4.2 Chloride 106 Carbon Dioxide 30 Anion Gap 5 L BUN 44.7 H Creatinine 1.9 H Est GFR (CKD-EPI)AfAm 27.19 Est GFR (CKD-EPI)NonAf 23.46 Random Glucose 135 H Calcium 10.0 HOSPITAL COURSE: Date of Admission:01/11/20 Kaci is an 84F with a Date of Discharge: 01/15/20 Minutes to complete discharge: 40 Discharge Summary Problems reviewed: Yes Reason For Visit: UTI CONGESTIVE HEART FAILURE Current Active Problems CHF (congestive heart failure) (Chronic) Condition: Good - Instructions Diet, Activity, Other Instructions: YOUR VISIT: You were admitted to [facility] for abnormal lab values and congestive heart failure. You were recommended to arrive to the emergency department by the wound clinic and on the advise of Dr. Garcia. While you were in the hospital, we evaluated you with lab work, blood work, imaging including x-rays of your chest showing some congestive changes since your last x-ray. We also preformed a vascular study that did not find any evidence of a deep vein thrombosis (DVT). We found that your bruising was a result of your increased coumadin dosage and your leg swelling was a result of your congestive heart failure. You were treated with lasix and compression stockings. You were also evaluated by our specialists during your hospital course. Physical therapy had evaluated and approved you to return home. While you were in the hospital, your urine analysis was positive for a UTI, however, your clinical signs and symptoms were normal. We have treated you with antibiotics during your stay. Please follow up with your primary care physician for repeat urine analysis. MEDICATIONS: Please resume taking your Coumadin 1mg daily as prescribed by your PCP. Please START taking your albuterol inhaler once every 4 hours as needed. Please continue taking your home medications as prescribed. FOLLOW UP: Please follow up with your PCP to check on your INR within 1 week of discharge. 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 Please follow up with your surgeon for follow up on your skin graft within 1 week of discharge. ADDITIONAL INSTRUCTIONS: You are being discharged home. Please return to the emergency department if you are experiencing worsening pain, fever, chills, shortness of breath, chest pain, recurrent bleeds/bruises, or if you experience any worsening, new, or concerning symptoms. outpatient follow up of MR Referrals: Gerry Garcia MD [Primary Care Provider] - 1 Week Regulo Hoffman MD [Staff Physician] - 1 Week Disposition: HOME - Home Medications Comprehensive Discharge Medication List: Ambulatory Orders Cholecalciferol (Vitamin D3) [Vitamin D3] 2,000 unit PO ASDIR 12/01/19 [place]-3/Dha/Epa/Fish Oil [Fish Oil 1,000 mg Softgel] 1 each PO DAILY 12/01/19 Vitamin B Complex 1 each PO ASDIR 12/01/19 Methimazole [Tapazole -] 5 mg PO SUMOTUWETHFR tablet 12/07/19 Metoprolol Tartrate [Lopressor -] 50 mg PO TID tablet 12/07/19 Fenofibrate 160 mg PO ACBK 01/11/20 Furosemide [Lasix -] 20 mg PO DAILY 01/11/20 Pantoprazole Sodium [Protonix -] 40 mg PO BID 01/11/20 Warfarin Na [Coumadin -] 1 mg PO DAILY 01/12/20 Albuterol Sulfate Inhaler - [Ventolin HFA Inhaler -] 1 - 2 inh PO Q4H #1 inhaler 01/15/20 - Discharge Referral Referred to [facility] No ATTENDING PHYSICIAN STATEMENT I saw and evaluated the patient. I reviewed the resident's note and discussed the case with the resident. I agree with the resident's findings and plan as documented. SUBJECTIVE: OBJECTIVE: ASSESSMENT AND PLAN:
[2020-01-15 15:00] VITALS: BP 126/69; PULSE 72; TEMP 97.7
== END 2020-01-15 16:09 | disposition home or self-care (01) | DRG 291 ==
LOC: JER 12:34 → JERBED 16:11 → J6WEST-2 01-12 11:07
PROVIDERS: ADMIT Internal Medicine; ATTEND Internal Medicine
DX: I13.0 Hypertensive heart and chronic kidney disease with heart failure and stage 1 through stage 4 chronic kidney disease, or unspecified chronic kidney disease (principal); I50.33 Acute on chronic diastolic (congestive) heart failure; N39.0 Urinary tract infection, site not specified; I25.10 Atherosclerotic heart disease of native coronary artery without angina pectoris; N18.9 Chronic kidney disease, unspecified; I50.9 Heart failure, unspecified; R79.1 Abnormal coagulation profile; I48.91 Unspecified atrial fibrillation; Z79.01 Long term (current) use of anticoagulants; I42.8 Other cardiomyopathies; E78.5 Hyperlipidemia, unspecified; J44.9 Chronic obstructive pulmonary disease, unspecified; E05.90 Thyrotoxicosis, unspecified without thyrotoxic crisis or storm; G20 Parkinson's disease; I42.9 Cardiomyopathy, unspecified
CPT/HCPCS: 36415; 71046-TC-FY; 80048; 80053; 80061; 81003; 83036; 83721; 83735; 83880; 84100; 84443; 84484; 85025; 85027; 85610; 86850; 86900; 86901; 87086; 87186; 87899; 93005; 93010; 93970-TC; 97116-GP; 99285-25; G0463-25; U0003

== ENCOUNTER 2021-02-18 17:16 | Inpatient (IN) | payer OTHER, MEDICARE ==
[2021-02-18] MEDS ORDERED: morphine CARPU-JECT 2 MG/1 ML DISP.SYRIN IVPUSH ONE (18:21)
[2021-02-18] MEDS ORDERED: MORPHINE SULFATE 2 MG/ML VIAL ONE (18:55)
[2021-02-18 20:30] LABS: BASO % 0.4 % (0-2.0); EOS % 1.4 % (0-4.5); HEMATOCRIT 34.5 % (32.4-45.2); HEMOGLOBIN 11.2 GM/dL (10.7-15.3); LYMPH % 13.4 % (8-40); MCH 27.7 pg (25.7-33.7); MCHC 32.4 g/dl (32.0-36.0); MEAN CELL VOLUME 85.6 fl (80-96); MEAN PLT VOLUME 8.7 fl (7.5-11.1); MONO % 8.4 % (3.8-10.2); NEUT % 76.4 % (42.8-82.8); PLATELET COUNT 194 10^3/uL (134-434); RBC 4.03 M/mm3 (3.60-5.2); RDW 15.9 % (11.6-15.6); WHITE BLOOD COUNT 11.3 K/mm3 (4.0-10.0)
[2021-02-18 20:32] LABS: EPI CELLS 4 /uL (0-25.1); HYALINE CASTS 0 /uL (0-3.1); PH,URINE 5.5 (5.0-8.0); URINE APPEARANCE CLEAR; URINE BACTERIA >9,000 /uL (0-1359); URINE BILIRUBIN NEGATIVE (NEGATIVE); URINE COLOR YELLOW; URINE GLUCOSE (UA) NEGATIVE (NEGATIVE); URINE KETONE NEGATIVE (NEGATIVE); URINE LEUK ESTERASE NEGATIVE (NEGATIVE); URINE NITRITE NEGATIVE (NEGATIVE); URINE PROTEIN 1+ (NEGATIVE); URINE RBC 9 /uL (0-23.9); URINE UROBILINOGEN 0.2 mg/dL (0.2-1.0); URINE WBC 26 /uL (0-25.8)
[2021-02-18 20:33] LABS: ALBUMIN 3.3 g/dl (3.4-5.0); BLOOD UREA NITROGEN 36.5 mg/dL (7-18)
[2021-02-18 20:36] LABS: CREATININE 1.8 mg/dL (0.55-1.3)
[2021-02-18 20:37] LABS: BILIRUBIN,TOTAL 0.6 mg/dL (0.2-1)
[2021-02-18 20:38] LABS: TOT PROT 7.3 g/dl (6.4-8.2)
[2021-02-18] MEDS ORDERED: CEFTRIAXONE 1 GM in DEXTROSE 5%-WATER - 50 ML IVPB ONE (21:34)
[2021-02-18] MEDS ORDERED: CEFTRIAXONE 1 GM/50 ML BAG ONE (22:09)
[2021-02-18] MEDS ORDERED: morphine CARPU-JECT 4 MG/1 ML DISP.SYRIN IVPUSH ONE (22:52)
[2021-02-18] MEDS ORDERED: morphine SULFATE 4 MG/ML VIAL ONE (23:17)
[2021-02-19] MEDS ORDERED: MORPHINE SULFATE 2 MG/ML VIAL IVPUSH PRN (06:00)
[2021-02-19 08:58] LABS: HEMATOCRIT 33.6 % (32.4-45.2); MCH 28.3 pg (25.7-33.7); MCHC 32.8 g/dl (32.0-36.0); MEAN CELL VOLUME 86.2 fl (80-96); MEAN PLT VOLUME 9.4 fl (7.5-11.1); PLATELET COUNT 198 10^3/uL (134-434); RBC 3.89 M/mm3 (3.60-5.2); RDW 15.4 % (11.6-15.6); WHITE BLOOD COUNT 9.2 K/mm3 (4.0-10.0)
[2021-02-19 09:20] LABS: ALBUMIN 3.1 g/dl (3.4-5.0); BLOOD UREA NITROGEN 33.9 mg/dL (7-18); CALCIUM 10.1 mg/dL (8.5-10.1); MAGNESIUM 1.6 mg/dL (1.8-2.4)
[2021-02-19 09:23] LABS: CREATININE 1.7 mg/dL (0.55-1.3)
[2021-02-19 09:24] LABS: BILIRUBIN,TOTAL 0.6 mg/dL (0.2-1)
[2021-02-19] MEDS: ACETAMINOPHEN 325 MG TABLET (FP) PO PRN (13:24)
[2021-02-19] MEDS: ACETAMINOPHEN 1000 MG/100 ML VIAL (NON FORMULARY) IVPB PRN ×2 (13:25→21:37)
[2021-02-19] MEDS ORDERED: DEXTROSE 5%-WATER - 50 ML IVPB ONE (17:44)
[2021-02-19] MEDS ORDERED: cefTRIAXone SODIUM 1 GM VIAL ONE (17:44)
[2021-02-19] MEDS: CEFTRIAXONE 1 GM in DEXTROSE 5%-WATER - 50 ML IVPB SCH (17:50)
[2021-02-19] MEDS ORDERED: MAGNESIUM 1GM/D5W - 1 GM/100 ML IVPB IVPB ONE (20:01)
[2021-02-19] MEDS: PANTOPRAZOLE 40 MG TABLET PO SCH (21:38)
[2021-02-19] MEDS: HEPARIN NA (PORCINE) 5,000 UNITS/ML 1ML VIAL SQ SCH (21:38)
[2021-02-19] MEDS: METOPROLOL TARTRATE 50 MG TABLET (FP) PO SCH (21:38)
[2021-02-20] MEDS: LIDOCAINE 5% TOPICAL PATCH TP SCH ×2 (02:49→09:32)
[2021-02-20] MEDS: HEPARIN NA (PORCINE) 5,000 UNITS/ML 1ML VIAL SQ SCH ×2 (05:06→14:10)
[2021-02-20] MEDS ORDERED: cefTRIAXone SODIUM 1 GM VIAL ONE (09:21)
[2021-02-20] MEDS ORDERED: DEXTROSE 5%-WATER - 50 ML IVPB ONE (09:21)
[2021-02-20] MEDS: CEFTRIAXONE 1 GM in DEXTROSE 5%-WATER - 50 ML IVPB SCH (09:31)
[2021-02-20] MEDS: PANTOPRAZOLE 40 MG TABLET PO SCH ×2 (09:32→21:10)
[2021-02-20] MEDS: METOPROLOL TARTRATE 50 MG TABLET (FP) PO SCH ×2 (09:32→21:10)
[2021-02-20 09:43] LABS: BASO % 0.7 % (0-2.0); EOS % 5.7 % (0-4.5); HEMOGLOBIN 10.7 GM/dL (10.7-15.3); LYMPH % 20.1 % (8-40); MCH 27.9 pg (25.7-33.7); MCHC 32.6 g/dl (32.0-36.0); MEAN CELL VOLUME 85.5 fl (80-96); MEAN PLT VOLUME 9.1 fl (7.5-11.1); MONO % 12.2 % (3.8-10.2); NEUT % 61.3 % (42.8-82.8); PLATELET COUNT 188 10^3/uL (134-434); RBC 3.85 M/mm3 (3.60-5.2); RDW 15.8 % (11.6-15.6); WHITE BLOOD COUNT 8.2 K/mm3 (4.0-10.0)
[2021-02-20] MEDS ORDERED: LIDOCAINE 5% TOPICAL PATCH TP SCH (10:00)
[2021-02-20 10:08] LABS: BLOOD UREA NITROGEN 35.2 mg/dL (7-18)
[2021-02-20 10:09] LABS: CALCIUM 10.1 mg/dL (8.5-10.1)
[2021-02-20 10:11] LABS: MAGNESIUM 1.9 mg/dL (1.8-2.4)
[2021-02-20 10:12] LABS: CREATININE 1.7 mg/dL (0.55-1.3)
[2021-02-20] MEDS ORDERED: HEPARIN NA (PORCINE) 5,000 UNITS/ML 1ML VIAL IVPUSH PRN ×2 (14:09)
[2021-02-20] MEDS ORDERED: HEPARIN - 25,000 UNIT in SODIUM CHLORIDE 495 ML IV SCH (14:15)
[2021-02-20] MEDS: ACETAMINOPHEN 1000 MG/100 ML VIAL (NON FORMULARY) IVPB PRN (15:16)
[2021-02-20] MEDS: APIXABAN 2.5 MG TABLET PO SCH (21:10)
[2021-02-20] MEDS: LIDOCAINE PATCH REMOVAL MC SCH (21:13)
[2021-02-20] MEDS: ACETAMINOPHEN 325 MG TABLET (FP) PO PRN (22:45)
[2021-02-21] MEDS: ACETAMINOPHEN 325 MG TABLET (FP) PO PRN ×3 (07:08→23:05)
[2021-02-21] MEDS ORDERED: cefTRIAXone SODIUM 1 GM VIAL ONE (09:12)
[2021-02-21] MEDS ORDERED: DEXTROSE 5%-WATER - 50 ML IVPB ONE (09:12)
[2021-02-21] MEDS: METOPROLOL TARTRATE 50 MG TABLET (FP) PO SCH ×2 (09:22→21:15)
[2021-02-21] MEDS: APIXABAN 2.5 MG TABLET PO SCH ×2 (09:22→21:15)
[2021-02-21] MEDS: PANTOPRAZOLE 40 MG TABLET PO SCH ×2 (09:22→21:15)
[2021-02-21] MEDS: LIDOCAINE 5% TOPICAL PATCH TP SCH (09:23)
[2021-02-21] MEDS: CEFTRIAXONE 1 GM in DEXTROSE 5%-WATER - 50 ML IVPB SCH (09:23)
[2021-02-21 09:32] LABS: BASO % 0.5 % (0-2.0); EOS % 3.7 % (0-4.5); HEMATOCRIT 33.1 % (32.4-45.2); HEMOGLOBIN 10.7 GM/dL (10.7-15.3); LYMPH % 20.1 % (8-40); MCH 27.9 pg (25.7-33.7); MCHC 32.3 g/dl (32.0-36.0); MEAN CELL VOLUME 86.6 fl (80-96); MEAN PLT VOLUME 9.7 fl (7.5-11.1); MONO % 12.5 % (3.8-10.2); NEUT % 63.2 % (42.8-82.8); PLATELET COUNT 206 10^3/uL (134-434); RBC 3.82 M/mm3 (3.60-5.2); RDW 15.5 % (11.6-15.6); WHITE BLOOD COUNT 9.6 K/mm3 (4.0-10.0)
[2021-02-21 09:46] LABS: INR 1.29 (0.83-1.09); PROTHROMBIN TIME (PATIENT) 15.8 SEC (9.7-13.0)
[2021-02-21 09:49] LABS: ACTIVATED PTT 27.7 SECONDS (25.2-36.5)
[2021-02-21 09:52] LABS: CALCIUM 9.8 mg/dL (8.5-10.1)
[2021-02-21 09:53] LABS: BLOOD UREA NITROGEN 38.4 mg/dL (7-18); MAGNESIUM 1.7 mg/dL (1.8-2.4)
[2021-02-21 09:56] LABS: CREATININE 1.8 mg/dL (0.55-1.3); PHOSPHOROUS 3.1 mg/dL (2.5-4.9)
[2021-02-21] MEDS ORDERED: MAGNESIUM SULF 50% (8.12 MEQ/2 ML-1 GM VIAL) IVPB ONE (13:06)
[2021-02-21] MEDS: LIDOCAINE PATCH REMOVAL MC SCH (21:15)
[2021-02-22 09:56] LABS: HEMATOCRIT 32.9 % (32.4-45.2); HEMOGLOBIN 10.7 GM/dL (10.7-15.3); MCH 27.7 pg (25.7-33.7); MCHC 32.4 g/dl (32.0-36.0); MEAN CELL VOLUME 85.4 fl (80-96); PLATELET COUNT 211 10^3/uL (134-434); RBC 3.86 M/mm3 (3.60-5.2); RDW 15.6 % (11.6-15.6)
[2021-02-22 10:24] LABS: CALCIUM 10.1 mg/dL (8.5-10.1); CREATININE 2.1 mg/dL (0.55-1.3)
[2021-02-22] MEDS ORDERED: PT OWN MED DRAWER 7, Y5N ONE (11:05)
[2021-02-22] MEDS: METOPROLOL TARTRATE 50 MG TABLET (FP) PO SCH ×2 (11:10→21:40)
[2021-02-22] MEDS: APIXABAN 2.5 MG TABLET PO SCH ×2 (11:10→21:40)
[2021-02-22] MEDS: PANTOPRAZOLE 40 MG TABLET PO SCH ×2 (11:10→21:40)
[2021-02-22] MEDS: LIDOCAINE 5% TOPICAL PATCH TP SCH (11:10)
[2021-02-22] MEDS: ACETAMINOPHEN 325 MG TABLET (FP) PO PRN ×2 (11:11→21:40)
[2021-02-22] MEDS: LIDOCAINE PATCH REMOVAL MC SCH (21:41)
[2021-02-23] MEDS ORDERED: LIDOCAINE 5% TOPICAL PATCH TP ONE (01:00)
[2021-02-23] MEDS: ACETAMINOPHEN 325 MG TABLET (FP) PO PRN ×2 (04:23→23:13)
[2021-02-23 08:31] LABS: HEMATOCRIT 31.6 % (32.4-45.2); HEMOGLOBIN 10.3 GM/dL (10.7-15.3); MCH 28.3 pg (25.7-33.7); MCHC 32.7 g/dl (32.0-36.0); MEAN CELL VOLUME 86.7 fl (80-96); MEAN PLT VOLUME 9.3 fl (7.5-11.1); PLATELET COUNT 217 10^3/uL (134-434); RBC 3.65 M/mm3 (3.60-5.2); RDW 15.9 % (11.6-15.6); WHITE BLOOD COUNT 7.7 K/mm3 (4.0-10.0)
[2021-02-23 08:47] LABS: CALCIUM 9.8 mg/dL (8.5-10.1)
[2021-02-23 08:48] LABS: BLOOD UREA NITROGEN 48.1 mg/dL (7-18)
[2021-02-23 08:54] LABS: CREATININE 1.8 mg/dL (0.55-1.3)
[2021-02-23] MEDS: APIXABAN 2.5 MG TABLET PO SCH ×2 (09:27→21:56)
[2021-02-23] MEDS: METOPROLOL TARTRATE 50 MG TABLET (FP) PO SCH ×2 (09:27→21:56)
[2021-02-23] MEDS: LIDOCAINE 5% TOPICAL PATCH TP SCH (09:27)
[2021-02-23] MEDS: PANTOPRAZOLE 40 MG TABLET PO SCH ×2 (09:27→21:56)
[2021-02-23] MEDS: LIDOCAINE PATCH REMOVAL MC SCH ×2 (21:56)
[2021-02-24] MEDS ORDERED: MORPHINE SULFATE 2 MG/ML VIAL IVPUSH ONE (03:54)
[2021-02-24 08:30] LABS: HEMOGLOBIN 10.4 GM/dL (10.7-15.3); MCH 28.1 pg (25.7-33.7); MCHC 32.5 g/dl (32.0-36.0); MEAN CELL VOLUME 86.5 fl (80-96); MEAN PLT VOLUME 9.7 fl (7.5-11.1); PLATELET COUNT 222 10^3/uL (134-434); RDW 15.5 % (11.6-15.6); WHITE BLOOD COUNT 8.2 K/mm3 (4.0-10.0)
[2021-02-24 08:53] LABS: CALCIUM 9.9 mg/dL (8.5-10.1)
[2021-02-24 08:54] LABS: BLOOD UREA NITROGEN 53.7 mg/dL (7-18)
[2021-02-24 08:57] LABS: CREATININE 1.8 mg/dL (0.55-1.3)
[2021-02-24] MEDS: PANTOPRAZOLE 40 MG TABLET PO SCH ×2 (10:16→21:13)
[2021-02-24] MEDS: METOPROLOL TARTRATE 50 MG TABLET (FP) PO SCH ×2 (10:16→21:13)
[2021-02-24] MEDS: APIXABAN 2.5 MG TABLET PO SCH ×2 (10:16→21:13)
[2021-02-24] MEDS: LIDOCAINE 5% TOPICAL PATCH TP SCH (10:17)
[2021-02-24] MEDS: ACETAMINOPHEN 325 MG TABLET (FP) PO PRN (18:25)
[2021-02-24] MEDS: LIDOCAINE PATCH REMOVAL MC SCH ×2 (21:13→21:14)
[2021-02-25] MEDS ORDERED: MORPHINE SULFATE 2 MG/ML VIAL IVPUSH PRN (01:41)
[2021-02-25] MEDS: morphine SULFATE 4 MG/ML VIAL IVPUSH PRN ×2 (02:26→23:38)
[2021-02-25] MEDS: LIDOCAINE 5% TOPICAL PATCH TP SCH (09:16)
[2021-02-25] MEDS: METOPROLOL TARTRATE 50 MG TABLET (FP) PO SCH ×2 (09:18→21:55)
[2021-02-25] MEDS: APIXABAN 2.5 MG TABLET PO SCH ×2 (09:18→21:55)
[2021-02-25] MEDS: PANTOPRAZOLE 40 MG TABLET PO SCH ×2 (09:18→21:55)
[2021-02-25 09:47] LABS: HEMATOCRIT 32.5 % (32.4-45.2); HEMOGLOBIN 10.5 GM/dL (10.7-15.3); MCH 28.2 pg (25.7-33.7); MCHC 32.2 g/dl (32.0-36.0); MEAN CELL VOLUME 87.6 fl (80-96); MEAN PLT VOLUME 9.5 fl (7.5-11.1); PLATELET COUNT 241 10^3/uL (134-434); RBC 3.71 M/mm3 (3.60-5.2); RDW 15.1 % (11.6-15.6); WHITE BLOOD COUNT 7.8 K/mm3 (4.0-10.0)
[2021-02-25] MEDS: ACETAMINOPHEN 325 MG TABLET (FP) PO PRN ×2 (09:57→21:59)
[2021-02-25 10:52] LABS: CALCIUM 9.7 mg/dL (8.5-10.1)
[2021-02-25 10:53] LABS: CREATININE 1.9 mg/dL (0.55-1.3)
[2021-02-25] MEDS: LIDOCAINE PATCH REMOVAL MC SCH ×2 (22:00)
[2021-02-26 09:37] LABS: HEMATOCRIT 30.8 % (32.4-45.2); MCHC 32.6 g/dl (32.0-36.0); MEAN CELL VOLUME 85.9 fl (80-96); MEAN PLT VOLUME 9.1 fl (7.5-11.1); PLATELET COUNT 245 10^3/uL (134-434); RBC 3.58 M/mm3 (3.60-5.2); RDW 15.3 % (11.6-15.6); WHITE BLOOD COUNT 7.5 K/mm3 (4.0-10.0)
[2021-02-26] MEDS: LIDOCAINE 5% TOPICAL PATCH TP SCH (10:05)
[2021-02-26] MEDS: PANTOPRAZOLE 40 MG TABLET PO SCH ×2 (10:05→21:09)
[2021-02-26] MEDS: METOPROLOL TARTRATE 50 MG TABLET (FP) PO SCH ×2 (10:05→21:09)
[2021-02-26] MEDS: APIXABAN 2.5 MG TABLET PO SCH ×2 (10:05→21:09)
[2021-02-26 10:16] LABS: ALBUMIN 2.7 g/dl (3.4-5.0); BLOOD UREA NITROGEN 62.8 mg/dL (7-18)
[2021-02-26 10:17] LABS: BILIRUBIN,TOTAL 0.4 mg/dL (0.2-1); TOT PROT 6.6 g/dl (6.4-8.2)
[2021-02-26 10:19] LABS: CREATININE 1.8 mg/dL (0.55-1.3)
[2021-02-26] MEDS ORDERED: DOCUSATE SODIUM 100 MG CAPSULE (FP) PO ONE (19:08)
[2021-02-26] MEDS: POLYETHYLENE GLYCOL (HEALTHYLAX) 3350 17 GM PACKET PO SCH (21:10)
[2021-02-26] MEDS: LIDOCAINE PATCH REMOVAL MC SCH ×2 (22:53→22:54)
[2021-02-26] MEDS: ACETAMINOPHEN 325 MG TABLET (FP) PO PRN (22:56)
[2021-02-27] MEDS: POLYETHYLENE GLYCOL (HEALTHYLAX) 3350 17 GM PACKET PO SCH (09:10)
[2021-02-27] MEDS: LIDOCAINE 5% TOPICAL PATCH TP SCH (09:11)
[2021-02-27] MEDS: METOPROLOL TARTRATE 50 MG TABLET (FP) PO SCH ×2 (09:12→21:00)
[2021-02-27] MEDS: APIXABAN 2.5 MG TABLET PO SCH ×2 (09:12→21:00)
[2021-02-27] MEDS: PANTOPRAZOLE 40 MG TABLET PO SCH ×2 (09:12→21:00)
[2021-02-27] MEDS: ACETAMINOPHEN 325 MG TABLET (FP) PO PRN (20:52)
[2021-02-27] MEDS: DOCUSATE SODIUM 100 MG CAPSULE (FP) PO SCH (21:00)
[2021-02-27] MEDS: LIDOCAINE PATCH REMOVAL MC SCH (21:01)
[2021-02-28] MEDS: ACETAMINOPHEN 325 MG TABLET (FP) PO PRN ×3 (06:14→21:22)
[2021-02-28] MEDS: PANTOPRAZOLE 40 MG TABLET PO SCH ×2 (09:24→21:17)
[2021-02-28] MEDS: LIDOCAINE 5% TOPICAL PATCH TP SCH (09:24)
[2021-02-28] MEDS: METOPROLOL TARTRATE 50 MG TABLET (FP) PO SCH ×2 (09:24→21:18)
[2021-02-28] MEDS: POLYETHYLENE GLYCOL (HEALTHYLAX) 3350 17 GM PACKET PO SCH (09:24)
[2021-02-28] MEDS: APIXABAN 2.5 MG TABLET PO SCH ×2 (09:24→21:18)
[2021-02-28] MEDS: DOCUSATE SODIUM 100 MG CAPSULE (FP) PO SCH (21:17)
[2021-02-28] MEDS: LIDOCAINE PATCH REMOVAL MC SCH (21:18)
[2021-03-01] MEDS: ACETAMINOPHEN 325 MG TABLET (FP) PO PRN ×2 (03:37→21:02)
[2021-03-01 09:34] LABS: BASO % 0.8 % (0-2.0); HEMATOCRIT 30.4 % (32.4-45.2); HEMOGLOBIN 9.9 GM/dL (10.7-15.3); LYMPH % 21.7 % (8-40); MCH 28.1 pg (25.7-33.7); MCHC 32.6 g/dl (32.0-36.0); MEAN CELL VOLUME 86.1 fl (80-96); MEAN PLT VOLUME 9.3 fl (7.5-11.1); NEUT % 60.5 % (42.8-82.8); PLATELET COUNT 290 10^3/uL (134-434); RBC 3.53 M/mm3 (3.60-5.2); RDW 15.1 % (11.6-15.6); WHITE BLOOD COUNT 8.1 K/mm3 (4.0-10.0)
[2021-03-01 10:18] LABS: ALBUMIN 2.6 g/dl (3.4-5.0); PHOSPHOROUS 3.3 mg/dL (2.5-4.9)
[2021-03-01 10:19] LABS: CALCIUM 9.8 mg/dL (8.5-10.1)
[2021-03-01 10:32] LABS: BILIRUBIN,TOTAL 0.4 mg/dL (0.2-1); CREATININE 1.7 mg/dL (0.55-1.3); TOT PROT 6.4 g/dl (6.4-8.2)
[2021-03-01] MEDS ORDERED: PT OWN MED DRAWER 7, Y5N ONE (10:57)
[2021-03-01] MEDS: PANTOPRAZOLE 40 MG TABLET PO SCH ×2 (11:00→21:04)
[2021-03-01] MEDS: POLYETHYLENE GLYCOL (HEALTHYLAX) 3350 17 GM PACKET PO SCH (11:00)
[2021-03-01] MEDS: METOPROLOL TARTRATE 50 MG TABLET (FP) PO SCH ×2 (11:00→21:03)
[2021-03-01] MEDS: FUROSEMIDE 20 MG TABLET (FP) PO SCH (11:00)
[2021-03-01] MEDS: APIXABAN 2.5 MG TABLET PO SCH (11:00)
[2021-03-01] MEDS: METHIMAZOLE 5 MG TABLET PO SCH (11:01)
[2021-03-01] MEDS: LIDOCAINE 5% TOPICAL PATCH TP SCH (11:01)
[2021-03-01] MEDS: DOCUSATE SODIUM 100 MG CAPSULE (FP) PO SCH (21:02)
[2021-03-01] MEDS: LIDOCAINE PATCH REMOVAL MC SCH (21:03)
[2021-03-02] MEDS: METOPROLOL TARTRATE 50 MG TABLET (FP) PO SCH ×2 (09:50→21:05)
[2021-03-02] MEDS: PANTOPRAZOLE 40 MG TABLET PO SCH (09:50)
[2021-03-02] MEDS: METHIMAZOLE 5 MG TABLET PO SCH (09:50)
[2021-03-02] MEDS: FUROSEMIDE 20 MG TABLET (FP) PO SCH (09:50)
[2021-03-02] MEDS: LIDOCAINE 5% TOPICAL PATCH TP SCH (09:50)
[2021-03-02] MEDS: POLYETHYLENE GLYCOL (HEALTHYLAX) 3350 17 GM PACKET PO SCH (09:51)
[2021-03-02] MEDS: ACETAMINOPHEN 325 MG TABLET (FP) PO PRN (20:09)
[2021-03-02] MEDS ORDERED: PT OWN MED DRAWER 7, Y5N ONE (20:29)
[2021-03-02] MEDS: LIDOCAINE PATCH REMOVAL MC SCH (21:05)
[2021-03-02] MEDS: DOCUSATE SODIUM 100 MG CAPSULE (FP) PO SCH (21:05)
[2021-03-02] MEDS: PANTOPRAZOLE 20 MG TABLET PO SCH (21:05)
[2021-03-03] MEDS: ACETAMINOPHEN 325 MG TABLET (FP) PO PRN ×2 (03:43→20:24)
[2021-03-03 09:08] LABS: HEMATOCRIT 30.8 % (32.4-45.2); MCH 28.2 pg (25.7-33.7); MCHC 32.5 g/dl (32.0-36.0); MEAN CELL VOLUME 86.8 fl (80-96); PLATELET COUNT 291 10^3/uL (134-434); RBC 3.55 M/mm3 (3.60-5.2); RDW 15.3 % (11.6-15.6); WHITE BLOOD COUNT 7.5 K/mm3 (4.0-10.0)
[2021-03-03 09:33] LABS: BLOOD UREA NITROGEN 52.5 mg/dL (7-18); CALCIUM 9.7 mg/dL (8.5-10.1)
[2021-03-03 09:36] LABS: CREATININE 1.7 mg/dL (0.55-1.3)
[2021-03-03] MEDS: LIDOCAINE 5% TOPICAL PATCH TP SCH (09:55)
[2021-03-03] MEDS: POLYETHYLENE GLYCOL (HEALTHYLAX) 3350 17 GM PACKET PO SCH (09:55)
[2021-03-03] MEDS: PANTOPRAZOLE 20 MG TABLET PO SCH ×2 (09:55→22:18)
[2021-03-03] MEDS: METOPROLOL TARTRATE 50 MG TABLET (FP) PO SCH ×2 (09:55→22:18)
[2021-03-03] MEDS: FUROSEMIDE 20 MG TABLET (FP) PO SCH (09:55)
[2021-03-03] MEDS: METHIMAZOLE 5 MG TABLET PO SCH (09:55)
[2021-03-03] MEDS: DOCUSATE SODIUM 100 MG CAPSULE (FP) PO SCH (22:18)
[2021-03-03] MEDS: LIDOCAINE PATCH REMOVAL MC SCH (23:24)
[2021-03-04 09:21] LABS: INR 1.07 (0.83-1.09); PROTHROMBIN TIME (PATIENT) 12.9 SEC (9.7-13.0)
[2021-03-04 09:23] LABS: ACTIVATED PTT 28.7 SECONDS (25.2-36.5)
[2021-03-04] MEDS: FUROSEMIDE 20 MG TABLET (FP) PO SCH (09:28)
[2021-03-04] MEDS: METOPROLOL TARTRATE 50 MG TABLET (FP) PO SCH ×2 (09:28→21:43)
[2021-03-04] MEDS: POLYETHYLENE GLYCOL (HEALTHYLAX) 3350 17 GM PACKET PO SCH (10:13)
[2021-03-04] MEDS: PANTOPRAZOLE 20 MG TABLET PO SCH ×2 (10:14→21:42)
[2021-03-04] MEDS: LIDOCAINE 5% TOPICAL PATCH TP SCH (10:14)
[2021-03-04] MEDS: METHIMAZOLE 5 MG TABLET PO SCH (10:14)
[2021-03-04] MEDS ORDERED: PT OWN MED DRAWER 7, Y5N ONE (10:24)
[2021-03-04] MEDS ORDERED: PROPOFOL 20 ML ONE (13:31)
[2021-03-04] MEDS ORDERED: ceFAZolin SODIUM 1 GM VIAL ONE (13:32)
[2021-03-04] MEDS ORDERED: ONDANSETRON 4 MG/2 ML VIAL ONE (13:32)
[2021-03-04] MEDS ORDERED: DEXAMETHASONE SOD PHOSPHATE 4 MG/1 ML VIAL ONE (13:32)
[2021-03-04] MEDS ORDERED: LIDOCAINE HCL/PF 2% SDV 5ML VIAL ONE (13:32)
[2021-03-04] MEDS ORDERED: ONDANSETRON 4 MG/2 ML VIAL IVPUSH PRN (13:51)
[2021-03-04] MEDS ORDERED: ACETAMINOPHEN 1000 MG/100 ML VIAL (NON FORMULARY) IVPB ONE (13:52)
[2021-03-04] MEDS ORDERED: LACTATED RINGERS SOLUTION 1,000 ML IV SCH (14:00)
[2021-03-04] MEDS: traMADol HCL 50 MG TABLET PO SCH (21:42)
[2021-03-04] MEDS: LIDOCAINE PATCH REMOVAL MC SCH (21:43)
[2021-03-04] MEDS: DOCUSATE SODIUM 100 MG CAPSULE (FP) PO SCH (21:43)
[2021-03-05] MEDS: traMADol HCL 50 MG TABLET PO SCH ×3 (05:26→21:21)
[2021-03-05 08:17] LABS: HEMATOCRIT 32.5 % (32.4-45.2); HEMOGLOBIN 10.3 GM/dL (10.7-15.3); MCH 27.3 pg (25.7-33.7); MCHC 31.6 g/dl (32.0-36.0); MEAN CELL VOLUME 86.5 fl (80-96); MEAN PLT VOLUME 8.7 fl (7.5-11.1); PLATELET COUNT 305 10^3/uL (134-434); RBC 3.76 M/mm3 (3.60-5.2); RDW 15.2 % (11.6-15.6); WHITE BLOOD COUNT 10.6 K/mm3 (4.0-10.0)
[2021-03-05 09:00] LABS: CALCIUM 10.1 mg/dL (8.5-10.1)
[2021-03-05 09:01] LABS: BLOOD UREA NITROGEN 53.6 mg/dL (7-18)
[2021-03-05 09:05] LABS: CREATININE 1.6 mg/dL (0.55-1.3)
[2021-03-05] MEDS: LIDOCAINE 5% TOPICAL PATCH TP SCH (09:18)
[2021-03-05] MEDS: PANTOPRAZOLE 20 MG TABLET PO SCH ×2 (09:18→21:22)
[2021-03-05] MEDS: FUROSEMIDE 20 MG TABLET (FP) PO SCH (09:18)
[2021-03-05] MEDS: METHIMAZOLE 5 MG TABLET PO SCH (09:18)
[2021-03-05] MEDS: METOPROLOL TARTRATE 50 MG TABLET (FP) PO SCH ×2 (09:18→21:22)
[2021-03-05] MEDS: POLYETHYLENE GLYCOL (HEALTHYLAX) 3350 17 GM PACKET PO SCH (09:18)
[2021-03-05] MEDS ORDERED: ACETAMINOPHEN 1000 MG/100 ML VIAL (NON FORMULARY) IVPB ONE (14:54)
[2021-03-05] MEDS ORDERED: SODIUM ZIRCONIUM CYCLOSILICATE (LOKELMA) 5 GM PACKET PO ONE (19:26)
[2021-03-05] MEDS: DOCUSATE SODIUM 100 MG CAPSULE (FP) PO SCH (21:21)
[2021-03-05] MEDS: LIDOCAINE PATCH REMOVAL MC SCH (21:22)
[2021-03-06] MEDS: traMADol HCL 50 MG TABLET PO SCH ×2 (05:31→13:29)
[2021-03-06 08:51] LABS: BASO % 0.9 % (0-2.0); EOS % 7.1 % (0-4.5); HEMATOCRIT 33.1 % (32.4-45.2); HEMOGLOBIN 10.6 GM/dL (10.7-15.3); LYMPH % 20.5 % (8-40); MCH 27.9 pg (25.7-33.7); MCHC 31.9 g/dl (32.0-36.0); MEAN CELL VOLUME 87.3 fl (80-96); MEAN PLT VOLUME 8.6 fl (7.5-11.1); MONO % 9.5 % (3.8-10.2); PLATELET COUNT 284 10^3/uL (134-434); RBC 3.79 M/mm3 (3.60-5.2); RDW 15.4 % (11.6-15.6); WHITE BLOOD COUNT 8.6 K/mm3 (4.0-10.0)
[2021-03-06 09:24] LABS: BLOOD UREA NITROGEN 53.1 mg/dL (7-18); CREATININE 1.6 mg/dL (0.55-1.3)
[2021-03-06 09:26] LABS: BILIRUBIN,TOTAL 0.5 mg/dL (0.2-1)
[2021-03-06 09:29] LABS: TOT PROT 6.8 g/dl (6.4-8.2)
[2021-03-06 09:33] LABS: ALBUMIN 2.6 g/dl (3.4-5.0)
[2021-03-06] MEDS ORDERED: PT OWN MED DRAWER 7, Y5N ONE (10:31)
[2021-03-06] MEDS: LIDOCAINE 5% TOPICAL PATCH TP SCH (10:36)
[2021-03-06] MEDS: FUROSEMIDE 20 MG TABLET (FP) PO SCH (10:37)
[2021-03-06] MEDS: METOPROLOL TARTRATE 50 MG TABLET (FP) PO SCH (10:37)
[2021-03-06] MEDS: DEXAMETHASONE SOD PHOSPHATE 10 MG/1 ML VIAL ONE ×2 (11:20→23:20)
[2021-03-06] MEDS: ONDANSETRON 4 MG/2 ML VIAL IVPUSH PRN ×2 (11:25→23:25)
[2021-03-06] MEDS: ACETAMINOPHEN 1000 MG/100 ML VIAL (NON FORMULARY) IVPB ONE ×2 (11:30→23:30)
[2021-03-06] MEDS: LACTATED RINGERS SOLUTION 1,000 ML IV SCH (11:45)
[2021-03-06] MEDS: POLYETHYLENE GLYCOL (HEALTHYLAX) 3350 17 GM PACKET PO SCH (13:04)
[2021-03-06] MEDS: PANTOPRAZOLE 20 MG TABLET PO SCH (13:04)
[2021-03-06] MEDS: METHIMAZOLE 5 MG TABLET PO SCH (13:04)
[2021-03-06] MEDS ORDERED: MIDAZOLAM HCL 2 MG/2 ML SINGLE DOSE VIAL ONE ×3 (15:20→19:00)
[2021-03-06] MEDS ORDERED: BUPIVACAINE HCL/PF 0.5% (5MG/ML) 10 ML VIAL ONE (15:21)
[2021-03-06] MEDS ORDERED: MORPHINE 5 MG/10 ML AMP - FOR COMPOUNDING USE ONLY ONE (15:35)
[2021-03-06] MEDS ORDERED: HEPARIN NA (PORCINE) 5,000 UNITS/ML 1ML VIAL ONE (15:56)
[2021-03-06] MEDS ORDERED: PROPOFOL 20 ML ONE (16:09)
[2021-03-06] MEDS ORDERED: SODIUM ZIRCONIUM CYCLOSILICATE (LOKELMA) 5 GM PACKET PO ONE ×2 (17:17→23:51)
[2021-03-06] MEDS ORDERED: LACTATED RINGERS SOLUTION 1,000 ML IV SCH (18:00)
[2021-03-06] MEDS ORDERED: HYDROmorphone *PCA* 10MG/50ML DISP.SYRIN PCA SCH (18:00)
[2021-03-06] MEDS ORDERED: ePHEDrine SULFATE 50 MG/1 ML AMPULE ONE (19:59)
[2021-03-06] MEDS ORDERED: SODIUM CHLORIDE 0.9% P/F 10 ML VIAL IJ ONE ×2 (19:59→20:08)
[2021-03-06] MEDS ORDERED: ceFAZolin SODIUM 1 GM VIAL ONE (20:07)
[2021-03-06] MEDS ORDERED: ACETAMINOPHEN INJECTION 100 ML IVPB ONE (23:14)
[2021-03-06] MEDS ORDERED: ONDANSETRON 4 MG/2 ML VIAL ONE (23:14)
[2021-03-06 23:44] LABS: HEMATOCRIT 36.7 % (32.4-45.2); HEMOGLOBIN 11.7 GM/dL (10.7-15.3); MCH 28.1 pg (25.7-33.7); MEAN CELL VOLUME 87.6 fl (80-96); MEAN PLT VOLUME 8.3 fl (7.5-11.1); PLATELET COUNT 271 10^3/uL (134-434); RBC 4.19 M/mm3 (3.60-5.2); RDW 15.8 % (11.6-15.6); WHITE BLOOD COUNT 20.3 K/mm3 (4.0-10.0)
[2021-03-06] MEDS ORDERED: ACETAMINOPHEN 325 MG TABLET (FP) PO PRN (23:51)
[2021-03-07] MEDS ORDERED: PCA PUMP NR ONE ×3 (00:18→18:52)
[2021-03-07] MEDS: HYDROmorphone *PCA* 10MG/50ML DISP.SYRIN PCA SCH (00:20)
[2021-03-07] MEDS: CEFAZOLIN 1 GM/D5W 1 GM/50 ML BAG IVPB SCH ×2 (00:20→13:37)
[2021-03-07] MEDS ORDERED: CEFAZOLIN 1 GM/D5W 1 GM/50 ML BAG IVPB SCH (01:00)
[2021-03-07 01:43] LABS: ANISOCYTOSIS 2+; MACROCYTOSIS 0; PLATELET ESTIMATE NORMAL; TEAR DROP CELLS 1+
[2021-03-07] MEDS ORDERED: SODIUM CHLORIDE 0.9% 500 ML INFUS.BAG IV ONE ×3 (02:04→22:40)
[2021-03-07] MEDS: traMADol HCL 50 MG TABLET PO SCH ×4 (06:09→21:14)
[2021-03-07 07:46] LABS: HEMATOCRIT 32.1 % (32.4-45.2); HEMOGLOBIN 10.7 GM/dL (10.7-15.3); MCH 28.8 pg (25.7-33.7); MCHC 33.4 g/dl (32.0-36.0); MEAN CELL VOLUME 86.2 fl (80-96); MEAN PLT VOLUME 8.9 fl (7.5-11.1); PLATELET COUNT 255 10^3/uL (134-434); RBC 3.73 M/mm3 (3.60-5.2); RDW 15.4 % (11.6-15.6)
[2021-03-07 08:10] LABS: BLOOD UREA NITROGEN 57.2 mg/dL (7-18); MAGNESIUM 1.5 mg/dL (1.8-2.4)
[2021-03-07 08:13] LABS: PHOSPHOROUS 5.4 mg/dL (2.5-4.9)
[2021-03-07 08:15] LABS: BILIRUBIN,TOTAL 0.5 mg/dL (0.2-1); TOT PROT 5.6 g/dl (6.4-8.2)
[2021-03-07 08:23] LABS: ALBUMIN 2.1 g/dl (3.4-5.0)
[2021-03-07] MEDS ORDERED: MORPHINE SULFATE 2 MG/ML VIAL IVPUSH PRN (08:54)
[2021-03-07] MEDS ORDERED: DEXTROSE 50%-WATER - 25 GM/50 ML VIAL IVPUSH ONE (10:15)
[2021-03-07] MEDS ORDERED: MAGNESIUM SULF 50% (8.12 MEQ/2 ML-1 GM VIAL) IVPB ONE (10:15)
[2021-03-07] MEDS ORDERED: INSULIN REGULAR HUMAN 100 UNITS/ML *VIAL IVPUSH ONE (10:15)
[2021-03-07] MEDS ORDERED: CALCIUM GLUCONATE 10% - 1,000 MG/10 ML VIAL IVPUSH ONE (10:15)
[2021-03-07] MEDS ORDERED: MAGNESIUM 2GM/50ML STERILE WATER IVPB IVPB ONE (10:15)
[2021-03-07] MEDS: PANTOPRAZOLE 20 MG TABLET PO SCH ×3 (10:18→21:14)
[2021-03-07 10:19] LABS: ANISOCYTOSIS 1+; MACROCYTOSIS 0; PLATELET ESTIMATE NORMAL
[2021-03-07] MEDS: FUROSEMIDE 20 MG TABLET (FP) PO SCH (10:19)
[2021-03-07] MEDS: ACETAMINOPHEN 325 MG TABLET (FP) PO SCH ×2 (10:19→17:22)
[2021-03-07] MEDS: MUPIROCIN 2% TOPICAL OINTMENT FOR DECOLONIZATION NS SCH ×2 (10:19→21:02)
[2021-03-07] MEDS: METOPROLOL TARTRATE 50 MG TABLET (FP) PO SCH ×3 (10:20→21:14)
[2021-03-07] MEDS: LIDOCAINE 5% TOPICAL PATCH TP SCH (10:21)
[2021-03-07] MEDS: POLYETHYLENE GLYCOL (HEALTHYLAX) 3350 17 GM PACKET PO SCH (10:22)
[2021-03-07] MEDS ORDERED: DEXTROSE 50%-WATER 25 GM/50 ML DISP.SYRIN ONE (10:37)
[2021-03-07] MEDS ORDERED: METOPROLOL TARTRATE 5 MG/5 ML VIAL IVPUSH PRN (11:02)
[2021-03-07] MEDS ORDERED: METOPROLOL TARTRATE 5 MG/5 ML VIAL IVPUSH ONE (11:05)
[2021-03-07] MEDS ORDERED: PT OWN MED DRAWER 7, Y5N ONE (11:35)
[2021-03-07] MEDS: SODIUM ZIRCONIUM CYCLOSILICATE (LOKELMA) 5 GM PACKET PO SCH (13:35)
[2021-03-07] MEDS: METHIMAZOLE 5 MG TABLET PO SCH (13:35)
[2021-03-07] MEDS: ASPIRIN 81 MG CHEWABLE TABLETS PO SCH (13:35)
[2021-03-07] MEDS ORDERED: LACTATED RINGERS SOLUTION 1000 ML INFUS.BAG IV ONE (18:48)
[2021-03-07] MEDS: LACTATED RINGERS SOLUTION 1,000 ML IV SCH (20:23)
[2021-03-07] MEDS: DOCUSATE SODIUM 100 MG CAPSULE (FP) PO SCH (21:14)
[2021-03-07] MEDS: LIDOCAINE PATCH REMOVAL MC SCH (21:14)
[2021-03-07] MEDS ORDERED: DOCUSATE SODIUM 100 MG CAPSULE (FP) PO SCH (22:00)
[2021-03-07] MEDS ORDERED: LIDOCAINE PATCH REMOVAL MC SCH (22:00)
[2021-03-07] MEDS ORDERED: CHLORHEXIDINE GLUCONATE 4% CLEANSER FOR DECOLONIZATION TP SCH (22:00)
[2021-03-08] MEDS: HYDROmorphone *PCA* 10MG/50ML DISP.SYRIN PCA SCH ×3 (00:21→18:07)
[2021-03-08] MEDS: ACETAMINOPHEN 325 MG TABLET (FP) PO SCH ×5 (00:22→23:43)
[2021-03-08] MEDS: LACTATED RINGERS SOLUTION 1,000 ML IV SCH (00:22)
[2021-03-08] MEDS: CEFAZOLIN 1 GM/D5W 1 GM/50 ML BAG IVPB SCH ×2 (00:22→12:28)
[2021-03-08] MEDS: traMADol HCL 50 MG TABLET PO SCH ×3 (06:36→21:04)
[2021-03-08 07:44] LABS: BASO % 0.1 % (0-2.0); EOS % 0.1 % (0-4.5); HEMATOCRIT 28.2 % (32.4-45.2); HEMOGLOBIN 9.2 GM/dL (10.7-15.3); LYMPH % 7.2 % (8-40); MCHC 32.8 g/dl (32.0-36.0); MEAN CELL VOLUME 88.4 fl (80-96); NEUT % 84.6 % (42.8-82.8); PLATELET COUNT 222 10^3/uL (134-434); RBC 3.19 M/mm3 (3.60-5.2); RDW 15.8 % (11.6-15.6)
[2021-03-08 08:10] LABS: ALBUMIN 1.9 g/dl (3.4-5.0); BLOOD UREA NITROGEN 62.6 mg/dL (7-18); CALCIUM 9.1 mg/dL (8.5-10.1)
[2021-03-08 08:13] LABS: CREATININE 2.3 mg/dL (0.55-1.3)
[2021-03-08 08:14] LABS: BILIRUBIN,TOTAL 0.3 mg/dL (0.2-1)
[2021-03-08 08:15] LABS: TOT PROT 5.2 g/dl (6.4-8.2)
[2021-03-08] MEDS ORDERED: PT OWN MED DRAWER 7, Y5N ONE (09:37)
[2021-03-08] MEDS: METOPROLOL TARTRATE 50 MG TABLET (FP) PO SCH ×2 (09:42→21:06)
[2021-03-08] MEDS: ASPIRIN 81 MG CHEWABLE TABLETS PO SCH (09:42)
[2021-03-08] MEDS: FUROSEMIDE 20 MG TABLET (FP) PO SCH (09:42)
[2021-03-08] MEDS: POLYETHYLENE GLYCOL (HEALTHYLAX) 3350 17 GM PACKET PO SCH (09:42)
[2021-03-08] MEDS: PANTOPRAZOLE 20 MG TABLET PO SCH ×2 (09:42→21:03)
[2021-03-08] MEDS: METHIMAZOLE 5 MG TABLET PO SCH (09:43)
[2021-03-08] MEDS: SODIUM ZIRCONIUM CYCLOSILICATE (LOKELMA) 5 GM PACKET PO SCH (09:43)
[2021-03-08] MEDS: LIDOCAINE 5% TOPICAL PATCH TP SCH (09:44)
[2021-03-08] MEDS: MUPIROCIN 2% TOPICAL OINTMENT FOR DECOLONIZATION NS SCH ×2 (09:52→21:05)
[2021-03-08] MEDS ORDERED: SODIUM CHLORIDE 0.9% 500 ML INFUS.BAG IV ONE ×2 (11:34→21:09)
[2021-03-08] MEDS ORDERED: SODIUM CHLORIDE 1,000 ML IV SCH ×2 (11:45→17:39)
[2021-03-08 12:00] LABS: MAGNESIUM 2.2 mg/dL (1.8-2.4)
[2021-03-08 12:05] LABS: PHOSPHOROUS 4.7 mg/dL (2.5-4.9)
[2021-03-08] MEDS ORDERED: INSULIN REGULAR HUMAN 100 UNITS/ML *VIAL IVPUSH ONE ×3 (13:56)
[2021-03-08] MEDS ORDERED: DEXTROSE 50%-WATER - 25 GM/50 ML VIAL IVPUSH ONE (13:58)
[2021-03-08] MEDS ORDERED: ALBUTEROL SO4 HFA INHALER IH ONE (13:59)
[2021-03-08] MEDS ORDERED: DEXTROSE 50%-WATER 25 GM/50 ML DISP.SYRIN ONE (14:11)
[2021-03-08] MEDS ORDERED: CALCIUM GLUCONATE 10% - 1,000 MG/10 ML VIAL IVPUSH ONE (14:45)
[2021-03-08] MEDS ORDERED: MAGNESIUM SULF 50% (8.12 MEQ/2 ML-1 GM VIAL) IVPB ONE (17:39)
[2021-03-08] MEDS ORDERED: METOPROLOL TARTRATE 5 MG/5 ML VIAL IVPUSH PRN (17:39)
[2021-03-08] MEDS ORDERED: MORPHINE SULFATE 2 MG/ML VIAL IVPUSH PRN (17:39)
[2021-03-08] MEDS ORDERED: PCA PUMP NR ONE (18:14)
[2021-03-08] MEDS: DOCUSATE SODIUM 100 MG CAPSULE (FP) PO SCH (21:05)
[2021-03-08] MEDS: CHLORHEXIDINE GLUCONATE 4% CLEANSER FOR DECOLONIZATION TP SCH (21:05)
[2021-03-09] MEDS: ACETAMINOPHEN 325 MG TABLET (FP) PO SCH ×4 (07:36→23:30)
[2021-03-09] MEDS: traMADol HCL 50 MG TABLET PO SCH ×3 (07:37→22:11)
[2021-03-09 08:10] LABS: HEMATOCRIT 26.6 % (32.4-45.2); HEMOGLOBIN 8.6 GM/dL (10.7-15.3); MCH 28.9 pg (25.7-33.7); MCHC 32.6 g/dl (32.0-36.0); MEAN CELL VOLUME 88.9 fl (80-96); MEAN PLT VOLUME 9.2 fl (7.5-11.1); PLATELET COUNT 183 10^3/uL (134-434); RBC 2.99 M/mm3 (3.60-5.2); RDW 15.8 % (11.6-15.6); WHITE BLOOD COUNT 14.6 K/mm3 (4.0-10.0)
[2021-03-09 08:25] LABS: CHLORIDE 106 mmol/L (98-107); SODIUM 135 mmol/L (136-145)
[2021-03-09 08:31] LABS: ALBUMIN 1.7 g/dl (3.4-5.0); CALCIUM 8.7 mg/dL (8.5-10.1)
[2021-03-09 08:32] LABS: ANION GAP 9 MMOL/L (8-16); BLOOD UREA NITROGEN 54.1 mg/dL (7-18); CO2 19 mmol/L (21-32); GLUCOSE,RANDOM 70 mg/dL (74-106); MAGNESIUM 1.9 mg/dL (1.8-2.4)
[2021-03-09 08:34] LABS: SGPT/ALT < 6 U/L (13-61)
[2021-03-09 08:35] LABS: CREATININE 1.9 mg/dL (0.55-1.3); SGOT/AST 22 U/L (15-37)
[2021-03-09 08:36] LABS: BILIRUBIN,TOTAL 0.8 mg/dL (0.2-1); TOT PROT 4.9 g/dl (6.4-8.2)
[2021-03-09 08:38] LABS: ALK PHOS 77 U/L (45-117)
[2021-03-09] MEDS ORDERED: PT OWN MED DRAWER 7, Y5N ONE (09:44)
[2021-03-09] MEDS ORDERED: SODIUM ZIRCONIUM CYCLOSILICATE (LOKELMA) 10 GM PACKET PO SCH (10:00)
[2021-03-09] MEDS ORDERED: FUROSEMIDE 20 MG TABLET (FP) PO SCH (10:00)
[2021-03-09] MEDS ORDERED: ASPIRIN 81 MG CHEWABLE TABLETS PO SCH (10:00)
[2021-03-09] MEDS: POLYETHYLENE GLYCOL (HEALTHYLAX) 3350 17 GM PACKET PO SCH (10:01)
[2021-03-09] MEDS: METOPROLOL TARTRATE 50 MG TABLET (FP) PO SCH ×2 (10:02→21:46)
[2021-03-09] MEDS: MUPIROCIN 2% TOPICAL OINTMENT FOR DECOLONIZATION NS SCH ×2 (10:02→21:45)
[2021-03-09] MEDS: LIDOCAINE 5% TOPICAL PATCH TP SCH (10:02)
[2021-03-09] MEDS: METHIMAZOLE 5 MG TABLET PO SCH (10:03)
[2021-03-09] MEDS: PANTOPRAZOLE 20 MG TABLET PO SCH ×2 (10:04→21:46)
[2021-03-09] MEDS: SODIUM CHLORIDE 1,000 ML IV SCH (15:40)
[2021-03-09] MEDS ORDERED: PCA PUMP NR ONE (17:52)
[2021-03-09] MEDS: HYDROmorphone *PCA* 10MG/50ML DISP.SYRIN PCA SCH (17:55)
[2021-03-09] MEDS: DOCUSATE SODIUM 100 MG CAPSULE (FP) PO SCH (21:46)
[2021-03-09] MEDS: LIDOCAINE PATCH REMOVAL MC SCH (22:09)
[2021-03-09] MEDS: CHLORHEXIDINE GLUCONATE 4% CLEANSER FOR DECOLONIZATION TP SCH (22:09)
[2021-03-10] MEDS: traMADol HCL 50 MG TABLET PO SCH (05:59)
[2021-03-10] MEDS: ACETAMINOPHEN 325 MG TABLET (FP) PO SCH ×3 (05:59→18:24)
[2021-03-10 07:59] LABS: HEMATOCRIT 25.5 % (32.4-45.2); HEMOGLOBIN 8.4 GM/dL (10.7-15.3); MCH 29.1 pg (25.7-33.7); MCHC 33.1 g/dl (32.0-36.0); MEAN CELL VOLUME 87.9 fl (80-96); MEAN PLT VOLUME 8.8 fl (7.5-11.1); PLATELET COUNT 188 10^3/uL (134-434); RDW 15.7 % (11.6-15.6); WHITE BLOOD COUNT 11.3 K/mm3 (4.0-10.0)
[2021-03-10 08:24] LABS: BLOOD UREA NITROGEN 47.8 mg/dL (7-18); CALCIUM 8.8 mg/dL (8.5-10.1)
[2021-03-10 08:28] LABS: CREATININE 1.8 mg/dL (0.55-1.3); PHOSPHOROUS 3.4 mg/dL (2.5-4.9)
[2021-03-10] MEDS: SODIUM ZIRCONIUM CYCLOSILICATE (LOKELMA) 5 GM PACKET PO SCH (09:23)
[2021-03-10] MEDS: POLYETHYLENE GLYCOL (HEALTHYLAX) 3350 17 GM PACKET PO SCH (09:23)
[2021-03-10] MEDS: METOPROLOL TARTRATE 50 MG TABLET (FP) PO SCH ×2 (09:24→21:12)
[2021-03-10] MEDS: METHIMAZOLE 5 MG TABLET PO SCH (09:24)
[2021-03-10] MEDS: PANTOPRAZOLE 20 MG TABLET PO SCH ×2 (09:24→21:12)
[2021-03-10] MEDS: LIDOCAINE 5% TOPICAL PATCH TP SCH (09:24)
[2021-03-10] MEDS: MUPIROCIN 2% TOPICAL OINTMENT FOR DECOLONIZATION NS SCH ×3 (09:25→21:12)
[2021-03-10] MEDS ORDERED: APIXABAN 2.5 MG TABLET PO SCH (10:00)
[2021-03-10] MEDS ORDERED: GLYCERIN 1 RECTAL SUPPOSITORY, ADULT PR ONE (10:12)
[2021-03-10] MEDS: APIXABAN 2.5 MG TABLET PO SCH ×2 (11:38→21:12)
[2021-03-10] MEDS ORDERED: traMADol HCL 50 MG TABLET PO PRN (11:58)
[2021-03-10 16:45] VITALS: BMI 26.6
[2021-03-10] MEDS ORDERED: PCA PUMP NR ONE (18:01)
[2021-03-10] MEDS: SODIUM CHLORIDE 1,000 ML IV SCH (18:24)
[2021-03-10] MEDS: HYDROmorphone *PCA* 10MG/50ML DISP.SYRIN PCA SCH (18:33)
[2021-03-10] MEDS: DOCUSATE SODIUM 100 MG CAPSULE (FP) PO SCH (21:12)
[2021-03-10] MEDS: CHLORHEXIDINE GLUCONATE 4% CLEANSER FOR DECOLONIZATION TP SCH (21:13)
[2021-03-10] MEDS: LIDOCAINE PATCH REMOVAL MC SCH (21:13)
[2021-03-10] MEDS ORDERED: traMADol HCL 50 MG TABLET PO SCH (22:00)
[2021-03-11] MEDS: ACETAMINOPHEN 1000 MG/100 ML VIAL (NON FORMULARY) IVPB PRN ×3 (03:51→22:02)
[2021-03-11 07:31] LABS: BASO % 0.3 % (0-2.0); EOS % 0.1 % (0-4.5); HEMOGLOBIN 9.2 GM/dL (10.7-15.3); LYMPH % 5.7 % (8-40); MCH 28.5 pg (25.7-33.7); MCHC 32.8 g/dl (32.0-36.0); MEAN CELL VOLUME 86.9 fl (80-96); MEAN PLT VOLUME 8.7 fl (7.5-11.1); MONO % 7.2 % (3.8-10.2); NEUT % 86.7 % (42.8-82.8); PLATELET COUNT 242 10^3/uL (134-434); RBC 3.22 M/mm3 (3.60-5.2); RDW 16.1 % (11.6-15.6); WHITE BLOOD COUNT 19.9 K/mm3 (4.0-10.0)
[2021-03-11 07:44] LABS: CHLORIDE 111 mmol/L (98-107); SODIUM 138 mmol/L (136-145)
[2021-03-11 07:49] LABS: ALBUMIN 1.6 g/dl (3.4-5.0); ANION GAP 8 MMOL/L (8-16); CALCIUM 9.5 mg/dL (8.5-10.1); CO2 19 mmol/L (21-32)
[2021-03-11 07:50] LABS: BLOOD UREA NITROGEN 44.1 mg/dL (7-18); GLUCOSE,RANDOM 106 mg/dL (74-106); MAGNESIUM 1.9 mg/dL (1.8-2.4)
[2021-03-11 07:52] LABS: SGPT/ALT < 6 U/L (13-61)
[2021-03-11 07:53] LABS: BILIRUBIN,TOTAL 0.6 mg/dL (0.2-1); CREATININE 1.6 mg/dL (0.55-1.3); SGOT/AST 20 U/L (15-37)
[2021-03-11 07:54] LABS: TOT PROT 5.2 g/dl (6.4-8.2)
[2021-03-11 07:55] LABS: ALK PHOS 81 U/L (45-117)
[2021-03-11] MEDS: APIXABAN 2.5 MG TABLET PO SCH ×2 (09:24→21:03)
[2021-03-11] MEDS: POLYETHYLENE GLYCOL (HEALTHYLAX) 3350 17 GM PACKET PO SCH (09:24)
[2021-03-11] MEDS: SODIUM ZIRCONIUM CYCLOSILICATE (LOKELMA) 5 GM PACKET PO SCH (09:25)
[2021-03-11] MEDS: METOPROLOL TARTRATE 50 MG TABLET (FP) PO SCH ×2 (09:25→21:03)
[2021-03-11] MEDS: MUPIROCIN 2% TOPICAL OINTMENT FOR DECOLONIZATION NS SCH ×2 (09:27→21:02)
[2021-03-11] MEDS: METHIMAZOLE 5 MG TABLET PO SCH (09:27)
[2021-03-11] MEDS: PANTOPRAZOLE 20 MG TABLET PO SCH ×2 (09:27→21:03)
[2021-03-11] MEDS: LIDOCAINE 5% TOPICAL PATCH TP SCH (09:27)
[2021-03-11 13:15] LABS: EPI CELLS 5 /uL (0-25.1); HYALINE CASTS 1 /uL (0-3.1); URINE APPEARANCE CLEAR; URINE BACTERIA 11 /uL (0-1359); URINE BILIRUBIN NEGATIVE (NEGATIVE); URINE COLOR YELLOW; URINE GLUCOSE (UA) NEGATIVE (NEGATIVE); URINE KETONE NEGATIVE (NEGATIVE); URINE LEUK ESTERASE NEGATIVE (NEGATIVE); URINE NITRITE NEGATIVE (NEGATIVE); URINE PROTEIN TRACE (NEGATIVE); URINE RBC 44 /uL (0-23.9); URINE UROBILINOGEN 0.2 mg/dL (0.2-1.0); URINE WBC 11 /uL (0-25.8)
[2021-03-11] MEDS: SODIUM CHLORIDE 1,000 ML IV SCH (19:34)
[2021-03-11] MEDS: DOCUSATE SODIUM 100 MG CAPSULE (FP) PO SCH (21:02)
[2021-03-11] MEDS: LIDOCAINE PATCH REMOVAL MC SCH (21:03)
[2021-03-11] MEDS: SENNOSIDES 8.6MG TABLET (FP) PO SCH (21:03)
[2021-03-11] MEDS: CHLORHEXIDINE GLUCONATE 4% CLEANSER FOR DECOLONIZATION TP SCH (21:03)
[2021-03-12] MEDS ORDERED: ACETAMINOPHEN 325 MG TABLET (FP) PO ONE (03:33)
[2021-03-12] MEDS ORDERED: ACETAMINOPHEN 1000 MG/100 ML VIAL (NON FORMULARY) IVPB ONE (04:05)
[2021-03-12 08:24] LABS: BASO % 0.8 % (0-2.0); EOS % 1.2 % (0-4.5); HEMATOCRIT 23.7 % (32.4-45.2); HEMOGLOBIN 7.8 GM/dL (10.7-15.3); LYMPH % 8.5 % (8-40); MCH 28.7 pg (25.7-33.7); MEAN CELL VOLUME 87.1 fl (80-96); MEAN PLT VOLUME 8.5 fl (7.5-11.1); MONO % 8.5 % (3.8-10.2); PLATELET COUNT 233 10^3/uL (134-434); RBC 2.72 M/mm3 (3.60-5.2); RDW 15.8 % (11.6-15.6); WHITE BLOOD COUNT 16.9 K/mm3 (4.0-10.0)
[2021-03-12 09:05] LABS: ALBUMIN 1.4 g/dl (3.4-5.0); ALK PHOS 72 U/L (45-117); ANION GAP 8 MMOL/L (8-16); BILIRUBIN,TOTAL 0.5 mg/dL (0.2-1); BLOOD UREA NITROGEN 38.7 mg/dL (7-18); CHLORIDE 110 mmol/L (98-107); CO2 20 mmol/L (21-32); CREATININE 1.4 mg/dL (0.55-1.3); GLUCOSE,RANDOM 104 mg/dL (74-106); MAGNESIUM 1.7 mg/dL (1.8-2.4); PHOSPHOROUS 2.9 mg/dL (2.5-4.9); SGOT/AST 13 U/L (15-37); SGPT/ALT < 6 U/L (13-61); SODIUM 138 mmol/L (136-145); TOT PROT 4.6 g/dl (6.4-8.2)
[2021-03-12] MEDS: APIXABAN 2.5 MG TABLET PO SCH ×2 (10:59→21:40)
[2021-03-12] MEDS: METOPROLOL TARTRATE 50 MG TABLET (FP) PO SCH ×2 (10:59→21:32)
[2021-03-12] MEDS: METHIMAZOLE 5 MG TABLET PO SCH (10:59)
[2021-03-12] MEDS: PANTOPRAZOLE 20 MG TABLET PO SCH ×2 (10:59→21:38)
[2021-03-12] MEDS: POLYETHYLENE GLYCOL (HEALTHYLAX) 3350 17 GM PACKET PO SCH (10:59)
[2021-03-12] MEDS: SODIUM ZIRCONIUM CYCLOSILICATE (LOKELMA) 5 GM PACKET PO SCH (11:00)
[2021-03-12] MEDS: LIDOCAINE 5% TOPICAL PATCH TP SCH (11:00)
[2021-03-12] MEDS: MUPIROCIN 2% TOPICAL OINTMENT FOR DECOLONIZATION NS SCH (11:01)
[2021-03-12] MEDS ORDERED: NAPH,MB-DB/K PH,MBDB POWDER PACKET PO ONE (13:00)
[2021-03-12] MEDS ORDERED: MAGNESIUM SULF 50% (8.12 MEQ/2 ML-1 GM VIAL) IVPB ONE (13:00)
[2021-03-12] MEDS ORDERED: PT OWN MED DRAWER 7, Y5N ONE (18:10)
[2021-03-12] MEDS: LIDOCAINE PATCH REMOVAL MC SCH (21:38)
[2021-03-12] MEDS: ACETAMINOPHEN 1000 MG/100 ML VIAL (NON FORMULARY) IVPB PRN (21:39)
[2021-03-12] MEDS: SENNOSIDES 8.6MG TABLET (FP) PO SCH (21:39)
[2021-03-12] MEDS: DOCUSATE SODIUM 100 MG CAPSULE (FP) PO SCH (21:40)
[2021-03-13 08:49] LABS: HEMATOCRIT 25.9 % (32.4-45.2); HEMOGLOBIN 8.5 GM/dL (10.7-15.3); MCH 28.4 pg (25.7-33.7); MCHC 32.8 g/dl (32.0-36.0); MEAN CELL VOLUME 86.8 fl (80-96); MEAN PLT VOLUME 8.3 fl (7.5-11.1); PLATELET COUNT 294 10^3/uL (134-434); RBC 2.99 M/mm3 (3.60-5.2); RDW 15.7 % (11.6-15.6)
[2021-03-13 09:11] LABS: CHLORIDE 109 mmol/L (98-107); SODIUM 138 mmol/L (136-145)
[2021-03-13 09:17] LABS: ALBUMIN 1.6 g/dl (3.4-5.0); ANION GAP 5 MMOL/L (8-16); BLOOD UREA NITROGEN 34.1 mg/dL (7-18); CO2 23 mmol/L (21-32); GLUCOSE,RANDOM 94 mg/dL (74-106); MAGNESIUM 2.1 mg/dL (1.8-2.4)
[2021-03-13 09:20] LABS: CREATININE 1.5 mg/dL (0.55-1.3); PHOSPHOROUS 2.9 mg/dL (2.5-4.9); SGOT/AST 20 U/L (15-37)
[2021-03-13 09:21] LABS: BILIRUBIN,TOTAL 0.5 mg/dL (0.2-1)
[2021-03-13 09:22] LABS: ALK PHOS 81 U/L (45-117); TOT PROT 5.2 g/dl (6.4-8.2)
[2021-03-13] MEDS ORDERED: PT OWN MED DRAWER 7, Y5N ONE (09:29)
[2021-03-13 09:34] LABS: SGPT/ALT < 6 U/L (13-61)
[2021-03-13] MEDS: APIXABAN 2.5 MG TABLET PO SCH (09:34)
[2021-03-13] MEDS: METOPROLOL TARTRATE 50 MG TABLET (FP) PO SCH ×2 (09:35→21:39)
[2021-03-13] MEDS: METHIMAZOLE 5 MG TABLET PO SCH (09:36)
[2021-03-13] MEDS: PANTOPRAZOLE 20 MG TABLET PO SCH ×2 (09:36→21:39)
[2021-03-13] MEDS: LIDOCAINE 5% TOPICAL PATCH TP SCH (09:37)
[2021-03-13] MEDS: ACETAMINOPHEN 1000 MG/100 ML VIAL (NON FORMULARY) IVPB PRN ×2 (09:38→15:42)
[2021-03-13 10:33] LABS: ANISOCYTOSIS 0; MACROCYTOSIS 0; PLATELET ESTIMATE NORMAL
[2021-03-13] MEDS: POLYETHYLENE GLYCOL (HEALTHYLAX) 3350 17 GM PACKET PO SCH (12:17)
[2021-03-13] MEDS: ACETAMINOPHEN 325 MG TABLET (FP) PO PRN (21:40)
[2021-03-13] MEDS: LIDOCAINE PATCH REMOVAL MC SCH (21:41)
[2021-03-13] MEDS: DOCUSATE SODIUM 100 MG CAPSULE (FP) PO SCH (21:41)
[2021-03-13] MEDS: SENNOSIDES 8.6MG TABLET (FP) PO SCH (21:44)
[2021-03-14] MEDS: ACETAMINOPHEN 325 MG TABLET (FP) PO PRN ×4 (04:26→21:28)
[2021-03-14 08:13] LABS: HEMATOCRIT 24.4 % (32.4-45.2); MCH 28.7 pg (25.7-33.7); MCHC 32.9 g/dl (32.0-36.0); MEAN CELL VOLUME 87.2 fl (80-96); MEAN PLT VOLUME 8.6 fl (7.5-11.1); PLATELET COUNT 305 10^3/uL (134-434); RDW 16.1 % (11.6-15.6); WHITE BLOOD COUNT 15.3 K/mm3 (4.0-10.0)
[2021-03-14 08:30] LABS: ALBUMIN 1.5 g/dl (3.4-5.0)
[2021-03-14 08:31] LABS: BLOOD UREA NITROGEN 39.8 mg/dL (7-18); MAGNESIUM 1.8 mg/dL (1.8-2.4)
[2021-03-14 08:32] LABS: CALCIUM 8.6 mg/dL (8.5-10.1)
[2021-03-14 08:33] LABS: CREATININE 1.6 mg/dL (0.55-1.3)
[2021-03-14 08:34] LABS: PHOSPHOROUS 2.8 mg/dL (2.5-4.9)
[2021-03-14 08:35] LABS: BILIRUBIN,TOTAL 0.5 mg/dL (0.2-1); TOT PROT 4.8 g/dl (6.4-8.2)
[2021-03-14] MEDS: PANTOPRAZOLE 20 MG TABLET PO SCH ×2 (09:45→21:27)
[2021-03-14] MEDS: METHIMAZOLE 5 MG TABLET PO SCH (09:45)
[2021-03-14] MEDS: METOPROLOL TARTRATE 50 MG TABLET (FP) PO SCH ×2 (09:45→21:28)
[2021-03-14] MEDS: POLYETHYLENE GLYCOL (HEALTHYLAX) 3350 17 GM PACKET PO SCH (09:45)
[2021-03-14] MEDS: LIDOCAINE 5% TOPICAL PATCH TP SCH (09:45)
[2021-03-14] MEDS: DOCUSATE SODIUM 100 MG CAPSULE (FP) PO SCH (21:27)
[2021-03-14] MEDS: SENNOSIDES 8.6MG TABLET (FP) PO SCH (21:28)
[2021-03-14] MEDS: LIDOCAINE PATCH REMOVAL MC SCH (21:29)
[2021-03-15] MEDS: ACETAMINOPHEN 325 MG TABLET (FP) PO PRN ×2 (03:06→09:22)
[2021-03-15 08:14] LABS: HEMATOCRIT 23.8 % (32.4-45.2); HEMOGLOBIN 7.7 GM/dL (10.7-15.3); MCH 28.6 pg (25.7-33.7); MCHC 32.3 g/dl (32.0-36.0); MEAN CELL VOLUME 88.3 fl (80-96); MEAN PLT VOLUME 8.3 fl (7.5-11.1); PLATELET COUNT 339 10^3/uL (134-434); RDW 15.9 % (11.6-15.6); WHITE BLOOD COUNT 14.5 K/mm3 (4.0-10.0)
[2021-03-15 09:34] LABS: BLOOD UREA NITROGEN 38.2 mg/dL (7-18); CALCIUM 8.9 mg/dL (8.5-10.1)
[2021-03-15 09:37] LABS: CREATININE 1.4 mg/dL (0.55-1.3)
[2021-03-15] MEDS ORDERED: ACETAMINOPHEN 1000 MG/100 ML VIAL (NON FORMULARY) IVPB ONE ×2 (10:09→20:26)
[2021-03-15] MEDS: PANTOPRAZOLE 20 MG TABLET PO SCH (10:12)
[2021-03-15] MEDS: METHIMAZOLE 5 MG TABLET PO SCH (10:12)
[2021-03-15] MEDS: POLYETHYLENE GLYCOL (HEALTHYLAX) 3350 17 GM PACKET PO SCH (10:12)
[2021-03-15] MEDS: METOPROLOL TARTRATE 50 MG TABLET (FP) PO SCH (10:12)
[2021-03-15] MEDS: LIDOCAINE 5% TOPICAL PATCH TP SCH (10:13)
[2021-03-15] MEDS ORDERED: ACETAMINOPHEN 1000 MG/100 ML VIAL (NON FORMULARY) IVPB PRN ×3 (10:21→19:45)
[2021-03-15] MEDS ORDERED: FAMOTIDINE 10 MG TABLET PO SCH (10:30)
[2021-03-15] MEDS ORDERED: ONDANSETRON 4 MG/2 ML VIAL IVPUSH PRN ×2 (18:48→19:45)
[2021-03-15] MEDS ORDERED: LIDOCAINE HCL/PF 2% SDV 5ML VIAL ONE (19:13)
[2021-03-15] MEDS ORDERED: PROPOFOL 20 ML ONE ×2 (19:13)
[2021-03-15] MEDS ORDERED: METOPROLOL TARTRATE 5 MG/5 ML VIAL IVPUSH PRN (19:45)
[2021-03-15] MEDS ORDERED: ACETAMINOPHEN INJECTION 100 ML IVPB ONE (20:22)
[2021-03-15] MEDS: PANTOPRAZOLE 40 MG TABLET PO SCH (21:18)
[2021-03-15] MEDS: METOPROLOL TARTRATE 25 MG TABLET (FP) PO SCH (21:18)
[2021-03-15] MEDS: ZINC OXIDE 20% TOPICAL OINTMENT 30 GM TUBE TP SCH (21:20)
[2021-03-15] MEDS ORDERED: ZINC OXIDE 20% TOPICAL OINTMENT 30 GM TUBE TP SCH (22:00)
[2021-03-16] MEDS: ZINC OXIDE 20% TOPICAL OINTMENT 30 GM TUBE TP SCH ×3 (05:47→21:24)
[2021-03-16] MEDS: LIDOCAINE PATCH REMOVAL MC SCH ×2 (06:21→21:24)
[2021-03-16 09:50] LABS: HEMATOCRIT 25.8 % (32.4-45.2); HEMOGLOBIN 8.4 GM/dL (10.7-15.3); MCH 28.6 pg (25.7-33.7); MCHC 32.4 g/dl (32.0-36.0); MEAN CELL VOLUME 88.3 fl (80-96); MEAN PLT VOLUME 8.1 fl (7.5-11.1); PLATELET COUNT 379 10^3/uL (134-434); RBC 2.93 M/mm3 (3.60-5.2); WHITE BLOOD COUNT 12.7 K/mm3 (4.0-10.0)
[2021-03-16] MEDS ORDERED: PT OWN MED DRAWER 7, Y5N ONE (10:13)
[2021-03-16] MEDS: METHIMAZOLE 5 MG TABLET PO SCH (10:16)
[2021-03-16] MEDS: PANTOPRAZOLE 40 MG TABLET PO SCH ×2 (10:16→21:24)
[2021-03-16] MEDS: METOPROLOL TARTRATE 25 MG TABLET (FP) PO SCH ×2 (10:16→21:24)
[2021-03-16] MEDS: LIDOCAINE 5% TOPICAL PATCH TP SCH (10:16)
[2021-03-16 10:20] LABS: CALCIUM 8.8 mg/dL (8.5-10.1)
[2021-03-16 10:21] LABS: MAGNESIUM 1.8 mg/dL (1.8-2.4)
[2021-03-16 10:24] LABS: CREATININE 1.5 mg/dL (0.55-1.3); PHOSPHOROUS 2.5 mg/dL (2.5-4.9)
[2021-03-16] MEDS: ACETAMINOPHEN 1000 MG/100 ML VIAL (NON FORMULARY) IVPB PRN ×2 (15:21→22:52)
[2021-03-17] MEDS: ZINC OXIDE 20% TOPICAL OINTMENT 30 GM TUBE TP SCH ×3 (06:14→21:23)
[2021-03-17] MEDS: ACETAMINOPHEN 1000 MG/100 ML VIAL (NON FORMULARY) IVPB PRN ×3 (07:08→18:33)
[2021-03-17 09:17] LABS: HEMATOCRIT 24.8 % (32.4-45.2); HEMOGLOBIN 7.9 GM/dL (10.7-15.3); MCH 28.3 pg (25.7-33.7); MCHC 31.9 g/dl (32.0-36.0); MEAN CELL VOLUME 88.7 fl (80-96); MEAN PLT VOLUME 7.8 fl (7.5-11.1); PLATELET COUNT 372 10^3/uL (134-434); WHITE BLOOD COUNT 14.9 K/mm3 (4.0-10.0)
[2021-03-17 09:40] LABS: CALCIUM 8.8 mg/dL (8.5-10.1)
[2021-03-17 09:43] LABS: BLOOD UREA NITROGEN 31.5 mg/dL (7-18); MAGNESIUM 1.8 mg/dL (1.8-2.4)
[2021-03-17 09:47] LABS: CREATININE 1.3 mg/dL (0.55-1.3)
[2021-03-17 09:48] LABS: PHOSPHOROUS 2.4 mg/dL (2.5-4.9)
[2021-03-17] MEDS ORDERED: PT OWN MED DRAWER 7, Y5N ONE (09:55)
[2021-03-17] MEDS: PANTOPRAZOLE 40 MG TABLET PO SCH ×2 (09:57→21:23)
[2021-03-17] MEDS: METHIMAZOLE 5 MG TABLET PO SCH (09:57)
[2021-03-17] MEDS: METOPROLOL TARTRATE 25 MG TABLET (FP) PO SCH ×2 (09:57→21:23)
[2021-03-17] MEDS: LIDOCAINE 5% TOPICAL PATCH TP SCH (09:58)
[2021-03-17] MEDS ORDERED: MORPHINE SULFATE 2 MG/ML VIAL IVPUSH PRN (17:32)
[2021-03-17] MEDS: LIDOCAINE PATCH REMOVAL MC SCH (21:28)
[2021-03-18] MEDS: ACETAMINOPHEN 1000 MG/100 ML VIAL (NON FORMULARY) IVPB PRN ×2 (06:36→13:22)
[2021-03-18] MEDS: ZINC OXIDE 20% TOPICAL OINTMENT 30 GM TUBE TP SCH ×2 (06:36→13:23)
[2021-03-18] MEDS: PANTOPRAZOLE 40 MG TABLET PO SCH (10:02)
[2021-03-18] MEDS: METOPROLOL TARTRATE 25 MG TABLET (FP) PO SCH (10:02)
[2021-03-18] MEDS: METHIMAZOLE 5 MG TABLET PO SCH (10:03)
[2021-03-18] MEDS: LIDOCAINE 5% TOPICAL PATCH TP SCH ×2 (10:03→10:07)
[2021-03-18 10:23] LABS: HEMATOCRIT 26.9 % (32.4-45.2); HEMOGLOBIN 8.8 GM/dL (10.7-15.3); MCH 28.6 pg (25.7-33.7); MCHC 32.8 g/dl (32.0-36.0); MEAN CELL VOLUME 87.1 fl (80-96); PLATELET COUNT 344 10^3/uL (134-434); RBC 3.09 M/mm3 (3.60-5.2)
[2021-03-18 10:34] LABS: INR 1.06 (0.83-1.09); PROTHROMBIN TIME (PATIENT) 12.8 SEC (9.7-13.0)
[2021-03-18 10:52] LABS: BLOOD UREA NITROGEN 33.7 mg/dL (7-18); MAGNESIUM 1.8 mg/dL (1.8-2.4)
[2021-03-18 10:55] LABS: CREATININE 1.2 mg/dL (0.55-1.3); PHOSPHOROUS 2.8 mg/dL (2.5-4.9)
[2021-03-18] MEDS ORDERED: fentaNYL CITRATE 250 MCG/5 ML VIAL ONE (18:48)
[2021-03-18] MEDS ORDERED: SUCCINYLCHOLINE CHLORIDE 200 MG/10 ML SYRINGE ONE (18:48)
[2021-03-18] MEDS ORDERED: PROPOFOL 20 ML ONE (18:48)
[2021-03-18] MEDS ORDERED: ROCURONIUM BROMIDE 50 MG/5 ML SYRINGE ONE (18:50)
[2021-03-18] MEDS ORDERED: ONDANSETRON 4 MG/2 ML VIAL IVPUSH PRN ×2 (19:17→23:23)
[2021-03-18] MEDS ORDERED: oxyCODONE HCL 5 MG TABLET PO PRN ×2 (19:17→23:23)
[2021-03-18] MEDS ORDERED: PROMETHAZINE HCL 25 MG/1 ML VIAL IVPUSH PRN ×2 (19:17→23:23)
[2021-03-18] MEDS ORDERED: ceFAZolin SODIUM 1 GM VIAL IVPB ONE (19:20)
[2021-03-18] MEDS ORDERED: METOPROLOL TARTRATE 5 MG/5 ML VIAL IVPUSH PRN (23:23)
[2021-03-18] MEDS ORDERED: ALBUTEROL SO4 0.083% IH SOL 2.5 MG/3 ML VIAL.NEB. NEB ONE (23:26)
[2021-03-19] MEDS ORDERED: ceFAZolin SODIUM 1 GM VIAL ONE ×3 (00:23→15:01)
[2021-03-19] MEDS ORDERED: CEFAZOLIN 1 GM/D5W 1 GM/50 ML BAG IVPB SCH ×2 (01:00)
[2021-03-19] MEDS: METOPROLOL TARTRATE 25 MG TABLET (FP) PO SCH ×3 (01:13→22:08)
[2021-03-19] MEDS: PANTOPRAZOLE 40 MG TABLET PO SCH ×3 (01:13→22:09)
[2021-03-19] MEDS: LIDOCAINE PATCH REMOVAL MC SCH ×2 (01:13→22:08)
[2021-03-19] MEDS: ZINC OXIDE 20% TOPICAL OINTMENT 30 GM TUBE TP SCH ×4 (01:14→22:09)
[2021-03-19] MEDS: MORPHINE SULFATE 2 MG/ML VIAL IVPUSH PRN ×3 (01:36→18:59)
[2021-03-19] MEDS: CEFAZOLIN 1 GM in DEXTROSE 5%-WATER - 1 GM/50 ML IVPB IVPB SCH ×3 (01:42→15:05)
[2021-03-19] MEDS ORDERED: DEXTROSE 5%-WATER - 50 ML IVPB ONE ×2 (05:12→15:01)
[2021-03-19] MEDS ORDERED: ONDANSETRON 4 MG/2 ML VIAL IVPUSH ONE (05:54)
[2021-03-19 08:21] LABS: HEMATOCRIT 32.6 % (32.4-45.2); HEMOGLOBIN 10.9 GM/dL (10.7-15.3); MCH 29.6 pg (25.7-33.7); MCHC 33.5 g/dl (32.0-36.0); MEAN CELL VOLUME 88.5 fl (80-96); MEAN PLT VOLUME 7.9 fl (7.5-11.1); PLATELET COUNT 347 10^3/uL (134-434); RBC 3.69 M/mm3 (3.60-5.2); WHITE BLOOD COUNT 28.2 K/mm3 (4.0-10.0)
[2021-03-19 08:42] LABS: ALBUMIN 1.5 g/dl (3.4-5.0); CALCIUM 8.9 mg/dL (8.5-10.1); MAGNESIUM 1.7 mg/dL (1.8-2.4)
[2021-03-19 08:45] LABS: CREATININE 1.4 mg/dL (0.55-1.3)
[2021-03-19 08:46] LABS: PHOSPHOROUS 4.3 mg/dL (2.5-4.9)
[2021-03-19 08:47] LABS: BILIRUBIN,TOTAL 0.5 mg/dL (0.2-1); TOT PROT 4.6 g/dl (6.4-8.2)
[2021-03-19] MEDS ORDERED: PT OWN MED DRAWER 7, Y5N ONE ×3 (09:27→15:00)
[2021-03-19] MEDS: LIDOCAINE 5% TOPICAL PATCH TP SCH (09:34)
[2021-03-19 12:02] LABS: ANISOCYTOSIS 1+; MACROCYTOSIS 0; PLATELET ESTIMATE NORMAL
[2021-03-19] MEDS ORDERED: SODIUM ZIRCONIUM CYCLOSILICATE (LOKELMA) 5 GM PACKET PO ONE (13:00)
[2021-03-19] MEDS: ACETAMINOPHEN 1000 MG/100 ML VIAL (NON FORMULARY) IVPB SCH ×2 (13:37→22:07)
[2021-03-19] MEDS: METHIMAZOLE 5 MG TABLET PO SCH (15:05)
[2021-03-19] MEDS: SENNOSIDES/DOCUSATE COMBO (SENNA PLUS) TABLET (UD) PO SCH (22:08)
[2021-03-20] MEDS: MORPHINE SULFATE 2 MG/ML VIAL IVPUSH PRN ×2 (02:40→10:57)
[2021-03-20] MEDS: ACETAMINOPHEN 1000 MG/100 ML VIAL (NON FORMULARY) IVPB SCH (05:35)
[2021-03-20] MEDS: ZINC OXIDE 20% TOPICAL OINTMENT 30 GM TUBE TP SCH ×3 (05:36→21:40)
[2021-03-20 08:26] LABS: HEMATOCRIT 33.6 % (32.4-45.2); HEMOGLOBIN 10.9 GM/dL (10.7-15.3); MCH 29.2 pg (25.7-33.7); MCHC 32.4 g/dl (32.0-36.0); MEAN CELL VOLUME 90.1 fl (80-96); MEAN PLT VOLUME 7.6 fl (7.5-11.1); PLATELET COUNT 254 10^3/uL (134-434); RBC 3.73 M/mm3 (3.60-5.2); RDW 15.7 % (11.6-15.6); WHITE BLOOD COUNT 15.6 K/mm3 (4.0-10.0)
[2021-03-20 08:42] LABS: CHLORIDE 107 mmol/L (98-107); SODIUM 135 mmol/L (136-145)
[2021-03-20 08:45] LABS: CALCIUM 8.6 mg/dL (8.5-10.1); GLUCOSE,RANDOM 93 mg/dL (74-106)
[2021-03-20 08:46] LABS: ALBUMIN 1.3 g/dl (3.4-5.0); ANION GAP 9 MMOL/L (8-16); BLOOD UREA NITROGEN 41.8 mg/dL (7-18); CO2 20 mmol/L (21-32)
[2021-03-20 08:48] LABS: CREATININE 1.4 mg/dL (0.55-1.3); PHOSPHOROUS 3.1 mg/dL (2.5-4.9); SGOT/AST 15 U/L (15-37); SGPT/ALT < 6 U/L (13-61)
[2021-03-20 08:50] LABS: BILIRUBIN,TOTAL 0.4 mg/dL (0.2-1); TOT PROT 4.4 g/dl (6.4-8.2)
[2021-03-20 08:51] LABS: ALK PHOS 71 U/L (45-117)
[2021-03-20] MEDS ORDERED: PT OWN MED DRAWER 7, Y5N ONE (09:59)
[2021-03-20] MEDS: SENNOSIDES/DOCUSATE COMBO (SENNA PLUS) TABLET (UD) PO SCH ×2 (10:23→21:36)
[2021-03-20] MEDS: METHIMAZOLE 5 MG TABLET PO SCH (10:23)
[2021-03-20] MEDS: METOPROLOL TARTRATE 25 MG TABLET (FP) PO SCH ×2 (10:23→21:36)
[2021-03-20] MEDS: PANTOPRAZOLE 40 MG TABLET PO SCH ×2 (10:23→21:36)
[2021-03-20] MEDS: LIDOCAINE 5% TOPICAL PATCH TP SCH (10:23)
[2021-03-20] MEDS: SODIUM ZIRCONIUM CYCLOSILICATE (LOKELMA) 5 GM PACKET PO SCH (13:57)
[2021-03-20] MEDS ORDERED: DOCUSATE SODIUM 100 MG CAPSULE (FP) PO PRN (13:59)
[2021-03-20] MEDS ORDERED: MORPHINE SULFATE 2 MG/ML VIAL IVPUSH PRN (14:00)
[2021-03-20] MEDS: POLYETHYLENE GLYCOL (HEALTHYLAX) 3350 17 GM PACKET PO PRN (14:00)
[2021-03-20] MEDS: ACETAMINOPHEN 325 MG TABLET (FP) PO SCH ×2 (14:22→20:05)
[2021-03-20] MEDS ORDERED: KETOROLAC TROMETHAMINE 30 MG/1 ML VIAL IVPUSH SCH (14:30)
[2021-03-20] MEDS: APIXABAN 2.5 MG TABLET PO SCH (21:35)
[2021-03-20] MEDS: oxyCODONE HCL 5 MG TABLET PO PRN (21:36)
[2021-03-20] MEDS: LIDOCAINE PATCH REMOVAL MC SCH (21:36)
[2021-03-21] MEDS: ACETAMINOPHEN 325 MG TABLET (FP) PO SCH ×4 (02:17→19:46)
[2021-03-21] MEDS: ZINC OXIDE 20% TOPICAL OINTMENT 30 GM TUBE TP SCH ×3 (06:09→21:33)
[2021-03-21] MEDS: oxyCODONE HCL 5 MG TABLET PO PRN ×3 (06:09→21:31)
[2021-03-21 08:14] LABS: HEMATOCRIT 27.6 % (32.4-45.2); HEMOGLOBIN 9.2 GM/dL (10.7-15.3); MCH 30.2 pg (25.7-33.7); MCHC 33.5 g/dl (32.0-36.0); MEAN CELL VOLUME 90.4 fl (80-96); MEAN PLT VOLUME 8.1 fl (7.5-11.1); PLATELET COUNT 296 10^3/uL (134-434); RBC 3.05 M/mm3 (3.60-5.2); RDW 15.8 % (11.6-15.6); WHITE BLOOD COUNT 14.4 K/mm3 (4.0-10.0)
[2021-03-21 09:00] LABS: CALCIUM 8.7 mg/dL (8.5-10.1)
[2021-03-21 09:02] LABS: BLOOD UREA NITROGEN 45.6 mg/dL (7-18); MAGNESIUM 1.7 mg/dL (1.8-2.4)
[2021-03-21 09:03] LABS: CREATININE 1.5 mg/dL (0.55-1.3)
[2021-03-21] MEDS: PANTOPRAZOLE 40 MG TABLET PO SCH ×2 (09:42→21:31)
[2021-03-21] MEDS: SENNOSIDES/DOCUSATE COMBO (SENNA PLUS) TABLET (UD) PO SCH ×2 (09:42→21:31)
[2021-03-21] MEDS: LIDOCAINE 5% TOPICAL PATCH TP SCH (09:43)
[2021-03-21] MEDS: METOPROLOL TARTRATE 25 MG TABLET (FP) PO SCH ×2 (09:43→21:31)
[2021-03-21] MEDS: APIXABAN 2.5 MG TABLET PO SCH ×2 (09:43→21:31)
[2021-03-21] MEDS ORDERED: PT OWN MED DRAWER 7, Y5N ONE (09:45)
[2021-03-21] MEDS: METHIMAZOLE 5 MG TABLET PO SCH (09:46)
[2021-03-21] MEDS: SODIUM ZIRCONIUM CYCLOSILICATE (LOKELMA) 5 GM PACKET PO SCH (09:46)
[2021-03-21] MEDS: POLYETHYLENE GLYCOL (HEALTHYLAX) 3350 17 GM PACKET PO PRN (13:40)
[2021-03-21] MEDS ORDERED: SODIUM PHOSPHATE/NA BIPHOS 133 ML ENEMA PR ONE (18:40)
[2021-03-21] MEDS: LIDOCAINE PATCH REMOVAL MC SCH (21:33)
[2021-03-22] MEDS: ACETAMINOPHEN 325 MG TABLET (FP) PO SCH ×4 (01:48→21:33)
[2021-03-22] MEDS: oxyCODONE HCL 5 MG TABLET PO PRN ×3 (05:13→22:25)
[2021-03-22] MEDS: ZINC OXIDE 20% TOPICAL OINTMENT 30 GM TUBE TP SCH ×3 (05:19→22:11)
[2021-03-22 08:50] LABS: HEMATOCRIT 28.6 % (32.4-45.2); HEMOGLOBIN 9.4 GM/dL (10.7-15.3); MCH 29.6 pg (25.7-33.7); MEAN CELL VOLUME 89.7 fl (80-96); MEAN PLT VOLUME 7.6 fl (7.5-11.1); PLATELET COUNT 320 10^3/uL (134-434); RBC 3.19 M/mm3 (3.60-5.2); RDW 15.7 % (11.6-15.6); WHITE BLOOD COUNT 13.9 K/mm3 (4.0-10.0)
[2021-03-22] MEDS ORDERED: PT OWN MED DRAWER 7, Y5N ONE ×2 (09:18→13:16)
[2021-03-22 09:19] LABS: CALCIUM 8.9 mg/dL (8.5-10.1)
[2021-03-22 09:20] LABS: BLOOD UREA NITROGEN 40.5 mg/dL (7-18)
[2021-03-22 09:22] LABS: CREATININE 1.2 mg/dL (0.55-1.3)
[2021-03-22] MEDS: LIDOCAINE 5% TOPICAL PATCH TP SCH (09:22)
[2021-03-22 09:23] LABS: MAGNESIUM 1.8 mg/dL (1.8-2.4)
[2021-03-22] MEDS: SODIUM ZIRCONIUM CYCLOSILICATE (LOKELMA) 5 GM PACKET PO SCH (09:23)
[2021-03-22] MEDS: PANTOPRAZOLE 40 MG TABLET PO SCH ×2 (09:23→22:10)
[2021-03-22] MEDS: METHIMAZOLE 5 MG TABLET PO SCH (09:23)
[2021-03-22] MEDS: APIXABAN 2.5 MG TABLET PO SCH ×2 (09:23→22:10)
[2021-03-22] MEDS: SENNOSIDES/DOCUSATE COMBO (SENNA PLUS) TABLET (UD) PO SCH ×2 (09:23→22:10)
[2021-03-22] MEDS: METOPROLOL TARTRATE 25 MG TABLET (FP) PO SCH ×2 (09:23→22:10)
[2021-03-22 09:27] LABS: IRON SERUM 15 ug/dL (50-175); TOTAL IRON BINDING CAPACITY 219 ug/dL (250-450)
[2021-03-22] MEDS: GABAPENTIN 100 MG CAPSULE PO SCH (17:28)
[2021-03-22] MEDS: FUROSEMIDE 40 MG TABLET (FP) PO SCH (17:28)
[2021-03-22] MEDS: LIDOCAINE PATCH REMOVAL MC SCH (23:01)
[2021-03-23] MEDS: ACETAMINOPHEN 325 MG TABLET (FP) PO SCH ×4 (02:04→20:36)
[2021-03-23] MEDS: ZINC OXIDE 20% TOPICAL OINTMENT 30 GM TUBE TP SCH ×3 (05:35→21:01)
[2021-03-23] MEDS: oxyCODONE HCL 5 MG TABLET PO PRN ×4 (07:03→23:53)
[2021-03-23 08:28] LABS: HEMOGLOBIN 9.7 GM/dL (10.7-15.3); MCH 29.8 pg (25.7-33.7); MCHC 32.3 g/dl (32.0-36.0); MEAN PLT VOLUME 7.6 fl (7.5-11.1); PLATELET COUNT 344 10^3/uL (134-434); RBC 3.26 M/mm3 (3.60-5.2); RDW 15.7 % (11.6-15.6); WHITE BLOOD COUNT 12.2 K/mm3 (4.0-10.0)
[2021-03-23 08:51] LABS: CALCIUM 9.2 mg/dL (8.5-10.1)
[2021-03-23 08:52] LABS: BLOOD UREA NITROGEN 38.1 mg/dL (7-18)
[2021-03-23 08:53] LABS: MAGNESIUM 1.7 mg/dL (1.8-2.4)
[2021-03-23 08:55] LABS: CREATININE 1.3 mg/dL (0.55-1.3)
[2021-03-23] MEDS ORDERED: PT OWN MED DRAWER 7, Y5N ONE (09:29)
[2021-03-23] MEDS: APIXABAN 2.5 MG TABLET PO SCH ×2 (09:51→21:01)
[2021-03-23] MEDS: SODIUM ZIRCONIUM CYCLOSILICATE (LOKELMA) 5 GM PACKET PO SCH (09:51)
[2021-03-23] MEDS: METOPROLOL TARTRATE 25 MG TABLET (FP) PO SCH ×2 (09:51→21:00)
[2021-03-23] MEDS: SENNOSIDES/DOCUSATE COMBO (SENNA PLUS) TABLET (UD) PO SCH ×2 (09:51→21:00)
[2021-03-23] MEDS: GABAPENTIN 100 MG CAPSULE PO SCH (09:51)
[2021-03-23] MEDS: PANTOPRAZOLE 40 MG TABLET PO SCH ×2 (09:51→21:00)
[2021-03-23] MEDS: FUROSEMIDE 40 MG TABLET (FP) PO SCH (09:51)
[2021-03-23] MEDS: LIDOCAINE 5% TOPICAL PATCH TP SCH (09:52)
[2021-03-23] MEDS: METHIMAZOLE 5 MG TABLET PO SCH (09:52)
[2021-03-23] MEDS ORDERED: MAGNESIUM OXIDE 400 MG TABLET (FP) PO ONE (12:23)
[2021-03-23] MEDS: LIDOCAINE PATCH REMOVAL MC SCH (21:00)
[2021-03-24] MEDS: ACETAMINOPHEN 325 MG TABLET (FP) PO SCH ×4 (03:02→21:14)
[2021-03-24] MEDS: ZINC OXIDE 20% TOPICAL OINTMENT 30 GM TUBE TP SCH ×3 (05:52→21:15)
[2021-03-24 06:46] LABS: HEMATOCRIT 27.5 % (32.4-45.2); HEMOGLOBIN 9.2 GM/dL (10.7-15.3); MCH 30.7 pg (25.7-33.7); MCHC 33.6 g/dl (32.0-36.0); MEAN CELL VOLUME 91.2 fl (80-96); MEAN PLT VOLUME 8.2 fl (7.5-11.1); PLATELET COUNT 345 10^3/uL (134-434); RBC 3.01 M/mm3 (3.60-5.2); RDW 15.8 % (11.6-15.6); WHITE BLOOD COUNT 10.9 K/mm3 (4.0-10.0)
[2021-03-24 07:15] LABS: BLOOD UREA NITROGEN 40.6 mg/dL (7-18); CALCIUM 9.1 mg/dL (8.5-10.1)
[2021-03-24 07:18] LABS: CREATININE 1.3 mg/dL (0.55-1.3)
[2021-03-24] MEDS: SODIUM ZIRCONIUM CYCLOSILICATE (LOKELMA) 5 GM PACKET PO SCH (09:30)
[2021-03-24] MEDS: LIDOCAINE 5% TOPICAL PATCH TP SCH (09:31)
[2021-03-24] MEDS: APIXABAN 2.5 MG TABLET PO SCH ×2 (09:31→21:14)
[2021-03-24] MEDS: GABAPENTIN 100 MG CAPSULE PO SCH (09:31)
[2021-03-24] MEDS: METOPROLOL TARTRATE 25 MG TABLET (FP) PO SCH ×2 (09:31→21:14)
[2021-03-24] MEDS: METHIMAZOLE 5 MG TABLET PO SCH (09:31)
[2021-03-24] MEDS: PANTOPRAZOLE 40 MG TABLET PO SCH ×2 (09:31→21:14)
[2021-03-24] MEDS: FUROSEMIDE 40 MG TABLET (FP) PO SCH (09:31)
[2021-03-24] MEDS: SENNOSIDES/DOCUSATE COMBO (SENNA PLUS) TABLET (UD) PO SCH ×2 (09:31→21:14)
[2021-03-24] MEDS: LIDOCAINE PATCH REMOVAL MC SCH (21:14)
[2021-03-25] MEDS: ACETAMINOPHEN 325 MG TABLET (FP) PO SCH ×4 (01:42→20:18)
[2021-03-25] MEDS: ZINC OXIDE 20% TOPICAL OINTMENT 30 GM TUBE TP SCH ×3 (05:23→21:49)
[2021-03-25 08:04] LABS: HEMATOCRIT 27.2 % (32.4-45.2); HEMOGLOBIN 9.2 GM/dL (10.7-15.3); MCH 30.7 pg (25.7-33.7); MEAN CELL VOLUME 90.3 fl (80-96); MEAN PLT VOLUME 7.9 fl (7.5-11.1); PLATELET COUNT 386 10^3/uL (134-434); RBC 3.01 M/mm3 (3.60-5.2); RDW 15.2 % (11.6-15.6); WHITE BLOOD COUNT 10.4 K/mm3 (4.0-10.0)
[2021-03-25 08:23] LABS: CALCIUM 9.2 mg/dL (8.5-10.1)
[2021-03-25 08:24] LABS: BLOOD UREA NITROGEN 39.5 mg/dL (7-18); MAGNESIUM 1.6 mg/dL (1.8-2.4)
[2021-03-25 08:27] LABS: CREATININE 1.3 mg/dL (0.55-1.3)
[2021-03-25] MEDS ORDERED: PT OWN MED DRAWER 7, Y5N ONE (08:31)
[2021-03-25] MEDS: METHIMAZOLE 5 MG TABLET PO SCH (09:13)
[2021-03-25] MEDS: METOPROLOL TARTRATE 25 MG TABLET (FP) PO SCH ×2 (09:13→21:48)
[2021-03-25] MEDS: GABAPENTIN 100 MG CAPSULE PO SCH (09:13)
[2021-03-25] MEDS: SENNOSIDES/DOCUSATE COMBO (SENNA PLUS) TABLET (UD) PO SCH ×2 (09:13→21:49)
[2021-03-25] MEDS: PANTOPRAZOLE 40 MG TABLET PO SCH ×2 (09:13→21:48)
[2021-03-25] MEDS: APIXABAN 2.5 MG TABLET PO SCH ×2 (09:13→21:48)
[2021-03-25] MEDS: SODIUM ZIRCONIUM CYCLOSILICATE (LOKELMA) 5 GM PACKET PO SCH (09:13)
[2021-03-25] MEDS: FUROSEMIDE 40 MG TABLET (FP) PO SCH (09:13)
[2021-03-25] MEDS: LIDOCAINE 5% TOPICAL PATCH TP SCH (09:13)
[2021-03-25] MEDS: MAGNESIUM CL 64 MG TABLET.SA PO SCH (15:07)
[2021-03-25] MEDS: LIDOCAINE PATCH REMOVAL MC SCH (21:48)
[2021-03-26] MEDS: ACETAMINOPHEN 325 MG TABLET (FP) PO SCH ×4 (02:01→21:30)
[2021-03-26] MEDS: ZINC OXIDE 20% TOPICAL OINTMENT 30 GM TUBE TP SCH ×3 (06:15→21:32)
[2021-03-26 07:27] LABS: EOS % 5.6 % (0-4.5); HEMATOCRIT 26.3 % (32.4-45.2); HEMOGLOBIN 8.8 GM/dL (10.7-15.3); LYMPH % 14.8 % (8-40); MCHC 33.4 g/dl (32.0-36.0); MEAN CELL VOLUME 89.6 fl (80-96); MEAN PLT VOLUME 7.8 fl (7.5-11.1); MONO % 12.1 % (3.8-10.2); NEUT % 66.5 % (42.8-82.8); PLATELET COUNT 380 10^3/uL (134-434); RBC 2.94 M/mm3 (3.60-5.2); RDW 15.4 % (11.6-15.6); WHITE BLOOD COUNT 8.6 K/mm3 (4.0-10.0)
[2021-03-26 07:38] LABS: BLOOD UREA NITROGEN 38.5 mg/dL (7-18); MAGNESIUM 1.5 mg/dL (1.8-2.4)
[2021-03-26 07:41] LABS: CREATININE 1.2 mg/dL (0.55-1.3)
[2021-03-26] MEDS ORDERED: PT OWN MED DRAWER 7, Y5N ONE ×3 (09:07→20:39)
[2021-03-26] MEDS: FUROSEMIDE 40 MG TABLET (FP) PO SCH (09:18)
[2021-03-26] MEDS: METOPROLOL TARTRATE 25 MG TABLET (FP) PO SCH ×2 (09:18→21:30)
[2021-03-26] MEDS: SENNOSIDES/DOCUSATE COMBO (SENNA PLUS) TABLET (UD) PO SCH ×3 (09:18→21:37)
[2021-03-26] MEDS: GABAPENTIN 100 MG CAPSULE PO SCH (09:18)
[2021-03-26] MEDS: MAGNESIUM CL 64 MG TABLET.SA PO SCH (09:18)
[2021-03-26] MEDS: APIXABAN 2.5 MG TABLET PO SCH ×2 (09:18→21:31)
[2021-03-26] MEDS: METHIMAZOLE 5 MG TABLET PO SCH (09:18)
[2021-03-26] MEDS: PANTOPRAZOLE 40 MG TABLET PO SCH ×2 (09:18→21:31)
[2021-03-26] MEDS: LIDOCAINE 5% TOPICAL PATCH TP SCH (09:18)
[2021-03-26] MEDS: SODIUM ZIRCONIUM CYCLOSILICATE (LOKELMA) 5 GM PACKET PO SCH (09:19)
[2021-03-26] MEDS: POLYETHYLENE GLYCOL (HEALTHYLAX) 3350 17 GM PACKET PO PRN (14:33)
[2021-03-26] MEDS ORDERED: IRON SUCROSE INJECTION 100 MG in SODIUM CHLORIDE 95 ML IVPB ONE (15:15)
[2021-03-26] MEDS: LIDOCAINE PATCH REMOVAL MC SCH (21:32)
[2021-03-27] MEDS: ACETAMINOPHEN 325 MG TABLET (FP) PO SCH ×4 (02:49→20:32)
[2021-03-27] MEDS: ZINC OXIDE 20% TOPICAL OINTMENT 30 GM TUBE TP SCH ×3 (06:07→22:14)
[2021-03-27 07:00] LABS: HEMATOCRIT 25.5 % (32.4-45.2); HEMOGLOBIN 8.5 GM/dL (10.7-15.3); MCH 30.1 pg (25.7-33.7); MCHC 33.3 g/dl (32.0-36.0); MEAN CELL VOLUME 90.4 fl (80-96); MEAN PLT VOLUME 8.3 fl (7.5-11.1); PLATELET COUNT 399 10^3/uL (134-434); RBC 2.82 M/mm3 (3.60-5.2); RDW 15.5 % (11.6-15.6); WHITE BLOOD COUNT 8.5 K/mm3 (4.0-10.0)
[2021-03-27 07:21] LABS: BLOOD UREA NITROGEN 36.6 mg/dL (7-18); MAGNESIUM 1.6 mg/dL (1.8-2.4)
[2021-03-27 07:24] LABS: CREATININE 1.1 mg/dL (0.55-1.3); PHOSPHOROUS 2.9 mg/dL (2.5-4.9)
[2021-03-27] MEDS ORDERED: MAGNESIUM SULF 50% (8.12 MEQ/2 ML-1 GM VIAL) IVPB ONE (08:13)
[2021-03-27 08:51] LABS: ANISOCYTOSIS 0; HELMET CELLS 0; HOWELL-JOLLY BODIES 0; MACROCYTOSIS 0; OVALOCYTE 0; PLATELET ESTIMATE NORMAL; ROULEAU 0; SICKELED CELLS 0; TARGET CELLS 0; TEAR DROP CELLS 0; TOXIC GRANULATION 0
[2021-03-27] MEDS ORDERED: PT OWN MED DRAWER 7, Y5N ONE ×2 (09:04→21:55)
[2021-03-27] MEDS: GABAPENTIN 100 MG CAPSULE PO SCH (09:18)
[2021-03-27] MEDS: FUROSEMIDE 40 MG TABLET (FP) PO SCH (09:18)
[2021-03-27] MEDS: APIXABAN 2.5 MG TABLET PO SCH ×2 (09:18→22:12)
[2021-03-27] MEDS: PANTOPRAZOLE 40 MG TABLET PO SCH ×2 (09:18→22:12)
[2021-03-27] MEDS: METOPROLOL TARTRATE 25 MG TABLET (FP) PO SCH ×2 (09:18→22:12)
[2021-03-27] MEDS: SODIUM ZIRCONIUM CYCLOSILICATE (LOKELMA) 5 GM PACKET PO SCH (09:19)
[2021-03-27] MEDS: METHIMAZOLE 5 MG TABLET PO SCH (09:19)
[2021-03-27] MEDS: LIDOCAINE 5% TOPICAL PATCH TP SCH (09:19)
[2021-03-27] MEDS: SENNOSIDES/DOCUSATE COMBO (SENNA PLUS) TABLET (UD) PO SCH ×2 (09:19→22:13)
[2021-03-27] MEDS: MAGNESIUM CL 64 MG TABLET.SA PO SCH (09:19)
[2021-03-27] MEDS: LIDOCAINE PATCH REMOVAL MC SCH (22:13)
[2021-03-28] MEDS: ACETAMINOPHEN 325 MG TABLET (FP) PO SCH ×4 (02:04→21:02)
[2021-03-28 06:39] LABS: BASO % 1.2 % (0-2.0); EOS % 4.2 % (0-4.5); HEMATOCRIT 25.3 % (32.4-45.2); HEMOGLOBIN 8.6 GM/dL (10.7-15.3); LYMPH % 14.5 % (8-40); MCH 30.5 pg (25.7-33.7); MCHC 33.9 g/dl (32.0-36.0); MEAN CELL VOLUME 89.8 fl (80-96); MONO % 11.7 % (3.8-10.2); NEUT % 68.4 % (42.8-82.8); PLATELET COUNT 405 10^3/uL (134-434); RBC 2.82 M/mm3 (3.60-5.2); RDW 15.4 % (11.6-15.6)
[2021-03-28 07:01] LABS: CALCIUM 8.9 mg/dL (8.5-10.1)
[2021-03-28 07:02] LABS: BLOOD UREA NITROGEN 38.5 mg/dL (7-18); MAGNESIUM 1.9 mg/dL (1.8-2.4)
[2021-03-28] MEDS: ZINC OXIDE 20% TOPICAL OINTMENT 30 GM TUBE TP SCH ×3 (07:02→21:04)
[2021-03-28 07:04] LABS: PHOSPHOROUS 3.1 mg/dL (2.5-4.9)
[2021-03-28 07:05] LABS: CREATININE 1.2 mg/dL (0.55-1.3)
[2021-03-28] MEDS: LIDOCAINE 5% TOPICAL PATCH TP SCH (09:59)
[2021-03-28] MEDS: GABAPENTIN 100 MG CAPSULE PO SCH (10:00)
[2021-03-28] MEDS: APIXABAN 2.5 MG TABLET PO SCH ×2 (10:00→21:03)
[2021-03-28] MEDS: FUROSEMIDE 40 MG TABLET (FP) PO SCH (10:00)
[2021-03-28] MEDS: PANTOPRAZOLE 40 MG TABLET PO SCH ×2 (10:00→21:03)
[2021-03-28] MEDS: METOPROLOL TARTRATE 25 MG TABLET (FP) PO SCH ×2 (10:00→21:03)
[2021-03-28] MEDS: SENNOSIDES/DOCUSATE COMBO (SENNA PLUS) TABLET (UD) PO SCH ×2 (10:01→21:03)
[2021-03-28] MEDS: METHIMAZOLE 5 MG TABLET PO SCH (10:01)
[2021-03-28] MEDS: SODIUM ZIRCONIUM CYCLOSILICATE (LOKELMA) 5 GM PACKET PO SCH (12:15)
[2021-03-28] MEDS: MAGNESIUM CL 64 MG TABLET.SA PO SCH (12:15)
[2021-03-28] MEDS: POLYETHYLENE GLYCOL (HEALTHYLAX) 3350 17 GM PACKET PO PRN (12:15)
[2021-03-28] MEDS: LIDOCAINE PATCH REMOVAL MC SCH (21:03)
[2021-03-29] MEDS: ACETAMINOPHEN 325 MG TABLET (FP) PO SCH ×4 (01:51→20:54)
[2021-03-29 07:10] LABS: BASO % 1.1 % (0-2.0); EOS % 4.7 % (0-4.5); HEMATOCRIT 24.7 % (32.4-45.2); HEMOGLOBIN 8.3 GM/dL (10.7-15.3); LYMPH % 14.6 % (8-40); MCH 30.1 pg (25.7-33.7); MCHC 33.6 g/dl (32.0-36.0); MEAN CELL VOLUME 89.6 fl (80-96); MEAN PLT VOLUME 8.4 fl (7.5-11.1); MONO % 13.4 % (3.8-10.2); NEUT % 66.2 % (42.8-82.8); PLATELET COUNT 396 10^3/uL (134-434); RBC 2.75 M/mm3 (3.60-5.2); RDW 15.6 % (11.6-15.6); WHITE BLOOD COUNT 7.7 K/mm3 (4.0-10.0)
[2021-03-29] MEDS: ZINC OXIDE 20% TOPICAL OINTMENT 30 GM TUBE TP SCH ×3 (07:15→22:19)
[2021-03-29 07:23] LABS: CALCIUM 8.7 mg/dL (8.5-10.1)
[2021-03-29 07:24] LABS: BLOOD UREA NITROGEN 35.8 mg/dL (7-18); MAGNESIUM 1.8 mg/dL (1.8-2.4)
[2021-03-29 07:27] LABS: CREATININE 1.1 mg/dL (0.55-1.3)
[2021-03-29 07:28] LABS: PHOSPHOROUS 3.1 mg/dL (2.5-4.9)
[2021-03-29] MEDS ORDERED: PT OWN MED DRAWER 7, Y5N ONE ×3 (09:24→15:43)
[2021-03-29] MEDS: LIDOCAINE 5% TOPICAL PATCH TP SCH (09:25)
[2021-03-29] MEDS: FUROSEMIDE 40 MG TABLET (FP) PO SCH (09:25)
[2021-03-29] MEDS: METOPROLOL TARTRATE 25 MG TABLET (FP) PO SCH ×2 (09:25→22:19)
[2021-03-29] MEDS: PANTOPRAZOLE 40 MG TABLET PO SCH ×2 (09:25→22:19)
[2021-03-29] MEDS: APIXABAN 2.5 MG TABLET PO SCH ×2 (09:25→22:19)
[2021-03-29] MEDS: GABAPENTIN 300 MG CAPSULE PO SCH (09:25)
[2021-03-29] MEDS: SENNOSIDES/DOCUSATE COMBO (SENNA PLUS) TABLET (UD) PO SCH ×2 (09:26→22:21)
[2021-03-29] MEDS: MAGNESIUM CL 64 MG TABLET.SA PO SCH (11:56)
[2021-03-29] MEDS: METHIMAZOLE 5 MG TABLET PO SCH (11:56)
[2021-03-29] MEDS: SODIUM ZIRCONIUM CYCLOSILICATE (LOKELMA) 5 GM PACKET PO SCH (13:23)
[2021-03-29] MEDS ORDERED: SODIUM ZIRCONIUM CYCLOSILICATE (LOKELMA) 5 GM PACKET PO SCH (16:00)
[2021-03-29] MEDS: LIDOCAINE PATCH REMOVAL MC SCH (22:20)
[2021-03-30] MEDS: ACETAMINOPHEN 325 MG TABLET (FP) PO SCH ×2 (02:28→08:43)
[2021-03-30] MEDS: ZINC OXIDE 20% TOPICAL OINTMENT 30 GM TUBE TP SCH (06:26)
[2021-03-30] MEDS ORDERED: PT OWN MED DRAWER 7, Y5N ONE (08:59)
[2021-03-30] MEDS: PANTOPRAZOLE 40 MG TABLET PO SCH (09:06)
[2021-03-30] MEDS: FUROSEMIDE 40 MG TABLET (FP) PO SCH (09:06)
[2021-03-30] MEDS: METOPROLOL TARTRATE 25 MG TABLET (FP) PO SCH (09:06)
[2021-03-30] MEDS: SENNOSIDES/DOCUSATE COMBO (SENNA PLUS) TABLET (UD) PO SCH (09:06)
[2021-03-30] MEDS: APIXABAN 2.5 MG TABLET PO SCH (09:06)
[2021-03-30] MEDS: GABAPENTIN 300 MG CAPSULE PO SCH (09:07)
[2021-03-30] MEDS: MAGNESIUM CL 64 MG TABLET.SA PO SCH (09:07)
[2021-03-30] MEDS: METHIMAZOLE 5 MG TABLET PO SCH (09:08)
[2021-03-30] MEDS: LIDOCAINE 5% TOPICAL PATCH TP SCH (10:17)
[2021-03-30 11:56] VITALS: BP 134/67; PULSE 94; TEMP 97.8
== END 2021-03-30 12:31 | DRG 466 ==
LOC: JER 17:16 → JERBED 23:49 → J8W 02-19 03:37 → JICU 03-06 23:13 → J8W 03-09 00:23 → J4S 03-19 00:15
PROVIDERS: ADMIT Internal Medicine; ATTEND Internal Medicine
PROC: 0SWBXJZ Revision of Synthetic Substitute in Left Hip Joint, External Approach (ICD-10-PCS; 2021-03-06)
PROC: 30233N1 Transfusion of Nonautologous Red Blood Cells into Peripheral Vein, Percutaneous Approach (ICD-10-PCS; 2021-03-06)
PROC: 0SRS0J9 Replacement of Left Hip Joint, Femoral Surface with Synthetic Substitute, Cemented, Open Approach (ICD-10-PCS; 2021-03-15)
PROC: 0SUE09Z Supplement Left Hip Joint, Acetabular Surface with Liner, Open Approach (ICD-10-PCS; 2021-03-15)
PROC: 0SPS0JZ Removal of Synthetic Substitute from Left Hip Joint, Femoral Surface, Open Approach (ICD-10-PCS; 2021-03-18)
PROC: 0SPB09Z Removal of Liner from Left Hip Joint, Open Approach (ICD-10-PCS; principal; 2021-03-18 18:50)
DX: S72.142A Displaced intertrochanteric fracture of left femur, initial encounter for closed fracture (principal); A41.9 Sepsis, unspecified organism; I13.0 Hypertensive heart and chronic kidney disease with heart failure and stage 1 through stage 4 chronic kidney disease, or unspecified chronic kidney disease; M97.02XA Periprosthetic fracture around internal prosthetic left hip joint, initial encounter; I50.32 Chronic diastolic (congestive) heart failure; I48.21 Permanent atrial fibrillation; N18.4 Chronic kidney disease, stage 4 (severe); Q60.0 Renal agenesis, unilateral; N17.9 Acute kidney failure, unspecified; D62 Acute posthemorrhagic anemia; Y83.9 Surgical procedure, unspecified as the cause of abnormal reaction of the patient, or of later complication, without mention of misadventure at the time of the procedure; E87.5 Hyperkalemia; R91.1 Solitary pulmonary nodule; W19.XXXA Unspecified fall, initial encounter; Y93.9 Activity, unspecified; Y92.89 Other specified places as the place of occurrence of the external cause; Y99.9 Unspecified external cause status; D72.829 Elevated white blood cell count, unspecified; I34.0 Nonrheumatic mitral (valve) insufficiency; I25.10 Atherosclerotic heart disease of native coronary artery without angina pectoris; E78.5 Hyperlipidemia, unspecified; E83.42 Hypomagnesemia; E05.90 Thyrotoxicosis, unspecified without thyrotoxic crisis or storm; K21.9 Gastro-esophageal reflux disease without esophagitis
CPT/HCPCS: 36415; 36430; 71045-TC-FY; 72170-TC-FY; 73502-TC-LT-FY; 73523-TC-FY; 73552-TC-LT-FY; 73700-TC-RT; 76775-TC; 80048; 80053; 81003; 82272; 82728; 82962; 83540; 83550; 83735; 84100; 84443; 85025; 85027; 85610; 85730; 86850; 86900; 86901; 86922; 87040; 87086; 93005; 93010; 93306-TC; 94760; 97116-GP; 97161-GP; 99285-25; C9803; J0131; J1100; J1644; J1756; P9058; U0003; U0005

== ENCOUNTER 2021-05-03 11:13 | Emergency (ER) | payer OTHER, MEDICARE ==
[2021-05-03 11:52] VITALS: TEMP 98.3; BMI 24.2
[2021-05-03] MEDS ORDERED: LIDOCAINE HCL 1%, 10 MG/ML (20ML VIAL) ONE (12:35)
[2021-05-03] MEDS ORDERED: CEPHALEXIN MONOHYDRATE 500 MG CAPSULE (UD) PO ONE (13:06)
[2021-05-03] MEDS ORDERED: SULFAMETHOXAZOLE/TRIMETHOPRIM 800MG/160MG D.S. TABLET PO ONE (13:06)
[2021-05-03] MEDS ORDERED: CEPHALEXIN MONOHYDRATE 500 MG CAPSULE (UD) ONE (13:14)
[2021-05-03] MEDS ORDERED: SULFAMETHOXAZOLE/TRIMETHOPRIM 800MG/160MG D.S. TABLET ONE (13:14)
[2021-05-03 15:27] VITALS: BP 167/86; PULSE 82
== END 2021-05-03 15:29 | disposition home or self-care (01) ==
LOC: JER 11:13
PROC: 0H96XZZ Drainage of Back Skin, External Approach (ICD-10-PCS; principal; 2021-05-03)
DX: L02.212 Cutaneous abscess of back [any part, except buttock and flank] (principal)
CPT/HCPCS: 93005; 93010; 99284-25

== ENCOUNTER 2021-05-06 08:40 | Observation (INO) | payer OTHER, MEDICARE ==
[2021-05-06] MEDS ORDERED: FAMOTIDINE 20 MG/50 ML IVPB 20 MG/50 ML MG IVPB ONE ×2 (09:12→09:18)
[2021-05-06] MEDS ORDERED: ACETAMINOPHEN 1000 MG/100 ML VIAL IVPB ONE (09:12)
[2021-05-06] MEDS ORDERED: ACETAMINOPHEN INJECTION 100 ML IVPB ONE (09:18)
[2021-05-06 09:36] LABS: BASO % 1.1 % (0-2.0); EOS % 0.9 % (0-4.5); HEMATOCRIT 33.5 % (32.4-45.2); HEMOGLOBIN 10.9 GM/dL (10.7-15.3); LYMPH % 6.6 % (8-40); MCH 28.9 pg (25.7-33.7); MCHC 32.5 g/dl (32.0-36.0); MEAN CELL VOLUME 88.8 fl (80-96); MEAN PLT VOLUME 8.4 fl (7.5-11.1); NEUT % 83.4 % (42.8-82.8); PLATELET COUNT 337 10^3/uL (134-434); RBC 3.77 M/mm3 (3.60-5.2); RDW 16.2 % (11.6-15.6); WHITE BLOOD COUNT 10.6 K/mm3 (4.0-10.0)
[2021-05-06 09:54] LABS: CHLORIDE 104 mmol/L (98-107); SODIUM 135 mmol/L (136-145)
[2021-05-06 09:56] LABS: CALCIUM 10.3 mg/dL (8.5-10.1)
[2021-05-06 09:57] LABS: ALBUMIN 2.2 g/dl (3.4-5.0); ANION GAP 10 MMOL/L (8-16); BLOOD UREA NITROGEN 37.2 mg/dL (7-18); CO2 22 mmol/L (21-32); GLUCOSE,RANDOM 103 mg/dL (74-106); LIPASE 120 U/L (73-393)
[2021-05-06 09:59] LABS: SGOT/AST 18 U/L (15-37); SGPT/ALT 13 U/L (13-61)
[2021-05-06 10:00] LABS: CREATININE 1.6 mg/dL (0.55-1.3)
[2021-05-06 10:01] LABS: BILIRUBIN,TOTAL 0.3 mg/dL (0.2-1); TOT PROT 6.5 g/dl (6.4-8.2)
[2021-05-06 10:02] LABS: ALK PHOS 83 U/L (45-117)
[2021-05-06] MEDS ORDERED: SODIUM CHLORIDE 0.9% 500 ML INFUS.BAG IV ONE ×2 (10:40→11:49)
[2021-05-06] MEDS ORDERED: LIDOCAINE HCL 1%, 10 MG/ML (50 mL VIAL) SQ ONE (12:10)
[2021-05-06] MEDS ORDERED: LIDOCAINE HCL 1%, 10 MG/ML (20ML VIAL) ONE (12:18)
[2021-05-06] MEDS ORDERED: ACETAMINOPHEN 325 MG TABLET (FP) PO PRN (14:01)
[2021-05-06] MEDS: METOPROLOL TARTRATE 25 MG TABLET (FP) PO SCH (23:09)
[2021-05-06] MEDS: APIXABAN 2.5 MG TABLET PO SCH (23:10)
[2021-05-06 23:51] VITALS: BMI 25.3
[2021-05-07] MEDS ORDERED: POLYETHYLENE GLYCOL (HEALTHYLAX) 3350 17 GM PACKET PO PRN (00:04)
[2021-05-07 07:28] LABS: BASO % 1.3 % (0-2.0); EOS % 4.7 % (0-4.5); HEMATOCRIT 31.2 % (32.4-45.2); LYMPH % 11.9 % (8-40); MCH 28.3 pg (25.7-33.7); MCHC 32.2 g/dl (32.0-36.0); MEAN PLT VOLUME 8.3 fl (7.5-11.1); MONO % 10.2 % (3.8-10.2); NEUT % 71.9 % (42.8-82.8); PLATELET COUNT 269 10^3/uL (134-434); RBC 3.55 M/mm3 (3.60-5.2); RDW 16.4 % (11.6-15.6); WHITE BLOOD COUNT 8.1 K/mm3 (4.0-10.0)
[2021-05-07 07:42] LABS: CALCIUM 9.8 mg/dL (8.5-10.1)
[2021-05-07 07:43] LABS: BLOOD UREA NITROGEN 33.4 mg/dL (7-18)
[2021-05-07 07:45] LABS: PHOSPHOROUS 3.1 mg/dL (2.5-4.9)
[2021-05-07 07:46] LABS: BILIRUBIN,TOTAL 0.8 mg/dL (0.2-1); CREATININE 1.6 mg/dL (0.55-1.3); TOT PROT 5.8 g/dl (6.4-8.2)
[2021-05-07] MEDS ORDERED: PT OWN MED DRAWER 7, Y5N ONE (08:45)
[2021-05-07] MEDS ORDERED: SODIUM CHLORIDE 0.45% 1,000 ML IV SCH (09:00)
[2021-05-07] MEDS ORDERED: FLU VACC QS2021-22(6MOS UP)/PF 60 MCG/0.5 ML SYRINGE IM ONE (09:00)
[2021-05-07] MEDS: METOPROLOL TARTRATE 25 MG TABLET (FP) PO SCH ×2 (09:34→22:54)
[2021-05-07] MEDS: APIXABAN 2.5 MG TABLET PO SCH ×2 (09:34→22:54)
[2021-05-07] MEDS: METHIMAZOLE 5 MG TABLET PO SCH (09:34)
[2021-05-07] MEDS ORDERED: MAG HYDROX/AL HYDROX/SIMETH 30 ML UNIT-DOSE CUP PO PRN (12:52)
[2021-05-07] MEDS: SODIUM ZIRCONIUM CYCLOSILICATE (LOKELMA) 5 GM PACKET PO SCH (16:25)
[2021-05-07] MEDS: CLINDAMYCIN 600MG PREMIX IVPB 600 MG/50 ML BAG IVPB SCH (17:32)
[2021-05-07] MEDS: GABAPENTIN 300 MG CAPSULE PO SCH (22:54)
[2021-05-07] MEDS: PANTOPRAZOLE 40 MG TABLET PO SCH (22:55)
[2021-05-08] MEDS: CLINDAMYCIN 600MG PREMIX IVPB 600 MG/50 ML BAG IVPB SCH ×3 (03:14→17:04)
[2021-05-08 07:04] LABS: CALCIUM 9.6 mg/dL (8.5-10.1)
[2021-05-08 07:05] LABS: BLOOD UREA NITROGEN 32.3 mg/dL (7-18)
[2021-05-08 07:08] LABS: CREATININE 1.6 mg/dL (0.55-1.3)
[2021-05-08 07:09] LABS: BILIRUBIN,TOTAL 0.3 mg/dL (0.2-1)
[2021-05-08 07:10] LABS: TOT PROT 5.6 g/dl (6.4-8.2)
[2021-05-08] MEDS: METOPROLOL TARTRATE 25 MG TABLET (FP) PO SCH ×2 (09:07→21:42)
[2021-05-08] MEDS: PANTOPRAZOLE 40 MG TABLET PO SCH ×2 (09:07→21:42)
[2021-05-08] MEDS: APIXABAN 2.5 MG TABLET PO SCH ×2 (09:07→21:42)
[2021-05-08] MEDS: METHIMAZOLE 5 MG TABLET PO SCH (09:07)
[2021-05-08] MEDS: FUROSEMIDE 40 MG TABLET (FP) PO SCH (09:07)
[2021-05-08] MEDS: LACTOBACILLUS ACIDOPHILUS 1 TABLET PO SCH (13:45)
[2021-05-08] MEDS: SODIUM ZIRCONIUM CYCLOSILICATE (LOKELMA) 5 GM PACKET PO SCH (17:04)
[2021-05-08] MEDS: GABAPENTIN 300 MG CAPSULE PO SCH ×2 (21:42→21:52)
[2021-05-09] MEDS: CLINDAMYCIN 600MG PREMIX IVPB 600 MG/50 ML BAG IVPB SCH ×2 (02:26→09:01)
[2021-05-09 07:41] LABS: EOS % 7.2 % (0-4.5); HEMATOCRIT 30.5 % (32.4-45.2); HEMOGLOBIN 9.8 GM/dL (10.7-15.3); LYMPH % 16.9 % (8-40); MCH 28.8 pg (25.7-33.7); MCHC 32.1 g/dl (32.0-36.0); MEAN CELL VOLUME 89.6 fl (80-96); MEAN PLT VOLUME 8.7 fl (7.5-11.1); MONO % 11.5 % (3.8-10.2); NEUT % 63.4 % (42.8-82.8); PLATELET COUNT 263 10^3/uL (134-434); RBC 3.41 M/mm3 (3.60-5.2); RDW 16.5 % (11.6-15.6); WHITE BLOOD COUNT 6.9 K/mm3 (4.0-10.0)
[2021-05-09 08:04] LABS: BLOOD UREA NITROGEN 32.7 mg/dL (7-18)
[2021-05-09 08:06] LABS: CALCIUM 9.4 mg/dL (8.5-10.1)
[2021-05-09 08:07] LABS: CREATININE 1.6 mg/dL (0.55-1.3); PHOSPHOROUS 3.3 mg/dL (2.5-4.9)
[2021-05-09] MEDS: METHIMAZOLE 5 MG TABLET PO SCH (09:03)
[2021-05-09] MEDS: PANTOPRAZOLE 40 MG TABLET PO SCH (09:04)
[2021-05-09] MEDS: FUROSEMIDE 40 MG TABLET (FP) PO SCH (09:04)
[2021-05-09] MEDS: METOPROLOL TARTRATE 25 MG TABLET (FP) PO SCH (09:04)
[2021-05-09] MEDS: LACTOBACILLUS ACIDOPHILUS 1 TABLET PO SCH (09:04)
[2021-05-09] MEDS: APIXABAN 2.5 MG TABLET PO SCH (09:04)
[2021-05-09 10:37] VITALS: BP 144/85; PULSE 91; TEMP 98.1
== END 2021-05-09 11:39 | disposition home or self-care (01) ==
LOC: JER 08:40 → INTOOBSV 10:53 → JERBED 10:53 → UNDOADMOB 10:53 → JERBED 14:03 → J4W 22:23
PROVIDERS: ADMIT Internal Medicine; ATTEND Family Medicine
PROC: 3E03329 Introduction of Other Anti-infective into Peripheral Vein, Percutaneous Approach (ICD-10-PCS; principal; 2021-05-06)
PROC: 3E033GC Introduction of Other Therapeutic Substance into Peripheral Vein, Percutaneous Approach (ICD-10-PCS; 2021-05-06)
PROC: 3E033NZ Introduction of Analgesics, Hypnotics, Sedatives into Peripheral Vein, Percutaneous Approach (ICD-10-PCS; 2021-05-06)
PROC: 3E023GC Introduction of Other Therapeutic Substance into Muscle, Percutaneous Approach (ICD-10-PCS; 2021-05-06)
PROC: 3E0337Z Introduction of Electrolytic and Water Balance Substance into Peripheral Vein, Percutaneous Approach (ICD-10-PCS; 2021-05-06)
DX: I13.0 Hypertensive heart and chronic kidney disease with heart failure and stage 1 through stage 4 chronic kidney disease, or unspecified chronic kidney disease (principal); I50.9 Heart failure, unspecified; N18.9 Chronic kidney disease, unspecified; K21.9 Gastro-esophageal reflux disease without esophagitis; J44.9 Chronic obstructive pulmonary disease, unspecified; I25.10 Atherosclerotic heart disease of native coronary artery without angina pectoris; E05.90 Thyrotoxicosis, unspecified without thyrotoxic crisis or storm; K57.90 Diverticulosis of intestine, part unspecified, without perforation or abscess without bleeding; J40 Bronchitis, not specified as acute or chronic; R12 Heartburn; N20.0 Calculus of kidney; Z90.49 Acquired absence of other specified parts of digestive tract; Z98.49 Cataract extraction status, unspecified eye; E78.5 Hyperlipidemia, unspecified; I48.91 Unspecified atrial fibrillation; R10.13 Epigastric pain; Z86.14 Personal history of Methicillin resistant Staphylococcus aureus infection; M19.90 Unspecified osteoarthritis, unspecified site; R60.0 Localized edema; L02.212 Cutaneous abscess of back [any part, except buttock and flank]; Z79.01 Long term (current) use of anticoagulants; N17.9 Acute kidney failure, unspecified; Z87.81 Personal history of (healed) traumatic fracture
CPT/HCPCS: 36415; 71045-TC-FY; 80048; 80053; 82550; 83690; 83735; 84100; 84484; 85025; 87040; 87077; 87081; 90686; 93005; 93010; 96361; 96365; 96372; 96375; 97116-GP; 97162-GP; 99285-25; C9803; G0378; J0131; U0003; U0005

== ENCOUNTER 2022-03-30 18:14 | Inpatient (IN) | payer OTHER, MEDICARE ==
[2022-03-30] MEDS ORDERED: SODIUM CHLORIDE 1,000 ML IV SCH (18:45)
[2022-03-30 18:59] LABS: BASO % 0.2 % (0-2.0); EOS % 6.2 % (0-4.5); HEMATOCRIT 39.6 % (32.4-45.2); HEMOGLOBIN 12.7 GM/dL (10.7-15.3); LYMPH % 31.2 % (8-40); MCH 30.2 pg (25.7-33.7); MCHC 32.1 g/dl (32.0-36.0); MEAN CELL VOLUME 94.2 fl (80-96); MEAN PLT VOLUME 9.1 fl (7.5-11.1); MONO % 9.6 % (3.8-10.2); NEUT % 52.8 % (42.8-82.8); PLATELET COUNT 240 10^3/uL (134-434); RDW 15.9 % (11.6-15.6); WHITE BLOOD COUNT 8.9 K/mm3 (4.0-10.0)
[2022-03-30 19:16] LABS: ACTIVATED PTT 34.5 SECONDS (25.2-36.5); INR 1.21 (0.83-1.09)
[2022-03-30 19:23] LABS: ALBUMIN 3.2 g/dl (3.4-5.0)
[2022-03-30 19:26] LABS: CREATININE 1.4 mg/dL (0.55-1.3)
[2022-03-30 19:28] LABS: TOT PROT 7.5 g/dl (6.4-8.2)
[2022-03-30 19:29] LABS: BILIRUBIN,TOTAL 0.4 mg/dL (0.2-1)
[2022-03-30 20:29] LABS: EPI CELLS 4 /uL (0-25.1); HYALINE CASTS 1 /uL (0-3.1); PH,URINE 5.5 (5.0-8.0); URINE APPEARANCE TURBID; URINE BACTERIA >9,000 /uL (0-1359); URINE BILIRUBIN NEGATIVE (NEGATIVE); URINE COLOR YELLOW; URINE GLUCOSE (UA) NEGATIVE (NEGATIVE); URINE KETONE NEGATIVE (NEGATIVE); URINE LEUK ESTERASE 3+ (NEGATIVE); URINE NITRITE NEGATIVE (NEGATIVE); URINE PROTEIN 2+ (NEGATIVE); URINE RBC 65 /uL (0-23.9); URINE UROBILINOGEN 0.2 mg/dL (0.2-1.0); URINE WBC 7038 /uL (0-25.8)
[2022-03-30] MEDS ORDERED: CEFTRIAXONE 1 GM/50 ML BAG ONE (20:49)
[2022-03-30] MEDS ORDERED: LORazepam 2 MG/ML SDV VIAL IVPUSH ONE (22:10)
[2022-03-31] MEDS ORDERED: amLODIPine BESYLATE 2.5 MG TABLET (FP) PO PRN (00:21)
[2022-03-31] MEDS: LACTATED RINGERS SOLUTION 1,000 ML/1,000 ML INFUS.BAG IV SCH ×2 (00:30→21:47)
[2022-03-31] MEDS: ACETAMINOPHEN 1000 MG/100 ML BAG IVPB PRN ×2 (00:57→20:56)
[2022-03-31] MEDS ORDERED: ONDANSETRON 4 MG/2 ML VIAL IVPUSH PRN (04:43)
[2022-03-31] MEDS ORDERED: FUROSEMIDE 20 MG TABLET (FP) ONE (05:35)
[2022-03-31] MEDS ORDERED: FUROSEMIDE 20 MG TABLET (FP) PO SCH ×2 (06:00→22:00)
[2022-03-31] MEDS ORDERED: METOPROLOL TARTRATE 50 MG TABLET (FP) PO SCH ×2 (07:00→22:00)
[2022-03-31 09:02] LABS: BASO % 0.7 % (0-2.0); EOS % 0.3 % (0-4.5); HEMATOCRIT 35.8 % (32.4-45.2); HEMOGLOBIN 11.3 GM/dL (10.7-15.3); LYMPH % 15.6 % (8-40); MCH 29.7 pg (25.7-33.7); MCHC 31.6 g/dl (32.0-36.0); MEAN CELL VOLUME 94.2 fl (80-96); NEUT % 77.4 % (42.8-82.8); PLATELET COUNT 230 10^3/uL (134-434); RDW 15.8 % (11.6-15.6); WHITE BLOOD COUNT 7.5 K/mm3 (4.0-10.0)
[2022-03-31 09:31] LABS: BLOOD UREA NITROGEN 29.3 mg/dL (7-18); CALCIUM 9.8 mg/dL (8.5-10.1)
[2022-03-31 09:32] LABS: ALBUMIN 2.8 g/dl (3.4-5.0); MAGNESIUM 1.9 mg/dL (1.8-2.4)
[2022-03-31 09:34] LABS: CREATININE 1.2 mg/dL (0.55-1.3); PHOSPHOROUS 3.1 mg/dL (2.5-4.9)
[2022-03-31 09:35] LABS: BILIRUBIN,TOTAL 0.3 mg/dL (0.2-1)
[2022-03-31 09:36] LABS: TOT PROT 6.4 g/dl (6.4-8.2)
[2022-03-31] MEDS ORDERED: PANTOPRAZOLE 40 MG TABLET PO ONE (12:57)
[2022-03-31] MEDS ORDERED: MAGNESIUM OXIDE 400 MG TABLET (FP) ONE (12:57)
[2022-03-31] MEDS ORDERED: APIXABAN 2.5 MG TABLET ONE (12:57)
[2022-03-31] MEDS ORDERED: CHOLECALCIFEROL (VIT D3) 1,000 UNIT (25 MCG) TABLET ONE (12:57)
[2022-03-31] MEDS: MAGNESIUM OXIDE 400 MG TABLET (FP) PO SCH (13:23)
[2022-03-31] MEDS: APIXABAN 2.5 MG TABLET PO SCH ×2 (13:23→22:21)
[2022-03-31] MEDS: VITAMIN B COMPLEX W/C COMBO TABLET (FP) PO SCH (13:24)
[2022-03-31] MEDS: PANTOPRAZOLE 40 MG TABLET PO SCH ×2 (13:24→22:21)
[2022-03-31] MEDS: CHOLECALCIFEROL (VIT D3) 1,000 UNIT (25 MCG) TABLET PO SCH (13:24)
[2022-03-31] MEDS ORDERED: ONDANSETRON 4 MG/2 ML VIAL ONE (15:36)
[2022-03-31] MEDS ORDERED: amLODIPine BESYLATE 2.5 MG TABLET (FP) ONE (16:04)
[2022-03-31] MEDS: amLODIPine BESYLATE 2.5 MG TABLET (FP) PO SCH (16:50)
[2022-03-31] MEDS: METHIMAZOLE 5 MG TABLET PO SCH (16:50)
[2022-03-31] MEDS ORDERED: METOPROLOL TARTRATE 5 MG/5 ML VIAL IVPUSH ONE (18:47)
[2022-03-31] MEDS ORDERED: METOPROLOL TARTRATE 5 MG/5 ML VIAL ONE (19:22)
[2022-03-31] MEDS ORDERED: ACETAMINOPHEN INJECTION 100 ML IVPB ONE (20:57)
[2022-03-31] MEDS ORDERED: CEFTRIAXONE 1 GM in DEXTROSE 5%-WATER - 50 ML IVPB ONE (21:00)
[2022-03-31] MEDS ORDERED: PANTOPRAZOLE 40 MG TABLET PO SCH (22:00)
[2022-03-31] MEDS ORDERED: APIXABAN 2.5 MG TABLET PO SCH (22:00)
[2022-03-31] MEDS: FERROUS SO4 325 MG TABLET (FP) PO SCH (22:21)
[2022-03-31] MEDS: metoPROLOL SUCCINATE 25 MG TAB.SR.24H (FP) PO SCH (22:21)
[2022-03-31] MEDS: ATORVASTATIN CA 80 MG TABLET (FP) PO SCH (22:21)
[2022-04-01] MEDS ORDERED: VANCOMYCIN 1 GM/200 ML PREMIX BAG IVPB SCH (01:00)
[2022-04-01] MEDS: PIPERACILLIN/TAZOB 2.25 GM 2.25 GM in DEXTROSE 5%-WATER - 50 ML IVPB SCH ×2 (01:22→08:34)
[2022-04-01] MEDS: PANTOPRAZOLE 40 MG TABLET PO SCH ×3 (01:28→21:18)
[2022-04-01] MEDS: ATORVASTATIN CA 80 MG TABLET (FP) PO SCH ×2 (01:28→21:19)
[2022-04-01] MEDS: APIXABAN 2.5 MG TABLET PO SCH ×4 (01:28→21:18)
[2022-04-01] MEDS: metoPROLOL SUCCINATE 25 MG TAB.SR.24H (FP) PO SCH ×3 (08:35→21:18)
[2022-04-01] MEDS: amLODIPine BESYLATE 2.5 MG TABLET (FP) PO SCH ×2 (08:36→10:43)
[2022-04-01] MEDS ORDERED: LACTATED RINGERS SOLUTION 1,000 ML/1,000 ML INFUS.BAG IV SCH (10:39)
[2022-04-01] MEDS: CHOLECALCIFEROL (VIT D3) 1,000 UNIT (25 MCG) TABLET PO SCH (10:43)
[2022-04-01] MEDS: MAGNESIUM OXIDE 400 MG TABLET (FP) PO SCH (10:43)
[2022-04-01] MEDS: VITAMIN B COMPLEX W/C COMBO TABLET (FP) PO SCH (10:44)
[2022-04-01] MEDS: METHIMAZOLE 5 MG TABLET PO SCH (10:44)
[2022-04-01] MEDS ORDERED: SODIUM CHLORIDE 1,000 ML IV SCH (10:45)
[2022-04-01] MEDS ORDERED: ACETAMINOPHEN 1000 MG/100 ML BAG IVPB PRN (11:10)
[2022-04-01] MEDS: SODIUM CHLORIDE 1,000 ML IV SCH (11:15)
[2022-04-01] MEDS: PIPERACILLIN/TAZOB 3.375 GM 3.375 GM in DEXTROSE 5%-WATER - 50 ML IVPB SCH ×2 (16:19→18:16)
[2022-04-01] MEDS: FERROUS SO4 325 MG TABLET (FP) PO SCH (21:19)
[2022-04-02] MEDS ORDERED: VANCOMYCIN 1 GM/200 ML PREMIX BAG IVPB SCH (01:00)
[2022-04-02] MEDS: PIPERACILLIN/TAZOB 3.375 GM 3.375 GM in DEXTROSE 5%-WATER - 50 ML IVPB SCH ×3 (01:19→17:39)
[2022-04-02 07:47] LABS: BASO % 0.2 % (0-2.0); EOS % 0.4 % (0-4.5); HEMATOCRIT 34.4 % (32.4-45.2); HEMOGLOBIN 11.1 GM/dL (10.7-15.3); LYMPH % 11.5 % (8-40); MCH 30.6 pg (25.7-33.7); MCHC 32.3 g/dl (32.0-36.0); MEAN CELL VOLUME 94.8 fl (80-96); MEAN PLT VOLUME 8.7 fl (7.5-11.1); MONO % 11.3 % (3.8-10.2); NEUT % 76.6 % (42.8-82.8); PLATELET COUNT 176 10^3/uL (134-434); RBC 3.63 M/mm3 (3.60-5.2); RDW 15.8 % (11.6-15.6); WHITE BLOOD COUNT 8.7 K/mm3 (4.0-10.0)
[2022-04-02 08:01] LABS: CALCIUM 9.8 mg/dL (8.5-10.1)
[2022-04-02 08:02] LABS: ALBUMIN 2.8 g/dl (3.4-5.0)
[2022-04-02 08:05] LABS: CREATININE 1.5 mg/dL (0.55-1.3); PHOSPHOROUS 2.6 mg/dL (2.5-4.9)
[2022-04-02 08:06] LABS: BILIRUBIN,TOTAL 0.4 mg/dL (0.2-1); TOT PROT 6.3 g/dl (6.4-8.2)
[2022-04-02] MEDS: PIPERACILLIN/TAZOB 2.25 GM 2.25 GM in DEXTROSE 5%-WATER - 50 ML IVPB SCH (08:52)
[2022-04-02] MEDS: amLODIPine BESYLATE 2.5 MG TABLET (FP) PO SCH (09:47)
[2022-04-02] MEDS: PANTOPRAZOLE 40 MG TABLET PO SCH ×2 (09:47→21:21)
[2022-04-02] MEDS: MAGNESIUM OXIDE 400 MG TABLET (FP) PO SCH (09:47)
[2022-04-02] MEDS: APIXABAN 2.5 MG TABLET PO SCH ×2 (09:47→21:21)
[2022-04-02] MEDS: CHOLECALCIFEROL (VIT D3) 1,000 UNIT (25 MCG) TABLET PO SCH (09:47)
[2022-04-02] MEDS: metoPROLOL SUCCINATE 25 MG TAB.SR.24H (FP) PO SCH ×2 (09:48→21:21)
[2022-04-02] MEDS: VITAMIN B COMPLEX W/C COMBO TABLET (FP) PO SCH (09:51)
[2022-04-02] MEDS: METHIMAZOLE 5 MG TABLET PO SCH (09:51)
[2022-04-02] MEDS ORDERED: CEFTRIAXONE 1 GM in DEXTROSE 5%-WATER - 50 ML IVPB SCH (10:00)
[2022-04-02] MEDS: SODIUM CHLORIDE 1,000 ML IV SCH (17:39)
[2022-04-02] MEDS: FERROUS SO4 325 MG TABLET (FP) PO SCH (21:21)
[2022-04-02] MEDS: ATORVASTATIN CA 80 MG TABLET (FP) PO SCH (21:21)
[2022-04-02] MEDS: MELATONIN 5 MG TABLETS PO PRN (21:21)
[2022-04-03] MEDS: PIPERACILLIN/TAZOB 3.375 GM 3.375 GM in DEXTROSE 5%-WATER - 50 ML IVPB SCH ×2 (01:02→09:58)
[2022-04-03 08:17] LABS: BASO % 0.4 % (0-2.0); EOS % 2.9 % (0-4.5); HEMATOCRIT 38.1 % (32.4-45.2); HEMOGLOBIN 11.8 GM/dL (10.7-15.3); LYMPH % 15.3 % (8-40); MCH 29.2 pg (25.7-33.7); MEAN CELL VOLUME 94.1 fl (80-96); MONO % 10.3 % (3.8-10.2); NEUT % 71.1 % (42.8-82.8); PLATELET COUNT 228 10^3/uL (134-434); RBC 4.05 M/mm3 (3.60-5.2); RDW 15.5 % (11.6-15.6); WHITE BLOOD COUNT 11.4 K/mm3 (4.0-10.0)
[2022-04-03 09:04] LABS: CALCIUM 10.1 mg/dL (8.5-10.1)
[2022-04-03 09:05] LABS: BLOOD UREA NITROGEN 29.4 mg/dL (7-18); MAGNESIUM 1.8 mg/dL (1.8-2.4)
[2022-04-03 09:08] LABS: CREATININE 1.4 mg/dL (0.55-1.3); PHOSPHOROUS 1.5 mg/dL (2.5-4.9)
[2022-04-03 09:09] LABS: BILIRUBIN,TOTAL 0.6 mg/dL (0.2-1); TOT PROT 6.4 g/dl (6.4-8.2)
[2022-04-03] MEDS: APIXABAN 2.5 MG TABLET PO SCH ×2 (09:54→22:06)
[2022-04-03] MEDS: MAGNESIUM OXIDE 400 MG TABLET (FP) PO SCH (09:56)
[2022-04-03] MEDS: metoPROLOL SUCCINATE 25 MG TAB.SR.24H (FP) PO SCH ×2 (09:57→22:08)
[2022-04-03] MEDS: amLODIPine BESYLATE 2.5 MG TABLET (FP) PO SCH (09:57)
[2022-04-03] MEDS: PANTOPRAZOLE 40 MG TABLET PO SCH ×2 (09:57→22:05)
[2022-04-03] MEDS: CHOLECALCIFEROL (VIT D3) 1,000 UNIT (25 MCG) TABLET PO SCH (09:58)
[2022-04-03] MEDS: VITAMIN B COMPLEX W/C COMBO TABLET (FP) PO SCH (09:59)
[2022-04-03] MEDS: METHIMAZOLE 5 MG TABLET PO SCH (09:59)
[2022-04-03] MEDS: SODIUM CHLORIDE 1,000 ML IV SCH (12:37)
[2022-04-03] MEDS: CEFTAZIDIME/AVIBACTAM 1.25 GM in DEXTROSE 5%-WATER - 100 ML IVPB SCH ×2 (12:37→18:08)
[2022-04-03] MEDS ORDERED: QUEtiapine FUMARATE 25 MG TABLET PO ONE (18:09)
[2022-04-03] MEDS: ATORVASTATIN CA 80 MG TABLET (FP) PO SCH (22:05)
[2022-04-03] MEDS: FERROUS SO4 325 MG TABLET (FP) PO SCH (22:05)
[2022-04-03] MEDS: MELATONIN 5 MG TABLETS PO PRN (22:06)
[2022-04-04] MEDS: CEFTAZIDIME/AVIBACTAM 1.25 GM in DEXTROSE 5%-WATER - 100 ML IVPB SCH ×3 (02:16→17:16)
[2022-04-04 07:53] LABS: BASO % 0.3 % (0-2.0); EOS % 1.7 % (0-4.5); HEMATOCRIT 35.6 % (32.4-45.2); HEMOGLOBIN 11.4 GM/dL (10.7-15.3); LYMPH % 12.9 % (8-40); MCH 29.8 pg (25.7-33.7); MCHC 31.9 g/dl (32.0-36.0); MEAN CELL VOLUME 93.4 fl (80-96); MEAN PLT VOLUME 9.3 fl (7.5-11.1); NEUT % 73.1 % (42.8-82.8); PLATELET COUNT 207 10^3/uL (134-434); RBC 3.81 M/mm3 (3.60-5.2); RDW 15.4 % (11.6-15.6); WHITE BLOOD COUNT 10.2 K/mm3 (4.0-10.0)
[2022-04-04 08:20] LABS: ALBUMIN 2.8 g/dl (3.4-5.0)
[2022-04-04 08:21] LABS: BLOOD UREA NITROGEN 21.3 mg/dL (7-18)
[2022-04-04 08:22] LABS: CREATININE 1.2 mg/dL (0.55-1.3)
[2022-04-04 08:24] LABS: BILIRUBIN,TOTAL 0.7 mg/dL (0.2-1); TOT PROT 6.3 g/dl (6.4-8.2)
[2022-04-04 08:27] LABS: PHOSPHOROUS 1.2 mg/dL (2.5-4.9)
[2022-04-04] MEDS: METHIMAZOLE 5 MG TABLET PO SCH (10:14)
[2022-04-04] MEDS: APIXABAN 2.5 MG TABLET PO SCH ×2 (10:14→21:00)
[2022-04-04] MEDS: CHOLECALCIFEROL (VIT D3) 1,000 UNIT (25 MCG) TABLET PO SCH (10:14)
[2022-04-04] MEDS: metoPROLOL SUCCINATE 25 MG TAB.SR.24H (FP) PO SCH ×2 (10:14→21:00)
[2022-04-04] MEDS: MAGNESIUM OXIDE 400 MG TABLET (FP) PO SCH (10:14)
[2022-04-04] MEDS: PANTOPRAZOLE 40 MG TABLET PO SCH ×2 (10:14→21:00)
[2022-04-04] MEDS: amLODIPine BESYLATE 2.5 MG TABLET (FP) PO SCH (10:14)
[2022-04-04] MEDS: VITAMIN B COMPLEX W/C COMBO TABLET (FP) PO SCH (10:14)
[2022-04-04] MEDS: FERROUS SO4 325 MG TABLET (FP) PO SCH (21:00)
[2022-04-04] MEDS: ATORVASTATIN CA 80 MG TABLET (FP) PO SCH (21:00)
[2022-04-05] MEDS: CEFTAZIDIME/AVIBACTAM 1.25 GM in DEXTROSE 5%-WATER - 100 ML IVPB SCH ×3 (02:25→18:25)
[2022-04-05] MEDS: MELATONIN 5 MG TABLETS PO PRN (02:58)
[2022-04-05 07:20] LABS: BASO % 0.5 % (0-2.0); EOS % 2.3 % (0-4.5); HEMATOCRIT 35.4 % (32.4-45.2); HEMOGLOBIN 11.1 GM/dL (10.7-15.3); LYMPH % 9.7 % (8-40); MCH 29.5 pg (25.7-33.7); MCHC 31.2 g/dl (32.0-36.0); MEAN CELL VOLUME 94.5 fl (80-96); MEAN PLT VOLUME 9.2 fl (7.5-11.1); MONO % 10.1 % (3.8-10.2); NEUT % 77.4 % (42.8-82.8); PLATELET COUNT 201 10^3/uL (134-434); RBC 3.75 M/mm3 (3.60-5.2); RDW 15.6 % (11.6-15.6); WHITE BLOOD COUNT 11.2 K/mm3 (4.0-10.0)
[2022-04-05 07:42] LABS: CHLORIDE 109 mmol/L (98-107); SODIUM 142 mmol/L (136-145)
[2022-04-05 07:46] LABS: ALBUMIN 2.7 g/dl (3.4-5.0)
[2022-04-05 07:48] LABS: ANION GAP 7 MMOL/L (8-16); CO2 25 mmol/L (21-32); GLUCOSE,RANDOM 121 mg/dL (74-106); MAGNESIUM 1.9 mg/dL (1.8-2.4)
[2022-04-05 07:50] LABS: SGPT/ALT 15 U/L (13-61)
[2022-04-05 07:52] LABS: BILIRUBIN,TOTAL 0.7 mg/dL (0.2-1); CREATININE 1.2 mg/dL (0.55-1.3); SGOT/AST 13 U/L (15-37); TOT PROT 6.1 g/dl (6.4-8.2)
[2022-04-05 07:54] LABS: ALK PHOS 42 U/L (45-117)
[2022-04-05] MEDS ORDERED: NAPH,MB-DB/K PH,MBDB POWDER PACKET PO ONE ×2 (08:55→09:30)
[2022-04-05] MEDS: MAGNESIUM OXIDE 400 MG TABLET (FP) PO SCH (09:40)
[2022-04-05] MEDS: metoPROLOL SUCCINATE 25 MG TAB.SR.24H (FP) PO SCH ×2 (09:40→21:53)
[2022-04-05] MEDS: PANTOPRAZOLE 40 MG TABLET PO SCH ×2 (09:40→21:53)
[2022-04-05] MEDS: APIXABAN 2.5 MG TABLET PO SCH ×2 (09:41→21:53)
[2022-04-05] MEDS: VITAMIN B COMPLEX W/C COMBO TABLET (FP) PO SCH (09:41)
[2022-04-05] MEDS: METHIMAZOLE 5 MG TABLET PO SCH (09:41)
[2022-04-05] MEDS: amLODIPine BESYLATE 2.5 MG TABLET (FP) PO SCH (09:41)
[2022-04-05] MEDS: CHOLECALCIFEROL (VIT D3) 1,000 UNIT (25 MCG) TABLET PO SCH (09:41)
[2022-04-05] MEDS ORDERED: POTASSIUM PHOSPHATE 30 MM in DEXTROSE 5%-WATER - 500 ML IVPB ONE (18:30)
[2022-04-05] MEDS: FERROUS SO4 325 MG TABLET (FP) PO SCH (21:53)
[2022-04-05] MEDS: ATORVASTATIN CA 80 MG TABLET (FP) PO SCH (21:53)
[2022-04-05] MEDS ORDERED: ACETAMINOPHEN 325 MG TABLET (FP) PO ONE (22:16)
[2022-04-06] MEDS: CEFTAZIDIME/AVIBACTAM 1.25 GM in DEXTROSE 5%-WATER - 100 ML IVPB SCH ×3 (04:08→21:15)
[2022-04-06 07:32] LABS: HEMATOCRIT 31.7 % (32.4-45.2); HEMOGLOBIN 10.5 GM/dL (10.7-15.3); MCH 30.9 pg (25.7-33.7); MEAN CELL VOLUME 93.6 fl (80-96); MEAN PLT VOLUME 9.1 fl (7.5-11.1); PLATELET COUNT 187 10^3/uL (134-434); RBC 3.39 M/mm3 (3.60-5.2); RDW 15.6 % (11.6-15.6); WHITE BLOOD COUNT 9.9 K/mm3 (4.0-10.0)
[2022-04-06 07:59] LABS: ALBUMIN 2.2 g/dl (3.4-5.0); BLOOD UREA NITROGEN 23.9 mg/dL (7-18); CALCIUM 8.9 mg/dL (8.5-10.1); MAGNESIUM 1.7 mg/dL (1.8-2.4)
[2022-04-06 08:02] LABS: CREATININE 1.3 mg/dL (0.55-1.3)
[2022-04-06 08:03] LABS: TOT PROT 5.5 g/dl (6.4-8.2)
[2022-04-06 08:04] LABS: BILIRUBIN,TOTAL 0.5 mg/dL (0.2-1)
[2022-04-06 09:49] LABS: ANISOCYTOSIS 0; HELMET CELLS 0; HOWELL-JOLLY BODIES 0; MACROCYTOSIS 0; OVALOCYTE 0; ROULEAU 0; SICKELED CELLS 0; TARGET CELLS 0; TEAR DROP CELLS 0; TOXIC GRANULATION 0
[2022-04-06] MEDS: metoPROLOL SUCCINATE 25 MG TAB.SR.24H (FP) PO SCH ×2 (10:05→21:15)
[2022-04-06] MEDS: VITAMIN B COMPLEX W/C COMBO TABLET (FP) PO SCH (10:05)
[2022-04-06] MEDS: PANTOPRAZOLE 40 MG TABLET PO SCH ×2 (10:05→21:15)
[2022-04-06] MEDS: CHOLECALCIFEROL (VIT D3) 1,000 UNIT (25 MCG) TABLET PO SCH (10:05)
[2022-04-06] MEDS: MAGNESIUM OXIDE 400 MG TABLET (FP) PO SCH (10:05)
[2022-04-06] MEDS: APIXABAN 2.5 MG TABLET PO SCH ×2 (10:05→21:16)
[2022-04-06] MEDS: amLODIPine BESYLATE 2.5 MG TABLET (FP) PO SCH (10:05)
[2022-04-06] MEDS: METHIMAZOLE 5 MG TABLET PO SCH (10:05)
[2022-04-06] MEDS: MELATONIN 5 MG TABLETS PO PRN (21:15)
[2022-04-06] MEDS: FERROUS SO4 325 MG TABLET (FP) PO SCH (21:15)
[2022-04-06] MEDS: ATORVASTATIN CA 80 MG TABLET (FP) PO SCH (21:16)
[2022-04-06] MEDS: ACETAMINOPHEN 325 MG TABLET (FP) PO PRN (21:16)
[2022-04-07] MEDS: CEFTAZIDIME/AVIBACTAM 1.25 GM in DEXTROSE 5%-WATER - 100 ML IVPB SCH ×3 (02:51→18:56)
[2022-04-07 07:11] LABS: BASO % 0.6 % (0-2.0); EOS % 5.8 % (0-4.5); HEMATOCRIT 35.1 % (32.4-45.2); HEMOGLOBIN 11.2 GM/dL (10.7-15.3); LYMPH % 9.6 % (8-40); MCHC 31.8 g/dl (32.0-36.0); MEAN CELL VOLUME 94.3 fl (80-96); MEAN PLT VOLUME 9.4 fl (7.5-11.1); MONO % 8.5 % (3.8-10.2); NEUT % 75.5 % (42.8-82.8); PLATELET COUNT 209 10^3/uL (134-434); RBC 3.72 M/mm3 (3.60-5.2); RDW 15.4 % (11.6-15.6); WHITE BLOOD COUNT 10.3 K/mm3 (4.0-10.0)
[2022-04-07 07:48] LABS: ALBUMIN 2.3 g/dl (3.4-5.0); CALCIUM 9.2 mg/dL (8.5-10.1); MAGNESIUM 1.7 mg/dL (1.8-2.4)
[2022-04-07 07:49] LABS: BLOOD UREA NITROGEN 19.1 mg/dL (7-18)
[2022-04-07 07:52] LABS: CREATININE 1.1 mg/dL (0.55-1.3)
[2022-04-07 07:53] LABS: PHOSPHOROUS 2.3 mg/dL (2.5-4.9)
[2022-04-07 07:54] LABS: BILIRUBIN,TOTAL 0.5 mg/dL (0.2-1); TOT PROT 5.8 g/dl (6.4-8.2)
[2022-04-07] MEDS: CHOLECALCIFEROL (VIT D3) 1,000 UNIT (25 MCG) TABLET PO SCH (09:55)
[2022-04-07] MEDS: APIXABAN 2.5 MG TABLET PO SCH ×2 (09:55→21:49)
[2022-04-07] MEDS: metoPROLOL SUCCINATE 25 MG TAB.SR.24H (FP) PO SCH ×2 (09:55→21:49)
[2022-04-07] MEDS: MAGNESIUM OXIDE 400 MG TABLET (FP) PO SCH (09:55)
[2022-04-07] MEDS: amLODIPine BESYLATE 2.5 MG TABLET (FP) PO SCH (09:55)
[2022-04-07] MEDS: VITAMIN B COMPLEX W/C COMBO TABLET (FP) PO SCH (09:55)
[2022-04-07] MEDS: PANTOPRAZOLE 40 MG TABLET PO SCH ×2 (09:55→21:49)
[2022-04-07] MEDS: METHIMAZOLE 5 MG TABLET PO SCH (09:56)
[2022-04-07] MEDS ORDERED: MAGNESIUM 2GM/50ML STERILE WATER IVPB IVPB ONE (10:29)
[2022-04-07] MEDS ORDERED: NAPH,MB-DB/K PH,MBDB POWDER PACKET PO ONE (10:29)
[2022-04-07] MEDS: LACTOBACILLUS ACIDOPHILUS 1 TABLET PO SCH (16:34)
[2022-04-07] MEDS: ATORVASTATIN CA 80 MG TABLET (FP) PO SCH (21:49)
[2022-04-07] MEDS: FERROUS SO4 325 MG TABLET (FP) PO SCH (21:49)
[2022-04-08] MEDS: CEFTAZIDIME/AVIBACTAM 1.25 GM in DEXTROSE 5%-WATER - 100 ML IVPB SCH ×3 (02:05→17:36)
[2022-04-08 07:32] LABS: BASO % 0.7 % (0-2.0); HEMATOCRIT 31.7 % (32.4-45.2); HEMOGLOBIN 10.3 GM/dL (10.7-15.3); LYMPH % 10.6 % (8-40); MCH 30.5 pg (25.7-33.7); MCHC 32.6 g/dl (32.0-36.0); MEAN CELL VOLUME 93.7 fl (80-96); MEAN PLT VOLUME 9.3 fl (7.5-11.1); MONO % 10.9 % (3.8-10.2); NEUT % 71.8 % (42.8-82.8); PLATELET COUNT 208 10^3/uL (134-434); RBC 3.38 M/mm3 (3.60-5.2); RDW 14.9 % (11.6-15.6); WHITE BLOOD COUNT 10.5 K/mm3 (4.0-10.0)
[2022-04-08 07:45] LABS: CALCIUM 9.5 mg/dL (8.5-10.1)
[2022-04-08 07:47] LABS: ALBUMIN 2.2 g/dl (3.4-5.0); BLOOD UREA NITROGEN 19.2 mg/dL (7-18)
[2022-04-08 07:49] LABS: CREATININE 1.1 mg/dL (0.55-1.3); PHOSPHOROUS 2.4 mg/dL (2.5-4.9)
[2022-04-08 07:50] LABS: BILIRUBIN,TOTAL 0.4 mg/dL (0.2-1); TOT PROT 5.5 g/dl (6.4-8.2)
[2022-04-08] MEDS: METHIMAZOLE 5 MG TABLET PO SCH (09:35)
[2022-04-08] MEDS: APIXABAN 2.5 MG TABLET PO SCH ×2 (09:35→21:53)
[2022-04-08] MEDS: metoPROLOL SUCCINATE 25 MG TAB.SR.24H (FP) PO SCH ×2 (09:35→21:53)
[2022-04-08] MEDS: LACTOBACILLUS ACIDOPHILUS 1 TABLET PO SCH (09:35)
[2022-04-08] MEDS: VITAMIN B COMPLEX W/C COMBO TABLET (FP) PO SCH (09:35)
[2022-04-08] MEDS: PANTOPRAZOLE 40 MG TABLET PO SCH ×2 (09:35→21:53)
[2022-04-08] MEDS: CHOLECALCIFEROL (VIT D3) 1,000 UNIT (25 MCG) TABLET PO SCH (09:36)
[2022-04-08] MEDS: amLODIPine BESYLATE 2.5 MG TABLET (FP) PO SCH (09:36)
[2022-04-08] MEDS ORDERED: NAPH,MB-DB/K PH,MBDB POWDER PACKET PO ONE (17:43)
[2022-04-08] MEDS: ACETAMINOPHEN 325 MG TABLET (FP) PO PRN (17:55)
[2022-04-08] MEDS: MELATONIN 5 MG TABLETS PO PRN (21:53)
[2022-04-08] MEDS: ATORVASTATIN CA 80 MG TABLET (FP) PO SCH (21:53)
[2022-04-08] MEDS: FERROUS SO4 325 MG TABLET (FP) PO SCH (21:53)
[2022-04-09] MEDS: CEFTAZIDIME/AVIBACTAM 1.25 GM in DEXTROSE 5%-WATER - 100 ML IVPB SCH ×3 (02:53→18:24)
[2022-04-09 08:07] LABS: BASO % 0.8 % (0-2.0); EOS % 6.8 % (0-4.5); HEMATOCRIT 33.3 % (32.4-45.2); HEMOGLOBIN 10.8 GM/dL (10.7-15.3); LYMPH % 11.8 % (8-40); MCH 30.5 pg (25.7-33.7); MCHC 32.4 g/dl (32.0-36.0); MEAN CELL VOLUME 94.3 fl (80-96); MEAN PLT VOLUME 9.1 fl (7.5-11.1); NEUT % 67.6 % (42.8-82.8); PLATELET COUNT 232 10^3/uL (134-434); RBC 3.53 M/mm3 (3.60-5.2); RDW 14.9 % (11.6-15.6); WHITE BLOOD COUNT 9.2 K/mm3 (4.0-10.0)
[2022-04-09 08:25] LABS: ALBUMIN 2.3 g/dl (3.4-5.0)
[2022-04-09 08:29] LABS: BILIRUBIN,TOTAL 0.5 mg/dL (0.2-1); CALCIUM 10.3 mg/dL (8.5-10.1); CREATININE 1.2 mg/dL (0.55-1.3); MAGNESIUM 1.8 mg/dL (1.8-2.4); PHOSPHOROUS 2.5 mg/dL (2.5-4.9)
[2022-04-09 08:30] LABS: TOT PROT 5.9 g/dl (6.4-8.2)
[2022-04-09] MEDS: VITAMIN B COMPLEX W/C COMBO TABLET (FP) PO SCH (10:14)
[2022-04-09] MEDS: CHOLECALCIFEROL (VIT D3) 1,000 UNIT (25 MCG) TABLET PO SCH (10:14)
[2022-04-09] MEDS: amLODIPine BESYLATE 2.5 MG TABLET (FP) PO SCH (10:15)
[2022-04-09] MEDS: PANTOPRAZOLE 40 MG TABLET PO SCH ×2 (10:15→21:29)
[2022-04-09] MEDS: metoPROLOL SUCCINATE 25 MG TAB.SR.24H (FP) PO SCH ×2 (10:15→21:29)
[2022-04-09] MEDS: LACTOBACILLUS ACIDOPHILUS 1 TABLET PO SCH (10:15)
[2022-04-09] MEDS: APIXABAN 2.5 MG TABLET PO SCH ×2 (10:15→21:27)
[2022-04-09] MEDS: METHIMAZOLE 5 MG TABLET PO SCH (10:15)
[2022-04-09] MEDS ORDERED: SODIUM CHLORIDE 1,000 ML IV SCH (11:30)
[2022-04-09] MEDS: FERROUS SO4 325 MG TABLET (FP) PO SCH (21:27)
[2022-04-09] MEDS: ATORVASTATIN CA 80 MG TABLET (FP) PO SCH (21:28)
[2022-04-10] MEDS: CEFTAZIDIME/AVIBACTAM 1.25 GM in DEXTROSE 5%-WATER - 100 ML IVPB SCH ×3 (04:10→18:32)
[2022-04-10] MEDS ORDERED: MELATONIN 5 MG TABLETS PO PRN (05:37)
[2022-04-10] MEDS ORDERED: SODIUM CHLORIDE 1,000 ML IV SCH (05:37)
[2022-04-10 08:20] LABS: BASO % 1.3 % (0-2.0); EOS % 4.3 % (0-4.5); HEMATOCRIT 31.7 % (32.4-45.2); HEMOGLOBIN 10.3 GM/dL (10.7-15.3); LYMPH % 12.3 % (8-40); MCH 30.4 pg (25.7-33.7); MCHC 32.5 g/dl (32.0-36.0); MEAN CELL VOLUME 93.7 fl (80-96); MEAN PLT VOLUME 8.8 fl (7.5-11.1); MONO % 14.6 % (3.8-10.2); NEUT % 67.5 % (42.8-82.8); PLATELET COUNT 235 10^3/uL (134-434); RBC 3.38 M/mm3 (3.60-5.2); RDW 14.7 % (11.6-15.6); WHITE BLOOD COUNT 8.8 K/mm3 (4.0-10.0)
[2022-04-10 08:38] LABS: ALBUMIN 2.2 g/dl (3.4-5.0); BLOOD UREA NITROGEN 15.5 mg/dL (7-18); MAGNESIUM 1.9 mg/dL (1.8-2.4)
[2022-04-10 08:41] LABS: CREATININE 1.2 mg/dL (0.55-1.3); PHOSPHOROUS 2.6 mg/dL (2.5-4.9)
[2022-04-10 08:42] LABS: BILIRUBIN,TOTAL 0.6 mg/dL (0.2-1); TOT PROT 5.6 g/dl (6.4-8.2)
[2022-04-10] MEDS: CHOLECALCIFEROL (VIT D3) 1,000 UNIT (25 MCG) TABLET PO SCH (10:16)
[2022-04-10] MEDS: METHIMAZOLE 5 MG TABLET PO SCH (10:16)
[2022-04-10] MEDS: PANTOPRAZOLE 40 MG TABLET PO SCH ×2 (10:16→21:52)
[2022-04-10] MEDS: metoPROLOL SUCCINATE 25 MG TAB.SR.24H (FP) PO SCH ×2 (10:16→21:52)
[2022-04-10] MEDS: APIXABAN 2.5 MG TABLET PO SCH ×2 (10:17→21:52)
[2022-04-10] MEDS: amLODIPine BESYLATE 2.5 MG TABLET (FP) PO SCH (10:17)
[2022-04-10] MEDS: LACTOBACILLUS ACIDOPHILUS 1 TABLET PO SCH (10:17)
[2022-04-10] MEDS: VITAMIN B COMPLEX W/C COMBO TABLET (FP) PO SCH (10:22)
[2022-04-10] MEDS: ACETAMINOPHEN 325 MG TABLET (FP) PO PRN (18:37)
[2022-04-10] MEDS: FERROUS SO4 325 MG TABLET (FP) PO SCH (21:52)
[2022-04-10] MEDS: ATORVASTATIN CA 80 MG TABLET (FP) PO SCH (21:52)
[2022-04-11] MEDS: ACETAMINOPHEN 325 MG TABLET (FP) PO PRN (01:27)
[2022-04-11] MEDS: CEFTAZIDIME/AVIBACTAM 1.25 GM in DEXTROSE 5%-WATER - 100 ML IVPB SCH ×3 (01:27→18:17)
[2022-04-11 09:06] LABS: BASO % 1.1 % (0-2.0); EOS % 5.1 % (0-4.5); HEMATOCRIT 30.2 % (32.4-45.2); HEMOGLOBIN 9.8 GM/dL (10.7-15.3); LYMPH % 10.9 % (8-40); MCH 30.4 pg (25.7-33.7); MCHC 32.3 g/dl (32.0-36.0); MEAN CELL VOLUME 94.2 fl (80-96); MEAN PLT VOLUME 8.6 fl (7.5-11.1); MONO % 12.8 % (3.8-10.2); NEUT % 70.1 % (42.8-82.8); PLATELET COUNT 218 10^3/uL (134-434); RBC 3.21 M/mm3 (3.60-5.2); RDW 14.5 % (11.6-15.6); WHITE BLOOD COUNT 9.3 K/mm3 (4.0-10.0)
[2022-04-11 09:37] LABS: PHOSPHOROUS 2.9 mg/dL (2.5-4.9)
[2022-04-11 09:39] LABS: BILIRUBIN,TOTAL 0.6 mg/dL (0.2-1); TOT PROT 5.2 g/dl (6.4-8.2)
[2022-04-11 09:49] LABS: BLOOD UREA NITROGEN 16.1 mg/dL (7-18); CALCIUM 9.8 mg/dL (8.5-10.1)
[2022-04-11 09:50] LABS: MAGNESIUM 1.9 mg/dL (1.8-2.4)
[2022-04-11] MEDS: VITAMIN B COMPLEX W/C COMBO TABLET (FP) PO SCH (09:50)
[2022-04-11] MEDS: PANTOPRAZOLE 40 MG TABLET PO SCH ×2 (09:50→21:49)
[2022-04-11] MEDS: amLODIPine BESYLATE 2.5 MG TABLET (FP) PO SCH (09:50)
[2022-04-11] MEDS: APIXABAN 2.5 MG TABLET PO SCH ×2 (09:51→21:47)
[2022-04-11] MEDS: metoPROLOL SUCCINATE 25 MG TAB.SR.24H (FP) PO SCH ×2 (09:51→21:51)
[2022-04-11] MEDS: CHOLECALCIFEROL (VIT D3) 1,000 UNIT (25 MCG) TABLET PO SCH (09:51)
[2022-04-11] MEDS: LACTOBACILLUS ACIDOPHILUS 1 TABLET PO SCH (09:51)
[2022-04-11] MEDS: METHIMAZOLE 5 MG TABLET PO SCH (09:51)
[2022-04-11 09:52] LABS: CREATININE 1.2 mg/dL (0.55-1.3)
[2022-04-11] MEDS ORDERED: BENZOCAINE/MENTH/CETYLPYRD CL 1 EACH LOZENGE MM PRN (10:08)
[2022-04-11] MEDS ORDERED: ZINC OXIDE/PANTHENOL/VITAMIN E 56 GM TUBE TP PRN (10:09)
[2022-04-11] MEDS: ALBUTEROL SO4 2.5/IPRATROPIUM 0.5 INH SOL 3 ML VIAL.NEB. NEB SCH ×3 (11:33→20:45)
[2022-04-11] MEDS: guaiFENesin 600 MG TABLET.ER (FP) PO SCH ×2 (11:42→21:48)
[2022-04-11] MEDS: FERROUS SO4 325 MG TABLET (FP) PO SCH (21:47)
[2022-04-11] MEDS: ATORVASTATIN CA 80 MG TABLET (FP) PO SCH (21:48)
[2022-04-12] MEDS: CEFTAZIDIME/AVIBACTAM 1.25 GM in DEXTROSE 5%-WATER - 100 ML IVPB SCH ×3 (01:20→17:45)
[2022-04-12] MEDS: ALBUTEROL SO4 2.5/IPRATROPIUM 0.5 INH SOL 3 ML VIAL.NEB. NEB SCH ×4 (07:48→20:44)
[2022-04-12] MEDS: METHIMAZOLE 5 MG TABLET PO SCH (10:05)
[2022-04-12] MEDS: ACETAMINOPHEN 325 MG TABLET (FP) PO PRN ×2 (10:06→20:58)
[2022-04-12] MEDS: metoPROLOL SUCCINATE 25 MG TAB.SR.24H (FP) PO SCH ×2 (10:07→21:00)
[2022-04-12] MEDS: amLODIPine BESYLATE 2.5 MG TABLET (FP) PO SCH (10:07)
[2022-04-12] MEDS: LACTOBACILLUS ACIDOPHILUS 1 TABLET PO SCH (10:07)
[2022-04-12] MEDS: CHOLECALCIFEROL (VIT D3) 1,000 UNIT (25 MCG) TABLET PO SCH (10:07)
[2022-04-12] MEDS: guaiFENesin 600 MG TABLET.ER (FP) PO SCH ×2 (10:08→21:00)
[2022-04-12] MEDS: APIXABAN 2.5 MG TABLET PO SCH ×2 (10:08→21:00)
[2022-04-12] MEDS: VITAMIN B COMPLEX W/C COMBO TABLET (FP) PO SCH (10:08)
[2022-04-12] MEDS: PANTOPRAZOLE 40 MG TABLET PO SCH ×2 (10:15→21:00)
[2022-04-12 10:19] LABS: BASO % 1.1 % (0-2.0); EOS % 3.6 % (0-4.5); HEMATOCRIT 32.8 % (32.4-45.2); HEMOGLOBIN 10.3 GM/dL (10.7-15.3); MCH 29.7 pg (25.7-33.7); MCHC 31.5 g/dl (32.0-36.0); MEAN CELL VOLUME 94.4 fl (80-96); MEAN PLT VOLUME 9.2 fl (7.5-11.1); MONO % 9.8 % (3.8-10.2); NEUT % 72.5 % (42.8-82.8); PLATELET COUNT 283 10^3/uL (134-434); RBC 3.48 M/mm3 (3.60-5.2); RDW 15.1 % (11.6-15.6); WHITE BLOOD COUNT 9.6 K/mm3 (4.0-10.0)
[2022-04-12 10:45] LABS: ALBUMIN 2.2 g/dl (3.4-5.0); BLOOD UREA NITROGEN 18.8 mg/dL (7-18); MAGNESIUM 1.8 mg/dL (1.8-2.4)
[2022-04-12 10:49] LABS: BILIRUBIN,TOTAL 0.6 mg/dL (0.2-1); CREATININE 1.5 mg/dL (0.55-1.3); PHOSPHOROUS 2.9 mg/dL (2.5-4.9); TOT PROT 6.1 g/dl (6.4-8.2)
[2022-04-12] MEDS: TRIAMCINOLONE ACET 0.5% OINT 15 GM TUBE TP SCH ×2 (14:11→21:02)
[2022-04-12] MEDS: FERROUS SO4 325 MG TABLET (FP) PO SCH (21:00)
[2022-04-12] MEDS: ATORVASTATIN CA 80 MG TABLET (FP) PO SCH (21:00)
[2022-04-13] MEDS: CEFTAZIDIME/AVIBACTAM 1.25 GM in DEXTROSE 5%-WATER - 100 ML IVPB SCH (02:22)
[2022-04-13] MEDS: ALBUTEROL SO4 2.5/IPRATROPIUM 0.5 INH SOL 3 ML VIAL.NEB. NEB SCH ×4 (08:08→21:03)
[2022-04-13] MEDS ORDERED: SODIUM CHLORIDE 0.45% 500 ML IV SCH ×2 (08:30→10:13)
[2022-04-13] MEDS: APIXABAN 2.5 MG TABLET PO SCH ×2 (09:21→22:19)
[2022-04-13] MEDS: metoPROLOL SUCCINATE 25 MG TAB.SR.24H (FP) PO SCH ×2 (09:21→22:19)
[2022-04-13] MEDS: CHOLECALCIFEROL (VIT D3) 1,000 UNIT (25 MCG) TABLET PO SCH (09:21)
[2022-04-13] MEDS: amLODIPine BESYLATE 2.5 MG TABLET (FP) PO SCH (09:21)
[2022-04-13] MEDS: guaiFENesin 600 MG TABLET.ER (FP) PO SCH ×2 (09:21→22:19)
[2022-04-13] MEDS: LACTOBACILLUS ACIDOPHILUS 1 TABLET PO SCH (09:21)
[2022-04-13] MEDS: PANTOPRAZOLE 40 MG TABLET PO SCH (09:23)
[2022-04-13] MEDS: TRIAMCINOLONE ACET 0.5% OINT 15 GM TUBE TP SCH ×2 (09:24→22:18)
[2022-04-13] MEDS: METHIMAZOLE 5 MG TABLET PO SCH (09:25)
[2022-04-13] MEDS: VITAMIN B COMPLEX W/C COMBO TABLET (FP) PO SCH (09:27)
[2022-04-13 09:40] LABS: BLOOD UREA NITROGEN 20.9 mg/dL (7-18); CALCIUM 10.2 mg/dL (8.5-10.1)
[2022-04-13 09:45] LABS: CREATININE 1.6 mg/dL (0.55-1.3)
[2022-04-13 13:29] VITALS: BMI 25.7
[2022-04-13] MEDS: FUROSEMIDE 20 MG TABLET (FP) PO SCH (14:51)
[2022-04-13] MEDS: ATORVASTATIN CA 80 MG TABLET (FP) PO SCH (22:19)
[2022-04-13] MEDS: FERROUS SO4 325 MG TABLET (FP) PO SCH (22:19)
[2022-04-13] MEDS: ACETAMINOPHEN 325 MG TABLET (FP) PO PRN (22:26)
[2022-04-14] MEDS: FUROSEMIDE 20 MG TABLET (FP) PO SCH ×2 (06:54→14:45)
[2022-04-14 08:17] VITALS: TEMP 98.8
[2022-04-14] MEDS: ALBUTEROL SO4 2.5/IPRATROPIUM 0.5 INH SOL 3 ML VIAL.NEB. NEB SCH ×2 (08:50→12:43)
[2022-04-14 10:15] LABS: BASO % 1.4 % (0-2.0); EOS % 5.7 % (0-4.5); HEMATOCRIT 33.1 % (32.4-45.2); HEMOGLOBIN 10.4 GM/dL (10.7-15.3); LYMPH % 14.6 % (8-40); MCH 29.5 pg (25.7-33.7); MCHC 31.4 g/dl (32.0-36.0); MEAN CELL VOLUME 93.7 fl (80-96); MEAN PLT VOLUME 8.8 fl (7.5-11.1); MONO % 8.3 % (3.8-10.2); PLATELET COUNT 290 10^3/uL (134-434); RBC 3.53 M/mm3 (3.60-5.2); RDW 14.6 % (11.6-15.6); WHITE BLOOD COUNT 10.6 K/mm3 (4.0-10.0)
[2022-04-14 10:43] LABS: ALBUMIN 2.3 g/dl (3.4-5.0); BLOOD UREA NITROGEN 23.3 mg/dL (7-18); CALCIUM 10.1 mg/dL (8.5-10.1)
[2022-04-14 10:45] LABS: CREATININE 1.6 mg/dL (0.55-1.3)
[2022-04-14 10:46] LABS: PHOSPHOROUS 2.9 mg/dL (2.5-4.9)
[2022-04-14 10:47] LABS: BILIRUBIN,TOTAL 0.4 mg/dL (0.2-1); TOT PROT 6.4 g/dl (6.4-8.2)
[2022-04-14 10:59] VITALS: BP 142/89; PULSE 119; RESP 20
[2022-04-14] MEDS: guaiFENesin 600 MG TABLET.ER (FP) PO SCH (11:06)
[2022-04-14] MEDS: LACTOBACILLUS ACIDOPHILUS 1 TABLET PO SCH (11:06)
[2022-04-14] MEDS: METHIMAZOLE 5 MG TABLET PO SCH (11:06)
[2022-04-14] MEDS: APIXABAN 2.5 MG TABLET PO SCH (11:07)
[2022-04-14] MEDS: metoPROLOL SUCCINATE 25 MG TAB.SR.24H (FP) PO SCH (11:07)
[2022-04-14] MEDS: amLODIPine BESYLATE 2.5 MG TABLET (FP) PO SCH (11:07)
[2022-04-14] MEDS: VITAMIN B COMPLEX W/C COMBO TABLET (FP) PO SCH (11:07)
[2022-04-14] MEDS: PANTOPRAZOLE 40 MG TABLET PO SCH (11:07)
[2022-04-14] MEDS: CHOLECALCIFEROL (VIT D3) 1,000 UNIT (25 MCG) TABLET PO SCH (11:07)
[2022-04-14] MEDS: TRIAMCINOLONE ACET 0.5% OINT 15 GM TUBE TP SCH (11:08)
[2022-04-14] MEDS ORDERED: MAG HYDROX/ALH/SMC/DPHA/LIDO 240 ML MOUTHWASH MM SCH (18:00)
[2022-04-15] MEDS ORDERED: FUROSEMIDE 40 MG TABLET (FP) PO SCH (06:00)
== END 2022-04-14 15:17 | DRG 871 ==
LOC: JER 18:14 → JERBED 21:29 → J4W 03-31 21:24 → J8W 04-09 15:58
PROVIDERS: ADMIT Internal Medicine; ATTEND Internal Medicine
DX: A41.9 Sepsis, unspecified organism (principal); G93.41 Metabolic encephalopathy; I50.32 Chronic diastolic (congestive) heart failure; I13.0 Hypertensive heart and chronic kidney disease with heart failure and stage 1 through stage 4 chronic kidney disease, or unspecified chronic kidney disease; I48.20 Chronic atrial fibrillation, unspecified; N12 Tubulo-interstitial nephritis, not specified as acute or chronic; N39.0 Urinary tract infection, site not specified; Q60.0 Renal agenesis, unilateral; N18.4 Chronic kidney disease, stage 4 (severe); E05.90 Thyrotoxicosis, unspecified without thyrotoxic crisis or storm; E78.5 Hyperlipidemia, unspecified; I25.10 Atherosclerotic heart disease of native coronary artery without angina pectoris; K21.9 Gastro-esophageal reflux disease without esophagitis; D72.829 Elevated white blood cell count, unspecified; B96.1 Klebsiella pneumoniae [K. pneumoniae] as the cause of diseases classified elsewhere; E83.42 Hypomagnesemia; E83.39 Other disorders of phosphorus metabolism
CPT/HCPCS: 36415; 70450-TC; 70496-TC; 70498-TC; 70551-TC; 71045-TC-FY; 80048; 80053; 80061; 81003; 82550; 82962; 83735; 84100; 84443; 84484; 85025; 85610; 85730; 87040; 87086; 87184; 87186; 93005; 93010; 93306-TC; 94640; 97116-GP; 97162-GP; 99285-25; C9803-CS; U0003; U0005

== ENCOUNTER 2022-08-06 04:58 | Inpatient (IN) | payer OTHER, MEDICARE ==
[2022-08-06 05:13] VITALS: TEMP 98.1
[2022-08-06] MEDS ORDERED: ONDANSETRON 4 MG/2 ML VIAL IVPUSH ONE (05:36)
[2022-08-06] MEDS ORDERED: ACETAMINOPHEN 1000 MG/100 ML BAG IVPB ONE (05:37)
[2022-08-06] MEDS ORDERED: ACETAMINOPHEN INJECTION 100 ML IVPB ONE (05:48)
[2022-08-06] MEDS ORDERED: ONDANSETRON 4 MG/2 ML VIAL ONE (05:49)
[2022-08-06 05:56] LABS: EOS % 3.8 % (0-4.5); HEMATOCRIT 37.7 % (32.4-45.2); HEMOGLOBIN 11.9 GM/dL (10.7-15.3); MCH 29.1 pg (25.7-33.7); MCHC 31.6 g/dl (32.0-36.0); MEAN CELL VOLUME 92.1 fl (80-96); MEAN PLT VOLUME 9.2 fl (7.5-11.1); MONO % 7.1 % (3.8-10.2); NEUT % 47.1 % (42.8-82.8); PLATELET COUNT 242 10^3/uL (134-434); RBC 4.09 M/mm3 (3.60-5.2); RDW 18.8 % (11.6-15.6); WHITE BLOOD COUNT 11.7 K/mm3 (4.0-10.0)
[2022-08-06 05:57] LABS: INR 1.22 (0.83-1.09); PROTHROMBIN TIME (PATIENT) 14.1 SEC (9.7-13.0)
[2022-08-06 06:00] LABS: ACTIVATED PTT 31.7 SECONDS (25.2-36.5)
[2022-08-06] MEDS ORDERED: morphine CARPU-JECT 2 MG/1 ML DISP.SYRIN IVPUSH ONE (06:02)
[2022-08-06 06:07] LABS: CALCIUM 10.2 mg/dL (8.5-10.1)
[2022-08-06 06:08] LABS: ALBUMIN 3.3 g/dl (3.4-5.0)
[2022-08-06 06:09] LABS: BLOOD UREA NITROGEN 43.1 mg/dL (7-18)
[2022-08-06 06:11] LABS: CREATININE 1.7 mg/dL (0.55-1.3)
[2022-08-06 06:13] LABS: TOT PROT 7.4 g/dl (6.4-8.2)
[2022-08-06 06:14] LABS: BILIRUBIN,TOTAL 0.5 mg/dL (0.2-1)
[2022-08-06] MEDS ORDERED: morphine SULFATE 4 MG/ML VIAL IVPUSH ONE (06:20)
[2022-08-06 06:30] LABS: LACTIC ACID 2.1 mmol/L (0.4-2.0)
[2022-08-06 07:36] VITALS: BP 150/80; PULSE 76; RESP 18; BMI 22.1
[2022-08-06] MEDS ORDERED: PANTOPRAZOLE 40 MG TABLET PO SCH (10:00)
== END 2022-08-06 08:30 | disposition expired | DRG 64 ==
LOC: JER 04:58 → JERBED 06:21
PROVIDERS: ADMIT Internal Medicine; ATTEND Internal Medicine
DX: I61.4 Nontraumatic intracerebral hemorrhage in cerebellum (principal); G93.6 Cerebral edema; J96.90 Respiratory failure, unspecified, unspecified whether with hypoxia or hypercapnia; E03.9 Hypothyroidism, unspecified; I10 Essential (primary) hypertension; Z51.5 Encounter for palliative care
CPT/HCPCS: 0241U-QW; 36415; 70450-TC; 80053; 80061; 82550; 82962; 83036; 83605; 84484; 85025; 85610; 85730; 93005; 93010; 99285-25